=== PATIENT | male | born 1935 | race Caucasian/White ===

== ENCOUNTER 2019-04-17 15:40 | Observation (INO) | payer OTHER, MEDICARE, SELFPAY ==
[2019-04-17] VITALS (20 sets, daily range): BP systolic 138–156; BP diastolic 66–98; PULSE 45–127; RESP 12–18; TEMP 36.6–36.8; O2SAT 94–100; BMI 29.6; BMI 27.8; BMI 27.9
--- NOTE | 2019-04-17 15:58 | EKG12_ITS ---
Test Reason : Blood Pressure : / mmHG Vent. Rate : 076 BPM Atrial Rate : 076 BPM P-R Int : 194 ms QRS Dur : 130 ms QT Int : 426 ms P-R-T Axes : 066 -14 063 degrees QTc Int : 479 ms Sinus rhythm with Premature atrial complexes Right bundle branch block Possible Lateral infarct , age undetermined Abnormal ECG Confirmed by LEE TINSLEY, EZ ([id number]), sound editor LETTY REYNA ([id number]) on 04/19/2019 1:45:07 PM Referred By: MILENA Confirmed By:EZ HOWARD MD
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
[2019-04-17 16:10] LABS: Absolute Lymphocyte Count 1.32 X10^3/uL (0.83-4.51); Absolute Neutrophil Count 3.6 X10^3/uL (2.0-7.7); Basophil# 0.04 X10^3/uL; Basophil% 0.7 % (0-1); Eosinophil# 0.23 X10^3/uL; Hematocrit 41.4 % (40-54); Hemoglobin 13.6 g/dL (13.0-16.5); Lymphocyte # 1.32 X10^3/ul (4.0); Mean Corp Hgb Conc 32.9 g/dL (32-36); Mean Corpuscular Hgb 30.5 pg (27.0-32.0); Mean Corpuscular Volume 92.8 fL (80-94); Mean Platelet Vol. 9.3 fl (6.2-12.0); Monocyte# 0.55 X10^3/uL; Monocyte% 9.6 % (0-10); NRBC Flagged by Analyzer 0 % (0-5); Neutrophil # 3.59 X10^3/uL (2.7-7.7); Neutrophil % 62.4 % (47-70); Platelet Count 241 K/mm3 (150-450); RBC Distribution Width CV 13.1 % (11.6-14.6); RBC Distribution Width SD 44.5 fl (35.1-43.9); Red Blood Count 4.46 M/mm3 (4.6-6.2); White Blood Count 5.8 K/mm3 (4.4-11.0)
[2019-04-17 16:18] LABS: Prothrombin Time (Protime)PT. 13.2 SECONDS (11.7-14.9)
[2019-04-17 16:19] LABS: Partial Thromboplast Time 24.7 Seconds (24.1-36.2)
[2019-04-17 16:45] LABS: AST(SGOT) 25 U/L (15-37); Alanine Aminotransfer ALT/SGPT 31 U/L (16-61); Albumin, Serum 3.5 g/dL (3.2-5.0); Alkaline Phosphatase 80 U/L (45-117); Anion Gap 4 (5-15); BUN 21 mg/dL (7-18); BUN/Creat Ratio 18.9 RATIO (10-20); Calcium,Total 8.9 mg/dL (8.5-10.1); Chloride 107 mmol/L (98-107); Creatinine, Serum 1.11 mg/dL (0.70-1.30); EST Glomerular Filtration Rate 67 mL/min (>60); Est Glom Filt Rate - Afr Amer 82 mL/min (>60); Estimated Creatinine Clearance 52.98 ml/min; Globulin 3.5 g/dL (2.2-4.2); Glucose 116 mg/dL (74-106); Potassium 4.4 mmol/L (3.5-5.1); Sodium Level 138 mmol/L (136-145)
--- NOTE | 2019-04-17 17:21 | ED.RN ---
PT NOTED TO BE A RATE OF 30 BPM ON THE MONITOR, THIS RN TO BEDSIDE. PT WAS SOMEWHAT DIFFICULT TO AROUSE WHEN THIS RN WENT TO BEDSIDE. PT AROUSED TO REPEATED PAINFUL STIMULI. RATE INCREASED TO 65. DR ABBOTT MADE AWARE.
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
--- NOTE | 2019-04-17 18:08 | NURSING ---
pt clutched chest and said oh god its coming on again pt with eyes closed and brief period of unresponsiveness. skin clammy. pt arouses again and denies any cp but that felt like i was pasing out again. no ectopy on telemetry seen. bs checked and was 132. bp 144/66 and pulse 71. at bedside. will monitor
[2019-04-17 18:26] LABS: Bedside Glucose 132 mg/dL (70-110)
[2019-04-17 18:51] LABS: Magnesium 2.2 mg/dL (1.6-2.6)
[2019-04-17] MEDS: 0.9% Normal Saline 1,000 ML 100 ML IV (18:51)
--- NOTE | 2019-04-17 18:59 | NURSING ---
tele alarmed for hr 39 and pt symptomatic with feeling awful light headed and pt diaphoretic. pt non sustained bradycardia. edelmira kaye aware and dr. gonsalves aware. iv fluid bolus ordered
[2019-04-17] MEDS: 0.9% Normal Saline 1,000 ML 500 ML IV (19:00)
--- NOTE | 2019-04-17 19:56 | NURSING ---
This RN was called into patients room with an episode. Patient described it as not feeling right then within a minute or two he reaches for his chest, due to shortness of breath/tightness. Gradually he becomes clammy with lightheadedness. Patient denies chest pain or heart palpitations.
--- NOTE | 2019-04-17 20:07 | EKG12_ITS ---
Test Reason : [id number] TROPONIN Blood Pressure : / mmHG Vent. Rate : 078 BPM Atrial Rate : 078 BPM P-R Int : 200 ms QRS Dur : 130 ms QT Int : 424 ms P-R-T Axes : 072 -18 066 degrees QTc Int : 483 ms Normal sinus rhythm Right bundle branch block Septal infarct , age undetermined Possible Lateral infarct , age undetermined Abnormal ECG When compared with ECG of 17-APR-2019 15:53, MANUAL COMPARISON REQUIRED, DATA IS UNCONFIRMED Confirmed by LEE TINSLEY, EZ ([id number]), pictures editor LETTY REYNA ([id number]) on 04/20/2019 1:57:15 PM Referred By: ALIYAH Confirmed By:EZ HOWARD MD
[2019-04-17] MEDS: Famotidine 20 MG Tablet PO (22:14)
[2019-04-17] MEDS: Atorvastatin Calcium 40 MG Tablet PO (22:14)
[2019-04-18] VITALS (12 sets, daily range): BP systolic 123–147; BP diastolic 61–81; PULSE 49–94; RESP 16–18; TEMP 36.6–36.8; O2SAT 93–97
--- NOTE | 2019-04-18 00:26 | NURSING ---
This RN has assessed patient with each episode which is reoccurring approximately every hour. Each episode is described the same except the last two. The episode begins with patient feeling unwell which follows with shortness of breath/heaviness. Patient denies chest pain or palpitations. Gradually patient becomes clammy with feeling of being light headed. The episode at 2310 patient stated this one by far has been the worse, it seems as it lasted longer. Previous ones last approximately 3-5 minutes of being symptomatic with this one lasting approximately eight minutes. The episode at 2350 patient stated he felt it was shorter and not as bad as previous one. This episode lasted approximately 3-5 minutes of being symptomatic.
--- NOTE | 2019-04-18 01:06 | NURSING ---
This RN was called into patients room due to an episode. Patient stated he had one approximately 45 minutes ago but did no want to bother this RN. This RN encouraged patient to call out so his blood pressure could be monitored. This episode was same lasting approximately 3-5 minutes.
[2019-04-18 07:47] LABS: Thyroid Stim Hormone (TSH) 1.28 uIU/mL (0.358-3.74)
[2019-04-18] MEDS: Famotidine 20 MG Tablet PO (08:01)
[2019-04-18] MEDS: Polyethylene Glycol 3350 17 GM PACKET PO (08:01)
[2019-04-18] MEDS: Aspirin 81 MG TAB.CHEW PO (08:01)
[2019-04-18] MEDS: Multivitamins,Therapeutic Tablet 1 TABLET PO (08:02)
[2019-04-18] MEDS: DULoxetine Hcl 60 MG Capsule PO (08:02)
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
[2019-04-18] MEDS: Enoxaparin 40 MG/0.4 ML Syringe SC (09:55)
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
[2019-04-18 12:51] LABS: Bedside Glucose 121 mg/dL (70-110)
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
--- NOTE | 2019-04-18 15:05 | NURSING ---
This RN received bedside report from Noelle Dang. Will take over pt care at this time.
--- NOTE | 2019-04-18 15:05 | NURSING ---
This RN received beside report from Noelle Dang RN. Will take over time for pt at this time.
--- NOTE | 2019-04-18 15:47 | DS.PCM_ITS ---
<Aundrea Mistry - Last Filed: 04/19/19 08:43> Discharge Date and Diagnosis Date of Admission: 04/17/19 Date of Discharge: 04/18/19 - Primary Discharge Diagnosis Active and Suspected Problems 1. Syncope, secondary to bradycardia versus TIA 2. Symptomatic intermittent bradycardia 3. Hypertension 4. Hyperlipidemia 5. History of prostate cancer status post radical prostatectomy 6. 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 NPH - Secondary Discharge Diagnosis Chronic Problems HTN (hypertension) (Chronic) Taken off ACEI secondary to cough several months ago with stable, appropriate BP following. HLD (hyperlipidemia) (Chronic) Dementia (Chronic) Prostate cancer (Chronic) Hospital Course and Treatment Imaging Results: Diagnostic Data Brain CT 04/17/19 15:58 IMPRESSION: 1. No acute intracranial hemorrhage or mass effect. 2. Central parenchymal volume loss. White matter changes that are nonspecific but most commonly associated with chronic small vessel ischemic disease. Electronically Signed: Jaime Gomez MD at 16:20 EDT , Service support , Chest X-Ray 04/17/19 15:58 IMPRESSION: Stable, nonacute x-ray examination of the chest. Electronically Signed: Jaime Gomez MD at 16:30 EDT , Service support , Cervical Spine CT 04/17/19 17:22 IMPRESSION: Multilevel degenerative changes, as described above. There is no evidence of fracture or subluxation. Electronically Signed: Harpreet Leos MD at 17:54 EDT , Service support , Dr. Desir- Cardiology Operations: None Procedures: None Summary of Care Provided: The patient is a 84 year old M admitted 04/17/2019 due to syncope. 1. Syncope, secondary to bradycardia versus TIA-patient continues to have intermittent symptoms which appear associated with bradycardia. Cardiology evaluated patient and patient had episode during examination and he became confused, unable to follow commands and left arm appeared to be weak. This lasted 20 to 30 seconds and then completely resolved. Cardiology feels patient needs neurologic evaluation and therefore patient was subsequently transferred to [facility] where patient's primary neurologist is for further evaluation. 2. Symptomatic intermittent bradycardia-episodes last briefly, patient appears to have symptoms with these episodes. Monitor telemetry. Patient is not on rate limiting medications. EKG on admission with sinus rhythm, right bundle branch block. Cardiology consult placed as noted above. 3. Hypertension-stable, no longer on regimen. 4. Hyperlipidemia-continue statin. 5. History of prostate cancer status post radical prostatectomy 6. 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 NPH-follows with [facility] neurology. General: Alert, Oriented x3, Cooperative HEENT: Atraumatic, PERRLA, EOMI, Normocephalic Neck: Supple, No JVD, Negative Carotid Bruits Lungs: Clear to auscultation, Normal air movement Cardiovascular: Regular rate, Regular Rhythm, Normal S1, Normal S2, No murmurs Abdomen: Bowel Sounds Present, Soft, Non Tender, Non-Distended Extremities: No clubbing, No cyanosis, No edema, Capillary Refill Less than 3 Seconds Skin: No rashes, No breakdown Musculoskeletal: No Tenderness to Palpation of Joints or Extremities Neurological: Cranial nerves II-XII grossly intact, Neuro grossly intact Psych/Mental Status: Normal Affect, Appropriate Patient seen and examined prior to discharge. Physical assessment as noted above. Patient is stable at time of transfer to [facility] for further evaluation. This patient was seen by PREETI Infante under the supervision of Dr. Waters. - Physical Exam Vital Signs Temp Pulse Resp BP Pulse Ox 97.9 F 72 18 141/66 H 97 04/18/19 15:30 04/18/19 15:30 04/18/19 15:30 04/18/19 15:30 04/18/19 15:30 Oxygen Delivery Method Room Air Weight: 197 lb 1.492 oz Body Mass Index (BMI) 27.8 Finger Stick Blood Glucose 118 Orthostatic Vital Signs Start: 04/18/19 11:06 Freq: q24h Status: Active Protocol: Activity Type Activity Date Activity User E-Sign Co-Sign Detail Recorded Client Recorded Date Recorded By Document 04/18/19 11:48 EA [id number] 04/18/19 11:48 EA 04/18/19 11:48 Orthostatic Vitals Standing -Blood Pressure (90/60-120/80) 136/71 H -Extremity Use Right Arm -Pulse Rate (60-100) 84 Sitting -Blood Pressure (90/60-120/80) 132/71 H -Extremity Use Right Arm -Pulse Rate (60-100) 80 Lying -Blood Pressure (90/60-120/80) 137/61 H -Extremity Use Right Arm -Pulse Rate (60-100) 79 Intake and Output for Last 24 Hours 04/16/19 04/17/19 04/18/19 23:59 23:59 23:59 Intake Total 2658 / 2658 Output Total 1325 / 1325 Balance 1333 / 1333 Laboratory Tests Past 24 Hrs 04/17/19 04/17/19 04/17/19 15:50 15:50 15:50 WBC 5.8 RBC 4.46 L Hgb 13.6 Hct 41.4 MCV 92.8 MCH 30.5 MCHC 32.9 RDW Std Deviation 44.5 H RDW Coeff of Lucy 13.1 Plt Count 241 MPV 9.3 Immature Gran % (Auto) 0.300 Neut % (Auto) 62.4 Lymph % (Auto) 23.0 [place] % (Auto) 9.6 Eos % (Auto) 4.0 Baso % (Auto) 0.7 Absolute Neuts (auto) 3.6 Absolute Lymphs (auto) 1.32 Absolute Nucleated RBC 0.00 Nucleated RBC % 0 PT 13.2 INR 1.0 APTT 24.7 Sodium 138 Potassium 4.4 Chloride 107 Carbon Dioxide 27.0 Anion Gap 4 L BUN 21 H Creatinine 1.11 Estim Creat Clear Calc 52.98 Est GFR (MDRD) Af Amer 82 Est GFR (MDRD) Non-Af 67 BUN/Creatinine Ratio 18.9 Glucose 116 H Calcium 8.9 Magnesium Total Bilirubin 0.40 AST 25 ALT 31 Alkaline Phosphatase 80 Troponin I < 0.015 Total Protein 7.0 Albumin 3.5 Globulin 3.5 Albumin/Globulin Ratio 1.0 TSH Ethyl Alcohol 04/17/19 04/17/19 04/17/19 15:50 15:50 19:05 WBC RBC Hgb Hct MCV MCH MCHC RDW Std Deviation RDW Coeff of Lucy Plt Count MPV Immature Gran % (Auto) Neut % (Auto) Lymph % (Auto) [place] % (Auto) Eos % (Auto) Baso % (Auto) Absolute Neuts (auto) Absolute Lymphs (auto) Absolute Nucleated RBC Nucleated RBC % PT INR APTT Sodium Potassium Chloride Carbon Dioxide Anion Gap BUN Creatinine Estim Creat Clear Calc Est GFR (MDRD) Af Amer Est GFR (MDRD) Non-Af BUN/Creatinine Ratio Glucose Calcium Magnesium 2.2 Total Bilirubin AST ALT Alkaline Phosphatase Troponin I < 0.015 Total Protein Albumin Globulin Albumin/Globulin Ratio TSH Ethyl Alcohol 10.0 04/17/19 04/18/19 21:43 06:25 WBC RBC Hgb Hct MCV MCH MCHC RDW Std Deviation RDW Coeff of Lucy Plt Count MPV Immature Gran % (Auto) Neut % (Auto) Lymph % (Auto) [place] % (Auto) Eos % (Auto) Baso % (Auto) Absolute Neuts (auto) Absolute Lymphs (auto) Absolute Nucleated RBC Nucleated RBC % PT INR APTT Sodium Potassium Chloride Carbon Dioxide Anion Gap BUN Creatinine Estim Creat Clear Calc Est GFR (MDRD) Af Amer Est GFR (MDRD) Non-Af BUN/Creatinine Ratio Glucose Calcium Magnesium Total Bilirubin AST ALT Alkaline Phosphatase Troponin I < 0.015 Total Protein Albumin Globulin Albumin/Globulin Ratio TSH 1.28 Ethyl Alcohol POC Glucose 04/18/19 04/17/19 12:47 18:06 POC Glucose 121 H 132 H Home Medications: Medications to take at Discharge Aspirin [Aspirin, Baby] 81 mg PO DAILY@0800 05/14/17 Lysine [l-Lysine] 500 mg PO DAILY 05/14/17 Multivitamin [Multiple Vitamins] 1 each PO DAILY 05/14/17 [place]-3/Dha/Epa/Fish Oil [Fish Oil 1,000 mg Softgel] 1 each PO DAILY 05/14/17 Rosuvastatin Calcium [Crestor] 20 mg PO DAILY 05/14/17 Ubidecarenone [Coq10] 300 mg PO DAILY 05/14/17 Duloxetine HCl 60 mg PO DAILY 04/17/19 Turmeric/Turmeric Root Extract [Turmeric 500 mg Capsule] 1 ea PO DAILY 04/17/19 Primary Care Physician: Kapil Lara DO [Primary Care Provider] - Disposition: Acute care Hospital Minutes spent on discharge:: 35 Patient Condition:: Stable Medical Necessity - Tobacco Use Smoking Status: Never smoker Meaningful Use Info Meaningful Use Diagnoses (Choose all that apply): None applicable <Chapincito Waters - Last Filed: 04/20/19 03:42> Discharge Date and Diagnosis - Secondary Discharge Diagnosis Chronic Problems HTN (hypertension) (Chronic) Taken off ACEI secondary to cough several months ago with stable, appropriate BP following. HLD (hyperlipidemia) (Chronic) Dementia (Chronic) Prostate cancer (Chronic) Hospital Course and Treatment Summary of Care Provided: The patient is a 84 year old M [] - Physical Exam Vital Signs Temp Pulse Resp BP Pulse Ox 97.9 F 73 18 147/81 H 97 04/18/19 17:18 04/18/19 17:18 04/18/19 17:18 04/18/19 17:18 04/18/19 17:18 Oxygen Delivery Method Room Air Weight: 197 lb 1.492 oz Body Mass Index (BMI) 27.8 Finger Stick Blood Glucose 118 Intake and Output for Last 24 Hours 04/18/19 04/19/19 04/20/19 23:59 23:59 23:59 Intake Total 2878 / 2878 Output Total 1325 / 1325 Balance 1553 / 1553 Code Visit Addendum: Dr. Wtaers I personally examined the patient and reviewed the chart. I agree with the above. 84-year-old gentleman who presented with syncope. Today he was being seen by cardiology when he had 1-2 episode of left arm weakness for 30 seconds to 1 minute in duration, he could not lift his arm. In discussing with him he has a neurologist for his normal pressure hydrocephalus in [place] and he would like to be transferred there since there is no neurology coverage over the weekends. We did discuss the case with [facility] neurology and they agreed to accept patient in transfer. OBSV E&M: [id number] Observation care discharge
--- NOTE | 2019-04-18 18:32 | NURSING ---
This RN called report to [facility]STANT[facility] Loja.
== END 2019-04-18 18:31 | disposition short-term general hospital (02) ==
LOC: ED 16:30 → PCU 17:28
PROVIDERS: Admitting Provider Internal Medicine; Emergency Provider Emergency Medicine; Family Provider Student in an Organized Health Care Education/Training Program; PCP Student in an Organized Health Care Education/Training Program; Visit Provider Family Medicine
DX: R55 Syncope and collapse (principal); I45.10 Unspecified right bundle-branch block; E78.5 Hyperlipidemia, unspecified; I10 Essential (primary) hypertension; F03.90 Unspecified dementia, unspecified severity, without behavioral disturbance, psychotic disturbance, mood disturbance, and anxiety; G91.2 (Idiopathic) normal pressure hydrocephalus; R00.1 Bradycardia, unspecified; S30.1XXD Contusion of abdominal wall, subsequent encounter; W19.XXXD Unspecified fall, subsequent encounter; Z85.46 Personal history of malignant neoplasm of prostate; Z79.82 Long term (current) use of aspirin; Z79.899 Other long term (current) drug therapy; Z86.73 Personal history of transient ischemic attack (TIA), and cerebral infarction without residual deficits
CPT/HCPCS: 36415; 70450; 71046; 72125; 80053; 80320; 82962; 83735; 84443; 84484; 85025; 85610; 85730; 93005; 96360; 96361; 96372; 97161; 97165; 99218; 99285; J7030; A4216; G0378; G0480

== ENCOUNTER 2020-10-27 15:03 | Outpatient (RCR) | payer MEDICARE, OTHER, SELFPAY ==
[2019-04-17 17:52] VITALS: BMI 27.8
== END 2020-10-27 23:59 ==
LOC: IMMUN 15:03
PROVIDERS: PCP Student in an Organized Health Care Education/Training Program; Referring Provider Family Medicine; Visit Provider Family Medicine
DX: Z23 Encounter for immunization (principal)
CPT/HCPCS: 0011A; 0012A; 91301

== ENCOUNTER 2022-03-04 18:04 | Emergency (ER) | payer MEDICARE, OTHER, SELFPAY ==
[2022-03-04 18:05] VITALS: BP 128/81; PULSE 82; RESP 16; TEMP 36.8; O2SAT 94; BMI 26.5
--- NOTE | 2022-03-04 18:33 | EDS_ITS ---
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 Nothing specific that may have caused an injury) Timing: Continuous and Waxes and wanes Quality: Dull Location: Lumbar Current Severity: Mild Maximum Severity: Severe Worsened by: improves with Movement and Bending Relieved by: Nothing Associated Symptoms Associated Symptoms: - (Patient does endorse urgency); Negative for Numbness, Tingling, Radiation to Right Leg, Radiation to Left Leg, Fever, Abdominal Pain, Dysuria, Unable to Ambulate, Unable to Transfer, Urinary Retention, Urinary Incontinence, Constipation and Fecal Incontinence Narrative Narrative: Patient presents because of 6-day history of low left back pain. There is no radiation to the groin. There is no swelling of the scrotum or testicle. He has a remote history of kidney stone, 20 years ago. He denies nausea or vomiting. He denies dysuria, frequency or hematuria. He does endorse urgency. He is status post prostatectomy due to cancer. There is no history of direct trauma. Patient is outdoors and gardens a lot. He may have done something but nothing that he can recall. He denies radicular pain. Denies foot drop. He denies weakness in his lower extremities. He apparently was seen at the [facility] on Friday and states they could do nothing because the are not able to image. Family member asked if I was going to get any images and I informed them at this time no. Prior similar symptoms: Yes Recent Illness/Hospitalization: No [facility] Medical History (Updated 03/04/22 @ 19:[address] Jens Draper MD) Dementia High cholesterol History of hydrocephalus History of kidney stones History of prostate cancer Hypertension Home Medications coenzyme Q10 300 mg PO DAILY 05/14/17 [History Last Taken 05/13/17] lysine [L-Lysine] 500 mg PO DAILY 05/14/17 [History Last Taken 05/13/17] multivitamin [Multiple Vitamins] 1 ea PO DAILY 05/14/17 [History Last Taken ] omega 9-[id number]-vxo-fish oil [Fish Oil] 1 ea PO DAILY 05/14/17 [History Last Taken 05/13/17] rosuvastatin [Crestor] 20 mg PO DAILY 05/14/17 [History Last Taken 05/13/17] turmeric-turmeric root extract 1 ea PO DAILY 04/17/19 [History Last Taken Unknown] albuterol 90 mcg INHALATION Q4H PRN 03/04/22 [History Last Taken Unknown] amlodipine 5 mg PO DAILY 03/04/22 [History Last Taken Unknown] cholecalciferol (vitamin D3) [Vitamin D3] 125 mcg PO DAILY 03/04/22 [History Last Taken Unknown] cyanocobalamin (vitamin B-12) 1,000 mcg IM QMONTH 03/04/22 [History Last Taken Unknown] fexofenadine [Deyanira] 180 mg PO DAILY 03/04/22 [History Last Taken Unknown] fluoxetine 10 mg PO DAILY 03/04/22 [History Last Taken Unknown] fluticasone propionate [Flovent HFA] 1 puff INHALATION BID 03/04/22 [History Las t Taken Unknown] hydrocodone-acetaminophen 1 tab PO Q6H PRN PRN 3 Days #10 tablet 03/04/22 [Rx Last Taken Unknown] rivaroxaban [Xarelto] 20 mg PO DINNER 03/04/22 [History Last Taken Unknown] Allergy/AdvReac Type Severity Reaction Status Date / Time ciprofloxacin [From Cipro] Allergy Hives Verified 03/04/22 18:08 crab Allergy Anaphylaxis Verified 03/04/22 18:08 Penicillins Allergy Hives Verified 03/04/22 18:08 Surgical History (Updated 03/04/22 @ 18:43 by Yamilet Suarez) History of appendectomy History of tonsillectomy Intracranial shunt Social History (Updated 03/04/22 @ 18:[address] Jens Draper MD) household members: none Smoking Status: Never smoker substance use type: does not use ROS ROS ED Constitutional Constitutional ED: Denies chills, fever(s), subjective or sweats Eyes Eyes: Denies blurry vision, change in vision or diplopia ENT ENT ED: Denies ear pain, rhinorrhea or sore throat Cardiovascular Cardiovascular: Denies chest pain or palpitations Respiratory/Chest Respiratory/Chest: Denies dyspnea Gastrointestinal Gastrointestinal: Denies abdominal pain, constipation, diarrhea, nausea or vomiting Genitourinary Genitourinary ED: Denies dysuria, hematuria or urinary frequency Musculoskeletal Musculoskeletal: Reports back pain; Denies arthralgias, myalgias or neck pain Neurologic Neurologic: Denies paresthesias or weakness EXAM Physical Exam Const Vital Signs: 03/04/22 18:05 03/04/22 18:35 Temperature 98.2 F Temperature Source Temporal Pulse Rate 82 Respiratory Rate 16 Respiratory Effort Normal Non-Labored Respiratory Pattern Normal Blood Pressure 128/81 H Blood Pressure Mean 96 Pulse Ox 94 Oxygen Delivery Method Room Air Positive well nourished and well developed Constitutional Narrative: Patient is in obvious discomfort when asked to sit up or lie back. This reproduces his left lower back pain. General Appearance ED: well developed and NAD; Negative for pallor HEENT Negative for trauma or tenderness Eyes PERRL and EOMs intact bilaterally General Eye ED: Negative for pale conjunctiva or scleral icterus Neck supple Resp normal respiratory effort and clear to auscultation bilaterally Cardio regular rate, regular rhythm, S1 normal heart sound, S2 normal heart sound and no murmurs GI normal to inspection, nondistended, normoactive bowel sounds, soft to palpation, non-tender and non-distended Back/Spine normal to inspection; Negative for no thoracic nor lumbar tenderness Back/Spine Narrative: There is pain no patient left lower back that reproduces his pain. There is a well-healed surgical scar noted. General Back: Negative for CVA tenderness Cervical Spine: Negative for cervical spine tenderness and Negative for paracervical muscle tenderness Thoracic Spine / Upper Back: paraspinal muscle tenderness Extremity normal to inspection and no clubbing, cyanosis or edema General Extremety ED: Negative for edema or tenderness General Extremity: Negative for edema Psych mental status grossly normal Skin no rashes or lesions noted and no wounds General Skin Exam: Negative for jaundice or pallor MDM MDM MDM Narrative Medical decision making narrative: Back patient's left lower back pain is musculoskeletal etiology since its reproducible with palpation and movement. Because he complains of urgency will obtain UA to rule out infection and to assess for blood. Lab Data Attestation: I reviewed the patient's lab results. Lab results narrative: Macro urinalysis is negative. Specific gravity slight elevated 1.025. This is consistent with muscular low back pain. There is no concern for infection. Will discharge to home with appropriate home-going instructions Labs: Laboratory Results - last 24 hr 03/04/22 18:22 Urine Color Yellow Urine Clarity Clear Urine pH 6.0 Ur Specific [place] 1.025 Urine Protein Negative Urine Glucose (UA) Normal Urine Ketones Negative Urine Occult Blood Negative Urine Nitrite Negative Urine Bilirubin Negative Urine Urobilinogen Normal Ur Leukocyte Esterase Negative Discharge Plan Triage Chief Complaint: Flank Pain ED Provider: Jens Draper Dx/Rx/DC Orders Clinical Impression: Acute left-sided low back pain Instructions: ED Back Pain (Acute or Chronic) Prescriptions: New hydrocodone-acetaminophen [hydrocodone-acetaminophen] 1 TABLET tablet 1 tab PO Q6H PRN PRN (Reason: Pain) 3 Days Qty: 10 RF: 0 No Action rosuvastatin [Crestor] 20 MG tablet 20 mg PO DAILY RF: 0 multivitamin [Multiple Vitamins] 1 EACH tablet 1 ea PO DAILY RF: 0 lysine [L-Lysine] 500 MG tablet 500 mg PO DAILY RF: 0 omega 2-xpd-ick-fish oil [Fish Oil] 1 EACH capsule 1 ea PO DAILY RF: 0 coenzyme Q10 50 MG tablet,chewable 300 mg PO DAILY RF: 0 turmeric-turmeric root extract 1 EACH capsule 1 ea PO DAILY RF: 0 fexofenadine [Deyanira] 180 mg Tablet 180 mg PO DAILY RF: 0 amlodipine 5 mg Tablet 5 mg PO DAILY RF: 0 cyanocobalamin (vitamin B-12) 1,000 mcg/mL solution 1,000 mcg IM QMONTH RF: 0 fluoxetine 10 mg capsule 10 mg PO DAILY RF: 0 albuterol 90 mcg/actuation Aerosol 90 mcg INHALATION Q4H PRN (Reason: sob) RF: 0 fluticasone propionate [Flovent HFA] 110 mcg/actuation Hfa Aerosol Inhaler 1 puff INHALATION BID RF: 0 cholecalciferol (vitamin D3) [Vitamin D3] 125 mcg (5,000 unit) Tablet 125 mcg PO DAILY RF: 0 Xarelto 20 mg tablet 20 mg PO DINNER RF: 0 Primary Care Provider: Kapil Lara Referrals: Kapil Lara DO [Primary Care Provider] - 1 Week if not improving Activity Restrictions/Additional Instructions: 1. Apply ice to lower back 6-8 times per day 2. Return if you are unable to urinate or lose bowel control 3. Take [place] as prescribed for your back pain Disposition Disposition: Home, Self Care
[2022-03-04 18:44] LABS: Bacteria 0 SEEN /hpf (None Seen); Mucous, Urine 0 SEEN /hpf (<or=2+); Red Blood Cells-Urine 0 SEEN /hpf (0-5); Squamous Epithelial Cells - UA 0 SEEN /hpf (0-5); White Blood Cells 0 SEEN /hpf (0-5)
[2022-03-04 18:55] LABS: Color, Urine Yellow (Yellow); Glucose, Dipstick Normal (Normal); Ketone-Dipstick Negative (Negative); Leukocyte Esterase-Dipstick Negative /ul (Negative); Nitrite-Dipstick Negative (Negative); Occult Blood-Urine Negative /ul (Negative); Protein-Dipstick Negative (Negative); Specific Gravity, Urine 1.025 (1.002-1.030); Urine Bilirubin Dipstick Negative (Negative); Urine Clarity Clear (Clear); Urine Urobilinogen Normal (Normal)
== END 2022-03-04 19:26 | disposition home or self-care (01) ==
PROVIDERS: Emergency Provider Emergency Medicine; PCP Student in an Organized Health Care Education/Training Program; Visit Provider Emergency Medicine
DX: M54.50 Low back pain, unspecified (principal); F03.90 Unspecified dementia, unspecified severity, without behavioral disturbance, psychotic disturbance, mood disturbance, and anxiety; I10 Essential (primary) hypertension; E78.00 Pure hypercholesterolemia, unspecified; Z85.46 Personal history of malignant neoplasm of prostate; Z87.442 Personal history of urinary calculi; Z79.899 Other long term (current) drug therapy
CPT/HCPCS: 81001; 99283; A4216

== ENCOUNTER 2023-03-27 13:23 | Emergency (ER) | payer MEDICARE, OTHER, SELFPAY ==
[2023-03-27 13:23] VITALS: BP 167/69; PULSE 59; RESP 14; TEMP 36.6; O2SAT 96
--- NOTE | 2023-03-27 13:58 | CT_ITS ---
STUDY: CT ABDOMEN AND PELVIS WITHOUT CONTRAST REASON FOR EXAM: Male, 87 years old. Kidney Stone- RIGHT FLANK PAIN RADIATION DOSAGE (If Supplied By Facility): CTDIvol = ( 8.43 ) mGy, DLP = ( 463.37 ) mGycm TECHNIQUE: Transaxial images were obtained from the dome of the diaphragm to the symphysis pubis without oral contrast, and without intravenous contrast. Sagittal and coronal images were reconstructed. Individualized dose optimization techniques were used for this CT. COMPARISON: Comparison is made with prior study dated January 24, 2016. FINDINGS: The visualized lung bases are unremarkable. Coronary artery calcification. 1.8 cm cyst in the anterior aspect of the right lobe of the liver. 1.3 cm cyst in the region of the maribel hepatis. Small gallstone in the neck of the gallbladder. Normal spleen. Normal pancreas. Normal bilateral adrenal glands. Small bilateral parapelvic cysts. 1.4 cm cyst in the lateral aspect of the left kidney. Nonspecific bilateral perinephric stranding. There is a small hiatal hernia. Normal small intestine. There are multiple colonic diverticula consistent with diverticulosis. The appendix is visualized and appears normal. There is diffuse atherosclerotic calcification of the abdominal aorta and its major visceral branches, without a demonstrated aneurysm. Normal inferior vena cava. Normal retroperitoneum. Normal urinary bladder. A ventriculoperitoneal shunt is seen with the tip in the lower abdomen. Calcification of the vas deferens. Normal abdominal wall. There are diffuse degenerative changes of the visualized lumbar spine. Levoscoliosis. CT/Abdomen/Pelvis without Cont IMPRESSION: Hepatic cysts. Small gallstone in the neck of the gallbladder. Small bilateral parapelvic cysts. Diverticulosis. Electronically Signed: Marco Antonio Cummings MD at 15:07 EDT ,
[2023-03-27 14:19] LABS: Absolute Lymphocyte Count 0.87 X10^3/uL (0.83-4.51); Absolute Neutrophil Count 5.1 X10^3/uL (2.0-7.7); Basophil# 0.04 X10^3/uL; Basophil% 0.6 % (0-1); Eosinophil# 0.18 X10^3/uL; Eosinophils% 2.6 % (0-5); Hematocrit 42.8 % (40-54); Hemoglobin 13.8 g/dL (13.0-16.5); Lymphocyte # 0.87 X10^3/ul (0.83-4.51); Lymphocyte % 12.6 % (19-41); Mean Corp Hgb Conc 32.2 g/dL (32-36); Mean Corpuscular Hgb 30.3 pg (27.0-32.0); Mean Corpuscular Volume 94.1 fL (80-94); Mean Platelet Vol. 9.5 fl (6.2-12.0); Monocyte# 0.69 X10^3/uL; NRBC Flagged by Analyzer 0 % (0-5); Neutrophil # 5.12 X10^3/uL (2.7-7.7); Neutrophil % 73.8 % (47-70); Platelet Count 238 K/mm3 (150-450); RBC Distribution Width CV 12.5 % (11.6-14.6); RBC Distribution Width SD 43.4 fl (35.1-43.9); Red Blood Count 4.55 M/mm3 (4.6-6.2); White Blood Count 6.9 K/mm3 (4.4-11.0)
[2023-03-27 14:29] LABS: Anion Gap 2 (5-15); BUN 19 mg/dL (7-18); BUN/Creat Ratio 18.4 RATIO (10-20); Calcium,Total 9.1 mg/dL (8.5-10.1); Chloride 107 mmol/L (98-107); Creatinine, Serum 1.03 mg/dL (0.70-1.30); EST Glomerular Filtration Rate 73 mL/min (>60); Est Glom Filt Rate - Afr Amer 88 mL/min (>60); Glucose 95 mg/dL (74-106); Potassium 5.1 mmol/L (3.5-5.1); Sodium Level 139 mmol/L (136-145)
[2023-03-27] MEDS: Ondansetron 4 MG/2 ML Vial IV (14:36)
[2023-03-27] MEDS: Morphine 4 MG/ML Syringe IV (14:36)
[2023-03-27] MEDS: 0.9% Normal Saline 1,000 ML 250 ML IV (14:36)
[2023-03-27 14:53] VITALS: BMI 26.6
--- NOTE | 2023-03-27 15:00 | EDS_ITS ---
HPI History of Present Illness Chief Complaint: Flank Pain Informant: patient and spouse/S.O. Narrative Narrative: Increasing right flank pain rating to his groin since yesterday. Went to urgent care with laying down got nauseous sat up felt better. No urinary symptoms. No fevers. Reports headache kidney stone last time 25 years ago self-limiting. Prior to that had a stone that required surgical intervention. Prostatectomy in 2009. He was seen by [facility] urology at that time. Does not follow urology currently. Reports feels similar to his kidney stone in the past. Prior similar symptoms: Yes PFSH PFSH Medical History Dementia High cholesterol History of hydrocephalus History of kidney stones History of prostate cancer Hypertension Home Medications coenzyme Q10 50 mg chewable tablet 300 mg PO DAILY supplement 05/14/17 [History Last Taken 05/13/17] lysine 500 mg tablet (L-Lysine) 500 mg PO DAILY supplement 05/14/17 [History Last Taken 05/13/17] multivitamin (Multiple Vitamins tablet) 1 ea PO DAILY supplement 05/14/17 [History Last Taken 05/13/17] omega 3-nnq-pzx-fish oil 300 mg-1,000 mg capsule (Fish Oil) 1 ea PO DAILY supplement 05/14/17 [History Last Taken 05/13/17] rosuvastatin 20 mg tablet (Crestor) 20 mg PO DAILY cholesterol lowering 05/14/17 [History Last Taken 05/13/17] turmeric 450 mg-turmeric root extract 50 mg capsule 1 ea PO DAILY 04/17/19 [History Last Taken Unknown] albuterol 90 mcg/actuation aerosol inhaler 90 mcg inhalation Q4H PRN sob 03/04/22 [History Last Taken Unknown] amlodipine 5 mg tablet 5 mg PO DAILY 03/04/22 [History Last Taken Unknown] cholecalciferol (vitamin D3) 125 mcg (5,000 unit) tablet (Vitamin D3) 125 mcg PO DAILY 03/04/22 [History Last Taken Unknown] cyanocobalamin (vitamin B-12) 1,000 mcg/mL injection solution 1,000 mcg IM QMONTH 03/04/22 [History Last Taken Unknown] fexofenadine 180 mg tablet 180 mg PO DAILY 03/04/22 [History Last Taken Unknown] fluoxetine 10 mg capsule 10 mg PO DAILY 03/04/22 [History Last Taken Unknown] fluticasone propionate 110 mcg/actuation HFA aerosol inhaler (Flovent HFA) 1 puff inhalation BID 03/04/22 [History Last Taken Unknown] hydrocodone-acetaminophen 5-325mg 5mg-325mg 1 tab PO Q6H PRN PRN Pain 3 days #10 TABLETS 03/04/22 [Rx Last Taken Unknown] rivaroxaban 20 mg tablet (Xarelto) 20 mg PO DINNER 03/04/22 [History Last Taken Unknown] gabapentin 300 mg capsule 300 mg PO QHS #30 caps 03/27/23 [Rx Last Taken Unknown] Allergy/AdvReac Type Severity Reaction Status Date / Time ciprofloxacin [From Cipro] Allergy Hives Verified 03/27/23 13:33 crab Allergy Anaphylaxis Verified 03/27/23 13:33 Penicillins Allergy Hives Verified 03/27/23 13:33 Surgical History History of appendectomy History of tonsillectomy Intracranial shunt Social History household members: none Smoking Status: Never smoker substance use type: does not use ROS ROS ED Constitutional Constitutional ED: Denies chills, fever(s) or sweats Eyes Eyes: Denies change in vision ENT ENT ED: Denies dysphagia or sore throat Cardiovascular Cardiovascular: Denies chest pain, leg edema, palpitations or racing heartbeat Respiratory/Chest Respiratory/Chest: Denies cough, dyspnea or dyspnea on exertion Gastrointestinal Gastrointestinal: Denies abdominal pain, diarrhea, nausea or vomiting Genitourinary Genitourinary ED: Denies dysuria, hematuria or urinary frequency Musculoskeletal Musculoskeletal: Reports back pain; Denies extremity pain or neck pain Integumentary Denies rash or wounds Neurologic Neurologic: Denies headache(s), paresthesias or weakness EXAM Physical Exam Const Vital Signs: 03/27/23 13:23 03/27/23 13:35 03/27/23 15:42 Temperature 98 F Temperature Source Temporal Pulse Rate 59 L 68 Respiratory Rate 14 14 Respiratory Effort Normal Non-Labored Respiratory Pattern Normal Blood Pressure 167/69 H 153/75 H Blood Pressure Mean 101 101 Pulse Ox 96 98 Oxygen Delivery Method Room Air Room Air 03/27/23 16:27 Temperature Temperature Source Pulse Rate Respiratory Rate 17 Respiratory Effort Respiratory Pattern Blood Pressure 142/97 H Blood Pressure Mean Pulse Ox 98 Oxygen Delivery Method Positive well nourished and well developed Constitutional Narrative: Nontoxic General Appearance ED: well developed HEENT Reports moist mucous membranes normocephalic and atraumatic Eyes PERRL, EOMs intact bilaterally and conjunctivae normal General Eye ED: Yes normal appearance of both eyes Neck no lymphadenopathy and supple General: Negative for tenderness Chest Wall Chest: Negative for tenderness Resp normal respiratory effort and normal air movement Effort and Inspection: symmetric chest movement; Negative for respiratory distress Cardio regular rate, regular rhythm and no murmurs Peripheral Pulses: pulses 2+ throughout GI normal to inspection, nondistended, normoactive bowel sounds and non-tender Palpation: Negative for guarding or rebound tenderness present Back/Spine no CVA tenderness and no thoracic nor lumbar tenderness Back/Spine Narrative: No rash Extremity normal to inspection General Extremety ED: Negative for edema or tenderness General Extremity: Negative for edema Neuro oriented x3 and no sensory deficits noted Sensorium / Orientation: awake and alert Skin no rashes or lesions noted and no wounds MDM MDM MDM Narrative Medical decision making narrative: Interventions / MDM: Differential diagnosis: Renal colic, kidney stone Diagnosis considered but do not suspect: N/A My EKG interpretation: N/A Imaging independently reviewed and interpreted by myself: CT scan abdomen pelvis: No obstructive uropathy. Incidental gallstone. Normal appendix. No acute findings. This is also read by radiology. External documents reviewed: N/A Test considered but not ordered:N/A ED course: Presenting with flank pain radiating, renal stone protocol initiated. He is given morphine Zofran avoid NSAIDs due to being on Xarelto. Labs are stable. CT scan negative for acute process incidental cholelithiasis. Reevaluation improving symptoms. He has no current rash. Radicular symptoms discussed with patient treatment with gabapentin to help with symptoms of monitor for rash. He does report some pain with movement of his back. We will follow-up with his PCP. Rash breaks out he will contact PCP or healthcare provider for early treatment of shingles. He understands this. All questions were answered. Urine returned negative. Re-evaluation: stable Disposition discussed with patient/family/significant other: Patient and significant other Case discussed with consulting clinician: N/A This note was generated with Dragon dictation software. It may contain incorrect words, spelling, and punctuation that were not noted in checking the note before signing. Lab Data Attestation: I reviewed the patient's lab results. Labs: Laboratory Results - last 24 hr 03/27/23 03/27/23 14:09 15:30 WBC 6.9 RBC 4.55 L Hgb 13.8 Hct 42.8 MCV 94.1 H MCH 30.3 MCHC 32.2 RDW Std Deviation 43.4 RDW Coeff of Lucy 12.5 Plt Count 238 MPV 9.5 Immature Gran % (Auto) 0.400 Neut % (Auto) 73.8 H Lymph % (Auto) 12.6 L [place] % (Auto) 10.0 Eos % (Auto) 2.6 Baso % (Auto) 0.6 Absolute Neuts (auto) 5.1 Absolute Lymphs (auto) 0.87 Nucleated RBC % 0 Sodium 139 Potassium 5.1 Chloride 107 Carbon Dioxide 30.0 Anion Gap 2 L BUN 19 H Creatinine 1.03 Est GFR (MDRD) Af Amer 88 Est GFR (MDRD) Non-Af 73 BUN/Creatinine Ratio 18.4 Glucose 95 Calcium 9.1 Urine Color Yellow Urine Clarity Clear Urine pH 6.5 Ur Specific [place] 1.010 Urine Protein Negative Urine Glucose (UA) Normal Urine Ketones Negative Urine Occult Blood Negative Urine Nitrite Negative Urine Bilirubin Negative Urine Urobilinogen Normal Ur Leukocyte Esterase Negative Urine RBC 0 SEEN Urine WBC 0 SEEN Ur Squamous Epith Cells 0 SEEN Urine Bacteria 0 SEEN Urine Mucus 0 SEEN Radiography Diagnostic Testing: Clinical Impression(s) from Imaging Studies Abdomen/Pelvis CT 03/27/23 13:58 IMPRESSION: Hepatic cysts. Small gallstone in the neck of the gallbladder. Small bilateral parapelvic cysts. Diverticulosis. Electronically Signed: Marco Antonio Cummings MD at 15:07 EDT , Discharge Plan Triage Chief Complaint: Flank Pain ED Provider: Marcin Troncoso Dx/Rx/DC Orders Clinical Impression: Right flank pain, Cholelithiasis Instructions: Gallstones Dc, ED Flank Pain, Uncertain Cause Prescriptions: New gabapentin 300 mg capsule 300 mg PO QHS Qty: 30 0RF No Action rosuvastatin [Crestor] 20 MG tablet 20 mg PO DAILY multivitamin [Multiple Vitamins] 1 EACH tablet 1 ea PO DAILY lysine [L-Lysine] 500 MG tablet 500 mg PO DAILY omega 8-ajf-xgl-fish oil [Fish Oil] 1 EACH capsule 1 ea PO DAILY coenzyme Q10 50 MG tablet,chewable 300 mg PO DAILY turmeric-turmeric root extract 1 EACH capsule 1 ea PO DAILY fexofenadine [Deyanira] 180 mg Tablet 180 mg PO DAILY amlodipine 5 mg Tablet 5 mg PO DAILY cyanocobalamin (vitamin B-12) 1,000 mcg/mL solution 1,000 mcg IM QMONTH Patient Comments: Inject 1 mL intramuscularly once every month. fluoxetine 10 mg capsule 10 mg PO DAILY albuterol 90 mcg/actuation Aerosol 90 mcg INHALATION Q4H PRN (Reason: sob) fluticasone propionate [Flovent HFA] 110 mcg/actuation Hfa Aerosol Inhaler 1 puff INHALATION BID cholecalciferol (vitamin D3) [Vitamin D3] 125 mcg (5,000 unit) Tablet 125 mcg PO DAILY Xarelto 20 mg tablet 20 mg PO DINNER hydrocodone-acetaminophen [hydrocodone-acetaminophen] 1 TABLET tablet 1 tab PO Q6H PRN PRN (Reason: Pain) 3 Days Qty: 10 0RF Primary Care Provider: Kapil Lara Referrals: Kapil Lara DO [Primary Care Provider] - 3-5 Days Activity Restrictions/Additional Instructions: CT scan negative for kidney stones. Incidental gallstone noted. Monitor for rash for concerns of shingles. Pain can also be from lumbar radiculopathy. Use gabapentin as prescribed. May stop if symptoms improved. Follow-up with your doctor. Return if worsening symptoms. Disposition Disposition: Home, Self Care Discharge Date/Time: 03/27/23 16:28
[2023-03-27 15:42] VITALS: BP 153/75; PULSE 68; RESP 14; O2SAT 98
[2023-03-27 15:42] LABS: Bacteria 0 SEEN /hpf (None Seen); Mucous, Urine 0 SEEN /hpf (<or=2+); Red Blood Cells-Urine 0 SEEN /hpf (0-5); Squamous Epithelial Cells - UA 0 SEEN /hpf (0-5); White Blood Cells 0 SEEN /hpf (0-5)
[2023-03-27 15:51] LABS: Color, Urine Yellow (Yellow); Glucose, Dipstick Normal (Normal); Ketone-Dipstick Negative (Negative); Leukocyte Esterase-Dipstick Negative /ul (Negative); Nitrite-Dipstick Negative (Negative); Occult Blood-Urine Negative /ul (Negative); Protein-Dipstick Negative (Negative); Urine Bilirubin Dipstick Negative (Negative); Urine Clarity Clear (Clear); Urine Urobilinogen Normal (Normal); Urine pH 6.5 (5.0 - 8.0)
[2023-03-27 16:27] VITALS: BP 142/97; RESP 17; O2SAT 98
== END 2023-03-27 16:28 | disposition home or self-care (01) ==
PROVIDERS: Emergency Provider Emergency Medicine; PCP Student in an Organized Health Care Education/Training Program; Visit Provider Emergency Medicine
DX: K80.20 Calculus of gallbladder without cholecystitis without obstruction (principal); M54.9 Dorsalgia, unspecified; E78.00 Pure hypercholesterolemia, unspecified; I10 Essential (primary) hypertension; Z79.899 Other long term (current) drug therapy; Z85.46 Personal history of malignant neoplasm of prostate; Z90.49 Acquired absence of other specified parts of digestive tract; Z98.2 Presence of cerebrospinal fluid drainage device; R11.0 Nausea
CPT/HCPCS: 74176; 80048; 81001; 85025; 96361; 96374; 96375; 99285; J7030; J2405

== ENCOUNTER 2023-05-12 14:37 | Observation (INO) | payer MEDICARE, OTHER, SELFPAY ==
[2023-05-12 14:39] VITALS: BP 123/58; PULSE 57; RESP 18; TEMP 36.7; O2SAT 97; BMI 27.6
[2023-05-12 14:45] VITALS: BP 116/66; BP 119/69; BP 96/65; PULSE 58; PULSE 76; PULSE 89
--- NOTE | 2023-05-12 15:12 | EKG12_ITS ---
Test Reason : DIZZY Blood Pressure : / mmHG Vent. Rate : 084 BPM Atrial Rate : 100 BPM P-R Int : 000 ms QRS Dur : 128 ms QT Int : 372 ms P-R-T Axes : 049 -76 043 degrees QTc Int : 439 ms Undetermined rhythm Right bundle branch block Left anterior fascicular block Bifascicular block Abnormal ECG Confirmed by JOAO HANNAH ([id number]), content editor KIZZY STAHL ([id number]) on 05/17/2023 9:29:25 AM Referred By: NELY/JANET Confirmed By:JOAO HANNAH
--- NOTE | 2023-05-12 15:26 | EDS_ITS ---
HPI History of Present Illness Chief Complaint: Dizziness Informant: patient and spouse/S.O. Onset/Context/Timing Onset: Today Context: Sudden Onset Timing: Intermittent Current Severity: Gone Maximum Severity: Moderate Narrative Narrative: 88-year-old male history of hypertension on amlodipine and metoprolol, A-fib, CVA, normal pressure hydrocephalus with a shunt and prostate cancer. He is on the blood thinner Xarelto. Today at home he felt lightheaded his blood pressure per his was 78/36 she called the squad. He did not lose consciousness. He denies any headache, chest pain or abdominal pain. He had nausea when he felt lightheaded. Prior similar symptoms: Yes Recent Illness/Hospitalization: No PFSH [facility] Medical History Dementia High cholesterol History of hydrocephalus History of kidney stones History of prostate cancer Hypertension Home Medications coenzyme Q10 50 mg chewable tablet 300 mg PO DAILY supplement 05/14/17 [History Last Taken 05/13/17] lysine 500 mg tablet (L-Lysine) 500 mg PO DAILY supplement 05/14/17 [History Last Taken 05/13/17] multivitamin (Multiple Vitamins tablet) 1 ea PO DAILY supplement 05/14/17 [History Last Taken 05/13/17] omega 9-eda-nkh-fish oil 300 mg-1,000 mg capsule (Fish Oil) 1 ea PO DAILY supplement 05/14/17 [History Last Taken 05/13/17] rosuvastatin 20 mg tablet (Crestor) 20 mg PO DAILY cholesterol lowering 05/14/17 [History Last Taken 05/13/17] turmeric 450 mg-turmeric root extract 50 mg capsule 1 ea PO DAILY 04/17/19 [H istory Last Taken Unknown] albuterol 90 mcg/actuation aerosol inhaler 90 mcg inhalation Q4H PRN sob 03/04/22 [History Last Taken Unknown] amlodipine 5 mg tablet 5 mg PO DAILY 03/04/22 [History Last Taken Unknown] cholecalciferol (vitamin D3) 125 mcg (5,000 unit) tablet (Vitamin D3) 125 mcg PO DAILY 03/04/22 [History Last Taken Unknown] cyanocobalamin (vitamin B-12) 1,000 mcg/mL injection solution 1,000 mcg IM QMONTH 03/04/22 [History Last Taken Unknown] fexofenadine 180 mg tablet 180 mg PO DAILY 03/04/22 [History Last Taken Unknown] fluoxetine 10 mg capsule 10 mg PO DAILY 03/04/22 [History Last Taken Unknown] fluticasone propionate 110 mcg/actuation HFA aerosol inhaler (Flovent HFA) 1 puff inhalation BID 03/04/22 [History Last Taken Unknown] hydrocodone-acetaminophen 5-325mg 5mg-325mg 1 tab PO Q6H PRN PRN Pain 3 days #10 TABLETS 03/04/22 [Rx Last Taken Unknown] rivaroxaban 20 mg tablet (Xarelto) 20 mg PO DINNER 03/04/22 [History Last Taken Unknown] gabapentin 300 mg capsule 300 mg PO QHS #30 caps 03/27/23 [Rx Last Taken Unknown] Allergy/AdvReac Type Severity Reaction Status Date / Time ciprofloxacin [From Cipro] Allergy Hives Verified 05/12/23 14:42 crab Allergy Anaphylaxis Verified 05/12/23 14:42 Penicillins Allergy Hives Verified 05/12/23 14:42 Surgical History History of appendectomy History of tonsillectomy Intracranial shunt Social History household members: none Smoking Status: Never smoker substance use type: does not use ROS ROS ED ROS Narrative Denies recent illness. Review of Systems ROS Unobtainable: Denies due to encephalopathy Constitutional Constitutional ED: Denies chills or fever(s) Eyes Eyes: Denies blurry vision ENT ENT ED: Denies ear pain Cardiovascular Cardiovascular: Denies chest pain, palpitations or racing heartbeat Respiratory/Chest Respiratory/Chest: Denies cough or dyspnea Gastrointestinal Gastrointestinal: Reports nausea; Denies abdominal pain, constipation, diarrhea or melena Genitourinary Genitourinary ED: Denies dysuria Musculoskeletal Musculoskeletal: Denies arthralgias Neurologic Neurologic: Denies headache(s) Psychiatric Psychiatric: Denies anxiety Endocrine Endocrinology: Denies cold intolerance Hematologic/Lymphatic Hematologic/Lymphatic: Reports none Allergic/Immunologic Allergic/Immunologic ED: Denies mouth swelling or tongue swelling EXAM Physical Exam Narrative Exam Narrative: Well-appearing 88-year-old male. Initial blood pressure 120/58. Initial heart rate was 58. Currently he is in the 80s. H EENT exam unremarkable. Moist membranes. Lungs clear. Heart regular rhythm rate in the 80s. Abdomen soft nontender. Moving all 4 extremities. Nontender no edema. Neurologically is awake and alert. No focal motor deficits. Const Vital Signs: 05/12/23 14:39 05/12/23 14:42 05/12/23 14:45 Temperature 98.1 F Temperature Source Temporal Pulse Rate 57 L Pulse Rate [Lying] 58 L Pulse Rate [Sitting (for 1 minute prior to obtaining)] 76 Pulse Rate [Standing (for 1 minute prior to obtaining)] 89 Respiratory Rate 18 Respiratory Effort Normal Respiratory Pattern Normal Blood Pressure 123/58 H Blood Pressure [Lying] 119/69 Blood Pressure [Sitting (for 1 minute prior to obtaining)] 116/66 Blood Pressure [Standing (for 1 minute prior to obtaining)] 96/65 Blood Pressure Mean 79 Blood Pressure Mean [Lying] 85 Blood Pressure Mean [Sitting (for 1 minute prior to obtaining)] 82 Blood Pressure Mean [Standing (for 1 minute prior to obtaining)] 75 Pulse Ox 97 Oxygen Delivery Method Room Air Positive well nourished and well developed; Negative for cachectic, contractures or unkempt General Appearance ED: well developed and NAD; Negative for unkempt, cachectic, contractures, cyanotic, diaphoretic or pallor Nutritional Appearance: Negative for cachectic HEENT Reports moist mucous membranes; Denies dry mucous membranes Negative for trauma or tenderness Mouth ED: No dry mucous membranes Mouth: No dry mucous membranes Eyes PERRL and EOMs intact bilaterally General Eye ED: Negative for pale conjunctiva or scleral icterus Neck no lymphadenopathy, supple and no JVD General: Negative for tenderness Lymph Lymphatic: Negative for other Chest Wall inspection of chest normal and palpation of chest normal Chest: Negative for other Resp normal respiratory effort and clear to auscultation bilaterally Effort and Inspection: Negative for retractions Auscultation: Negative for rales, rhonchi or wheezes Cardio regular rate, regular rhythm, S1 normal heart sound, S2 normal heart sound and no murmurs GI normal to inspection, nondistended, normoactive bowel sounds, non-tender, non- distended and no masses Auscultation: normoactive bowel sounds Palpation: soft; Negative for tender, guarding or splenomegaly Back/Spine no CVA tenderness General Back: Negative for CVA tenderness Cervical Spine: Negative for cervical spine tenderness Thoracic Spine / Upper Back: Negative for thoracic spinal tenderness Lumbar Spine / Lower Back: Negative for lumbar spinal tenderness Extremity normal to inspection General Extremety ED: Negative for edema or tenderness General Extremity: Negative for edema Neuro oriented x3 and CN's II-XII intact bilaterally Sensorium / Orientation: alert; Negative for orientation impaired, lethargic or stuporous Motor Exam: strength 5/5 throughout Psych mental status grossly normal Appearance: Negative for unkempt Attitude: No agitated Mood & Affect: Negative for depressed, anxious or tearful Skin no rashes or lesions noted, no wounds and skin turgor normal General Skin Exam: Negative for elasticity normal, jaundice or pallor Lesions: No lesion noted Rashes: No rashes noted Trauma: Negative for abrasion Wounds: Negative for wounds noted MDM MDM MDM Narrative Medical decision making narrative: 88-year-old male was hypotensive at home and lightheaded. According to the squad and his EKG that we have he may have had a dysrhythmia. Currently he is back in a sinus rhythm. He has had a history of A-fib in the past. Recently they have been adjusting his blood pressure medications due to episodes of hypotension. Patient undergo cardiac work-up. Repeat exam patient is doing well at 4:50 PM. He is awake alert. Blood pressure is 130/72. Heart rates in the 70s. He is in sinus rhythm on the monitor. Clinically feels well. He and his went over his test results are unremarkable. My concern is he had some type of cardiac dysrhythmia at home. I will speak to the hospitalist that admitting him overnight to telemetry to evaluate for possible dysrhythmia. History & Record Review Discussion w/independent historian: EMS personnel, Patient and Family Additional record(s) reviewed:: Prior inpatient record, Prior outpatient record and Prior labs Lab Data Attestation: I reviewed the patient's lab results. Lab results narrative: CBC unremarkable. White count of 5 H&H 14 and 45. Platelets 271. Electrolytes showed gap of 3 BUN and creatinine 22 and 1. Glucose is 77. Troponins 11. Chest x-ray unremarkable. Labs: Laboratory Results - last 24 hr 05/12/23 14:20 WBC 5.7 RBC 4.80 Hgb 14.4 Hct 45.3 MCV 94.4 H MCH 30.0 MCHC 31.8 L RDW Std Deviation 43.7 RDW Coeff of Lucy 12.7 Plt Count 271 MPV 9.5 Immature Gran % (Auto) 0.300 Neut % (Auto) 69.2 Lymph % (Auto) 16.2 L [place] % (Auto) 10.5 H Eos % (Auto) 3.3 Baso % (Auto) 0.5 Absolute Neuts (auto) 4.0 Absolute Lymphs (auto) 0.93 Nucleated RBC % 0 Sodium 139 Potassium 4.6 Chloride 105 Carbon Dioxide 31.0 Anion Gap 3 L BUN 22 H Creatinine 1.07 Estim Creat Clear Calc 51.17 Est GFR (MDRD) Af Amer 84 Est GFR (MDRD) Non-Af 70 BUN/Creatinine Ratio 20.6 H Glucose 77 Calcium 9.4 Troponin I High Sens 11 Radiography Chest X-Ray - ED: 1 View, Read by ED Physician, Read by Radiologist, Normal, Heart, Lungs, Mediastinum, Bony Structures, No Acute Disease and Chronic Changes Diagnostic Testing: Clinical Impression(s) from Imaging Studies Chest X-Ray 05/12/23 15:35 IMPRESSION: The lungs are clear. Right-sided ventriculoperitoneal shunt tube is seen. Electronically Signed: Marco Antonio Cummings MD at 15:53 EDT , Chest imaging, portable, single view interpreted by myself the radiologist shows no acute abnormality. Right-sided [employer] shunt. Rhythm Strip Rhythm Strip: Sinus Rhythm Rate: 84 EKG Initial EKG: Interpretation: Sinus Rhythm, No Acute Injury Pattern and RBBB Comments: Sinus rhythm rate 84. This may have been a wandering pacemaker versus sinus rhythm with frequent PAC no acute signs of AK or ischemia. Right bundle branch block. Discharge Plan Dx/Rx/DC Orders Clinical Impression: Transient hypotension, Near syncope, Cardiac dysrhythmia Disposition Disposition: Acute Care Hospital [facility]
--- NOTE | 2023-05-12 15:35 | RAD_ITS ---
STUDY: X-RAY CHEST REASON FOR EXAM: Male, 88 years old. Chest pain and dizziness. TECHNIQUE: AP and lateral views of the chest. COMPARISON: Comparison is made with prior study dated April 17, 2019. FINDINGS: A right-sided ventricular peritoneal shunt tube is seen. Stable elevation of the right hemidiaphragm with blunting of both angles. The lungs are clear. Normal size heart. Normal mediastinum and [place]. Normal visualized pulmonary arteries. There is atherosclerotic calcification of the aortic arch with tortuosity. There are diffuse degenerative changes of the visualized thoracic spine. Normal visualized ribs, clavicles, and shoulders. There is no demonstrated abnormality of the visualized soft tissue structures of the upper abdomen. RAD/Chest 1 View (Portable) IMPRESSION: The lungs are clear. Right-sided ventriculoperitoneal shunt tube is seen. Electronically Signed: Marco Antonio Cummings MD at 15:53 EDT ,
[2023-05-12 15:45] LABS: Absolute Lymphocyte Count 0.93 X10^3/uL (0.83-4.51); Basophil# 0.03 X10^3/uL; Basophil% 0.5 % (0-1); Eosinophil# 0.19 X10^3/uL; Eosinophils% 3.3 % (0-5); Hematocrit 45.3 % (40-54); Hemoglobin 14.4 g/dL (13.0-16.5); Lymphocyte # 0.93 X10^3/ul (0.83-4.51); Lymphocyte % 16.2 % (19-41); Mean Corp Hgb Conc 31.8 g/dL (32-36); Mean Corpuscular Volume 94.4 fL (80-94); Mean Platelet Vol. 9.5 fl (6.2-12.0); Monocyte% 10.5 % (0-10); NRBC Flagged by Analyzer 0 % (0-5); Neutrophil # 3.97 X10^3/uL (2.7-7.7); Neutrophil % 69.2 % (47-70); Platelet Count 271 K/mm3 (150-450); RBC Distribution Width CV 12.7 % (11.6-14.6); RBC Distribution Width SD 43.7 fl (35.1-43.9); White Blood Count 5.7 K/mm3 (4.4-11.0)
[2023-05-12 15:59] LABS: Anion Gap 3 (5-15); BUN 22 mg/dL (7-18); BUN/Creat Ratio 20.6 RATIO (10-20); Calcium,Total 9.4 mg/dL (8.5-10.1); Chloride 105 mmol/L (98-107); Creatinine, Serum 1.07 mg/dL (0.70-1.30); EST Glomerular Filtration Rate 70 mL/min (>60); Est Glom Filt Rate - Afr Amer 84 mL/min (>60); Estimated Creatinine Clearance 51.17 ml/min; Glucose 77 mg/dL (74-106); Potassium 4.6 mmol/L (3.5-5.1); Sodium Level 139 mmol/L (136-145); Troponin-I HS 11 pg/mL (3.0-78.0)
[2023-05-12 16:58] VITALS: BP 115/75; PULSE 68; RESP 14; O2SAT 95
[2023-05-12 18:07] VITALS: BP 111/79; PULSE 85; RESP 16; TEMP 36.8; O2SAT 97
[2023-05-12 18:10] VITALS: BP 145/74; PULSE 68; RESP 18; TEMP 36.5; O2SAT 96
[2023-05-12 18:20] VITALS: BMI 27.1
--- NOTE | 2023-05-12 18:25 | HP.PCM.HOS_ITS ---
HPI - General General Date of Admission: 05/12/23 HPI Narrative ONI MARTIN, is a 88 M who presents to the hospital with an arrhythmia. He was at home started to feel unwell with lightheadedness, his took his blood pressure and his systolics are in the 70s so she called EMS who did an EKG and essentially said that his rhythm was all over the place. In the ER EKG demonstrated a bifascicular block but it was unclear what the underlying rhythm was. He returned to sinus rhythm. He does have a history of A-fib and his heavy equipment engine mechanic at the [facility] had placed him on an event monitor in February that according to the patient was unremarkable. He states that they have been c urrently adjusting blood pressure medication secondary to hypotension. He currently feels fine and is back to his baseline. [facility] Medical History (Updated 05/12/23 @ 18:28 by Fadumo Paulino) Asthma Atrial fibrillation Dementia High cholesterol History of hydrocephalus History of kidney stones History of prostate cancer Hypertension Kidney stones Non-smoker Rheumatoid arthritis Stroke/cerebrovascular accident TIA (transient ischemic attack) Home Medications coenzyme Q10 50 mg chewable tablet 300 mg PO DAILY supplement 05/14/17 [History Last Taken 05/12/23] lysine 500 mg tablet (L-Lysine) 500 mg PO DAILY supplement 05/14/17 [History Last Taken 05/12/23] multivitamin (Multiple Vitamins tablet) 1 ea PO DAILY supplement 05/14/17 [History Last Taken 05/12/23] omega 3-ldf-fqd-fish oil 300 mg-1,000 mg capsule (Fish Oil) 1 ea PO DAILY supplement 05/14/17 [History Last Taken 05/12/23] rosuvastatin 20 mg tablet (Crestor) 20 mg PO DAILY cholesterol lowering 05/14/17 [History Last Taken 05/12/23] albuterol 90 mcg/actuation aerosol inhaler 90 mcg inhalation Q4H PRN sob 03/04/22 [History Last Taken 05/12/23] amlodipine 5 mg tablet 2.5 mg PO DAILY 03/04/22 [History Last Taken 05/12/23] cholecalciferol (vitamin D3) 125 mcg (5,000 unit) tablet (Vitamin D3) 125 mcg PO DAILY 03/04/22 [History Last Taken 05/12/23] cyanocobalamin (vitamin B-12) 1,000 mcg/mL injection solution 1,000 mcg IM Q MONTH 03/04/22 [History Last Taken 05/12/23] fexofenadine 180 mg tablet 180 mg PO DAILY 03/04/22 [History Last Taken 05/12/23] fluoxetine 10 mg capsule 10 mg PO DAILY 03/04/22 [History Last Taken 05/12/23] fluticasone propionate 110 mcg/actuation HFA aerosol inhaler (Flovent HFA) 1 puff inhalation BID 03/04/22 [History Last Taken 05/12/23] rivaroxaban 20 mg tablet (Xarelto) 20 mg PO DINNER 03/04/22 [History Last Taken 05/12/23] gabapentin 300 mg capsule 300 mg PO BID 05/12/23 [History Last Taken 05/12/23] metoprolol succinate 25 mg tablet,extended release 24 hr 25 mg PO DAILY 05/12/23 [History Last Taken 05/12/23] Allergy/AdvReac Type Severity Reaction Status Date / Time ciprofloxacin [From Cipro] Allergy Hives Verified 05/12/23 17:57 crab Allergy Anaphylaxis Verified 05/12/23 17:57 Penicillins Allergy Hives Verified 05/12/23 17:57 eliquis Allergy Mild Hives Uncoded 05/12/23 18:01 Family History (Updated 05/12/23 @ 18:[address] Chapincito Waters MD) Other Cancer Surgical History History of appendectomy History of tonsillectomy Intracranial shunt Social History household members: none Smoking Status: Never smoker substance use type: does not use ROS Constitutional Constitutional: Denies chills, fatigue, fever(s) or malaise Eyes Eyes: Denies blurry vision ENT HEENT: Denies headache(s) or nasal discharge Cardiovascular Cardiovascular: Reports lightheadedness; Denies chest pain, dyspnea on exertion or syncope Respiratory/Chest Respiratory/Chest: Denies cough, shortness of breath at rest or shortness of breath with exertion Gastrointestinal Gastrointestinal: Denies constipation, diarrhea, nausea or vomiting Genitourinary Genitourinary: Denies dysuria Neurologic Neurologic: Denies focal weakness, numbness or tremor(s) Psychiatric Psychiatric: Denies anxiety or depression Vital Signs Vital Signs Vital Signs: 05/12/23 14:39 05/12/23 14:42 05/12/23 14:45 Temperature 98.1 F Temperature Source Temporal Pulse Rate 57 L Pulse Rate [Lying] 58 L Pulse Rate [Sitting (for 1 minute prior to obtaining)] 76 Pulse Rate [Standing (for 1 minute prior to obtaining)] 89 Respiratory Rate 18 Respiratory Effort Normal Respiratory Pattern Normal Blood Pressure 123/58 H Blood Pressure [Lying] 119/69 Blood Pressure [Sitting (for 1 minute prior to obtaining)] 116/66 Blood Pressure [Standing (for 1 minute prior to obtaining)] 96/65 Blood Pressure Mean 79 Blood Pressure Mean [Lying] 85 Blood Pressure Mean [Sitting (for 1 minute prior to obtaining)] 82 Blood Pressure Mean [Standing (for 1 minute prior to obtaining)] 75 Pulse Ox 97 Oxygen Delivery Method Room Air 05/12/23 16:58 05/12/23 18:07 05/12/23 18:10 Temperature 98.3 F 97.7 F L Temperature Source Temporal Oral Pulse Rate 68 85 68 Pulse Rate [Lying] Pulse Rate [Sitting (for 1 minute prior to obtaining)] Pulse Rate [Standing (for 1 minute prior to obtaining)] Respiratory Rate 14 16 18 Respiratory Effort Respiratory Pattern Blood Pressure 115/75 111/79 145/74 H Blood Pressure [Lying] Blood Pressure [Sitting (for 1 minute prior to obtaining)] Blood Pressure [Standing (for 1 minute prior to obtaining)] Blood Pressure Mean 88 89 97 Blood Pressure Mean [Lying] Blood Pressure Mean [Sitting (for 1 minute prior to obtaining)] Blood Pressure Mean [Standing (for 1 minute prior to obtaining)] Pulse Ox 95 97 96 Oxygen Delivery Method Room Air Weight Weight: 188 lb 14.978 oz Body Mass Index (BMI) 27.1 Physical Exam Narrative General: Alert, Oriented x3, Cooperative, No apparent distress HEENT: Atraumatic, PERRLA, EOMI, Normocephalic Oral: Moist Mucosa Neck: Supple, No JVD Lungs: Diminished, Normal air movement, No rhonchi, No wheeze, No rales Cardiovascular: Regular rate, Regular Rhythm, Normal S1, Normal S2, No murmurs Abdomen: Soft, Non Tender, Non-Distended, No Hepato-splenomegaly Extremities: No edema, Capillary Refill Less than 3 Seconds Skin: No rashes, No breakdown Musculoskeletal: No Tenderness to Palpation of Joints or Extremities Neurological: Cranial nerves II-XII grossly intact, Motor Exam 5/5 strength thr oughout, Sensory exam intact to light touch and pain Psych/Mental Status: Normal Affect, Appropriate Results Lab / Micro Data 05/12/23 14:20 05/12/23 14:20 Labs: Laboratory Results - last 24 hr 05/12/23 14:20: WBC 5.7, RBC 4.80, Hgb 14.4, Hct 45.3, MCV 94.4 H, MCH 30.0, MCHC 31.8 L, RDW Std Deviation 43.7, RDW Coeff of Lucy 12.7, Plt Count 271, MPV 9.5, Immature Gran % (Auto) 0.300, Neut % (Auto) 69.2, Lymph % (Auto) 16.2 L, [place] % (Auto) 10.5 H, Eos % (Auto) 3.3, Baso % (Auto) 0.5, Absolute Neuts (auto) 4.0, Absolute Lymphs (auto) 0.93, Nucleated RBC % 0, Sodium 139, Potassium 4.6, Chloride 105, Carbon Dioxide 31.0, Anion Gap 3 L, BUN 22 H, Creatinine 1.07, Estim Creat Clear Calc 51.17, Est GFR (MDRD) Af Amer 84, Est GFR (MDRD) Non-Af 70, BUN/Creatinine Ratio 20.6 H, Glucose 77, Calcium 9.4, Troponin I High Sens 11 Rhythm Strip Rhythm Strip: Sinus Rhythm Rate: 84 Radiology Impression Chest X-Ray 05/12/23 15:35 IMPRESSION: The lungs are clear. Right-sided ventriculoperitoneal shunt tube is seen. Electronically Signed: Marco Antonio Cummings MD at 15:53 EDT , Assessment & Plan Assessment/Plan (1) Cardiac dysrhythmia: (2) Near syncope: PLAN: Plan 1. Cardiac dysrhythmia/HTN/HLD/A-fib ? We will place him on telemetry overnight and monitor his blood pressures if telemetry is unremarkable then he would prefer to call his heavy equipment engine mechanic to order an outpatient Holter monitor or 30-day event monitor ? Blood pressures are currently stable resume blood pressure medications ? We will continue with his home cholesterol medication 2. Anxiety/depression ? Stable ? Continue with Prozac DVT: Pranav Charges/Coding Visit Charges Inpatient E&M: 35842 Init Hosp L2
[2023-05-12 21:30] VITALS: BP 114/78; PULSE 68; RESP 18; TEMP 36.3; O2SAT 95
[2023-05-12] MEDS: Atorvastatin Calcium 40 MG Tablet PO (21:32)
[2023-05-13 05:35] LABS: Absolute Lymphocyte Count 1.18 X10^3/uL (0.83-4.51); Absolute Neutrophil Count 3.3 X10^3/uL (2.0-7.7); Basophil# 0.05 X10^3/uL; Basophil% 0.9 % (0-1); Eosinophil# 0.28 X10^3/uL; Eosinophils% 5.2 % (0-5); Hematocrit 43.3 % (40-54); Hemoglobin 14.3 g/dL (13.0-16.5); Lymphocyte # 1.18 X10^3/ul (0.83-4.51); Lymphocyte % 21.8 % (19-41); Mean Corpuscular Hgb 30.7 pg (27.0-32.0); Mean Corpuscular Volume 92.9 fL (80-94); Mean Platelet Vol. 9.1 fl (6.2-12.0); Monocyte% 11.1 % (0-10); NRBC Flagged by Analyzer 0 % (0-5); Neutrophil # 3.28 X10^3/uL (2.7-7.7); Neutrophil % 60.6 % (47-70); Platelet Count 252 K/mm3 (150-450); RBC Distribution Width CV 12.7 % (11.6-14.6); Red Blood Count 4.66 M/mm3 (4.6-6.2); White Blood Count 5.4 K/mm3 (4.4-11.0)
[2023-05-13 05:36] VITALS: BP 125/78; PULSE 101; RESP 18; TEMP 36.6; O2SAT 95
[2023-05-13 06:00] LABS: Anion Gap 6 (5-15); BUN 18 mg/dL (7-18); BUN/Creat Ratio 19.5 RATIO (10-20); Chloride 108 mmol/L (98-107); Creatinine, Serum 0.92 mg/dL (0.70-1.30); EST Glomerular Filtration Rate 83 mL/min (>60); Est Glom Filt Rate - Afr Amer 100 mL/min (>60); Estimated Creatinine Clearance 59.51 ml/min; Glucose 92 mg/dL (74-106); Potassium 4.2 mmol/L (3.5-5.1); Sodium Level 140 mmol/L (136-145)
[2023-05-13 09:02] VITALS: BP 91/57; PULSE 100; RESP 17; TEMP 36.5; O2SAT 96
[2023-05-13 09:20] VITALS: PULSE 118
[2023-05-13] MEDS: FLUoxetine 10 MG Capsule PO (09:20)
[2023-05-13] MEDS: Metoprolol(XL)Succ 25 MG Tablet PO (09:20)
[2023-05-13 10:22] VITALS: BP 92/50
[2023-05-13 10:23] VITALS: BP 96/58
--- NOTE | 2023-05-13 11:16 | DS.PCM_ITS ---
Providers Date of Admission: 05/12/23 Date of Discharge: 05/13/23 Primary Care Physician: Dr. Kapil Lara DO Reason For Visit: ARRHYTHMIA Diagnosis Discharge Diagnosis (1) Cardiac dysrhythmia: Status: Acute Code(s): I49.9 - Cardiac arrhythmia, unspecified (2) Near syncope: Status: Acute Code(s): R55 - Syncope and collapse Medications at Discharge Home Medications coenzyme Q10 50 mg chewable tablet 300 mg PO DAILY supplement 05/14/17 lysine 500 mg tablet (L-Lysine) 500 mg PO DAILY supplement 05/14/17 multivitamin (Multiple Vitamins tablet) 1 ea PO DAILY supplement 05/14/17 omega 8-xok-rjm-fish oil 300 mg-1,000 mg capsule (Fish Oil) 1 ea PO DAILY supplement 05/14/17 rosuvastatin 20 mg tablet (Crestor) 20 mg PO DAILY cholesterol lowering 05/14/17 albuterol 90 mcg/actuation aerosol inhaler 90 mcg inhalation Q4H PRN sob 03/04/22 amlodipine 5 mg tablet 2.5 mg PO DAILY 03/04/22 cholecalciferol (vitamin D3) 125 mcg (5,000 unit) tablet (Vitamin D3) 125 mcg PO DAILY 03/04/22 cyanocobalamin (vitamin B-12) 1,000 mcg/mL injection solution 1,000 mcg IM QMONTH 03/04/22 fexofenadine 180 mg tablet 180 mg PO DAILY 03/04/22 fluoxetine 10 mg capsule 10 mg PO DAILY 03/04/22 fluticasone propionate 110 mcg/actuation HFA aerosol inhaler (Flovent HFA) 1 puff inhalation BID 03/04/22 rivaroxaban 20 mg tablet (Xarelto) 20 mg PO DINNER 03/04/22 gabapentin 300 mg capsule 300 mg PO BID 05/12/23 metoprolol succinate 25 mg tablet,extended release 24 hr 25 mg PO DAILY 05/12/23 Hospital Course Operations None Procedures EKG and - (Chest x-ray) Summary of Care Provided Minutes Spent on Discharge: 25 Hospital Course: Mr. Hernández is an 88-year-old white male who presented to the emergency department at [facility] on 05/12/2023 with lightheadedness. His took his blood pressure at home and his systolics were in the 70s so she called EMS who did an EKG and noted his rhythm was all over the place. He has been having issues with blood pressures being low at times at home and his primary care physician has been adjusting his antihypertensives. On admission he was taking metoprolol 25 mg daily and amlodipine 2.5 mg daily. He does have a noted history of atrial fibrillation and follows with a electroplating sales representative at [facility]. He reportedly had an event monitor and echocardiogram in February and per his report noted they were both unremarkable. His blood pressure had normalized at the time of admission and when evaluated initially in the emergency department was 123/58 with follow-up at 119/69. His does report that they are somewhat labile. She notes the highest they get at home is in the 140s and this seems to be in the middle of the day. He was admitted and placed on telemetry. His telemetry looks like he is having atrial flutter with variable block however his rates are fairly well controlled anywhere from 70- 110. Intermittently he will have a higher rate for a very short period of time. He had a maximal rate of 150 that lasted just a few seconds. His lightheadedness has completely resolved at this point. Blood pressures this morning were in the 90s over 50s to 60s tested manually in bilateral upper extremities. At this point I am going to discontinue his amlodipine and hold until he follows up further with his primary care physician and electroplating sales representative. Given the fact he is feeling well and was able to ambulate without any dizziness or lightheadedness we will discharge him home but will order a 48-hour Holter monitor to be reviewed by his primary care physician and electroplating sales representative to see if he is having any ongoing arrhythmias that could be contributing to his hypote nsion or feeling of lightheadedness. We will hold his amlodipine at discharge and continue his metoprolol. I have a call into his primary care physician, Dr. Kapil Lara, DO, to discuss this plan with her so she is aware and can get him in to be followed up sooner than later. He was supplied with a Holter monitor prior to discharge. He was discharged home in stable condition on 05/13/2023 no other medication changes were made. To follow-up with his primary care physician within the next week and his electroplating sales representative within the next 2 to 4 weeks as availability allows. Discharge diagnoses: Hypotension-resolved Lightheadedness-resolved Atrial flutter with variable block History of atrial fibrillation Hyperlipidemia History of nephrolithiasis History of prostate cancer History of hypertension Rheumatoid arthritis History of stroke Physical Exam Const alert, oriented x3, no apparent distress, average body habitus, no limitations, healthy appearing and well nourished Constitutional Narrative: Elderly white male, sitting up in bed, at bedside, appears younger than stated age, nontoxic, appears comfortable General Appearance: cooperative, comfortable, well kempt and well developed Orientation / Consciousness: awake, oriented to person, oriented to place and oriented to time Exam Limitations: no limitations HEENT normocephalic, head/scalp atraumatic and moist oral mucous membranes HEENT Narrative: Mallampati 2-3, no thrush, mild hearing deficits Resp normal respiratory effort, no retractions, no use of accessory muscles and clear to auscultation bilaterally Cardio regular rate, S1 normal heart sound, S2 normal heart sound, no murmurs, no rub, no gallops and no clicks; Negative for regular rhythm Cardio Narrative: Rhythm is intermittently irregular with some intermittent irregularity as well GI normal to inspection, nondistended, normoactive bowel sounds, soft to palpation and non-tender Extremity no clubbing, cyanosis or edema Neuro oriented x3, CN's II-XII intact bilaterally, moves all extremities, no focal motor deficits and no sensory deficits noted Neuro Narrative: Patient was able to ambulate independently without any gait deficits or dizziness Speech: speech normal Psych affect normal Psych Narrative: Extremely pleasant, appropriate, and her next normal Weight / BMI Weight Weight: 85.7 kg Body Mass Index (BMI) 27.1 ABG / Lab / Microbiology Data 05/13/23 05:02 05/13/23 05:02 Laboratory: Laboratory Results - last 24 hr 05/12/23 14:20: WBC 5.7, RBC 4.80, Hgb 14.4, Hct 45.3, MCV 94.4 H, MCH 30.0, MCHC 31.8 L, RDW Std Deviation 43.7, RDW Coeff of Ul[place] 12.7, Plt Count 271, MPV 9.5, Immature Gran % (Auto) 0.300, Neut % (Auto) 69.2, Lymph % (Auto) 16.2 L, [place] % (Auto) 10.5 H, Eos % (Auto) 3.3, Baso % (Auto) 0.5, Absolute Neuts (auto) 4.0, Absolute Lymphs (auto) 0.93, Nucleated RBC % 0, Sodium 139, Potassium 4.6, Chloride 105, Carbon Dioxide 31.0, Anion Gap 3 L, BUN 22 H, Creatinine 1.07, Estim Creat Clear Calc 51.17, Est GFR (MDRD) Af Amer 84, Est GFR (MDRD) Non-Af 70, BUN/Creatinine Ratio 20.6 H, Glucose 77, Calcium 9.4, Troponin I High Sens 11 05/13/23 05:02: WBC 5.4, RBC 4.66, Hgb 14.3, Hct 43.3, MCV 92.9, MCH 30.7, MCHC 33.0, RDW Std Deviation 43.0, RDW Coeff of Lucy 12.7, Plt Count 252, MPV 9.1, Immature Gran % (Auto) 0.400, Neut % (Auto) 60.6, Lymph % (Auto) 21.8, [place] % (Auto) 11.1 H, Eos % (Auto) 5.2 H, Baso % (Auto) 0.9, Absolute Neuts (auto) 3.3, Absolute Lymphs (auto) 1.18, Nucleated RBC % 0, Sodium 140, Potassium 4.2, Chloride 108 H, Carbon Dioxide 26.0, Anion Gap 6, BUN 18, Creatinine 0.92, Estim Creat Clear Calc 59.51, Est GFR (MDRD) Af Amer 100, Est GFR (MDRD) Non-Af 83, BUN/Creatinine Ratio 19.5, Glucose 92, Calcium 9.0 Radiography Diagnostic Testing: Radiology Impression Chest X-Ray 05/12/23 15:35 IMPRESSION: The lungs are clear. Right-sided ventriculoperitoneal shunt tube is seen. Electronically Signed: Marco Antonio Cummings MD at 15:53 EDT , Meaningful Use Info Meaningful Use Diagnoses (Choose all that apply): None applicable Discharge Plan Admission Admit Date/Time: 05/12/23 18:04 Primary Reason for Your Visit: Lightheadedness Attending Provider: Mónica Figueroa Primary Care Provider: Kapil Lara Consulting Providers: Chapincito Waters Instructions Additional Instructions / Restrictions: 1. Please follow-up with your electroplating sales representative within the next 2-4 weeks as availability allows 2. Continue to monitor your blood pressure per Dr. Lara's recommendations Discharge Orders/Prescriptions Prescriptions: Continued rosuvastatin [Crestor] 20 MG tablet 20 mg PO DAILY multivitamin [Multiple Vitamins] 1 EACH tablet 1 ea PO DAILY lysine [L-Lysine] 500 MG tablet 500 mg PO DAILY omega 1-epl-mhn-fish oil [Fish Oil] 1 EACH capsule 1 ea PO DAILY coenzyme Q10 50 MG tablet,chewable 300 mg PO DAILY fexofenadine 180 mg Tablet 180 mg PO DAILY cyanocobalamin (vitamin B-12) 1,000 mcg/mL solution 1,000 mcg IM QMONTH Patient Comments: Inject 1 mL intramuscularly once every month. fluoxetine 10 mg capsule 10 mg PO DAILY albuterol 90 mcg/actuation Aerosol 90 mcg INHALATION Q4H PRN (Reason: sob) fluticasone propionate [Flovent HFA] 110 mcg/actuation Hfa Aerosol Inhaler 1 puff INHALATION BID cholecalciferol (vitamin D3) [Vitamin D3] 125 mcg (5,000 unit) Tablet 125 mcg PO DAILY Xarelto 20 mg tablet 20 mg PO DINNER metoprolol succinate 25 mg tablet extended release 24 hr 25 mg PO DAILY gabapentin 300 mg capsule 300 mg PO BID Held amlodipine 5 mg Tablet 2.5 mg PO DAILY Hold Instructions: Until instructed otherwise Other Ambulatory Orders: Cardiac Holter Monitor, 48 Hrs (Routine) Timeframe: 1 Day Facility: [facility] - Location: Cardiovascular Services Ordered By: Dr. Mónica Figueroa Referrals / Follow Up: Kapil Lara DO [Primary Care Provider] - Within 1 Week Disposition Disposition (needs filled in before D/C Order can be placed): Home, Self Care Charges/Coding Visit Charges Inpatient E&M: 87830 Disch Hosp
--- NOTE | 2023-05-13 11:39 | CASEMGMT ---
RN CM notified that patient has discharge today. RN CM in to discuss needs at discharge. Patient and deny needs at discharge. Patient and had no further questions or concerns at this time.
== END 2023-05-13 11:22 | disposition home or self-care (01) ==
LOC: ED 16:51 → PCU 18:12
PROVIDERS: Admitting Provider Family Medicine; Emergency Provider Emergency Medicine; PCP Student in an Organized Health Care Education/Training Program; Visit Provider Internal Medicine
DX: I95.9 Hypotension, unspecified (principal); M06.9 Rheumatoid arthritis, unspecified; I48.92 Unspecified atrial flutter; E78.00 Pure hypercholesterolemia, unspecified; Z86.73 Personal history of transient ischemic attack (TIA), and cerebral infarction without residual deficits; I45.2 Bifascicular block; I10 Essential (primary) hypertension; Z79.51 Long term (current) use of inhaled steroids; R11.0 Nausea; Z79.01 Long term (current) use of anticoagulants; Z79.899 Other long term (current) drug therapy; J45.909 Unspecified asthma, uncomplicated; F32.A Depression, unspecified; F41.9 Anxiety disorder, unspecified; R55 Syncope and collapse
CPT/HCPCS: 36415; 71045; 80048; 84484; 85025; 93005; 99221; 99285; G0378

== ENCOUNTER → 2023-05-13 | Outpatient (CLI) | payer MEDICARE, OTHER, SELFPAY | END | disposition home or self-care (01) | LOC: CVS 11:00 | PROVIDERS: PCP Student in an Organized Health Care Education/Training Program; Referring Provider Internal Medicine Nephrology; Visit Provider Internal Medicine Nephrology | DX: I49.9 Cardiac arrhythmia, unspecified (principal) | CPT/HCPCS: 93225; 93226 ==

== ENCOUNTER → 2023-07-31 | Outpatient (CLI) | payer MEDICARE, OTHER, SELFPAY | END | disposition home or self-care (01) | LOC: PSN 11:01 | PROVIDERS: PCP Student in an Organized Health Care Education/Training Program; Referring Provider Internal Medicine Cardiovascular Disease; Visit Provider Internal Medicine Cardiovascular Disease | DX: I48.0 Paroxysmal atrial fibrillation (principal) | CPT/HCPCS: 93225; 93226 ==

== ENCOUNTER → 2023-10-21 | Outpatient (CLI) | payer MEDICARE, OTHER, SELFPAY ==
--- OUTSIDE RECORDS SUMMARY | 2023-10-21 12:59 | XMS RPT_ITS | CCD ---
Author Name Unknown Address [address] [place] [address] Organization [facility] Care Team Providers Care Surface Ship Usw Supervisor Name Role Phone Lara DO, Kapil Jamila Primary Care Provider [phone] DIANE OWUSU Attending Unavailable LARA, KAPIL Jamila Primary Care Unavailable JUAN J EAST Attending Unavailable LARA, KAPIL L Primary Care Unavailable Lara DO, Kapil L Primary Care Provider [phone] LARA, KAPIL L Primary Care Unavailable ANDREW BEACH Attending Unavailab ONI Cisneros Attending Unavailable LARA, KAPIL L Primary Care Unavailable LARA, KAPIL L Primary Care Unavailable LARA, KAPIL L Referring Unavailable LARA, KAPIL L Primary Care Unavailable LARA, KAPIL L Primary Care Unavailable LARA, KAPIL L Referring Unavailable LARA, KAPIL L Primary Care Unavailable LARA, KAPLI L Attending Unavailable LARA, KAPIL L Primary Care Unavailable LARA, KAPIL L Referring Unavailable LARA, KAPIL L Primary Care Unavailable ABISAI YODER Attending Unavailable LARA, KAPIL L Primary Care Unavailable LARA, KAPIL L Attending Unavailable LARA, KAPIL L Primary Care Unavailable LARA, KAPIL L Referring Unavailable LARA, KAPIL L Primary Care Unavailable LARA, KAPIL L Attending Unavailable LARA, KAPIL L Primary Care Unavailable ANDREW BEACH Attending Unavailab yung LARA, KAPIL Jamila Attending Unavailable LARA, KAPIL L Primary Care Unavailable LARA, KAPIL L Attending Unavailable LARA, KAPIL L Primary Care Unavailable LARA, KAPIL L Primary Care Unavailable LARA, KAPIL L Referring Unavailable CASSANDRA MEJIA Attending Unavailable LARA, KAPIL Jamila Primary Care Unavailable LARA, KAPIL L Primary Care Unavailable LARA, KAPIL L Referring Unavailable LARA, KAPIL L Primary Care Unavailable LARA, KAPIL L Referring Unavailable LARA, KAPIL L Primary Care Unavailable ONI GRIMM Referring Unavailable LARA, KAPIL L Primary Care Unavailable LARA, KAPIL L Attending Unavailable LARA, KAPIL L Primary Care Unavailable MATHEUS BUTLER Referring Unavailable LARA, KAPIL L Primary Care Unavailable LARA, KAPIL L Primary Care Unavailable HANS BROWN Referring Unavailable LARA, KAPIL L Primary Care Unavailable LARA, KAPIL L Referring Unavailable ELLIE GURROLA Attending Unavailable LARA, KAPIL L Primary Care Unavailable ELLIE GURROLA Referring Unavailable ELLIE GURROLA Attending Unavailable LARA, KAPIL L Primary Care Unavailable LARA, KAPIL L Primary Care Unavailable AUNDREA BENJAMIN Referring Unavailable LARA, KAPIL L Primary Care Unavailable PAIGE DANG Attending Unavailable LARA, KAPIL L Primary Care Unavailable LARA, KAPIL L Referring Unavailable ONI GRIMM Attending Unavailable LARA, KAPIL L Primary Care Unavailable PAYTON BERMAN Attending Unavailable LARA, KAPIL L Primary Care Unavailable Allergies Allergy Classification Reported Allergen(s) Allergy Type Date of Onset Reaction(s) Facility (20 sources) apixaban; Translations: [APIXABAN] Drug Allergy 9 Rash [facility] Work Phone: (20 sources) cefdinir; Translations: [CEFDINIR] Drug Allergy 6 Itching [facility] Work Phone: (20 sources) Ciprofloxacin; Translations: [CIPROFLOXACIN] Drug Allergy 3 [facility] (20 sources) crab allergenic extract; Translations: [CRAB] Drug Allergy 0 Anaphylaxis [facility] (20 sources) donepezil; Translations: [DONEPEZIL] Drug Allergy 7 Mental Status Change [facility] Work Phone: (16 sources) Penicillins; Translations: [PENICILLINS] Propensity to adverse reactions 3 [facility] (20 sources) Sulfonamides (Antibiotic); Translations: [SULFA (SULFONAMIDE ANTIBIOTICS)] Propensity to adverse reactions 3 [facility] (20 sources) Penicillins Propensity to adverse reactions 3 [facility] Medications Current Medications Medication Drug Class(es) Dates Sig (Normalized) Sig (Original) 24 hr dilTIAZem hydrochloride 120 mg extended release oral capsule (7 sources) Calcium Channel [place] Start: 06-20-2023 End: 09-18-2023 take 1 capsule by mouth once daily dilTIAZem CD (CARDIZEM CD) 120 mg 24 hr capsule Take 1 capsule by mouth once daily. 90 capsule 1 06/20/2023 09/18/2023 Active Completed/Discontinued Medications Medication Drug Class(es) Dates Sig (Normalized) Sig (Original) [id number] 200 actuat albuterol 0.09 mg/actuat metered dose inhaler (20 sources) beta2-Adrenergic Agonist Start: 11-11-2022 End: 02-26-2023 take 2 puff(s) by inhalation every four hours as needed for wheezing albuterol HFA (VENTOLIN HFA) 90 mcg/actuation inhaler Inhale 2 Puffs as instructed every 4 hours as needed for wheezing/shortnes s of breath. 18 g 1 02/26/2023 Active Problems Active Problems Problem Classification Problem Date Documented Date Episodic/Chronic Asthma (20 sources) Mild intermittent asthma; Translations: [Mild intermittent asthma, uncomplicated] Onset: 09-13-2019 09-13-2019 Chronic Cardiac dysrhythmias (20 sources) Paroxysmal atrial fibrillation; Translations: [Paroxysmal atrial fibrillation] Onset: 06-02-2019 06-02-2019 Chronic Delirium, dementia, and amnestic and other cognitive disorders (20 sources) Dementia; Translations: [Unspecified dementia without behavioral disturbance] Onset: 01-28-2018 01-28-2018 Chronic Disorders of lipid metabolism (20 sources) Pure hypercholesterolemia ; Translations: [Pure hypercholesterolemia , unspecified] Onset: 01-24-2016 04-21-2019 Chronic Essential hypertension (20 sources) Essential hypertension; Translations: [Essential (primary) hypertension] Onset: 01-24-2016 01-24-2016 Chronic Fracture of neck of femur (hip) (1 source) Closed fracture of hip; Translations: [Fracture of unspecified part of neck of left femur, initial encounter for closed fracture] Episodic Genitourinary symptoms and ill-defined conditions (20 sources) Urinary incontinence; Translations: [Unspecified urinary incontinence] Onset: 12-22-2020 12-22-2020 Chronic Mood disorders (20 sources) Depressive disorder; Translations: [Depression] Onset: 11-08-2019 11-08-2019 Chronic Nutritional deficiencies (20 sources) Vitamin D deficiency; Translations: [Vitamin D deficiency, unspecified] Onset: 01-28-2018 01-28-2018 Chronic Osteoarthritis (1 source) Arthritis of hip; Translations: [Unilateral primary osteoarthritis, unspecified hip] Chronic Other circulatory disease (19 sources) Low blood pressure; Translations: [Hypotension, unspecified] Onset: 05-28-2023 05-22-2023 Episodic Other diseases of kidney and ureters (1 source) Disorder of kidney and ureter, unspecified; Translations: [Acute renal insufficiency] Onset: 10-01-2023 Episodic Other hematologic conditions (1 source) Raised cardiac enzyme or marker; Translations: [Other specified abnormalities of plasma proteins] Episodic Other lower respiratory disease (2 sources) Cough; Translations: [Acute cough] Episodic Other lower respiratory disease (1 source) Dyspnea on exertion; Translations: [Other forms of dyspnea] Episodic Other lower respiratory disease (2 sources) Wheezing; Translations: [Wheezing] 11-13-2022 Episodic Other lower respiratory disease (1 source) Dyspnea; Translations: [Shortness of breath] 11-13-2022 Episodic Other nervous system disorders (20 sources) Normal pressure hydrocephalus; Translations: [(Idiopathic) normal pressure hydrocephalus] Onset: 12-31-2017 12-20-2020 Chronic Other nervous system disorders (3 sources) Hydrocephalus; Translations: [Other hydrocephalus] Chronic Other nervous system disorders (1 source) (Idiopathic) normal pressure hydrocephalus; Translations: [NPH (normal pressure hydrocephalus) (HCC)] Onset: 12-20-2020 Chronic Other non-traumatic joint disorders (1 source) Hip pain; Translations: [Pain in left hip] Episodic Other upper respiratory disease (20 sources) Allergic rhinitis; Translations: [Allergic rhinitis, unspecified] Onset: 01-24-2016 04-19-2019 Chronic Other upper respiratory infections (5 sources) Acute upper respiratory infection; Translations: [Acute upper respiratory infection, unspecified] Onset: 09-05-2023 Episodic Unclassified (1 source) Right lumbar pain; Translations: [Right lumbar pain] Onset: 04-24-2023 Unclassified (1 source) Acute right-sided low back pain without sciatica; Translations: [Acute right-sided low back pain without sciatica] Onset: 03-28-2023 Unclassified (1 source) Acute cough; Translations: [Acute cough] Onset: 11-25-2022 Past or Other Problems Problem Classification Problem Date Documented Date Episodic/Chronic Abdominal hernia (20 sources) Inguinal hernia; Translations: [Unilateral inguinal hernia, without obstruction or gangrene, not specified as recurrent] Onset: 10-29-2018 10-29-2018 Episodic Abdominal pain (20 sources) Left lower quadrant pain; Translations: [Left lower quadrant pain] Onset: 03-28-2023 Episodic Allergic reactions (20 sources) Allergy to drug; Translations: [Allergy status to other antibiotic agents status] Onset: 03-04-2016 03-04-2016 Episodic Calculus of urinary tract (20 sources) History of calculus of kidney; Translations: [Personal history of urinary calculi] Onset: 01-31-2016 01-31-2016 Episodic Cancer of prostate (20 sources) History of malignant neoplasm of prostate; Translations: [Personal history of malignant neoplasm of prostate] Onset: 03-04-2016 03-04-2016 Episodic Cardiac dysrhythmias (20 sources) Bradycardia; Translations: [Bradycardia, unspecified] Onset: 04-18-2019 04-19-2019 Episodic Conditions associated with dizziness or vertigo (20 sources) Viral labyrinthitis; Translations: [Labyrinthitis, unspecified ear] Onset: 04-04-2003 07-23-2010 Episodic Diabetes mellitus without complication (20 sources) Hyperglycemia; Translations: [Hyperglycemia, unspecified] Onset: 08-03-2021 08-03-2021 Episodic Genitourinary symptoms and ill-defined conditions (20 sources) hematuria; Translations: [Gross hematuria] Onset: 01-31-2016 01-31-2016 Episodic Immunizations and screening for infectious disease (1 source) Encounter for immunization; Translations: [Need for influenza vaccination] Onset: 06-25-2023 Episodic Malaise and fatigue (20 sources) Fatigue; Translations: [Other fatigue] Onset: 06-23-2020 06-23-2020 Episodic Nausea and vomiting (2 sources) Nausea and vomiting; Translations: [Nausea with vomiting, unspecified] Onset: 03-28-2023 Episodic Nutritional deficiencies (20 sources) Cobalamin deficiency; Translations: [Deficiency of other specified B group vitamins] Onset: 01-28-2018 01-28-2018 Episodic Other and unspecified benign neoplasm (20 sources) Adrenal adenoma; Translations: [Benign neoplasm of unspecified adrenal gland] Onset: 03-04-2016 03-04-2016 Episodic Other circulatory disease (20 sources) History of transient ischemic attack; Translations: [Personal history of transient ischemic attack (TIA), and cerebral infarction without residual deficits] Onset: 12-18-2018 12-18-2018 Episodic Other circulatory disease (20 sources) Blood pressure alteration; Translations: [Other disorder of circulatory system] Onset: 04-23-2023 04-23-2023 Episodic Other circulatory disease (1 source) Hypotension, unspecified; Translations: [Hypotension, unspecified hypotension type] Onset: 06-25-2023 Episodic Other connective tissue disease (20 sources) Poor posture; Translations: [Abnormal posture] Onset: 01-19-2019 01-19-2019 Episodic Other connective tissue disease (20 sources) Muscle atrophy; Translations: [Muscle wasting and atrophy, not elsewhere classified, other site] Onset: 12-22-2020 12-22-2020 Episodic Other diseases of kidney and ureters (20 sources) Cyst of kidney; Translations: [Cyst of kidney, acquired] Onset: 03-04-2016 03-04-2016 Episodic Other hematologic conditions (1 source) Other specified abnormalities of plasma proteins; Translations: [Elevated troponin] Onset: 03-06-2023 Episodic Other lower respiratory disease (1 source) Wheezing; Translations: [Wheezing] Onset: 04-28-2023 Episodic Other lower respiratory disease (1 source) Shortness of breath; Translations: [SOB (shortness of breath)] Onset: 04-28-2023 Episodic Other lower respiratory disease (1 source) Other forms of dyspnea; Translations: [DENNIS (dyspnea on exertion)] Onset: 02-26-2023 Episodic Other nervous system disorders (20 sources) Impaired cognition; Translations: [Other symptoms and signs involving cognitive functions and awareness] Onset: 01-24-2016 01-24-2016 Episodic Other nervous system disorders (20 sources) Tremor; Translations: [Tremor, unspecified] Onset: 01-30-2021 01-30-2021 Episodic Other screening for suspected conditions (not mental disorders or infectious disease) (3 sources) Hormone level - finding; Translations: [Other specified abnormal findings of blood chemistry] Onset: 02-26-2023 Episodic Other skin disorders (20 sources) Lesion of skin of nose; Translations: [Disorder of the skin and subcutaneous tissue, unspecified] Onset: 01-28-2018 01-28-2018 Episodic Other skin disorders (20 sources) Actinic keratosis; Translations: [Actinic keratosis] Onset: 01-28-2018 01-28-2018 Episodic Residual codes; unclassified (20 sources) Disturbance of attention; Translations: [Other general symptoms and signs] Onset: 04-21-2019 04-21-2019 Episodic Spondylosis; intervertebral disc disorders; other back problems (20 sources) Acute low back pain; Translations: [Acute left-sided low back pain without sciatica] Onset: 01-24-2016 Episodic Syncope (20 sources) Vasovagal syncope; Translations: [Syncope and collapse] Onset: 06-21-2019 11-08-2019 Episodic Viral infection (20 sources) Herpes simplex; Translations: [Herpesviral infection, unspecified] Onset: 04-04-2003 07-23-2010 Episodic Results Test Name Value Interpretation Reference Range Facil ity Vital Signs Date Time Vital Sign Value Performing Clinician Faci lity 09-09-2023 10:28-0500 Body temperature 97.2 [degF] Paige Podlogar PARTS SALES MANAGER.MACHINE FASTENER Work Phone: [facility] 09-09-2023 10:28-0500 Body weight 85.64 kg Paige Podlogar PARTS SALES MANAGER.MACHINE FASTENER Work Phone: [facility] 09-09-2023 10:28-0500 Diastolic blood pressure 62 mm[Hg] Paige Podlogar PARTS SALES MANAGER.MACHINE FASTENER Work Phone: [facility] 09-09-2023 10:28-0500 Heart rate 62 /min Paige Podlogar PARTS SALES MANAGER.MACHINE FASTENER Work Phone: [facility] 09-09-2023 10:28-0500 Respiratory rate 18 /min Paige Podlogar PARTS SALES MANAGER.MACHINE FASTENER Work Phone: [facility] 09-09-2023 10:28-0500 SaO2% (BldA) [Mass fraction] 95 % Paige Podlogar PARTS SALES MANAGER.MACHINE FASTENER Work Phone: [facility] 09-09-2023 10:28-0500 Systolic blood pressure 94 mm[Hg] Paige Dang PARTS SALES MANAGER.MACHINE FASTENER Work Phone: [facility] 09-05-2023 11:48-0500 Body temperature 97.59 [degF] Aundrea Benjamin PARTS SALES MANAGER.MACHINE FASTENER Work Phone: [facility] 09-05-2023 11:48-0500 Body weight 86.18 kg Aundrea Benjamin PARTS SALES MANAGER.MACHINE FASTENER Work Phone: [facility] 09-05-2023 11:48-0500 Diastolic blood pressure 65 mm[Hg] Aundrea Benjamin PARTS SALES MANAGER.MACHINE FASTENER Work Phone: [facility] 09-05-2023 11:48-0500 Heart rate 89 /min Aundrea Benjamin PARTS SALES MANAGER.MACHINE FASTENER Work Phone: [facility] 09-05-2023 11:48-0500 Respiratory rate 18 /min Aundrea Benjamin PARTS SALES MANAGER.MACHINE FASTENER Work Phone: [facility] 09-05-2023 11:48-0500 SaO2% (BldA) [Mass fraction] 97 % Aundrea Benjamin PARTS SALES MANAGER.MACHINE FASTENER Work Phone: [facility] 09-05-2023 11:48-0500 Systolic blood pressure 109 mm[Hg] Aundrea Benjamin PARTS SALES MANAGER.MACHINE FASTENER Work Phone: [facility] 08-19-2023 11:55-0500 Body temperature 97.7 [degF] Ellie Gurrola PA-C Work Phone: [facility] 08-19-2023 11:55-0500 Body weight 86.05 kg Ellie Gurrola PA-C Work Phone: [facility] 08-19-2023 11:55-0500 Diastolic blood pressure 84 mm[Hg] Ellie CHAUDHARY-Inge Work Phone: [facility] 08-19-2023 11:55-0500 Heart rate 76 /min Ellie Phamk PA-C Work Phone: [facility] 08-19-2023 11:55-0500 Respiratory rate 18 /min Ellie Phamk PA-C Work Phone: [facility] 08-19-2023 11:55-0500 SaO2% (BldA) [Mass fraction] 97 % Ellie Phamk PA-C Work Phone: [facility] 08-19-2023 11:55-0500 Systolic blood pressure 142 mm[Hg] Ellie Phamk PA-C Work Phone: [facility] 05-28-2023 18:44-0400 Body weight 88 kg Kapil Lara DO Work Phone: [facility] 05-26-2023 15:59-0400 Body weight 87.54 kg Oni Grimm MD Work Phone: [facility] 05-26-2023 15:59-0400 Diastolic blood pressure 62 mm[Hg] Oni Grimm MD Work Phone: [facility] 05-26-2023 15:59-0400 Heart rate 72 /min Oni Grimm MD Work Phone: [facility] 05-26-2023 15:59-0400 Respiratory rate 16 /min Oni Grimm MD Work Phone: [facility] 05-26-2023 15:59-0400 SaO2% (BldA) [Mass fraction] 96 % Oni Grimm MD Work Phone: [facility] 05-26-2023 15:59-0400 Systolic blood pressure 131 mm[Hg] Oni Grimm MD Work Phone: [facility] 05-19-2023 13:51-0400 Body weight 86.64 kg Abisai Yoder APRN.MACHINE FASTENER Work Phone: [facility] 05-19-2023 13:51-0400 Diastolic blood pressure 62 mm[Hg] Abisai Yoder APRN.MACHINE FASTENER Work Phone: [facility] 05-19-2023 13:51-0400 Heart rate 73 /min Abisai Dandy PARTS SALES MANAGER.MACHINE FASTENER Work Phone: [facility] 05-19-2023 13:51-0400 SaO2% (BldA) [Mass fraction] 95 % Abisai Dandy PARTS SALES MANAGER.MACHINE FASTENER Work Phone: [facility] 05-19-2023 13:51-0400 Systolic blood pressure 94 mm[Hg] Abisai Dandy PARTS SALES MANAGER.MACHINE FASTENER Work Phone: [facility] 04-23-2023 18:35-0400 Body temperature 97 [degF] Kapil Lara DO Work Phone: [facility] 04-23-2023 18:35-0400 Body weight 87.09 kg Kapil Lara DO Work Phone: [facility] 04-23-2023 18:35-0400 Diastolic blood pressure 80 mm[Hg] Kapil Lara DO Work Phone: [facility] 04-23-2023 18:35-0400 Heart rate 64 /min Kapil Lara DO Work Phone: [facility] 04-23-2023 18:35-0400 Respiratory rate 20 /min Kapil Lara DO Work Phone: [facility] 04-23-2023 18:35-0400 Systolic blood pressure 138 mm[Hg] Kapil Lara DO Work Phone: [facility] 2023 13:44-0400 Body weight 87.09 kg Oni Grimm MD Work Phone: [facility] 2023 13:44-0400 Diastolic blood pressure 68 mm[Hg] Oni Grimm MD Work Phone: [facility] 2023 13:44-0400 Heart rate 64 /min Oni Grimm MD Work Phone: [facility] 2023 13:44-0400 SaO2% (BldA) [Mass fraction] 97 % Oni Grimm MD Work Phone: [facility] 2023 13:44-0400 Systolic blood pressure 112 mm[Hg] Oni Grimm MD Work Phone: [facility] 03-28-2023 10:51-0400 Body weight 86.18 kg Andrew Beach MD Work Phone: [facility] 03-28-2023 10:51-0400 Diastolic blood pressure 70 mm[Hg] Andrew Beach MD Work Phone: [facility] 03-28-2023 10:51-0400 Heart rate 64 /min Andrew Beach MD Work Phone: [facility] 03-28-2023 10:51-0400 Respiratory rate 16 /min Andrew Beach MD Work Phone: [facility] 03-28-2023 10:51-0400 SaO2% (BldA) [Mass fraction] 97 % Andrew Beach MD Work Phone: [facility] 03-28-2023 10:51-0400 Systolic blood pressure 122 mm[Hg] Andrew Beach MD Work Phone: [facility] 03-27-2023 12:47-0400 Body temperature 96.91 [degF] Nohemy Athy PA-C Work Phone: [facility] 03-27-2023 12:47-0400 Body weight 86.64 kg Nohemy Athy PA-C Work Phone: [facility] 03-27-2023 12:47-0400 Diastolic blood pressure 86 mm[Hg] Nohemy Athy PA-C Work Phone: [facility] 03-27-2023 12:47-0400 Heart rate 57 /min Nohemy Athy PA-C Work Phone: [facility] 03-27-2023 12:47-0400 Respiratory rate 18 /min Nohemy Athy PA-C Work Phone: [facility] 03-27-2023 12:47-0400 SaO2% (BldA) [Mass fraction] 97 % Nohemy Titus PA-C Work Phone: [facility] 03-27-2023 12:47-0400 Systolic blood pressure 138 mm[Hg] Nohemy Kyy PA-C Work Phone: [facility] 02-26-2023 11:36-0400 Body temperature 96.21 [degF] Kapil Lara DO Work Phone: [facility] 02-26-2023 11:36-0400 Body weight 86.64 kg Kapil Lara DO Work Phone: [facility] 02-26-2023 11:36-0400 Diastolic blood pressure 70 mm[Hg] Kapil Lara DO Work Phone: [facility] 02-26-2023 11:36-0400 Heart rate 60 /min Kapil Lara DO Work Phone: [facility] 02-26-2023 11:36-0400 Respiratory rate 20 /min Kapil Lara DO Work Phone: [facility] 02-26-2023 11:36-0400 Systolic blood pressure 118 mm[Hg] Kapil Lara DO Work Phone: [facility] 11-25-2022 12:27-0500 Body temperature 98.01 [degF] Hans Brown MD Work Phone: [facility] 11-25-2022 12:27-0500 Body weight 85.73 kg Hans Brown MD Work Phone: [facility] 11-25-2022 12:27-0500 Diastolic blood pressure 56 mm[Hg] Hans Brown MD Work Phone: [facility] 11-25-2022 12:27-0500 Heart rate 73 /min Hans Brown MD Work Phone: [facility] 11-25-2022 12:27-0500 Respiratory rate 21 /min Hans Brown MD Work Phone: [facility] 11-25-2022 12:27-0500 SaO2% (BldA) [Mass fraction] 98 % Hans Brown MD Work Phone: [facility] 11-25-2022 12:27-0500 Systolic blood pressure 92 mm[Hg] Hans Brown MD Work Phone: [facility] 05-06-2022 10:55-0400 Body temperature 97 [degF] Kapil Lara DO Work Phone: [facility] 05-06-2022 10:55-0400 Body weight 84.37 kg Kapil Lara DO Work Phone: [facility] 05-06-2022 10:55-0400 Diastolic blood pressure 70 mm[Hg] Kapil Lara DO Work Phone: [facility] 05-06-2022 10:55-0400 Heart rate 76 /min Kapil Lara DO Work Phone: [facility] 05-06-2022 10:55-0400 Respiratory rate 20 /min Kapil Lara DO Work Phone: [facility] 05-06-2022 10:55-0400 Systolic blood pressure 110 mm[Hg] Kapil Lara DO Work Phone: [facility] 03-08-2022 08:27-0400 Body weight 84.37 kg Abisai Dandy PARTS SALES MANAGER.MACHINE FASTENER Work Phone: [facility] 03-08-2022 08:27-0400 Diastolic blood pressure 74 mm[Hg] Abisai Dandy PARTS SALES MANAGER.MACHINE FASTENER Work Phone: [facility] 03-08-2022 08:27-0400 Heart rate 77 /min Abisai Dandy PARTS SALES MANAGER.MACHINE FASTENER Work Phone: [facility] 03-08-2022 08:27-0400 Respiratory rate 16 /min Abisai Dandy PARTS SALES MANAGER.MACHINE FASTENER Work Phone: [facility] 03-08-2022 08:27-0400 SaO2% (BldA) [Mass fraction] 95 % Abisai Yoder PARTS SALES MANAGER.MACHINE FASTENER Work Phone: [facility] 03-08-2022 08:27-0400 Systolic blood pressure 122 mm[Hg] Abisaijuly Osorioman PARTS SALES MANAGER.MACHINE FASTENER Work Phone: [facility] 03-01-2022 11:41-0400 Body temperature 97.81 [degF] Alex Gusman PARTS SALES MANAGER.MACHINE FASTENER Work Phone: [facility] 03-01-2022 11:41-0400 Body weight 84.91 kg Alex Naseem PARTS SALES MANAGER.MACHINE FASTENER Work Phone: [facility] 03-01-2022 11:41-0400 Diastolic blood pressure 82 mm[Hg] Alex Gusman PARTS SALES MANAGER.MACHINE FASTENER Work Phone: [facility] 03-01-2022 11:41-0400 Heart rate 78 /min Alex Gusman PARTS SALES MANAGER.MACHINE FASTENER Work Phone: [facility] 03-01-2022 11:41-0400 Respiratory rate 20 /min Alex Naseem PARTS SALES MANAGER.MACHINE FASTENER Work Phone: [facility] 03-01-2022 11:41-0400 SaO2% (BldA) [Mass fraction] 98 % Alex Gusman PARTS SALES MANAGER.MACHINE FASTENER Work Phone: [facility] 03-01-2022 11:41-0400 Systolic blood pressure 138 mm[Hg] [facility] PARTS SALES MANAGER.MACHINE FASTENER Work Phone: [facility] [facility] Encounter Date Encounter Type Care Provider Facility Start: 10-20-2023 ambulatory CASSANDRA Delgado y:[facility] Start: 10-15-2023 End: 10-16-2023 ambulatory KAPIL L LARA Facility:[facility] Start: 10-01-2023 End: 10-01-2023 ambulatory KAPIL L LARA Facility:[facility] Start: 09-16-2023 End: 09-17-2023 ambulatory KAPIL L LARA Facility:[facility] Start: 09-09-2023 End: 09-10-2023 ambulatory KAPIL L LARA Facility:[facility] Start: 09-09-2023 End: 09-09-2023 Patient encounter procedure Paige Podjose PARTS SALES MANAGER.MACHINE FASTENER Work Phone: [facility] Procedures Date Procedure Procedure Detail Performing Clinician Start: 08-11-2023 Ct head/brain w/o co ntrast material Matheus Butler PARTS SALES MANAGER.MACHINE FASTENER Work Phone: Start: 04-28-2023 Radex hip unilateral with pelvis 2-3 views Kapil Jamila Lara DO Work Phone: Start: 11-13-2022 Radiologic exam ches t 2 views Kapil Jamila Lara DO Work Phone: Start: 03-21-2022 Echo tthrc r-t 2d w/wom-mode compl spec&colr d Aundrea Calvert PARTS SALES MANAGER.RAVEN Work Phone: Start: 03-15-2022 Ct head/brain w/o co ntrast material Ellie Gurrola PA-C Work Phone: Start: 03-08-2022 Us abdominal real ti me w/image documentation Abisai Yoder PARTS SALES MANAGER.MACHINE FASTENER Work Phone: Start: 03-08-2022 Radex spine lumbosac ral 2/3 views Abisai Yoder PARTS SALES MANAGER.MACHINE FASTENER Work Phone: Start: 03-01-2022 Urnls dip stick/tabl et rgnt auto w/o microscopy Alex Gusman PARTS SALES MANAGER.MACHINE FASTENER Work Phone: Start: 11-08-2019 Antibody screen Plan of Treatment Date Care Activity Detail Author Start: 07-07-2029 Urine microalbumin profile [facility] Start: 05-30-2026 DIABETES SCREEN DIABETES SCREEN [facility] Start: 05-30-2026 Diabetes Screening Diabetes Screenin g [facility] Start: 04-28-2026 DIABETES SCREEN DIABETES SCREEN [facility] Start: 02-26-2026 DIABETES SCREEN DIABETES SCREEN [facility] Start: 02-21-2026 DIABETES SCREEN DIABETES SCREEN [facility] Start: 08-23-2025 DIABETES SCREEN DIABETES SCREEN [facility] Start: 04-30-2025 DIABETES SCREEN DIABETES SCREEN [facility] Start: 03-12-2025 DIABETES SCREEN DIABETES SCREEN [facility] Start: 10-25-2024 DIABETES SCREEN DIABETES SCREEN [facility] Start: 09-05-2023 End: 09-19-2023 COVID & INFLUENZA A/B & RSV NAAT, ROUTINE [facility] Work Phone: Immunizations Immunization Date Immunization Notes Care Provider Fa cility 06-25-2023 influenza (HD-IIV4) vaccine, age 65+ yr, high dose, quadrivalent, PF (FLUZONE HIGH-DOSE) Ellie Gurrola PA-C Work Phone: [facility] Work Phone: 07-22-2022 influenza (aIIV4) vaccine, age 65+ yr, quadrivalent, PF (FLUAD QUAD) Andrew Beach MD Work Phone: [facility] Work Phone: 07-22-2022 influenza, high dose seasonal, preservative-free Abner Serrano MD Work Phone: [facility] 07-04-2021 influenza, high-dose , quadrivalent vaccine (FLUZONE HIGH DOSE QUADRIVALENT) Alex Gusman APRN.MACHINE FASTENER Work Phone: [facility] Work Phone: 06-23-2020 influenza, high-dose , quadrivalent vaccine (FLUZONE HIGH DOSE QUADRIVALENT) Alex Gusman APRN.MACHINE FASTENER Work Phone: [facility] 07-07-2019 tetanus toxoid, redu mila diphtheria toxoid, and acellular pertussis vaccine, adsorbed Alex Gusman APRN.MACHINE FASTENER Work Phone: [facility] 06-21-2019 influenza, high dose seasonal, preservative-free Alex Gusman APRN.MACHINE FASTENER Work Phone: [facility] Work Phone: 06-27-2018 influenza, high dose seasonal, preservative-free Alex Pendlebury PARTS SALES MANAGER.MACHINE FASTENER Work Phone: [facility] 06-30-2017 influenza, high dose seasonal, preservative-free Alex Pendlebury PARTS SALES MANAGER.MACHINE FASTENER Work Phone: [facility] 06-22-2016 influenza, high dose seasonal, preservative-free Alex Pendlebury PARTS SALES MANAGER.MACHINE FASTENER Work Phone: [facility] 06-20-2016 influenza, seasonal, injectable Andrew Beach MD Work Phone: [facility] Work Phone: 01-10-2016 pneumococcal conjuga te vaccine, 13 valent Alex Pendedinson PARTS SALES MANAGER.MACHINE FASTENER Work Phone: [facility] Work Phone: 04-13-2014 pneumococcal polysaccharide vaccine, 23 valent Alex Pendlebetzaida PARTS SALES MANAGER.[facility] Work Phone: [facility] Work Phone: 07-23-2007 pneumococcal polysaccharide vaccine, 23 valent Alex Pendlebetzaida PARTS SALES MANAGER.MACHINE FASTENER Work Phone: [facility] Work Phone: Payers Date Payer Category Payer Unknown MEDPAY MEDPAY [id number] 2022-Present [phone] [id number] [facility] [id number] [place] [address] Indemnity [id number] 2013 Private Health Insurance [facility] AARP SUPPLEMENT [id number] 2013-Present [phone] [address] [place] [address] Indemnity [id number] 2013 Private Health Insurance [facility] AARP SUPPLEMENT [id number] 2013-Present [phone] [address] [place] [address] Indemnity [id number] 2013 Unknown [id number] 2006 Medicare MEDICARE MEDICAR E A AND B [id number] 2006-Present [phone] [place] [address] Medicare [id number] 2006 Medicare MEDICARE MEDICAR E A AND B [id number] 2006-Present [phone] [place] [address] Medicare [id number] 2006 Medicare [id number] Social History Date Type Detail Facility Start: 03-26-2011 Tobacco smoking stat [facility] Never smoked tobacco [facility] Work Phone: Start: 03-01-2022 End: 09-09-2023 Alcohol intake Current drinker of alcohol (finding) [facility] Start: 03-19-2020 End: 11-08-2022 History SDOH Alcohol Frequency 3 [facility] Start: 03-19-2020 End: 11-08-2022 History SDOH Alcohol Std Drinks 1 [facility] Start: 03-19-2020 End: 11-08-2022 History SDOH Social Connections Phone 5 [facility] Start: 06-21-2020 End: 11-08-2022 History SDOH Physical Activity DPW 2 [facility] Start: 03-19-2020 Education 18 [facility] Start: 1935 Sex Assigned At Not on file [facility] Start: 02-19-2022 End: 08-26-2022 Exposure to SARS-CoV-2 (event) Not sure [facility] Work Phone: Start: 03-26-2011 Tobacco use and exposure Smoke less tobacco non-user [facility] Start: 11-08-2022 End: 05-27-2023 History of Social function [facility] Start: 11-08-2022 End: 02-22-2023 Social connection and isolation panel [facility] Do you belong to any clubs or organizations such as yazidi groups, unions, fraternal or athletic groups, or school groups? Yes [facility] Are you now , , , , never or living with a partner? [facility] How often to you hav e a drink containing alcohol? 2-4 times a month [facility] How many standard dr inks containing alcohol do you have on a typical day? 1 or 2 [facility] How often do you hav e 6 or more drinks on 1 occasion? Never [facility] How hard is it for y ou to pay for the very basics like food, housing, medical care, and heating Not hard at all [facility] Do you feel stress - tense, restless, nervous, or anxious, or unable to sleep at night because your mind is troubled all the time - these days [OSQ] Not at all [facility] (I/We) worried whejuan r er (my/our) food would run out before (I/we) got money to buy more. Never true [facility] In the past 12 month s, was there a time when you were not able to pay the mortgage or rent on time? No [facility] Medical Equipment Procedure Code Equipment Code Equipment Origin al Text Equipment Identifier Dates Kit Bactiseal Cárdenas latha Silicone Barium Catheter Shunt Sterile - [id number] Start: 11-22-2019 Plug Perfix Bard Medium Taper Polypropylene 1.55x1.3in Surgical - [id number] Start: 12-23-2018 Clinical Notes 09-13-2019 to 10-20-2023 Patient InstructionsPoPaige lopez APRN.MACHINE FASTENER - 09/09/2023 10:29 AM Aundrea Blancas APRN.MACHINE FASTENER - 09/05/2023 11:57 AM Ellie Mora PA-C - 08/19/2023 12:01 PM ESTPatient Instructions Note Date & Type Note Facility 10-20-2023 Note HNO ID: [id number] Author: CASSANDRA MEJIA APRN.MACHINE FASTENER Service: ? Author Type: Nurse Practitioner Type: Progress Notes Filed: 10/20/2023 15:39 Note Text: Chief Complaint No chief complaint on file. HPI Oni Hernández is a 88 year old male who presents here today for Above Complaints.. Patient presents for cough and fatigue. Patient currently on cardizem and amiodarone for afib. Patient's family reports these symptoms are common when he is in afib but are also concerned about RSV. Patient also reports wheezing. Past medical history, appointments, medications, allergies reviewed. Previous Medical History PAST MEDICAL HISTORY Diagnosis Date Allergic rhinitis, cause unspecified Asthma Bradycardia Carotid stenosis Cognitive impairment Neurologist, worsened with Aricept Fracture 8 years old broke his right arm a long time ago Generalized and unspecified atherosclerosis HTN (hypertension) Hyperlipidemia Kidney stones Lower back pain Lumbar spinal stenosis Dr. Unger Malignant neoplasm prostate (HCC) 05/15/2010 T1C, [place] 8, PSA 7.1 ng/mL Mild dementia (HCC) NPH (normal pressure hydrocephalus) (HCC) unlikely clinical picture for NPH. Had drain trial w/ subjective improvement in gait PAF (paroxysmal atrial fibrillation) (HCC) TIA (transient ischemic attack) Neurologist Previous Surgical History PAST SURGICAL HISTORY Procedure Laterality Date APPENDECTOMY 1950 at age 19 CATARACT EXTRACTION HX Right 11/10/2017 Dr. Arcos Ground Crew Supervisor CATARACT EXTRACTION HX Left 11/26/2017 Dr. Josselyn CERON PROSTECT RETROPUBIC RAD W/NRV SPARING ROBOT 07/24/2010 Dr. Ovalles, robotic, pT3a, [place] 4+3, SM pos, 0/14 LN+ PAST SURGICAL HISTORY OF 2014 nerve ablation lower back left side PAST SURGICAL HISTORY OF 08/03/2016 Nerve ablation back PAST SURGICAL HISTORY OF kidney stone removal x 3 - last episode 1985 VASECTOMY UNI/BI SPX W/POSTOP SEMEN EXAMS 1972 Family History FAMILY HISTORY Problem Relation Age of Onset Stroke Mother Breast Cancer Mother Ischemic Heart Disease Mother Stroke Father Lipids Sister other (gerd) Sister other (healthy) Son Skin Cancer Daughter Patient Allergies ALLERGIES Allergen Reactions Crab Anaphylaxis Aricept [Donepezil] Mental Status Change Regression Cefdinir Itching Ciprofloxacin hives Eliquis [Apixaban] Rash Penicillins hives Sulfa (Sulfonamide * hives Current Medications Current Outpatient Medications on File Prior to Visit Medication Sig rosuvastatin (CRESTOR) 20 mg tablet Take 1 tablet by mouth once daily. Short term, while waiting for mail order XARELTO 20 mg tablet TAKE 1 TABLET BY MOUTH DAILY WITH DINNER amiodarone (PACERONE) 200 mg tablet Take 200 mg by mouth once daily. rosuvastatin (CRESTOR) 20 mg tablet Take 1 tablet by mouth once daily. Syringe with Needle, Disp, (SYRINGE 3CC/25GX1 ) 3 mL 25 gauge x 1 1 Syringe every 2 weeks. predniSONE (DELTASONE) 20 mg tablet Take 1 tablet by mouth once daily. benzonatate (TESSALON PERLES) 100 mg capsule Take 1 capsule by mouth three times a day as needed for cough. dilTIAZem CD (CARDIZEM CD) 120 mg 24 hr capsule Take 1 capsule by mouth once daily. cyanocobalamin 1,000 mcg/mL Inject 1 mL intramuscularly every other week. albuterol HFA (VENTOLIN HFA) 90 mcg/actuation inhaler Inhale 2 Puffs as instructed every 4 hours as needed for wheezing/shortness of breath. FLUoxetine (PROZAC) 10 mg capsule Take 1 capsule by mouth once daily. Lysine 500 mg tab Take 500 mg by mouth once daily. UBIDECARENONE (COQ-10 ORAL) Take 1 tablet by mouth once daily. multivitamins(MULTIPLE VITAMIN TAB) Take one(1) tablet daily. Current Facility-Administered Medications on File Prior to Visit Medication perflutren lipid microspheres 1.3 mL in NaCl (PF) 0.9% 10 mL injection (DEFINITY) sodium chloride 0.9 % (flush) 10 mL (BD POSIFLUSH) Social History Social History Tobacco Use Smoking status: Never Smokeless tobacco: Never Vaping Use Vaping Use: Never used Substance Use Topics Alcohol use: Yes Alcohol/week: 1.3 - 2.6 standard drinks of alcohol Types: 1 - 2 Mixed Drinks per week Drug use: No Review of Symptoms REVIEW OF SYSTEMS SEE HPI EXAM: BP 100/62 Pulse 74 Temp 36.3 ?C (97.3 ?F) Resp 16 Wt 86.2 kg (190 lb) SpO2 96% BMI 27.82 kg/m? General Appearance: Well appearing, alert, in no acute distress, well-hydrated, well nourished.. Lungs: Scattered wheezes throughout, clears with cough. No rhonchi, rales.. Heart: RRR irregular, without murmur, gallop, or rubs. Health Maintenance List Shingrix Vaccine(1 of 2) Never done RSV Vaccine(1 - 1-dose 60+ series) Never done Diabetes Screening due on 10/15/2026 DTaP,Tdap,Td Vaccine(2 - Td or Tdap) due on 07/07/2029 Spirometry Completed Influenza Vaccine Completed Covid-19 Vaccine Completed Pneumococcal Vaccine: 65+ Completed Advance Dir (more content not included)... [facility] 10-01-2023 Note HNO ID: [id number] Author: Kapil Lara, DO Service: ? Author Type: Physician Type: Progress Notes Filed: 10/01/2023 9:56 PM Note Text: CC: Oni Hernández is a 88 year old male who presents to the office for follow up HPI: At last OFFICE VISIT on 05/28/23 Patient's Date of discharge: 05/13/23 Date of initial coordinator contact after discharge: NA Discharge diagnosis: acute cardiac dysrhythmia, near syncope Medication review completed Yes Patient was admitted from 05/12 through 05/13 at [facility] due to hypotension at 78/36 the day he was feeling very fatigued and lethargic. He was previously working outside in his garden on a hot day but admits that he probably wasn't drinking enough fluids that day. It was around 12 noon when symptoms started. He was monitored in the hospital and holter monitor placed. Was seen by Honey Yoder CNP after discharge. His dose of metoprolol was changed to take 1/2 tab in the AM and 1/2 tab in the PM which he has been doing since 05/19 when seen by MACHINE FASTENER. He is tolerating the medication change without any concerns. His BLOOD PRESSURE recently over the last week has been stable and ranging from 100/60s to 120s/80s. He is feeling better Chronic fatigue, taking vitamin B12 injection monthly at this time. Still struggling with fatigue. At follow up May 2023 He has been able to get an appt with local Carriage Setter Dr. Gallardo at [facility] to try to keep his care local The last 2 days prior he had some mild LH and nausea symptoms, no diarrhea or vomiting. checked his BLOOD PRESSURE and heart rate which were stable/normal. He hasn't started new medication Diltiazem yet. When he gets this from [facility] mail away pharmacy then he will stop the metoprolol and start on this medication. No recent chest pressure or pain or syncope symptoms. No leg edema. Fatigue, vitamin B12 deficiency, now taking vitamin B12 injection twice a month, every 2 weeks. Currently Hx of atrial fibrillation/ cardiac arrhythmia, has continued to follow up with Carriage Setter regularly, no new medication changes. BLOOD PRESSURE seems to be stable. Still struggles with chronic fatigue, brush worker feels this is related to his heart disease. Does feel better when able to nap daily and feels refreshed after this. Vitamin B12 deficiency, still taking injection, just had lab draw the day after injection Vitamin D deficiency, taking supplement NPH, recently had shunt adjusted due to urinary incontinence increase which seems to have solved this again. No recent falls. Still with intermittent balance issues. Elevated serum creatinine, admits to not drinking enough water on a daily basis. No urinary symptoms at this time PAST MEDICAL HISTORY Diagnosis Date Allergic rhinitis, cause unspecified Asthma Bradycardia Carotid stenosis Cognitive impairment Neurologist, worsened with Aricept Fracture 8 years old broke his right arm a long time ago Generalized and unspecified atherosclerosis HTN (hypertension) Hyperlipidemia Kidney stones Lower back pain Lumbar spinal stenosis Dr. Unger Malignant neoplasm prostate (HCC) 05/15/2010 T1C, [place] 8, PSA 7.1 ng/mL Mild dementia (HCC) NPH (normal pressure hydrocephalus) (HCC) unlikely clinical picture for NPH. Had drain trial w/ subjective improvement in gait PAF (paroxysmal atrial fibrillation) (HCC) TIA (transient ischemic attack) Neurologist PAST SURGICAL HISTORY Procedure Laterality Date APPENDECTOMY 1950 at age 19 CATARACT EXTRACTION HX Right 11/10/2017 Dr. Arcos Ground Crew Supervisor CATARACT EXTRACTION HX Left 11/26/2017 Dr. Arcos LAPJames PROSTECT RETROPUBIC RAD W/NRV SPARING ROBOT 07/24/2010 Dr. Ovalles, robotic, pT3a, [place] 4+3, SM pos, 0/14 LN+ PAST SURGICAL HISTORY OF 2014 nerve ablation lower back left side PAST SURGICAL HISTORY OF 08/03/2016 Nerve ablation back PAST SURGICAL HISTORY OF kidney stone removal x 3 - last episode 1985 VASECTOMY UNI/BI SPX W/POSTOP SEMEN EXAMS 1971 Current Outpatient Medications Medication Sig benzonatate (TESSALON PERLES) 100 mg capsule Take 1 capsule by mouth three times a day as needed for cough. dilTIAZem CD (CARDIZEM CD) 120 mg 24 hr capsule Take 1 capsule by mouth once daily. cyanocobalamin 1,000 mcg/mL Inject 1 mL intramuscularly every other week. albuterol HFA (VENTOLIN HFA) 90 mcg/actuation inhaler Inhale 2 Puffs as instructed every 4 hours as needed for wheezing/shortness of breath. FLUoxetine (PROZAC) 10 mg capsule Take 1 capsule by mouth once daily. XARELTO 20 mg tablet TAKE 1 TABLET BY MOUTH DAILY WITH DINNER Lysine 500 mg tab Take 500 mg by mouth once daily. UBIDECARENONE (COQ-10 ORAL) Take 1 tablet by mouth once daily. multivitamins(MULTIPLE VITAMIN TAB) Take one(1) tablet daily. amiodarone (PACERONE) 200 mg tablet Take 200 mg by mouth once daily. rosuvastatin (CRESTOR) 20 mg tablet Take 1 tablet by mouth onc (more content not included)... [facility] 09-09-2023 Note HNO ID: [id number] Author: PodlogPaige francois APRN.MACHINE FASTENER Service: ? Author Type: Nurse Practitioner Type: Progress Notes Filed: 09/09/2023 11:23 AM Note Text: 09/09/2023 Patient presents with: Recheck: Cough with wheezing at night, fatigue, body aches, sore throat. SUBJECTIVE: This is a 88 year old that is here today for Above Complaints. For the past week has had cough, wheezing, headache, fatigue, body aches, SOB, and sore throat. Seen in [facility] on 09/05/2023. Negative influenza, COVID-19 and RSV. Normal chest xray. Prescribed Tessalon Perles. Perels not helping and using mucinex. Has albuterol inhaler but has not been using much. Denies fevers, dyspnea, chest pain, nausea, vomitng or diarrhea IMPRESSION: No acute radiographic abnormality. Water Conservationist: PSCB Transcribe Date/Time: Sep 05 2023 12:23P Dictated by : ABBIE LEW MD This examination was interpreted and the report reviewed and electronically signed by: ABBIE LEW MD on Sep 05 2023 12:26PM EST Results-Findings * * *Final Report* * * DATE OF EXAM: Sep 05 2023 12:23PM WOX [id number] - XR CHEST 2V FRONTAL/LAT / PROCEDURE REASON: multiple diagnoses * * * * Physician Interpretation * * * * EXAMINATION: CHEST RADIOGRAPH (2 VIEW FRONTAL AND LATERAL) CLINICAL HISTORY: URI, acute Acute cough MQ: [id number] EXAM DATE/TIME: 09/05/2023 12:23 PM COMPARISON: Chest x-ray 02/21/2023 RESULT: Lines, tubes, and devices: Ventriculostomy catheter projects over the right hemithorax Lungs and pleura: No consolidation. No lung mass. No pleural effusion. No pneumothorax. Cardiomediastinal silhouette: Normal cardiomediastinal silhouette. Bones and soft tissues: Degenerative disease of the thoracic spine. PAST MEDICAL HISTORY Diagnosis Date Allergic rhinitis, cause unspecified Asthma Bradycardia Carotid stenosis Cognitive impairment Neurologist, worsened with Aricept Fracture 8 years old broke his right arm a long time ago Generalized and unspecified atherosclerosis HTN (hypertension) Hyperlipidemia Kidney stones Lower back pain Lumbar spinal stenosis Dr. Unger Malignant neoplasm prostate (HCC) 05/15/2010 T1C, [place] 8, PSA 7.1 ng/mL Mild dementia (HCC) NPH (normal pressure hydrocephalus) ([facility]) unlikely clinical picture for NPH. Had drain trial w/ subjective improvement in gait PAF (paroxysmal atrial fibrillation) ([facility]) TIA (transient ischemic attack) Neurologist ALLERGIES Crab, Aricept [Donepezil], Cefdinir, Ciprofloxacin, Eliquis [Apixaban], Penicillins, and Sulfa (Sulfonamide Antibiotics) MEDICATIONS Current Outpatient Medications Medication Sig benzonatate (TESSALON PERLES) 100 mg capsule Take 1 capsule by mouth three times a day as needed for cough. dilTIAZem CD (CARDIZEM CD) 120 mg 24 hr capsule Take 1 capsule by mouth once daily. Syringe with Needle, Disp, (SYRINGE 3CC/25GX1 ) 3 mL 25 gauge x 1 1 Syringe once every month. cyanocobalamin 1,000 mcg/mL Inject 1 mL intramuscularly every other week. albuterol HFA (VENTOLIN HFA) 90 mcg/actuation inhaler Inhale 2 Puffs as instructed every 4 hours as needed for wheezing/shortness of breath. rosuvastatin (CRESTOR) 20 mg tablet Take 1 tablet by mouth once daily. FLUoxetine (PROZAC) 10 mg capsule Take 1 capsule by mouth once daily. XARELTO 20 mg tablet TAKE 1 TABLET BY MOUTH DAILY WITH DINNER Lysine 500 mg tab Take 500 mg by mouth once daily. UBIDECARENONE (COQ-10 ORAL) Take 1 tablet by mouth once daily. multivitamins(MULTIPLE VITAMIN TAB) Take one(1) tablet daily. Current Facility-Administered Medications Medication Dose Route Frequency perflutren lipid microspheres 1.3 mL in NaCl (PF) 0.9% 10 mL injection (DEFINITY) INTRAVENOUS DIRECTED PRN sodium chloride 0.9 % (flush) 10 mL (BD POSIFLUSH) 10 mL INTRAVENOUS DIRECTED PRN Medications and allergies reviewed by this provider. SOCIAL HISTORY Social History Tobacco Use Smoking status: Never Smokeless tobacco: Never Vaping Use Vaping Use: Never used Substance Use Topics Alcohol use: Yes Alcohol/week: 1.3 - 2.6 standard drinks of alcohol Types: 1 - 2 Mixed Drinks per week Drug use: No REVIEW OF SYSTEMS All other reviewed and negative other than HPI. OBJECTIVE: BP 94/62 Pulse 62 Temp 36.2 ?C (97.2 ?F) Resp 18 Wt 85.6 kg (188 lb 12.8 oz) SpO2 95% BMI 26.71 kg/m? . Vital signs reviewed by this provider. APPEARANCE Well appearing, alert, in no acute distress, well-hydrated, well nourished. EYES PERRLA, conjunctiva and sclera normal. THROAT normal, no erythema NECK Supple, no adenopathy; thyroid symmetric, normal size, no bruits HEART RRR with normal S1 and S2, no murmurs, no gallops, no JVD appreciated LUNG Harsh moist cough. Patient coughing up large amounts of green sputum. No rhonchi, wheezes, or rales. Able to speak in full sentences without difficulty SKIN Skin color, texture, t (more content not included)... [facility] 09-09-2023 Instructions Paige Dang APRN.RAVEN - 09/09/2023 10:47 AM EST Would recommend over the counter coricidin documented in this encounter [facility] 09-09-2023 History of Present illness Narrative 09/09/2023 Patient presents with: Recheck: Cough with wheezing at night, fatigue, body aches, sore throat. SUBJECTIVE: This is a 88 year old that is here today for Above Complaints. For the past week has had cough, wheezing, headache, fatigue, body aches, SOB, and sore throat. Seen in [facility] on 09/05/2023. Negative influenza, COVID-19 and RSV. Normal chest xray. Prescribed Tessalon Perles. Perels not helping and using mucinex. Has albuterol inhaler but has not been using much. Denies fevers, dyspnea, chest pain, nausea, vomitng or diarrhea IMPRESSION: No acute radiographic abnormality. Water Conservationist: PSCB Transcribe Date/Time: Sep 05 2023 12:23P Dictated by : ABBIE LEW MD This examination was interpreted and the report reviewed and electronically signed by: ABBIE LEW MD on Sep 05 2023 12:26PM EST Results-Findings * * *Final Report* * * DATE OF EXAM: Sep 05 2023 12:23PM WOX [id number] - XR CHEST 2V FRONTAL/LAT / PROCEDURE REASON: multiple diagnoses * * * * Physician Interpretation * * * * EXAMINATION: CHEST RADIOGRAPH (2 VIEW FRONTAL & LATERAL) CLINICAL HISTORY: URI, acute Acute cough MQ: [id number] EXAM DATE/TIME: 09/05/2023 12:23 PM COMPARISON: Chest x-ray 02/21/2023 RESULT: Lines, tubes, and devices: Ventriculostomy catheter projects over the right hemithorax Lungs and pleura: No consolidation. No lung mass. No pleural effusion. No pneumothorax. Cardiomediastinal silhouette: Normal cardiomediastinal silhouette. Bones and soft tissues: Degenerative disease of the thoracic spine. PAST MEDICAL HISTORY Diagnosis Date Allergic rhinitis, cause unspecified Asthma Bradycardia Carotid stenosis Cognitive impairment Neurologist, worsened with Aricept Fracture 8 years old broke his right arm a long time ago Generalized and unspecified atherosclerosis HTN (hypertension) Hyperlipidemia Kidney stones Lower back pain Lumbar spinal stenosis Dr. Unger Malignant neoplasm prostate (HCC) 05/15/2010 T1C, [place] 8, PSA 7.1 ng/mL Mild dementia (HCC) NPH (normal pressure hydrocephalus) (HCC) unlikely clinical picture for NPH. Had drain trial w/ subjective improvement in gait PAF (paroxysmal atrial fibrillation) (HCC) TIA (transient ischemic attack) Neurologist ALLERGIES Crab, Aricept [Donepezil], Cefdinir, Ciprofloxacin, Eliquis [Apixaban], Penicillins, and Sulfa (Sulfonamide Antibiotics) MEDICATIONS Current Outpatient Medications Medication Sig benzonatate (TESSALON PERLES) 100 mg capsule Take 1 capsule by mouth three times a day as needed for cough. dilTIAZem CD (CARDIZEM CD) 120 mg 24 hr capsule Take 1 capsule by mouth once daily. Syringe with Needle, Disp, (SYRINGE 3CC/25GX1 ) 3 mL 25 gauge x 1 1 Syringe once every month. cyanocobalamin 1,000 mcg/mL Inject 1 mL intramuscularly every other week. albuterol HFA (VENTOLIN HFA) 90 mcg/actuation inhaler Inhale 2 Puffs as instructed every 4 hours as needed for wheezing/shortness of breath. rosuvastatin (CRESTOR) 20 mg tablet Take 1 tablet by mouth once daily. FLUoxetine (PROZAC) 10 mg capsule Take 1 capsule by mouth once daily. XARELTO 20 mg tablet TAKE 1 TABLET BY MOUTH DAILY WITH DINNER Lysine 500 mg tab Take 500 mg by mouth once daily. UBIDECARENONE (COQ-10 ORAL) Take 1 tablet by mouth once daily. multivitamins(MULTIPLE VITAMIN TAB) Take one(1) tablet daily. Current Facility-Administered Medications Medication Dose Route Frequency perflutren lipid microspheres 1.3 mL in NaCl (PF) 0.9% 10 mL injection (DEFINITY) INTRAVENOUS DIRECTED PRN sodium chloride 0.9 % (flush) 10 mL (BD POSIFLUSH) 10 mL INTRAVENOUS DIRECTED PRN Medications and allergies reviewed by this provider. SOCIAL HISTORY Social History Tobacco Use Smoking status: Never Smokeless tobacco: Never Vaping Use Vaping Use: Never used Substance Use Topics Alcohol use: Yes Alcohol/week: 1.3 - 2.6 standard drinks of alcohol Types: 1 - 2 Mixed Drinks per week Drug use: No REVIEW OF SYSTEMS All other reviewed and negative other than HPI. OBJECTIVE: BP 94/62 Pulse 62 Temp 36.2 C (97.2 F) Resp 18 Wt 85.6 kg (188 lb 12.8 oz) SpO2 95% BMI 26.71 kg/m . Vital signs reviewed by this provider. APPEARANCE Well appearing, alert, in no acute distress, well-hydrated, well nourished. EYES PERRLA, conjunctiva and sclera normal. THROAT normal, no erythema NECK Supple, no adenopathy; thyroid symmetric, normal size, no bruits HEART RRR with normal S1 and S2, no murmurs, no gallops, no JVD appreciated LUNG Harsh moist cough. Patient coughing up large amounts of green sputum. No rhonchi, wheezes, or rales. Able to speak in full sentences without difficulty SKIN Skin color, texture, turgor normal, no suspicious rashes or lesions to exposed skin Shingrix Vaccine(1 of 2) Never done RSV Vaccine(1 - 1-dose 60+ series) Never done Diabetes Screening due on 05/30/2026 DTaP,Tdap,Td Vaccine(2 - Td or Tdap) due on 07/07/2029 Spirometry Completed Influenza Vaccine Completed Covid-19 Vaccine Completed Pneumococcal Vaccine: 65+ Completed Advance Directive Discussion Discontinued ASSESSMENT/PLAN: 1. Upper respiratory tract infection, unspecified type - ICD9: 465.9, ICD10: J06.9 (primary diagnosis) - Symptomatic treatment with prn analgesia - Supportive care with fluids and rest - may use OTC coricidin cough syrup - no red flag symptoms or exam findings - red flag symptoms discussed, verbalizes understanding - Follow up in 3-5 days if symptoms persist or sooner if worsening of symptoms - DOXYCYCLINE HYCLATE 100 MG TABLET 2. Wheezing - ICD9: 786.07, ICD10: R06.2 - no wheezing on exam at this time - PREDNISONE 20 MG TABLET - follow-up with PCP if symptoms fail to improve Paige Dang APRN.CNP Prescription instructions reviewed with patient as applicable. Patient advised if symptoms do not improve or if symptoms worsen sooner, to contact their primary care physician. Potential red flag symptoms discussed with the patient. Reviewed appropriate action plan to take if red flag symptoms occur. Patient agreeable to treatment plan. I spent a total of 30 minutes on the date of the service which included preparing to see the patient, [id number] patient care, completing clinical documentation, obtaining and/or reviewing separately obtained history, performing a medically appropriate examination, counseling and educating the patient/family/caregiver, and ordering medications, tests, or procedures. documented in this encounter [facility] 09-05-2023 Note HNO ID: [id number] Author: Allison Barrios RT(Silviano) Service: ? Author Type: Sheet Metal Mechanic Type: Progress Notes Filed: 09/05/2023 12:22 PM Note Text: Radiology Service Progress Note PATIENT NAME: Oni Hernández DATE OF SERVICE: September 05, 2023 TIME: 12:15 PM PATIENT IDENTITY VERIFICATION COMPLETED USING TWO (2) IDENTIFIERS: Name and Date of confirmed by patient verbally. FALL SCREENING: Has the patient had 2 falls in the last year or 1 fall with injury or currently using an Ambulatory Assistive Device (Walker, Cane, Wheelchair, Crutches, etc.)? No PATIENT GENDER DATA: Male PATIENT RELEVANT IMPLANT DATA REVIEWED: Yes RADIOLOGY DEPARTMENT: General X-ray: Exam(s) Completed: Chest X-Ray PERIPHERAL IV DATA: Not applicable SIGNED BY: RT Ugo(R) September 05, 2023 12:15 PM [facility] 09-05-2023 Note HNO ID: [id number] Author: Aundrea Benjamin APRN.RAVEN Service: ? Author Type: Nurse Practitioner Type: Progress Notes Filed: 09/05/2023 1:45 PM Note Text: This note was created using NoteWriter. Subjective Oni Hernández is a 88 year old male. 88 year old male with PMH HTN, hyperlipidemia, a fib, a flutter (Xarelto) asthma presents for [facility]. Acute onset 3 days ago +fatigue +cough, which keeps him up at night +sore throat +low grade fever +chills Denies SOB Denies CP. Denies N/V/D Denies tobacco usage Has used OTC Mucinex The history is provided by the patient. No spanish language lecturer was used. Cough This is a new problem. The current episode started more than 2 days ago. The problem occurs constantly. The problem has not changed since onset.The cough is Non-productive. The maximum temperature recorded prior to his arrival was 100 to 100.9 F. Associated symptoms include chills, headaches, rhinorrhea, myalgias and wheezing. Pertinent negatives include no chest pain, no sweats, no weight loss, no ear congestion, no ear pain, no sore throat, no shortness of breath and no eye redness. He has tried decongestants for the symptoms. The treatment provided no relief. He is not a smoker. His past medical history does not include bronchitis, pneumonia, bronchiectasis, COPD, emphysema or asthma. PAST MEDICAL HISTORY Diagnosis Date Allergic rhinitis, cause unspecified Asthma Bradycardia Carotid stenosis Cognitive impairment Neurologist, worsened with Aricept Fracture 8 years old broke his right arm a long time ago Generalized and unspecified atherosclerosis HTN (hypertension) Hyperlipidemia Kidney stones Lower back pain Lumbar spinal stenosis Dr. Unger Malignant neoplasm prostate (HCC) 05/15/2010 T1C, [place] 8, PSA 7.1 ng/mL Mild dementia (HCC) NPH (normal pressure hydrocephalus) (HCC) unlikely clinical picture for NPH. Had drain trial w/ subjective improvement in gait PAF (paroxysmal atrial fibrillation) (HCC) TIA (transient ischemic attack) Neurologist PAST SURGICAL HISTORY Procedure Laterality Date APPENDECTOMY 1950 at age 19 CATARACT EXTRACTION HX Right 11/10/2017 Dr. Arcos Ground Crew Supervisor CATARACT EXTRACTION HX Left 11/26/2017 Dr. Arcos LAPJames PROSTECT RETROPUBIC RAD W/NRV SPARING ROBOT 07/24/2010 Dr. Ovalles, robotic, pT3a, [place] 4+3, SM pos, 0/14 LN+ PAST SURGICAL HISTORY OF 2014 nerve ablation lower back left side PAST SURGICAL HISTORY OF 08/03/2016 Nerve ablation back PAST SURGICAL HISTORY OF kidney stone removal x 3 - last episode 1985 VASECTOMY UNI/BI SPX W/POSTOP SEMEN EXAMS 1971 ALLERGIES Crab, Aricept [Donepezil], Cefdinir, Ciprofloxacin, Eliquis [Apixaban], Penicillins, and Sulfa (Sulfonamide Antibiotics) MEDICATIONS dilTIAZem CD (CARDIZEM CD) 120 mg 24 hr capsuleTake 1 capsule by mouth once daily.Disp: 90 capsuleRfl: 1 Syringe with Needle, Disp, (SYRINGE 3CC/25GX1 ) 3 mL 25 gauge x 1 1 Syringe once every month.Disp: 4 EachRfl: 3 cyanocobalamin 1,000 mcg/mLInject 1 mL intramuscularly every other week.Disp: 10 mLRfl: 3 albuterol HFA (VENTOLIN HFA) 90 mcg/actuation inhalerInhale 2 Puffs as instructed every 4 hours as needed for wheezing/shortness of breath.Disp: 18 gRfl: 1 rosuvastatin (CRESTOR) 20 mg tabletTake 1 tablet by mouth once daily.Disp: 90 tabletRfl: 3 FLUoxetine (PROZAC) 10 mg capsuleTake 1 capsule by mouth once daily.Disp: 90 capsuleRfl: 3 XARELTO 20 mg tabletTAKE 1 TABLET BY MOUTH DAILY WITH DINNERDisp: 90 tabletRfl: 3 Lysine 500 mg tabTake 500 mg by mouth once daily.Disp: Rfl: UBIDECARENONE (COQ-10 ORAL)Take 1 tablet by mouth once daily. Disp: Rfl: multivitamins(MULTIPLE VITAMIN TAB)Take one(1) tablet daily.Disp: 0Rfl: 0 FAMILY HISTORY Problem Relation Age of Onset Stroke Mother Breast Cancer Mother Ischemic Heart Disease Mother Stroke Father Lipids Sister other (gerd) Sister other (healthy) Son Skin Cancer Daughter Social History Tobacco Use Smoking status: Never Smokeless tobacco: Never Vaping Use Vaping Use: Never used Substance Use Topics Alcohol use: Yes Alcohol/week: 1.3 - 2.6 standard drinks of alcohol Types: 1 - 2 Mixed Drinks per week Drug use: No Review of Systems Constitutional: Positive for chills and fatigue. Negative for weight loss. HENT: Positive for congestion, rhinorrhea, sinus pressure, sinus pain and sneezing. Negative for ear pain and sore throat. Eyes: Negative for pain, discharge, redness and itching. Respiratory: Positive for cough and wheezing. Negative for apnea, chest tightness and shortness of breath. Cardiovascular: Negative for chest pain. Gastrointestinal: Negative for abdominal pain, diarrhea, nausea and vomiting. Musculoskeletal: Positive for myalgias. Skin: Negative for color change, pallor, rash and wound. Allergic/Immunologic: Negative for environmental allergies, food (more content not included)... [facility] 09-05-2023 History of Present illness Narrative This note was created using Cherry Bugsriter. Subjective Oni Hernández is a 88 year old male. 88 year old male with PMH HTN, hyperlipidemia, a fib, a flutter (Xarelto) asthma presents for [facility]. Acute onset 3 days ago +fatigue +cough, which keeps him up at night +sore throat +low grade fever +chills Denies SOB Denies CP. Denies N/V/D Denies tobacco usage Has used OTC Mucinex The history is provided by the patient. No spanish language lecturer was used. Cough This is a new problem. The current episode started more than 2 days ago. The problem occurs constantly. The problem has not changed since onset.The cough is Non-productive. The maximum temperature recorded prior to his arrival was 100 to 100.9 F. Associated symptoms include chills, headaches, rhinorrhea, myalgias and wheezing. Pertinent negatives include no chest pain, no sweats, no weight loss, no ear congestion, no ear pain, no sore throat, no shortness of breath and no eye redness. He has tried decongestants for the symptoms. The treatment provided no relief. He is not a smoker. His past medical history does not include bronchitis, pneumonia, bronchiectasis, COPD, emphysema or asthma. PAST MEDICAL HISTORY Diagnosis Date Allergic rhinitis, cause unspecified Asthma Bradycardia Carotid stenosis Cognitive impairment Neurologist, worsened with Aricept Fracture 8 years old broke his right arm a long time ago Generalized and unspecified atherosclerosis HTN (hypertension) Hyperlipidemia Kidney stones Lower back pain Lumbar spinal stenosis Dr. Unger Malignant neoplasm prostate (HCC) 05/15/2010 T1C, [place] 8, PSA 7.1 ng/mL Mild dementia (HCC) NPH (normal pressure hydrocephalus) (HCC) unlikely clinical picture for NPH. Had drain trial w/ subjective improvement in gait PAF (paroxysmal atrial fibrillation) (HCC) TIA (transient ischemic attack) Neurologist PAST SURGICAL HISTORY Procedure Laterality Date APPENDECTOMY 1950 at age 19 CATARACT EXTRACTION HX Right 11/10/2017 Dr. Arcos Ground Crew Supervisor CATARACT EXTRACTION HX Left 11/26/2017 Dr. Arcos LAPJames PROSTECT RETROPUBIC RAD W/NRV SPARING ROBOT 07/24/2010 Dr. Ovalles, robotic, pT3a, [place] 4+3, SM pos, 0/14 LN+ PAST SURGICAL HISTORY OF 2014 nerve ablation lower back left side PAST SURGICAL HISTORY OF 08/03/2016 Nerve ablation back PAST SURGICAL HISTORY OF kidney stone removal x 3 - last episode 1985 VASECTOMY UNI/BI SPX W/POSTOP SEMEN EXAMS 1971 ALLERGIES Crab, Aricept [Donepezil], Cefdinir, Ciprofloxacin, Eliquis [Apixaban], Penicillins, and Sulfa (Sulfonamide Antibiotics) MEDICATIONS dilTIAZem CD (CARDIZEM CD) 120 mg 24 hr capsule^Take 1 capsule by mouth once daily.^Disp: 90 capsule^Rfl: 1 Syringe with Needle, Disp, (SYRINGE 3CC/25GX1 ) 3 mL 25 gauge x 1 ^1 Syringe once every month.^Disp: 4 Each^Rfl: 3 cyanocobalamin 1,000 mcg/mL^Inject 1 mL intramuscularly every other week.^Disp: 10 mL^Rfl: 3 albuterol HFA (VENTOLIN HFA) 90 mcg/actuation inhaler^Inhale 2 Puffs as instructed every 4 hours as needed for wheezing/shortness of breath.^Disp: 18 g^Rfl: 1 rosuvastatin (CRESTOR) 20 mg tablet^Take 1 tablet by mouth once daily.^Disp: 90 tablet^Rfl: 3 FLUoxetine (PROZAC) 10 mg capsule^Take 1 capsule by mouth once daily.^Disp: 90 capsule^Rfl: 3 XARELTO 20 mg tablet^TAKE 1 TABLET BY MOUTH DAILY WITH DINNER^Disp: 90 tablet^Rfl: 3 Lysine 500 mg tab^Take 500 mg by mouth once daily.^Disp: ^Rfl: UBIDECARENONE (COQ-10 ORAL)^Take 1 tablet by mouth once daily. ^Disp: ^Rfl: multivitamins(MULTIPLE VITAMIN TAB)^Take one(1) tablet daily.^Disp: 0^Rfl: 0 FAMILY HISTORY Problem Relation Age of Onset Stroke Mother Breast Cancer Mother Ischemic Heart Disease Mother Stroke Father Lipids Sister other (gerd) Sister other (healthy) Son Skin Cancer Daughter Social History Tobacco Use Smoking status: Never Smokeless tobacco: Never Vaping Use Vaping Use: Never used Substance Use Topics Alcohol use: Yes Alcohol/week: 1.3 - 2.6 standard drinks of alcohol Types: 1 - 2 Mixed Drinks per week Drug use: No Review of Systems Constitutional: Positive for chills and fatigue. Negative for weight loss. HENT: Positive for congestion, rhinorrhea, sinus pressure, sinus pain and sneezing. Negative for ear pain and sore throat. Eyes: Negative for pain, discharge, redness and itching. Respiratory: Positive for cough and wheezing. Negative for apnea, chest tightness and shortness of breath. Cardiovascular: Negative for chest pain. Gastrointestinal: Negative for abdominal pain, diarrhea, nausea and vomiting. Musculoskeletal: Positive for myalgias. Skin: Negative for color change, pallor, rash and wound. Allergic/Immunologic: Negative for environmental allergies, food allergies and immunocompromised state. Neurological: Positive for headaches. Negative for dizziness and facial asymmetry. Hematological: Negative for adenopathy. Does not bruise/bleed easily. Psychiatric/Behavioral: Negative for agitation and behavioral problems. Objective BP 109/65 Pulse 89 Temp 36.4 C (97.6 F) Resp 18 Wt 86.2 kg (190 lb) SpO2 97% BMI 26.88 kg/m Physical Exam Vitals and nursing note reviewed. Constitutional: General: He is not in acute distress. Appearance: Normal appearance. He is not ill-appearing, toxic-appearing or diaphoretic. Comments: Elderly appearing. Non toxic HENT: Head: Normocephalic and atraumatic. Right Ear: External ear normal. Left Ear: External ear normal. Nose: Nose normal. No congestion or rhinorrhea. Mouth/Throat: Mouth: Mucous membranes are moist. Pharynx: Oropharynx is clear. No oropharyngeal exudate or posterior oropharyngeal erythema. Eyes: General: Right eye: No discharge. Left eye: No discharge. Extraocular Movements: Extraocular movements intact. Conjunctiva/sclera: Conjunctivae normal. Pupils: Pupils are equal, round, and reactive to light. Cardiovascular: Rate and Rhythm: Normal rate and regular rhythm. Pulses: Normal pulses. Heart sounds: Normal heart sounds. No murmur heard. No friction rub. No gallop. Pulmonary: Effort: Pulmonary effort is normal. No respiratory distress. Breath sounds: Normal breath sounds. No stridor. No wheezing, rhonchi or rales. Chest: Chest wall: No tenderness. Abdominal: General: Abdomen is flat. There is no distension. Palpations: Abdomen is soft. There is no mass. Tenderness: There is no abdominal tenderness. There is no guarding or rebound. Hernia: No hernia is present. Musculoskeletal: General: No swelling, tenderness, deformity or signs of injury. Normal range of motion. Cervical back: Normal range of motion and neck supple. No rigidity or tenderness. Right lower leg: No edema. Left lower leg: No edema. Lymphadenopathy: Cervical: No cervical adenopathy. Skin: General: Skin is warm and dry. Capillary Refill: Capillary refill takes less than 2 seconds. Coloration: Skin is not jaundiced or pale. Findings: No bruising, lesion or rash. Neurological: General: No focal deficit present. Mental Status: He is alert and oriented to person, place, and time. Cranial Nerves: No cranial nerve deficit. Sensory: No sensory deficit. Motor: No weakness. Coordination: Coordination normal. Gait: Gait normal. Deep Tendon Reflexes: Reflexes normal. Psychiatric: Mood and Affect: Mood normal. Behavior: Behavior normal. Thought Content: Thought content normal. Assessment and Plan ASSESSMENT/PLAN: 1. URI, acute - ICD9: 465.9, ICD10: J06.9 (primary diagnosis) X 3 days - Discussed viral etiology and rationale for treatment. - Symptomatic treatment with prn analgesia - Supportive care with fluids and rest - The patient may also use OTC cough and cold meds as needed and warm salt water gargles, throat lozenges and/or OTC throat spray as needed. - Follow up in 3-5 days if symptoms persist or sooner if worsening of symptoms - XR CHEST 2V FRONTAL/LAT-negative - COVID & INFLUENZA A/B & RSV NAAT, ROUTINE - BENZONATATE 100 MG CAPSULE 2. Acute cough - ICD9: 786.2, ICD10: R05.1 X 3 days No red flags - XR CHEST 2V FRONTAL/LAT-negative - COVID & INFLUENZA A/B & RSV NAAT, ROUTINE-pending - BENZONATATE 100 MG CAPSULE Aundrea Benjamin APRN.MACHINE FASTENER documented in this encounter [facility] 08-19-2023 Note HNO ID: [id number] Author: Ellie Gurrola PA-C Service: ? Author Type: Physician Sack Keeper Type: Progress Notes Filed: 08/19/2023 12:25 PM Note Text: PROGRAMMABLE SHUNT CHANGE CC: urinary incontinence and short steps. HPI: Oni Hernández is a 88 year old male seen today for a shunt adjustment. 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 He was last seen by our office in 2020. At that time, Dr. Serrano suggested that he had some degree of vascular dementia. Recommended [email or web address]. He is still having some urinary incontinence, memory issues, balance issues and dizziness with walking difficulties and extreme fatigue. His brush worker feels that the fatigue is due to afib and/or shunt malfunction. He wanted him checked to make sure that was no malfunction. Assessment and Plan S/p RENTAL CLERK [employer] EQUIPMENT shunt for NPH 11/22/19 Codman Valve at 120 Initially improvement in all symptoms after surgery Slowly started to redevelop New onset of afib Carriage Setter concerned that fatigue may be related to shunt malfunction vs afib S/o balance issues, walking difficulties, fatigue, urinary incontinence and memory issues getting bad again. CT brain reviewed. No signs of worsening ventriculomegaly No signs of overdrainage. No obvious signs of shunt malfunction DW pt and adjusting shunt to 100 to see if this helps with any of the symptoms he is having. They were in agreement. Recommend f/u in [address] INFORMED CONSENT Oni Hernández [id number] Procedure: Shunt reprogramming The risks, benefits and anticipated outcomes of the procedure, the risks and benefits of the alternatives to the procedure and the roles and tasks of the personnel to be involved were discussed with the patient and the patient consents to the procedure and agrees to proceed. I verify that I personally obtained Oni Hernández's consent. Ellie Gurrola PA-C August 19, 2023 12:09 PM Shunt Location: R frontal Valve Type: CODMAN Current Valve Setting: CODMAN 120 mm Hg Valve Adjusted/New Setting: CODMAN 100 mm Hg Sound confirmation received with senior database programmer. Patient tolerated procedure well without any complications. Results to Dr. Gallardo. . Ellie Gurrola PA-C [facility] [place] August 19, 2023 12:09 PM [facility] 08-19-2023 History of Present illness Narrative PROGRAMMABLE SHUNT CHANGE CC: urinary incontinence and short steps. HPI: Oni Hernández is a 88 year old male seen today for a shunt adjustment. 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 He was last seen by our office in 2020. At that time, Dr. Serrano suggested that he had some degree of vascular dementia. Recommended [email or web address]. He is still having some urinary incontinence, memory issues, balance issues and dizziness with walking difficulties and extreme fatigue. His brush worker feels that the fatigue is due to afib and/or shunt malfunction. He wanted him checked to make sure that was no malfunction. Assessment and Plan S/p RENTAL CLERK [employer] E[employer]IPMENT shunt for NPH 11/22/19 Codman Valve at 120 Initially improvement in all symptoms after surgery Slowly started to redevelop New onset of afib Carriage Setter concerned that fatigue may be related to shunt malfunction vs afib S/o balance issues, walking difficulties, fatigue, urinary incontinence and memory issues getting bad again. CT brain reviewed. No signs of worsening ventriculomegaly No signs of overdrainage. No obvious signs of shunt malfunction DW pt and adjusting shunt to 100 to see if this helps with any of the symptoms he is having. They were in agreement. Recommend f/u in [address] INFORMED CONSENT Oni Hernández [id number] Procedure: Shunt reprogramming The risks, benefits and anticipated outcomes of the procedure, the risks and benefits of the alternatives to the procedure and the roles and tasks of the personnel to be involved were discussed with the patient and the patient consents to the procedure and agrees to proceed. I verify that I personally obtained Oni Hernández's consent. Ellie Gurrola PA-C August 19, 2023 12:09 PM Shunt Location: R frontal Valve Type: CODMAN Current Valve Setting: CODMAN 120 mm Hg Valve Adjusted/New Setting: CODMAN 100 mm Hg Sound confirmation received with senior database programmer. Patient tolerated procedure well without any complications. Results to Dr. Gallardo. . Ellie Gurrola PA-C [facility] [place] August 19, 2023 12:09 PM documented in this encounter [facility] 08-19-2023 Nurse Note Additional intake questions: Has the patient had fever, nausea, vomiting, diarrhea, constipation, fatigue for > 1 week? Yes, fatigue and Provider Notified Does the patient have a decreased appetite? No Does patient want to see a Modular Home Crew Member? No (yes to any of above refer patient to schedulers for dietitian appointment) ) Does patient have any new or increased numbness or tingling of extremities? No Is patient interested in fertility information? NA Does patient need any prescription refills? No Does patient have an advanced directive in place? Yes, copies are in [facility] Electronically Signed By: Beatriz Gallagher MA Additional intake questions: documented in this encounter [facility] 08-15-2023 Note HNO ID: [id number] Author: Ellie Gurrola PA-C Service: ? Author Type: Physician Sack Keeper Type: Progress Notes Filed: 08/15/2023 10:07 AM Note Text: This note was created using [employer]. Subjective Oni Hernández is a 88 year old male seen today via zoom. 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 He was last seen by our office in 2020. At that time, Dr. Serrano suggested that he had some degree of vascular dementia. Recommended [email or web address]. Pt is expericing extreme fatigue and his brush worker suggested he have his shunt checked to make sure that is not whats causing it. Also states she notices where is shunt is connected he has some swelling that occurs that may be fluid. He is still having fatigue, some urinary incontinence, memory issues, balance issues and dizziness with walking difficulties. He has developed afib. His brush worker feels that the fatigue is due to afib and/or shunt malfunction. He wanted him checked to make sure that was no malfunction. Review of Systems Objective There were no vitals taken for this visit. Physical Exam Assessment and Plan S/p RENTAL CLERK [employer] EQUIPMENT shunt for NPH 11/22/19 Codman Valve at 120 Initially improvement in all symptoms after surgery Slowly started to redevelop New onset of afib Carriage Setter concerned that fatigue may be related to shunt malfunction vs afib S/o balance issues, walking difficulties, fatigue, urinary incontinence and memory issues getting bad again. CT brain reviewed. No signs of worsening ventriculomegaly No signs of overdrainage. No obvious signs of shunt malfunction DW pt and adjusting shunt to 100 to see if this helps with any of the symptoms he is having. They are in agreement. He will come in 08/19/23 at 12:30 for adjustment. I spent a total of 20 minutes on the date of the service which included preparing to see the patient, [id number] patient care, completing clinical documentation, obtaining and/or reviewing separately obtained history, counseling and educating the patient/family/caregiver, communicating with other HCPs (not separately reported), independently interpreting results (not separately reported), communicating results to the patient/family/caregiver, and care coordination (not separately reported). This virtual visit was conducted via telephone which is a HIPAA compliant platform. I received consent from the patient to perform the visit using this platform. The visit required patient-provider interaction for the medical decision making as documented herein. I have communicated my name and active licensure. The patient's identity and physical location were verified at the time of this visit. Either the patient or their legal brewery representative has been informed of the risks and benefits of -- and alternatives to -- treatment through a remote evaluation and consents to proceed with the evaluation remotely. [facility] 08-15-2023 History of Present illness Narrative This note was created using [employer]. Subjective Oni Hernández is a 88 year old male seen today via zoom. 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 He was last seen by our office in 2020. At that time, Dr. Serrano suggested that he had some degree of vascular dementia. Recommended [email or web address]. Pt is expericing extreme fatigue and his brush worker suggested he have his shunt checked to make sure that is not whats causing it. Also states she notices where is shunt is connected he has some swelling that occurs that may be fluid. He is still having fatigue, some urinary incontinence, memory issues, balance issues and dizziness with walking difficulties. He has developed afib. His brush worker feels that the fatigue is due to afib and/or shunt malfunction. He wanted him checked to make sure that was no malfunction. Review of Systems Objective There were no vitals taken for this visit. Physical Exam Assessment and Plan S/p RENTAL CLERK [employer]OL [employer] EQUIPMENT shunt for NPH 11/22/19 Codman Valve at 120 Initially improvement in all symptoms after surgery Slowly started to redevelop New onset of afib Carriage Setter concerned that fatigue may be related to shunt malfunction vs afib S/o balance issues, walking difficulties, fatigue, urinary incontinence and memory issues getting bad again. CT brain reviewed. No signs of worsening ventriculomegaly No signs of overdrainage. No obvious signs of shunt malfunction DW pt and adjusting shunt to 100 to see if this helps with any of the symptoms he is having. They are in agreement. He will come in 08/19/23 at 12:30 for adjustment. I spent a total of 20 minutes on the date of the service which included preparing to see the patient, [id number] patient care, completing clinical documentation, obtaining and/or reviewing separately obtained history, counseling and educating the patient/family/caregiver, communicating with other HCPs (not separately reported), independently interpreting results (not separately reported), communicating results to the patient/family/caregiver, and care coordination (not separately reported). This virtual visit was conducted via telephone which is a HIPAA compliant platform. I received consent from the patient to perform the visit using this platform. The visit required patient-provider interaction for the medical decision making as documented herein. I have communicated my name and active licensure. The patient's identity and physical location were verified at the time of this visit. Either the patient or their legal brewery representative has been informed of the risks and benefits of -- and alternatives to -- treatment through a remote evaluation and consents to proceed with the evaluation remotely. documented in this encounter [facility] 08-11-2023 Note HNO ID: [id number] Author: Juhi Cooley RT(R) Service: ? Author Type: Sheet Metal Mechanic Type: Progress Notes Filed: 08/11/2023 11:06 AM Note Text: Radiology Service Progress Note PATIENT NAME: Oni Hernández DATE OF SERVICE: August 11, 2023 TIME: 11:06 AM PATIENT IDENTITY VERIFICATION COMPLETED USING TWO (2) IDENTIFIERS: Name and Date of confirmed by patient verbally. FALL SCREENING: Has the patient had 2 falls in the last year or 1 fall with injury or currently using an Ambulatory Assistive Device (Walker, Cane, Wheelchair, Crutches, etc.)? No PATIENT GENDER DATA: Male PATIENT RELEVANT IMPLANT DATA REVIEWED: Yes RADIOLOGY DEPARTMENT: CT; Exam(s) Completed: Brain PERIPHERAL IV DATA: Not applicable SIGNED BY: RT Dai(R) August 11, 2023 11:06 AM [facility] 08-11-2023 History of Present illness Narrative Radiology Service Progress Note PATIENT NAME: Oni Hernández DATE OF SERVICE: August 11, 2023 TIME: 11:06 AM PATIENT IDENTITY VERIFICATION COMPLETED USING TWO (2) IDENTIFIERS: Name and Date of confirmed by patient verbally. FALL SCREENING: Has the patient had 2 falls in the last year or 1 fall with injury or currently using an Ambulatory Assistive Device (Walker, Cane, Wheelchair, Crutches, etc.)? No PATIENT GENDER DATA: Male PATIENT RELEVANT IMPLANT DATA REVIEWED: Yes RADIOLOGY DEPARTMENT: CT; Exam(s) Completed: Brain PERIPHERAL IV DATA: Not applicable SIGNED BY: RT Dai(R) August 11, 2023 11:06 AM documented in this encounter [facility] 07-22-2023 Miscellaneous Notes Called patient's and spoke via phone. Notified her that a brain CT was ordered and pt should have a follow up appointment with Ellie CHAUDHARY afterwards. She verbalized understanding and requested that the scheduling phone number be sent via Related Content Database (RCDb). She denies any further needs at this time. Received the following message from Tanvi Earl: Pt spouse is calling in regarding scheduling an appt with Galileo or Zach, she states Pt is expericing extreme fatigue and his brush worker suggested he have his shunt checked to make sure that is not whats causing it. Also she states she notices where is shunt is connected he has some swelling that occurs that may be fluid. Called and spoke with pt's Dioni. She states that patient has changed cardiologists and he is currently being treated for Afib. Pt's primary symptoms is fatigue. She states that the shunt tract that she can see on patient's bald head can swell intermittently. Patient does not have any other complaints. Message forwarded to on-call provider for review and recommendation. documented in this encounter [facility] 06-25-2023 Note HNO ID: [id number] Author: Kapil Lara, DO Service: ? Author Type: Physician Type: Progress Notes Filed: 06/25/2023 12:05 PM Note Text: CC: Oni Hernández is a 88 year old male who presents to the office for follow up HPI: Seen in office on 05/28/23 Patient's Date of discharge: 05/13/23 Date of initial coordinator contact after discharge: NA Discharge diagnosis: acute cardiac dysrhythmia, near syncope Medication review completed Yes Patient was admitted from 05/12 through 05/13 at [facility] due to hypotension at 78/36 the day he was feeling very fatigued and lethargic. He was previously working outside in his garden on a hot day but admits that he probably wasn't drinking enough fluids that day. It was around 12 noon when symptoms started. He was monitored in the hospital and holter monitor placed. Was seen by Honey Yoder CNP after discharge. His dose of metoprolol was changed to take 1/2 tab in the AM and 1/2 tab in the PM which he has been doing since 05/19 when seen by RAVEN. He is tolerating the medication change without any concerns. His BLOOD PRESSURE recently over the last week has been stable and ranging from 100/60s to 120s/80s. He is feeling better Chronic fatigue, taking vitamin B12 injection monthly at this time. Still struggling with fatigue. Currently He has been able to get an appt with local Carriage Setter Dr. Gallardo at [facility] to try to keep his care local The last 2 days prior he had some mild LH and nausea symptoms, no diarrhea or vomiting. checked his BLOOD PRESSURE and heart rate which were stable/normal. He hasn't started new medication Diltiazem yet. When he gets this from [facility] mail away pharmacy then he will stop the metoprolol and start on this medication. No recent chest pressure or pain or syncope symptoms. No leg edema. Fatigue, vitamin B12 deficiency, now taking vitamin B12 injection twice a month, every 2 weeks. PAST MEDICAL HISTORY Diagnosis Date Allergic rhinitis, cause unspecified Asthma Bradycardia Carotid stenosis Cognitive impairment Neurologist, worsened with Aricept Fracture 8 years old broke his right arm a long time ago Generalized and unspecified atherosclerosis HTN (hypertension) Hyperlipidemia Kidney stones Lower back pain Lumbar spinal stenosis Dr. Unger Malignant neoplasm prostate (HCC) 05/15/2010 T1C, [place] 8, PSA 7.1 ng/mL Mild dementia (HCC) NPH (normal pressure hydrocephalus) (HCC) unlikely clinical picture for NPH. Had drain trial w/ subjective improvement in gait PAF (paroxysmal atrial fibrillation) (HCC) TIA (transient ischemic attack) Neurologist PAST SURGICAL HISTORY Procedure Laterality Date APPENDECTOMY 1950 at age 19 CATARACT EXTRACTION HX Right 11/10/2017 Dr. Arcos Ground Crew Supervisor CATARACT EXTRACTION HX Left 11/26/2017 Dr. Arcos LAPJames PROSTECT RETROPUBIC RAD W/NRV SPARING ROBOT 07/24/2010 Dr. Ovalles, robotic, pT3a, [place] 4+3, SM pos, 0/14 LN+ PAST SURGICAL HISTORY OF 2014 nerve ablation lower back left side PAST SURGICAL HISTORY OF 08/03/2016 Nerve ablation back PAST SURGICAL HISTORY OF kidney stone removal x 3 - last episode 1985 VASECTOMY UNI/BI SPX W/POSTOP SEMEN EXAMS 1971 Current Outpatient Medications Medication Sig albuterol HFA (VENTOLIN HFA) 90 mcg/actuation inhaler Inhale 2 Puffs as instructed every 4 hours as needed for wheezing/shortness of breath. rosuvastatin (CRESTOR) 20 mg tablet Take 1 tablet by mouth once daily. FLUoxetine (PROZAC) 10 mg capsule Take 1 capsule by mouth once daily. XARELTO 20 mg tablet TAKE 1 TABLET BY MOUTH DAILY WITH DINNER Lysine 500 mg tab Take 500 mg by mouth once daily. UBIDECARENONE (COQ-10 ORAL) Take 1 tablet by mouth once daily. multivitamins(MULTIPLE VITAMIN TAB) Take one(1) tablet daily. dilTIAZem CD (CARDIZEM CD) 120 mg 24 hr capsule Take 1 capsule by mouth once daily. Syringe with Needle, Disp, (SYRINGE 3CC/25GX1 ) 3 mL 25 gauge x 1 1 Syringe once every month. cyanocobalamin 1,000 mcg/mL Inject 1 mL intramuscularly every other week. Current Facility-Administered Medications Medication Dose Route Frequency perflutren lipid microspheres 1.3 mL in NaCl (PF) 0.9% 10 mL injection (DEFINITY) INTRAVENOUS DIRECTED PRN sodium chloride 0.9 % (flush) 10 mL (BD POSIFLUSH) 10 mL INTRAVENOUS DIRECTED PRN ALLERGIES Allergen Reactions Crab Anaphylaxis Aricept [Donepezil] Mental Status Change Regression Cefdinir Itching Ciprofloxacin hives Eliquis [Apixaban] Rash Penicillins hives Sulfa (Sulfonamide * hives Social History Tobacco Use Smoking status: Never Smokeless tobacco: Never Vaping Use Vaping Use: Never used Substance Use Topics Alcohol use: Yes Alcohol/week: 2.5 - 5.0 standard drinks of alcohol Types: 1 - 2 Mixed Drinks per week Drug use: No ROS: See HPI PE: BP 122/80 Pulse 80 Temp (Src) 96 (Right Tympanic) Resp 24 Wt 19 (more content not included)... [facility] 06-20-2023 Note HNO ID: [id number] Author: Diane Owusu MD Service: ? Author Type: Physician Type: Progress Notes Filed: 06/20/2023 4:05 PM Note Text: Heart and Vascular [facility] SECTION OF CARDIAC PACING and ELECTROPHYSIOLOGY OUTPATIENT VISIT DATE June 20, 2023 OUTPATIENT VISIT TYPE NEW PRIMARY CARE PHYSICIAN: Kapil Lara [address] [place] [address] REFERRING PHYSICIAN: Dr Christine Grimm chief complaint on file. - PAF and bradycardia HISTORY OF PRESENT ILLNESS: He is here today with his . Oni Hernández is a 88 year old year old MALE and is referred for management of PAF and bradycardia He has a history of hypertension, hyperlipidemia, prostate cancer surgery 2010 paroxysmal atrial fibrillation, normal pressure hydrocephalus with a history of ventriculoperitoneal shunt placement in 2016 ir 2017 (after the TIA) and mild dementia. He has a h.o TIA in 2017 Tte 02/2023 EF 63%. He had an episode of feeling lightheaded and near syncope. This was in April 2023. He was evaluated by EMS in [place] and found to be hypotensive. His amlodipine was discontinued. He was also noted to have irregular heart rhythm and metoprolol was added. Due to slow heart rates and complaints of fatigue the metoprolol XL 25 mg dose was changed to half a tablet twice a day. From 1 tablet daily His Ambulatory 14 d monitor showed PAF burden 6%, one run of NSVT 6 beats and SR with HR avg 69 and lowest 56. He says that his main symptom is fatigue. His says he dozes off for 2 to 3 hours and this is not his usual self. Until recently he was able to do light yard work and walk around home without difficulty. No fall. No chest pain orthopnea PND. Sometimes after being on his feet for several hours his has noticed ankle edema. No bleeding on Eliquis. No history of myocardial infarction congestive heart failure blood clots Social history lives with his never smoked occasional use of alcohol ECG 02/21/23 - AF 77 bpm QRS 132 RBBB LAD QT/c 426/482 02/19/2021: Normal sinus rhythm with right bundle branch block pattern. Occasional PVCs noted. No significant ST or T wave changes Ambulatory Zio patch 03/07 - 03/21/23 - Patient had a min HR of 56 bpm, max HR of 167 bpm, and avg HR of 69 bpm. Predominant underlying rhythm was Sinus Rhythm. First Degree AV Block was present. Bundle Branch Block/IVCD was present. 1 run of Ventricular Tachycardia occurred lasting 6 beats with a max rate of 167 bpm (avg 139 bpm). Atrial Fibrillation occurred (6% burden), ranging from 56-155 bpm (avg of 84 bpm), the longest lasting 4 hours 1 min with an avg rate of 75 bpm. Atrial Fibrillation was detected within +/- 45 seconds of symptomatic patient event(s). Isolated SVEs were rare (<1.0%), SVE Couplets were rare (<1.0%), and SVE Triplets were rare (<1.0%). Isolated VEs were occasional (2.3%, [id number]), VE Couplets were rare (<1.0%, 69), and VE Triplets were rare (<1.0%, 1). Ventricular Bigeminy and Trigeminy were Echocardiogram 03/06/2023: - The left ventricle is small. There is mild concentric left ventricular hypertrophy. Left ventricular systolic function is normal. EF = 63 ? 5% (2D biplane) Indeterminate left ventricular diastolic dysfunction. - The right ventricle is normal in size. Right ventricular systolic function is normal. - The mitral valve leaflets are structurally normal. There is mild (1+ - 2+) mitral valve regurgitation. - There are no significant valvular abnormalities. - Exam was compared with the prior echocardiographic exam performed on 03/21/2022, MR has increased. Treadmill Myoview Stress 06/07/19 The stress test was terminated due to the following: Fatigue. Peak HR 120 bpm. Exercise duration 9 min 0 sec. (87 % MPHR) (4.6 METS) Peak BP 168 mmHg/82 mmHg Patient experienced shortness of breath during stress. Stress ECG normal ST segment response, normal sinus rhythm and right bundle branch block. CONCLUSIONS: 1. SPECT Perfusion Study: Normal. 2. There is no scintigraphic evidence for inducible ischemia. 3. No evidence of scarred myocardium. 4. Fair functional capacity for age and gender. 5. Left ventricle is normal in size. The left ventricle systolic function is normal. 6. Right ventricle is normal in size. 7. This is a low risk scan. LVEF % 72 PAST MEDICAL HISTORY Diagnosis Date Allergic rhinitis, cause unspecified Asthma Bradycardia Carotid stenosis Cognitive impairment Neurologist, worsened with Aricept Fracture 8 years old broke his right arm a long time ago Generalized and unspecified atherosclerosis HTN (hypertension) Hyperlipidemia Kidney stones Lower back pain Lumbar spinal stenosis Dr. Unger Malignant neoplasm prostate (HCC) 05/15/2010 T1C, [place] 8, PSA 7.1 ng/mL Mild dementia (HCC) NPH (normal pressure hydrocephalus) (HCC) unlikely clini (more content not included)... [facility] 05-30-2023 Miscellaneous Notes Left message informing script was sent to pharmacy [facility] The following approved medication requests have been transmitted electronically. Requested Prescriptions Signed Prescriptions Disp Refills Syringe with Needle, Disp, (SYRINGE 3CC/25GX1 ) 3 mL 25 gauge x 1 4 Each 3 Si Syringe once every month. Authorizing Provider: PAYTON BERMAN APRN.CNP Patient phones requesting refills as follows: Requested Prescriptions Pending Prescriptions Disp Refills Syringe with Needle, Disp, (SYRINGE 3CC/25GX1 ) 3 mL 25 gauge x 1 4 Each 3 Si Syringe once every month. See patient message below. Please review and advise. Matheus Alvarez LPN Pt states he was supposed to give updated information on the syringes he is needed refilled. He states the current ones are plastipak 3mL, 25 g x 1in. Lisa Sheehan is fine to send this to. documented in this encounter [facility] 05-28-2023 Note HNO ID: [id number] Author: Kapil Lara, DO Service: ? Author Type: Physician Type: Progress Notes Filed: 05/28/2023 8:23 PM Note Text: CC: Oni Hernández is a 88 year old male who presents to the office for follow up HPI: Patient's Date of discharge: 05/13/23 Date of initial coordinator contact after discharge: NA Discharge diagnosis: acute cardiac dysrhythmia, near syncope Medication review completed Yes Patient was admitted from 05/12 through 05/13 at [facility] due to hypotension at 78/36 the day he was feeling very fatigued and lethargic. He was previously working outside in his garden on a hot day but admits that he probably wasn't drinking enough fluids that day. It was around 12 noon when symptoms started. He was monitored in the hospital and holter monitor placed. Was seen by Honey Yoder CNP after discharge. His dose of metoprolol was changed to take 1/2 tab in the AM and 1/2 tab in the PM which he has been doing since 05/19 when seen by RAVEN. He is tolerating the medication change without any concerns. His BLOOD PRESSURE recently over the last week has been stable and ranging from 100/60s to 120s/80s. He is feeling better Chronic fatigue, taking vitamin B12 injection monthly at this time. Still struggling with fatigue. PAST MEDICAL HISTORY Diagnosis Date Allergic rhinitis, cause unspecified Asthma Carotid stenosis Cognitive impairment Neurologist, worsened with Aricept Fracture 8 years old broke his right arm a long time ago Generalized and unspecified atherosclerosis HTN (hypertension) Hyperlipidemia Kidney stones Lower back pain Lumbar spinal stenosis Dr. Unger Malignant neoplasm prostate (HCC) 05/15/2010 T1C, [place] 8, PSA 7.1 ng/mL Mild dementia (HCC) NPH (normal pressure hydrocephalus) (HCC) unlikely clinical picture for NPH. Had drain trial w/ subjective improvement in gait TIA (transient ischemic attack) Neurologist PAST SURGICAL HISTORY Procedure Laterality Date APPENDECTOMY 1950 at age 19 CATARACT EXTRACTION HX Right 11/10/2017 Dr. Arcos Ground Crew Supervisor CATARACT EXTRACTION HX Left 11/26/2017 Dr. Arcos LAPJames PROSTECT RETROPUBIC RAD W/NRV SPARING ROBOT 07/24/2010 Dr. Ovalles, robotic, pT3a, [place] 4+3, SM pos, 0/14 LN+ PAST SURGICAL HISTORY OF 2014 nerve ablation lower back left side PAST SURGICAL HISTORY OF 08/03/2016 Nerve ablation back PAST SURGICAL HISTORY OF kidney stone removal x 3 - last episode 1985 VASECTOMY UNI/BI SPX W/POSTOP SEMEN EXAMS 1971 Current Outpatient Medications Medication Sig metoprolol succinate ER (TOPROL XL) 25 mg 24 hr tablet Take 0.5 tablets by mouth twice daily. Syringe with Needle, Disp, (SYRINGE 3CC/25GX1 ) 3 mL 25 gauge x 1 1 Syringe once every month. gabapentin (NEURONTIN) 300 mg capsule Take 1 capsule by mouth twice daily for 14 days. albuterol HFA (VENTOLIN HFA) 90 mcg/actuation inhaler Inhale 2 Puffs as instructed every 4 hours as needed for wheezing/shortness of breath. rosuvastatin (CRESTOR) 20 mg tablet Take 1 tablet by mouth once daily. FLUoxetine (PROZAC) 10 mg capsule Take 1 capsule by mouth once daily. XARELTO 20 mg tablet TAKE 1 TABLET BY MOUTH DAILY WITH DINNER Lysine 500 mg tab Take 500 mg by mouth once daily. UBIDECARENONE (COQ-10 ORAL) Take 1 tablet by mouth once daily. multivitamins(MULTIPLE VITAMIN TAB) Take one(1) tablet daily. cyanocobalamin 1,000 mcg/mL Inject 1 mL intramuscularly every other week. Current Facility-Administered Medications Medication Dose Route Frequency perflutren lipid microspheres 1.3 mL in NaCl (PF) 0.9% 10 mL injection (DEFINITY) INTRAVENOUS DIRECTED PRN sodium chloride 0.9 % (flush) 10 mL (BD POSIFLUSH) 10 mL INTRAVENOUS DIRECTED PRN perflutren lipid microspheres 1.3 mL in NaCl (PF) 0.9% 10 mL injection (DEFINITY) INTRAVENOUS DIRECTED PRN sodium chloride 0.9 % (flush) 10 mL (BD POSIFLUSH) 10 mL INTRAVENOUS DIRECTED PRN ALLERGIES Allergen Reactions Crab Anaphylaxis Aricept [Donepezil] Mental Status Change Regression Cefdinir Itching Ciprofloxacin hives Eliquis [Apixaban] Rash Penicillins hives Sulfa (Sulfonamide * hives Social History Tobacco Use Smoking status: Never Smokeless tobacco: Never Vaping Use Vaping Use: Never used Substance Use Topics Alcohol use: Yes Alcohol/week: 2.5 - 5.0 standard drinks of alcohol Types: 1 - 2 Mixed Drinks per week Drug use: No ROS: See HPI PE: Wt 194 lb (88.0kg) Gen: AANDOX3, NAD, non-toxic appearing HEENT: PERRLA, EOMs intact b/l, nares without drainage, pharynx without erythema, exudate, lesions, or drainage. Uvula midline. Neck: No LAD, no thyromegaly, no meningismus. CV: RRR, 1/6 HSM RUSB soft blowing murmur Lungs: CTA b/l, no wheezing Skin: No rashes, lesions, or wounds on exposed skin. ASSESSMENT/PLAN: 1. Other specified hypotension - ICD9: 458.8, ICD10: I95.89 (primary diagnosis) (more content not included)... [facility] 05-28-2023 History of Present illness Narrative CC: Oni Hernández is a 88 year old male who presents to the office for follow up HPI: Patient's Date of discharge: 05/13/23 Date of initial coordinator contact after discharge: NA Discharge diagnosis: acute cardiac dysrhythmia, near syncope Medication review completed Yes Patient was admitted from 05/12 through 05/13 at [facility] due to hypotension at 78/36 the day he was feeling very fatigued and lethargic. He was previously working outside in his garden on a hot day but admits that he probably wasn't drinking enough fluids that day. It was around 12 noon when symptoms started. He was monitored in the hospital and holter monitor placed. Was seen by Honey Yoder CNP after discharge. His dose of metoprolol was changed to take 1/2 tab in the AM and 1/2 tab in the PM which he has been doing since 05/19 when seen by MACHINE FASTENER. He is tolerating the medication change without any concerns. His BLOOD PRESSURE recently over the last week has been stable and ranging from 100/60s to 120s/80s. He is feeling better Chronic fatigue, taking vitamin B12 injection monthly at this time. Still struggling with fatigue. PAST MEDICAL HISTORY Diagnosis Date Allergic rhinitis, cause unspecified Asthma Carotid stenosis Cognitive impairment Neurologist, worsened with Aricept Fracture 8 years old broke his right arm a long time ago Generalized and unspecified atherosclerosis HTN (hypertension) Hyperlipidemia Kidney stones Lower back pain Lumbar spinal stenosis Dr. Unger Malignant neoplasm prostate (HCC) 05/15/2010 T1C, Fortunato 8, PSA 7.1 ng/mL Mild dementia (HCC) NPH (normal pressure hydrocephalus) (HCC) unlikely clinical picture for NPH. Had drain trial w/ subjective improvement in gait TIA (transient ischemic attack) Neurologist PAST SURGICAL HISTORY Procedure Laterality Date APPENDECTOMY 1950 at age 19 CATARACT EXTRACTION HX Right 11/10/2017 Dr. Arcos Ground Crew Supervisor CATARACT EXTRACTION HX Left 11/26/2017 Dr. Josselyn CERON PROSTECT RETROPUBIC RAD W/NRV SPARING ROBOT 07/24/2010 Dr. Ovalles, robotic, pT3a, [place] 4+3, SM pos, 0/14 LN+ PAST SURGICAL HISTORY OF 2014 nerve ablation lower back left side PAST SURGICAL HISTORY OF 08/03/2016 Nerve ablation back PAST SURGICAL HISTORY OF kidney stone removal x 3 - last episode 1985 VASECTOMY UNI/BI SPX W/POSTOP SEMEN EXAMS 1971 Current Outpatient Medications Medication Sig metoprolol succinate ER (TOPROL XL) 25 mg 24 hr tablet Take 0.5 tablets by mouth twice daily. Syringe with Needle, Disp, (SYRINGE 3CC/25GX1 ) 3 mL 25 gauge x 1 1 Syringe once every month. gabapentin (NEURONTIN) 300 mg capsule Take 1 capsule by mouth twice daily for 14 days. albuterol HFA (VENTOLIN HFA) 90 mcg/actuation inhaler Inhale 2 Puffs as instructed every 4 hours as needed for wheezing/shortness of breath. rosuvastatin (CRESTOR) 20 mg tablet Take 1 tablet by mouth once daily. FLUoxetine (PROZAC) 10 mg capsule Take 1 capsule by mouth once daily. XARELTO 20 mg tablet TAKE 1 TABLET BY MOUTH DAILY WITH DINNER Lysine 500 mg tab Take 500 mg by mouth once daily. UBIDECARENONE (COQ-10 ORAL) Take 1 tablet by mouth once daily. multivitamins(MULTIPLE VITAMIN TAB) Take one(1) tablet daily. cyanocobalamin 1,000 mcg/mL Inject 1 mL intramuscularly every other week. Current Facility-Administered Medications Medication Dose Route Frequency perflutren lipid microspheres 1.3 mL in NaCl (PF) 0.9% 10 mL injection (DEFINITY) INTRAVENOUS DIRECTED PRN sodium chloride 0.9 % (flush) 10 mL (BD POSIFLUSH) 10 mL INTRAVENOUS DIRECTED PRN perflutren lipid microspheres 1.3 mL in NaCl (PF) 0.9% 10 mL injection (DEFINITY) INTRAVENOUS DIRECTED PRN sodium chloride 0.9 % (flush) 10 mL (BD POSIFLUSH) 10 mL INTRAVENOUS DIRECTED PRN ALLERGIES Allergen Reactions Crab Anaphylaxis Aricept [Donepezil] Mental Status Change Regression Cefdinir Itching Ciprofloxacin hives Eliquis [Apixaban] Rash Penicillins hives Sulfa (Sulfonamide * hives Social History Tobacco Use Smoking status: Never Smokeless tobacco: Never Vaping Use Vaping Use: Never used Substance Use Topics Alcohol use: Yes Alcohol/week: 2.5 - 5.0 standard drinks of alcohol Types: 1 - 2 Mixed Drinks per week Drug use: No ROS: See HPI PE: Wt 194 lb (88.0kg) Gen: A&OX3, NAD, non-toxic appearing HEENT: PERRLA, EOMs intact b/l, nares without drainage, pharynx without erythema, exudate, lesions, or drainage. Uvula midline. Neck: No LAD, no thyromegaly, no meningismus. CV: RRR, 1/6 HSM RUSB soft blowing murmur Lungs: CTA b/l, no wheezing Skin: No rashes, lesions, or wounds on exposed skin. ASSESSMENT/PLAN: 1. Other specified hypotension - ICD9: 458.8, ICD10: I95.89 (primary diagnosis) Agree with continued 12.5 mg twice a day of metoprolol, symptoms are improved now, needs to avoid sun/heat between 10 am and 4 pm and hydrate prior to outside work as d/w him today 2. Vitamin B12 deficiency - ICD9: 266.2, ICD10: E53.8 Change rx to every 2 weeks for IM injection to see if better fatigue - CYANOCOBALAMIN (VIT B-12) 1,000 MCG/ML INJECTION SOLUTION 3. Paroxysmal atrial fibrillation (HCC) - ICD9: 427.31, ICD10: I48.0 See above - CONSULT TO CARDIOLOGY 4. Near syncope - ICD9: 780.2, ICD10: R55 See above Kapil Lara DO Return if no improvement. Follow up with Kapil Lara DO. To ER if develops chest pain, shortness of breath Discussed risks, benefits, alternatives, and potential side effects of medications. Patient/Guardian expressed understanding and agreed with the plan. See patient instructions. Kapil Lara DO [address] [place] [address] documented in this encounter [facility] 05-26-2023 Note HNO ID: [id number] Author: Oni Grimm MD Service: ? Author Type: Physician Type: Progress Notes Filed: 05/26/2023 5:20 PM Note Text: [facility]IOLOGY Cardiology ([facility]) [address] [facility] [id number] OUTPATIENT VISIT DATE 05/26/2023 PRIMARY CARE PHYSICIAN: Kapil Lara [address] [place] [address] HISTORY OF PRESENT ILLNESS: Mr. 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 He came to the office visit today with his for follow-up after recent hospital admission. Patient was noted to have atrial flutter with high heart rates. He went to the emergency room was admitted for observation. He was discharged home with medication adjustment including discontinuation of amlodipine and decrease dose of Toprol. Home blood pressures have been adequately controlled given the decreased dose of amlodipine. I reviewed his blood pressure readings in detail. He continues to have episodes of lightheadedness especially on change of position. He has been very cautious trying to go from a sitting to a standing position he has not had episodes of syncope or near syncope. He has not had symptoms concerning for CHF including PND, orthopnea, or lower extremity edema. He denies palpitations, or heart racing. PAST MEDICAL HISTORY Diagnosis Date Allergic rhinitis, cause unspecified Asthma Carotid stenosis Cognitive impairment Neurologist, worsened with Aricept Fracture 8 years old broke his right arm a long time ago Generalized and unspecified atherosclerosis HTN (hypertension) Hyperlipidemia Kidney stones Lower back pain Lumbar spinal stenosis Dr. Unger Malignant neoplasm prostate (HCC) 05/15/2010 T1C, Fortunato 8, PSA 7.1 ng/mL Mild dementia (HCC) NPH (normal pressure hydrocephalus) (HCC) unlikely clinical picture for NPH. Had drain trial w/ subjective improvement in gait TIA (transient ischemic attack) Neurologist PAST SURGICAL HISTORY Procedure Laterality Date APPENDECTOMY 1950 at age 19 CATARACT EXTRACTION HX Right 11/10/2017 Dr. Arcos Ground Crew Supervisor CATARACT EXTRACTION HX Left 11/26/2017 Dr. Josselyn CERON PROSTECT RETROPUBIC RAD W/NRV SPARING ROBOT 07/24/2010 Dr. Ovalles, robotic, pT3a, [place] 4+3, SM pos, 0/14 LN+ PAST SURGICAL HISTORY OF 2014 nerve ablation lower back left side PAST SURGICAL HISTORY OF 08/03/2016 Nerve ablation back PAST SURGICAL HISTORY OF kidney stone removal x 3 - last episode 1985 VASECTOMY UNI/BI SPX W/POSTOP SEMEN EXAMS 1971 SOCIAL HISTORY Social History Tobacco Use Smoking status: Never Smokeless tobacco: Never Vaping Use Vaping Use: Never used Substance Use Topics Alcohol use: Yes Alcohol/week: 2.5 - 5.0 standard drinks of alcohol Types: 1 - 2 Mixed Drinks per week Drug use: No FAMILY HISTORY Problem Relation Age of Onset Stroke Mother Breast Cancer Mother Ischemic Heart Disease Mother Stroke Father Lipids Sister other (gerd) Sister other (healthy) Son Skin Cancer Daughter ALLERGIES: ALLERGIES Allergen Reactions Crab Anaphylaxis Aricept [Donepezil] Mental Status Change Regression Cefdinir Itching Ciprofloxacin hives Eliquis [Apixaban] Rash Penicillins hives Sulfa (Sulfonamide * hives MEDICATIONS: metoprolol succinate ER (TOPROL XL) 25 mg 24 hr tabletTake 0.5 tablets by mouth twice daily.Disp: Rfl: cyanocobalamin 1,000 mcg/mLInject 1 mL intramuscularly once every month.Disp: 3 mLRfl: 3 Syringe with Needle, Disp, (SYRINGE 3CC/25GX1 ) 3 mL 25 gauge x 1 1 Syringe once every month.Disp: 4 EachRfl: 3 albuterol HFA (VENTOLIN HFA) 90 mcg/actuation inhalerInhale 2 Puffs as instructed every 4 hours as needed for wheezing/shortness of breath.Disp: 18 gRfl: 1 rosuvastatin (CRESTOR) 20 mg tabletTake 1 tablet by mouth once daily.Disp: 90 tabletRfl: 3 FLUoxetine (PROZAC) 10 mg capsuleTake 1 capsule by mouth once daily.Disp: 90 capsuleRfl: 3 XARELTO 20 mg tabletTAKE 1 TABLET BY MOUTH DAILY WITH DINNERDisp: 90 tabletRfl: 3 Lysine 500 mg tabTake 500 mg by mouth once daily.Disp: Rfl: UBIDECARENONE (COQ-10 ORAL)Take 1 tablet by mouth once daily. Disp: Rfl: multivitamins(MULTIPLE VITAMIN TAB)Take one(1) tablet daily.Disp: 0Rfl: 0 gabapentin (NEURONTIN) 300 mg capsuleTake 1 capsule by mouth twice daily for 14 days.Disp: 28 capsuleRfl: 0 REVIEW OF SYSTEMS: Review of Systems Constitutional: Negative for chills, fever, malaise/fatigue and weight loss. HENT: Negative for hearing loss and sore throat. Eyes: Negative for blurred vision and double vision. Respiratory: Negative. Cardiovascular: Negative. Genitourinary: Negati (more content not included)... [facility] 05-26-2023 History of Present illness Narrative Images from the original note were not included. [facility]OLOGY Cardiology ([facility]) [address] [facility] [id number] OUTPATIENT VISIT DATE 05/26/2023 PRIMARY CARE PHYSICIAN: Kapil Lara [address] [place] [address] HISTORY OF PRESENT ILLNESS: Mr. 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 He came to the office visit today with his for follow-up after recent hospital admission. Patient was noted to have atrial flutter with high heart rates. He went to the emergency room was admitted for observation. He was discharged home with medication adjustment including discontinuation of amlodipine and decrease dose of Toprol. Home blood pressures have been adequately controlled given the decreased dose of amlodipine. I reviewed his blood pressure readings in detail. He continues to have episodes of lightheadedness especially on change of position. He has been very cautious trying to go from a sitting to a standing position he has not had episodes of syncope or near syncope. He has not had symptoms concerning for CHF including PND, orthopnea, or lower extremity edema. He denies palpitations, or heart racing. PAST MEDICAL HISTORY Diagnosis Date Allergic rhinitis, cause unspecified Asthma Carotid stenosis Cognitive impairment Neurologist, worsened with Aricept Fracture 8 years old broke his right arm a long time ago Generalized and unspecified atherosclerosis HTN (hypertension) Hyperlipidemia Kidney stones Lower back pain Lumbar spinal stenosis Dr. Unger Malignant neoplasm prostate (HCC) 05/15/2010 T1C, Fortunato 8, PSA 7.1 ng/mL Mild dementia (HCC) NPH (normal pressure hydrocephalus) (HCC) unlikely clinical picture for NPH. Had drain trial w/ subjective improvement in gait TIA (transient ischemic attack) Neurologist PAST SURGICAL HISTORY Procedure Laterality Date APPENDECTOMY 1950 at age 19 CATARACT EXTRACTION HX Right 11/10/2017 Dr. Arcos Ground Crew Supervisor CATARACT EXTRACTION HX Left 11/26/2017 Dr. Josselyn CERON PROSTECT RETROPUBIC RAD W/NRV SPARING ROBOT 07/24/2010 Dr. Ovalles, robotic, pT3a, [place] 4+3, SM pos, 0/14 LN+ PAST SURGICAL HISTORY OF 2014 nerve ablation lower back left side PAST SURGICAL HISTORY OF 08/03/2016 Nerve ablation back PAST SURGICAL HISTORY OF kidney stone removal x 3 - last episode 1985 VASECTOMY UNI/BI SPX W/POSTOP SEMEN EXAMS 1971 SOCIAL HISTORY Social History Tobacco Use Smoking status: Never Smokeless tobacco: Never Vaping Use Vaping Use: Never used Substance Use Topics Alcohol use: Yes Alcohol/week: 2.5 - 5.0 standard drinks of alcohol Types: 1 - 2 Mixed Drinks per week Drug use: No FAMILY HISTORY Problem Relation Age of Onset Stroke Mother Breast Cancer Mother Ischemic Heart Disease Mother Stroke Father Lipids Sister other (gerd) Sister other (healthy) Son Skin Cancer Daughter ALLERGIES: ALLERGIES Allergen Reactions Crab Anaphylaxis Aricept [Donepezil] Mental Status Change Regression Cefdinir Itching Ciprofloxacin hives Eliquis [Apixaban] Rash Penicillins hives Sulfa (Sulfonamide * hives MEDICATIONS: metoprolol succinate ER (TOPROL XL) 25 mg 24 hr tablet^Take 0.5 tablets by mouth twice daily.^Disp: ^Rfl: cyanocobalamin 1,000 mcg/mL^Inject 1 mL intramuscularly once every month.^Disp: 3 mL^Rfl: 3 Syringe with Needle, Disp, (SYRINGE 3CC/25GX1 ) 3 mL 25 gauge x 1 ^1 Syringe once every month.^Disp: 4 Each^Rfl: 3 albuterol HFA (VENTOLIN HFA) 90 mcg/actuation inhaler^Inhale 2 Puffs as instructed every 4 hours as needed for wheezing/shortness of breath.^Disp: 18 g^Rfl: 1 rosuvastatin (CRESTOR) 20 mg tablet^Take 1 tablet by mouth once daily.^Disp: 90 tablet^Rfl: 3 FLUoxetine (PROZAC) 10 mg capsule^Take 1 capsule by mouth once daily.^Disp: 90 capsule^Rfl: 3 XARELTO 20 mg tablet^TAKE 1 TABLET BY MOUTH DAILY WITH DINNER^Disp: 90 tablet^Rfl: 3 Lysine 500 mg tab^Take 500 mg by mouth once daily.^Disp: ^Rfl: UBIDECARENONE (COQ-10 ORAL)^Take 1 tablet by mouth once daily. ^Disp: ^Rfl: multivitamins(MULTIPLE VITAMIN TAB)^Take one(1) tablet daily.^Disp: 0^Rfl: 0 gabapentin (NEURONTIN) 300 mg capsule^Take 1 capsule by mouth twice daily for 14 days.^Disp: 28 capsule^Rfl: 0 REVIEW OF SYSTEMS: Review of Systems Constitutional: Negative for chills, fever, malaise/fatigue and weight loss. HENT: Negative for hearing loss and sore throat. Eyes: Negative for blurred vision and double vision. Respiratory: Negative. Cardiovascular: Negative. Genitourinary: Negative for dysuria, frequency, hematuria and urgency. Musculoskeletal: Negative. Skin: Negative. Neurological: Negative for dizziness, seizures, loss of consciousness, weakness and headaches. Endo/Heme/Allergies: Negative for environmental allergies. Does not bruise/bleed easily. Psychiatric/Behavioral: Negative for depression. PHYSICAL EXAMINATION: BP 131/62 (BP Site: Right Arm, BP Position: Sitting, BP Cuff Size: Regular Adult) Pulse 72 Resp 16 Wt 87.5 kg (193 lb) SpO2 96% BMI 27.69 kg/m General: Very pleasant gentleman sitting appears comfortable and in no apparent distress. He is alert and oriented x3. HEENT: Carotid upstrokes are brisk without bruits. No JVD appreciated. Pulmonary: Lungs are clear no rales, wheezes, rhonchi Cardiovascular: Normal S1, S2 with regular rate and rhythm. No murmurs, rubs, or gallops appreciated. Extremities: Warm, well-perfused. No lower extremity edema. 2+ distal pulses. CARDIOVASCULAR MEDICINE TESTING: ECG in the office 02/19/2021: Normal sinus rhythm with right bundle branch block pattern. Occasional PVCs noted. No significant ST or T wave changes Treadmill Myoview Stress 06/07/19 The stress test was terminated due to the following: Fatigue. Peak HR 120 bpm. Exercise duration 9 min 0 sec. (87 % MPHR) (4.6 METS) Peak BP 168 mmHg/82 mmHg Patient experienced shortness of breath during stress. Stress ECG normal ST segment response, normal sinus rhythm and right bundle branch block. Stress complications: none. CONCLUSIONS: 1. SPECT Perfusion Study: Normal. 2. There is no scintigraphic evidence for inducible ischemia. 3. No evidence of scarred myocardium. 4. Fair functional capacity for age and gender. 5. Left ventricle is normal in size. The left ventricle systolic function is normal. 6. Right ventricle is normal in size. 7. This is a low risk scan. LVEF % 72 Echocardiogram 03/06/2023: - The left ventricle is small. There is mild concentric left ventricular hypertrophy. Left ventricular systolic function is normal. EF = 63 5% (2D biplane) Indeterminate left ventricular diastolic dysfunction. - The right ventricle is normal in size. Right ventricular systolic function is normal. - The mitral valve leaflets are structurally normal. There is mild (1+ - 2+) mitral valve regurgitation. - There are no significant valvular abnormalities. - Exam was compared with the prior CC echocardiographic exam performed on 03/21/2022, MR has increased. Echocardiogram 03/21/2022 - Technically difficult exam due to body habitus and probe sensitivity. - Exam indication: Syncope - The left ventricle is small. There is mild septal left ventricular hypertrophy. Left ventricular systolic function is normal. EF = 67 5% (2D biplane) Grade I left ventricular diastolic dysfunction. - The right ventricle is normal in size. Right ventricular systolic function is normal. - Definity unavailable. - Exam was compared with the prior CC echocardiographic exam performed on 12/16/2018, no significant change. Echocardiogram 12/16/2018: CONCLUSIONS: - Technically difficult exam due to body habitus. - Exam indication: Initial evaluation of Heart Failure - The left ventricle is normal in size. Left ventricular systolic function is hyperdynamic. EF = 74 5% (2D biplane) Definity contrast used for endocardial border detection. Grade I left ventricular diastolic dysfunction. - The right ventricle is normal in size. Right ventricular systolic function is normal. - No apparent valvular disease by limitations of this study. Zio Monitor 03/07/2023: Patient had a min HR of 56 bpm, max HR of 167 bpm, and avg HR of 69 bpm. Predominant underlying rhythm was Sinus Rhythm. First Degree AV Block was present. Bundle Branch Block/IVCD was present. 1 run of Ventricular Tachycardia occurred lasting 6 beats with a max rate of 167 bpm (avg 139 bpm). Atrial Fibrillation occurred (6% burden), ranging from 56-155 bpm (avg of 84 bpm), the longest lasting 4 hours 1 min with an avg rate of 75 bpm. Atrial Fibrillation was detected within +/- 45 seconds of symptomatic patient event(s). Isolated SVEs were rare (<1.0%), SVE Couplets were rare (<1.0%), and SVE Triplets were rare (<1.0%). Isolated VEs were occasional (2.3%, [id number]), VE Couplets were rare (<1.0%, 69), and VE Triplets were rare (<1.0%, 1). Ventricular Bigeminy and Trigeminy were present. Zio Monitor 03/21 - 04/04/2022 Patient had a min HR of 60 bpm, max HR of 173 bpm, and avg HR of 77 bpm. Predominant underlying rhythm was Sinus Rhythm. First Degree AV Block was present. Bundle Branch Block/IVCD was present. 1 run of Ventricular Tachycardia occurred lasting 4 beats with a max rate of 150 bpm (avg 145 bpm). Atrial Fibrillation occurred (3% burden), ranging from 70-173 bpm (avg of 104 bpm), the longest lasting 1 hour 55 mins with an avg rate of 102 bpm. Isolated SVEs were occasional (2.8%, [id number]), SVE Couplets were rare (<1.0%, 212), and SVE Triplets were rare (<1.0%, 48). Isolated VEs were rare (<1.0%), VE Couplets were rare(<1.0%), and no VE Triplets were present. Ventricular Bigeminy was present. I have personally reviewed the Electrocardiogram and Echocardiogram. IMPRESSION: Mr. 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 PLAN AND RECOMMENDATIONS: 1. Paroxysmal atrial fibrillation (HCC) - ICD9: 427.31, ICD10: I48.0 Recent Holter monitor results were reviewed with the patient and his . Low burden for atrial fibrillation. However, he does have episodes of atrial flutter with at which time he becomes symptomatic with hypotension. Plan to continue low-dose beta-victoria therapy. Unable able to titrate the dose due to bradycardia. I refer him to electrophysiology for consideration of antiarrhythmic therapy versus ablation. - CONSULT TO ELECTROPHYSIOLOGY 2. Bradycardia - ICD9: 427.89, ICD10: R00.1 - CONSULT TO ELECTROPHYSIOLOGY 3. Essential hypertension - ICD9: 401.9, ICD10: I10 Adequately controlled given his history of orthostatic hypotension. 4. Pure hypercholesterolemia - ICD9: 272.0, ICD10: E78.00 Maintained on Crestor 20 mg daily. Oni Grimm MD documented in this encounter [facility] 05-26-2023 Miscellaneous Notes Pt has appt today. Krysten Goldstein MA Follow up with PCP 05/19. Keep follow up as scheduled in November unless otherwise instructed. Awaiting response from Dr. Grimm to see if he needs to be seen sooner if stable. Krysten Goldstein MA Patient recently discharge from [facility] for atrial fib and RBBB. Patietn instructed to follow up with brush worker in 2-3 weeks, first available either doctor is September 15. Please advise and call patient. documented in this encounter [facility] 05-22-2023 Miscellaneous Notes Oni needs to see Dr. Grimm/cardiology in the next 1-2 weeks due to recent hospitalization, cardiac arrhythmias, hypotension. Please assist him to schedule this appointment. Abisai Yoder APRN.CNP documented in this encounter [facility] 05-19-2023 Note HNO ID: [id number] Author: Abisai Yoder APRN.CNP Service: ? Author Type: Nurse Practitioner Type: Progress Notes Filed: 05/22/2023 7:49 AM Note Text: Transitional Care Management Progress Note The patients TCM visit was performed within the 7 days of discharge. Patient's Date of discharge: 05/13/23 Date of initial coordinator contact after discharge: NA Discharge diagnosis: acute cardiac dysrhythmia, near syncope Medication review completed Yes Abisai Yoder APRN.CNP Provider Documentation: In follow-up of hospitalization, Oni Hernández is a 88 year old male with the chief complaint of hospital follow up for above listed. I have reviewed the patient?s last hospital course including diagnostic testing performed during this hospitalization, their discharge medications, and my assessment and plan with the patient and any family members present at today?s visit. HPI: Continues to feel fatigued. Has to be careful when getting up and walking-more because of weakness not dizziness. Had worn a 2 day heart monitor and this was recorded and returned to [facility]. Hasn't felt any abnormal heart beats. Blood pressures at home, last night 113/68. Does have occasional SOB. Albuterol nebulizer helps at nighttime. hasn't heard any more wheezing at nighttime since regularly using the nebulizer at nighttime. Denies CP, dizziness, h/a, palpitations, heart racing. PAST MEDICAL HISTORY: Reviewed and updated ALLERGIES: Reviewed and updated MEDICATIONS: Reviewed and updated SOCIAL HISTORY: Reviewed and updated FAMILY HISTORY: Reviewed and updated REVIEW OF SYSTEMS: All other systems reviewed and negative, other than HPI. PHYSICAL EXAMINATION BP 94/62 Pulse 73 Wt 191 lb (86.6kg) SpO2 95% General appearance: well appearing, alert, in no acute distress, and well-hydrated, well nourished, motor and sensory appear to be normal Lungs: clear to auscultation no wheezing or rhonchi Heart: RRR without murmur, gallop, or rubs. No ectopy Abdomen: Normal abdominal exam, Abdomen soft, non-tender. Bowel sounds normal. No masses, organomegaly Extremities: Extremities normal. No deformities, edema, or skin discoloration. Good capillary refill. 1. I have reviewed the patient record including associated test results during the last hospitalization Yes 2. I have reviewed Lab test Yes 3. I have reviewed Radiology test Yes 4. I reviewed assessment/plan with the patient/family member Yes ASSESSMENT/PLAN ASSESSMENT/PLAN: 1. Paroxysmal atrial fibrillation (HCC) - ICD9: 427.31, ICD10: I48.0 (primary diagnosis) Cut metoprolol in half and take bid. Continue to monitor BP, to notify the office if consistently running 80's/50's or if feeling poorly again, call the squad. 2. Irregular cardiac rhythm - ICD9: 427.9, ICD10: I49.9 Cut metoprolol in half and take bid. Continue to monitor BP, to notify the office if consistently running 80's/50's or if feeling poorly again, call the squad. 3. Hypotension, unspecified hypotension type - ICD9: 458.9, ICD10: I95.9 Cut metoprolol in half and take bid. Continue to monitor BP, to notify the office if consistently running 80's/50's or if feeling poorly again, call the squad. Abisai Yoder APRN.CNP May 19, 2023 1:59 PM [facility] 05-19-2023 Instructions Abisai Yoder APRN.CNP - 05/19/2023 2:25 PM EDT Cut your metoprolol in half-take half in the morning and half at bedtime. Continue monitoring your blood pressure a couple times per day. If you're running consistently 80's/50's, please let us know. Or if feeling poorly, may need to call the squad again. I'll do my best to get you in with Dr. Connor peres. documented in this encounter [facility] 05-19-2023 History of Present illness Narrative Transitional Care Management Progress Note The patients TCM visit was performed within the 7 days of discharge. Patient's Date of discharge: 05/13/23 Date of initial coordinator contact after discharge: NA Discharge diagnosis: acute cardiac dysrhythmia, near syncope Medication review completed Yes Abisai Yoder APRN.CNP Provider Documentation: In follow-up of hospitalization, Oni Hernández is a 88 year old male with the chief complaint of hospital follow up for above listed. I have reviewed the patient s last hospital course including diagnostic testing performed during this hospitalization, their discharge medications, and my assessment and plan with the patient and any family members present at today s visit. HPI: Continues to feel fatigued. Has to be careful when getting up and walking-more because of weakness not dizziness. Had worn a 2 day heart monitor and this was recorded and returned to [facility]. Hasn't felt any abnormal heart beats. Blood pressures at home, last night 113/68. Does have occasional SOB. Albuterol nebulizer helps at nighttime. hasn't heard any more wheezing at nighttime since regularly using the nebulizer at nighttime. Denies CP, dizziness, h/a, palpitations, heart racing. PAST MEDICAL HISTORY: Reviewed and updated ALLERGIES: Reviewed and updated MEDICATIONS: Reviewed and updated SOCIAL HISTORY: Reviewed and updated FAMILY HISTORY: Reviewed and updated REVIEW OF SYSTEMS: All other systems reviewed and negative, other than HPI. PHYSICAL EXAMINATION BP 94/62 Pulse 73 Wt 191 lb (86.6kg) SpO2 95% General appearance: well appearing, alert, in no acute distress, and well-hydrated, well nourished, motor and sensory appear to be normal Lungs: clear to auscultation no wheezing or rhonchi Heart: RRR without murmur, gallop, or rubs. No ectopy Abdomen: Normal abdominal exam, Abdomen soft, non-tender. Bowel sounds normal. No masses, organomegaly Extremities: Extremities normal. No deformities, edema, or skin discoloration. Good capillary refill. 1. I have reviewed the patient record including associated test results during the last hospitalization Yes 2. I have reviewed Lab test Yes 3. I have reviewed Radiology test Yes 4. I reviewed assessment/plan with the patient/family member Yes ASSESSMENT/PLAN ASSESSMENT/PLAN: 1. Paroxysmal atrial fibrillation (HCC) - ICD9: 427.31, ICD10: I48.0 (primary diagnosis) Cut metoprolol in half and take bid. Continue to monitor BP, to notify the office if consistently running 80's/50's or if feeling poorly again, call the squad. 2. Irregular cardiac rhythm - ICD9: 427.9, ICD10: I49.9 Cut metoprolol in half and take bid. Continue to monitor BP, to notify the office if consistently running 80's/50's or if feeling poorly again, call the squad. 3. Hypotension, unspecified hypotension type - ICD9: 458.9, ICD10: I95.9 Cut metoprolol in half and take bid. Continue to monitor BP, to notify the office if consistently running 80's/50's or if feeling poorly again, call the squad. Abisai Yoder APRN.CNP May 19, 2023 1:59 PM documented in this encounter [facility] 05-19-2023 Miscellaneous Notes Please add him on my schedule for 40 min appt on FriMay 28 at 7 pm. He is aware of date and time Kapil Lara DO documented in this encounter [facility] 05-12-2023 Miscellaneous Notes calling in and states her has been dizzy, lightheaded and unsteady all morning. States he has a hx of afib, a stroke and has a brain shunt. She took his BP at 1230 and it was 96/63. Then she took it again at 1 pm and it was 78/46. She is calling to see if she should call the squad. Instructed to call 911 immediately. She verbalizes understanding and will call now. documented in this encounter [facility] 05-06-2023 Miscellaneous Notes Pt. informed via My Chart. Please inform patient that xrays of his hips and low back show results of IMPRESSION: Degenerative changes in the lumbar spine as described without acute osseous findings, no signs of fracture. This is likely causing some nerve impingement. Can consider seeing PHYSICAL THERAPY for strengthening as well as pain management to consider spine injections if interested No acute osseous findings right hip. Minimal osteoarthritis and chondrocalcinosis. Kapil Lara DO documented in this encounter [facility] 04-28-2023 Note HNO ID: [id number] Author: Allison Barrios RT(Silviano) Service: ? Author Type: Sheet Metal Mechanic Type: Progress Notes Filed: 04/28/2023 11:50 AM Note Text: Radiology Service Progress Note PATIENT NAME: Oni Hernández DATE OF SERVICE: April 28, 2023 TIME: 11:31 AM PATIENT IDENTITY VERIFICATION COMPLETED USING TWO (2) IDENTIFIERS: Name and Date of confirmed by patient verbally. FALL SCREENING: Has the patient had 2 falls in the last year or 1 fall with injury or currently using an Ambulatory Assistive Device (Walker, Cane, Wheelchair, Crutches, etc.)? No PATIENT GENDER DATA: Male PATIENT RELEVANT IMPLANT DATA REVIEWED: Yes RADIOLOGY DEPARTMENT: General X-ray: Exam(s) Completed: Spine X-Ray(s): Lumbar AP / LAT / L5-S1 Pelvis X-Ray: Pelvis with Hip Right PERIPHERAL IV DATA: Not applicable SIGNED BY: RT Ugo(R) April 28, 2023 11:31 AM [facility] 04-24-2023 Note HNO ID: [id number] Author: Kapil Lara, DO Service: ? Author Type: Physician Type: Progress Notes Filed: 04/23/2023 10:23 PM Note Text: CC: Oni Hernández is a 88 year old male who presents to the office for follow up HPI: Patient and are present in office today Patient states that in February he was seen in the urgent care on 03/27 due to having some right groin pain, that was sharp and stabbing in discomfort. He thought that potentially he had a kidney stone. Labs and urinalysis didn't indicate this. He was then referred to Dr. Beach since PCP out of office. Physician felt he had risk of shingles but no skin lesions were present. He states that within about 10 days the pain completely resolved but he did start having some right low back pain and right inner thigh sharp shooting pain before symptoms did resolve. No urinary or bowel changes. Denies any back or hip injuries but has been gardening a lot more frequently this summer. Fluctuating blood pressure readings. States that these started around 04/07 or 04/08, after seeing Carriage Setter Dr. Grimm the week before. He has been having some fatigue but otherwise asymptomatic. When seen in office as above by Dr. Beach, his dose of amlodipine was cut in half to 2.5 mg a day. He has been taking the metoprolol 25 mg XL and the 2.5 mg of amlodipine both in the evening. Has been noticing when checking twice a day his BLOOD PRESSURE since that time, BLOOD PRESSURE as low as 80s/50s or high as 120s/60s. + fatigue only , no falls, no syncope, no chest pressure or dizziness/LH PAST MEDICAL HISTORY Diagnosis Date Allergic rhinitis, cause unspecified Asthma Carotid stenosis Cognitive impairment Neurologist, worsened with Aricept Fracture 8 years old broke his right arm a long time ago Generalized and unspecified atherosclerosis HTN (hypertension) Hyperlipidemia Kidney stones Lower back pain Lumbar spinal stenosis Dr. Unger Malignant neoplasm prostate (HCC) 05/15/2010 T1C, [place] 8, PSA 7.1 ng/mL Mild dementia (HCC) NPH (normal pressure hydrocephalus) (HCC) unlikely clinical picture for NPH. Had drain trial w/ subjective improvement in gait TIA (transient ischemic attack) Neurologist PAST SURGICAL HISTORY Procedure Laterality Date APPENDECTOMY 1950 at age 19 CATARACT EXTRACTION HX Right 11/10/2017 Dr. Arcos Ground Crew Supervisor CATARACT EXTRACTION HX Left 11/26/2017 Dr. Arcos LAPJames PROSTECT RETROPUBIC RAD W/NRV SPARING ROBOT 07/24/2010 Dr. Ovalles, robotic, pT3a, [place] 4+3, SM pos, 0/14 LN+ PAST SURGICAL HISTORY OF 2014 nerve ablation lower back left side PAST SURGICAL HISTORY OF 08/03/2016 Nerve ablation back PAST SURGICAL HISTORY OF kidney stone removal x 3 - last episode 1985 VASECTOMY UNI/BI SPX W/POSTOP SEMEN EXAMS 1972 Social History: Social History Tobacco Use Smoking status: Never Smokeless tobacco: Never Vaping Use Vaping Use: Never used Substance Use Topics Alcohol use: Yes Alcohol/week: 2.5 - 5.0 standard drinks of alcohol Types: 1 - 2 Mixed Drinks per week Drug use: No FAMILY HISTORY Problem Relation Age of Onset Stroke Mother Breast Cancer Mother Ischemic Heart Disease Mother Stroke Father Lipids Sister other (gerd) Sister other (healthy) Son Skin Cancer Daughter Current Outpatient prescriptions: cyanocobalamin 1,000 mcg/mLInject 1 mL intramuscularly once every month.Disp: 3 mLRfl: 3 Syringe with Needle, Disp, (SYRINGE 3CC/25GX1 ) 3 mL 25 gauge x 1 1 Syringe once every month.Disp: 4 EachRfl: 3 amLODIPine (NORVASC) 5 mg tabletTake 0.5 tablets by mouth once daily.Disp: 90 tabletRfl: 0 albuterol HFA (VENTOLIN HFA) 90 mcg/actuation inhalerInhale 2 Puffs as instructed every 4 hours as needed for wheezing/shortness of breath.Disp: 18 gRfl: 1 rosuvastatin (CRESTOR) 20 mg tabletTake 1 tablet by mouth once daily.Disp: 90 tabletRfl: 3 FLUoxetine (PROZAC) 10 mg capsuleTake 1 capsule by mouth once daily.Disp: 90 capsuleRfl: 3 XARELTO 20 mg tabletTAKE 1 TABLET BY MOUTH DAILY WITH DINNERDisp: 90 tabletRfl: 3 metoprolol succinate ER (TOPROL XL) 25 mg 24 hr tabletTake 1 tablet by mouth once daily.Disp: 90 tabletRfl: 3 fluticasone (FLOVENT HFA) 110 mcg/actuation inhalerInhale 1 Puff as instructed twice daily.Disp: 3 InhalerRfl: 1 Lysine 500 mg tabTake 500 mg by mouth once daily.Disp: Rfl: UBIDECARENONE (COQ-10 ORAL)Take 1 tablet by mouth once daily. Disp: Rfl: multivitamins(MULTIPLE VITAMIN TAB)Take one(1) tablet daily.Disp: 0Rfl: 0 gabapentin (NEURONTIN) 300 mg capsuleTake 1 capsule by mouth twice daily for 14 days.Disp: 28 capsuleRfl: 0 ondansetron orally disintegrating (ZOFRAN ODT) 4 mg disintegrating tabletTake 1 tablet by mouth every 6 hours as needed for nausea/vomiting.Disp: 20 tabletRfl: 0 cholecalciferol (VITAMIN D3) 5,000 unit tabTake 5,000 Units by mouth once daily.Disp: Rfl: Allergies: (more content not included)... [facility] 04-23-2023 History of Present illness Narrative CC: Oni Hernández is a 88 year old male who presents to the office for follow up HPI: Patient and are present in office today Patient states that in February he was seen in the urgent care on 03/27 due to having some right groin pain, that was sharp and stabbing in discomfort. He thought that potentially he had a kidney stone. Labs and urinalysis didn't indicate this. He was then referred to Dr. Beach since PCP out of office. Physician felt he had risk of shingles but no skin lesions were present. He states that within about 10 days the pain completely resolved but he did start having some right low back pain and right inner thigh sharp shooting pain before symptoms did resolve. No urinary or bowel changes. Denies any back or hip injuries but has been gardening a lot more frequently this summer. Fluctuating blood pressure readings. States that these started around 04/07 or 04/08, after seeing Carriage Setter Dr. Grimm the week before. He has been having some fatigue but otherwise asymptomatic. When seen in office as above by Dr. Beach, his dose of amlodipine was cut in half to 2.5 mg a day. He has been taking the metoprolol 25 mg XL and the 2.5 mg of amlodipine both in the evening. Has been noticing when checking twice a day his BLOOD PRESSURE since that time, BLOOD PRESSURE as low as 80s/50s or high as 120s/60s. + fatigue only , no falls, no syncope, no chest pressure or dizziness/LH PAST MEDICAL HISTORY Diagnosis Date Allergic rhinitis, cause unspecified Asthma Carotid stenosis Cognitive impairment Neurologist, worsened with Aricept Fracture 8 years old broke his right arm a long time ago Generalized and unspecified atherosclerosis HTN (hypertension) Hyperlipidemia Kidney stones Lower back pain Lumbar spinal stenosis Dr. Unger Malignant neoplasm prostate (HCC) 05/15/2010 T1C, [place] 8, PSA 7.1 ng/mL Mild dementia (HCC) NPH (normal pressure hydrocephalus) (HCC) unlikely clinical picture for NPH. Had drain trial w/ subjective improvement in gait TIA (transient ischemic attack) Neurologist PAST SURGICAL HISTORY Procedure Laterality Date APPENDECTOMY 1950 at age 19 CATARACT EXTRACTION HX Right 11/10/2017 Dr. Arcos Ground Crew Supervisor CATARACT EXTRACTION HX Left 11/26/2017 Dr. Josselyn CERON PROSTECT RETROPUBIC RAD W/NRV SPARING ROBOT 07/24/2010 Dr. Ovalles, robotic, pT3a, [place] 4+3, SM pos, 0/14 LN+ PAST SURGICAL HISTORY OF 2014 nerve ablation lower back left side PAST SURGICAL HISTORY OF 08/03/2016 Nerve ablation back PAST SURGICAL HISTORY OF kidney stone removal x 3 - last episode 1985 VASECTOMY UNI/BI SPX W/POSTOP SEMEN EXAMS 1971 Social History: Social History Tobacco Use Smoking status: Never Smokeless tobacco: Never Vaping Use Vaping Use: Never used Substance Use Topics Alcohol use: Yes Alcohol/week: 2.5 - 5.0 standard drinks of alcohol Types: 1 - 2 Mixed Drinks per week Drug use: No FAMILY HISTORY Problem Relation Age of Onset Stroke Mother Breast Cancer Mother Ischemic Heart Disease Mother Stroke Father Lipids Sister other (gerd) Sister other (healthy) Son Skin Cancer Daughter Current Outpatient prescriptions: cyanocobalamin 1,000 mcg/mL^Inject 1 mL intramuscularly once every month.^Disp: 3 mL^Rfl: 3 Syringe with Needle, Disp, (SYRINGE 3CC/25GX1 ) 3 mL 25 gauge x 1 ^1 Syringe once every month.^Disp: 4 Each^Rfl: 3 amLODIPine (NORVASC) 5 mg tablet^Take 0.5 tablets by mouth once daily.^Disp: 90 tablet^Rfl: 0 albuterol HFA (VENTOLIN HFA) 90 mcg/actuation inhaler^Inhale 2 Puffs as instructed every 4 hours as needed for wheezing/shortness of breath.^Disp: 18 g^Rfl: 1 rosuvastatin (CRESTOR) 20 mg tablet^Take 1 tablet by mouth once daily.^Disp: 90 tablet^Rfl: 3 FLUoxetine (PROZAC) 10 mg capsule^Take 1 capsule by mouth once daily.^Disp: 90 capsule^Rfl: 3 XARELTO 20 mg tablet^TAKE 1 TABLET BY MOUTH DAILY WITH DINNER^Disp: 90 tablet^Rfl: 3 metoprolol succinate ER (TOPROL XL) 25 mg 24 hr tablet^Take 1 tablet by mouth once daily.^Disp: 90 tablet^Rfl: 3 fluticasone (FLOVENT HFA) 110 mcg/actuation inhaler^Inhale 1 Puff as instructed twice daily.^Disp: 3 Inhaler^Rfl: 1 Lysine 500 mg tab^Take 500 mg by mouth once daily.^Disp: ^Rfl: UBIDECARENONE (COQ-10 ORAL)^Take 1 tablet by mouth once daily. ^Disp: ^Rfl: multivitamins(MULTIPLE VITAMIN TAB)^Take one(1) tablet daily.^Disp: 0^Rfl: 0 gabapentin (NEURONTIN) 300 mg capsule^Take 1 capsule by mouth twice daily for 14 days.^Disp: 28 capsule^Rfl: 0 ondansetron orally disintegrating (ZOFRAN ODT) 4 mg disintegrating tablet^Take 1 tablet by mouth every 6 hours as needed for nausea/vomiting.^Disp: 20 tablet^Rfl: 0 cholecalciferol (VITAMIN D3) 5,000 unit tab^Take 5,000 Units by mouth once daily.^Disp: ^Rfl: Allergies: ALLERGIES Allergen Reactions Crab Anaphylaxis Aricept [Donepezil] Mental Status Change Regression Cefdinir Itching Ciprofloxacin hives Eliquis [Apixaban] Rash Penicillins hives Sulfa (Sulfonamide * hives ROS: See HPI PE: 04/23/23 1835 BP: 138/80 Pulse: 64 Resp: 20 Temp: 36.1 C (97 F) TempSrc: Right Tympanic Weight: 87.1 kg (192 lb) Gen: A&OX3, NAD, non-toxic appearing HEENT: PERRLA, EOMs intact b/l, nares without drainage, pharynx without erythema, exudate, lesions, or drainage. Uvula midline. Neck: No LAD, no thyromegaly, no meningismus. CV: RRR, 2/6 HSM RUSB murmur Lungs: CTA b/l, no wheezing Skin: No rashes, lesions, or wounds on exposed skin. Shunt in place right side of head and neck Trace to 1+ b/l lower leg non pitting edema Normal peripheral pulses ASSESSMENT/PLAN: 1. Right groin pain - ICD9: 789.03, ICD10: R10.31 (primary diagnosis) Concerns for musculoskeletal cause of pain, check right hip xray and lumbar spine xray, symptoms are improved now, he does a lot of gardening at home during summer. Supportive care and consider PHYSICAL THERAPY if worsens again - XR LUMBAR GENERAL 3V AP/LAT/L5-S1 - XR HIP GENERAL 3V PELV/AP/LAT RIGHT 2. Right lumbar pain - ICD9: 724.2, ICD10: M54.50 Concerns for musculoskeletal cause of pain, check right hip xray and lumbar spine xray, symptoms are improved now, he does a lot of gardening at home during summer. Supportive care and consider PHYSICAL THERAPY if worsens again - XR LUMBAR GENERAL 3V AP/LAT/L5-S1 - XR HIP GENERAL 3V PELV/AP/LAT RIGHT 3. Fluctuating blood pressure - ICD9: 796.4, ICD10: I99.8 - change amlodipine to 2.5 mg in the PM and metoprolol 25 mg XL in the AM, separate out medications. Continue to monitor BLOOD PRESSURE, if blood pressure fluctuations continue then recommend checking carotid artery US and renal artery US and follow up with Carriage Setter 4. Fatigue, unspecified type - ICD9: 780.79, ICD10: R53.83 - change amlodipine to 2.5 mg in the PM and metoprolol 25 mg XL in the AM, separate out medications. Continue to monitor BLOOD PRESSURE, if blood pressure fluctuations continue then recommend checking carotid artery US and renal artery US and follow up with Carriage Setter Kapil Lara DO To ER if develops chest pain, shortness of breath, or severe worsening of symptoms. Discussed risks, benefits, alternatives, and potential side effects of medications. Patient expressed understanding and agreed with the plan. Kapil Lara DO [address] [place] [address] documented in this encounter [facility] 04-11-2023 Miscellaneous Notes The following approved medication requests have been transmitted electronically. Requested Prescriptions Pending Prescriptions Disp Refills cyanocobalamin 1,000 mcg/mL 3 mL 3 Sig: Inject 1 mL intramuscularly once every month. Syringe with Needle, Disp, (SYRINGE 3CC/25GX1 ) 3 mL 25 gauge x 1 4 Each 3 Si Syringe once every month. Jaswinder Dolan APRN.MACHINE FASTENER Mena--04/08/23 Nov--04/23/23 Last refill--syringes -- 4 each Cyanocobalamin--11/05/21 3ml with 3 refills Last labs--03/31/23 Patient has been identified by name and date of : Yes Requested Prescriptions Pending Prescriptions Disp Refills cyanocobalamin 1,000 mcg/mL 3 mL 3 Sig: Inject 1 mL intramuscularly once every month. Syringe with Needle, Disp, (SYRINGE 3CC/25GX1 ) 3 mL 25 gauge x 1 4 Each 3 Si Syringe once every month. RX INSTRUCTIONS: Patient aware RX will be sent to pharmacy. No need to notify patient. Jessa Mays Pss documented in this encounter [facility] 04-11-2023 Miscellaneous Notes Reviewed. Paige Dang APRN.MACHINE FASTENER Patient notified of results, verbalizes understanding of instructions. Melissa Toussaint LPN BP looks good aside from 1 low reading. I would have them continue to monitor and call if getting persistent or recurrent readings <100/60 or >140/90. Patient's Dioni calling with patient's home blood pressure readings, as instructed to record by Dr. Beach for this week. Pt had OV with Dr. Beach on 04/08 and was advised to reduce his amlodipine from 5 mg daily to 2.5 mg daily. BP's: 04/08 evenin/678 04/09 8:30AM 118/67 1PM 94/49 10:40PM 122/68 04/10 10:30AM 114/65 8PM 114/62 04/11 AM 118/72 No concerns or complaints voiced. Please advise . Thank you. documented in this encounter [facility] 04-08-2023 Note HNO ID: [id number] Author: Andrew Beach MD Service: ? Author Type: Physician Type: Progress Notes Filed: 04/08/2023 5:16 PM Note Text: Chief Complaint Patient presents with: Follow Up: Continues with pain and extreme fatigue. SOB has gotten worse. HPI Oni Hernández is a 88 year old male who presents here today for Above Complaints.. Accpmpanied today by his Arely. Evaluated on 03/28 for ER follow up with following HPI: Patient evaluated at [facility] ED yesterday for right flank pain. Renal stone prtocol initiated with CT abd/pel without obstructive uropathy. Did note incidental gallstone. No acute processes. UA negative. CBC and CMP unremarkable. Treated with morphine and Zofran. No reash noted on exam, but told to monitor for signs of shingles. Discharged home with rx for gabapentin and recommendation to follow up with PCP. States that he took gabapentin for his pain last night which helped him sleep. Pain has returned today. Took tylenol this morning and vomiting shortly afterwards. Brought up clear liquid without blood or coffee grounds. Took aleve after that and pain now is 6/10. Described as constant burning sensation in his RLQ with radiation around the side to his back. Exacerbated with walking or going up stairs. Denies fever/chills, urinary symptoms, diarrhea, constipation, hematochezia, melena, recent injury. Attributed pain to possible early shingles and was discharged home with gabapentin and valtrex in case he developed rash. Interim: Patient states that his pain has continued to improve without use of Gabapentin. Did not take valtrex because the rash never materialized. Notes that his pain is down to 1-2/10 which is now down into his groin from RLQ. Denies nausea, vomiting, diarrhea, constipation, hematochezia, melena, urinary symptoms. Notes that he has been fatigued after working in the garden and will need a couple hours nap. Evaluated by cardiology on 03/31 without change in regimen. BP the other day with fatigue was 80's/50's at home. Not drinking much water at home. Past medical history, appointments, medications, allergies reviewed. Previous Medical History PAST MEDICAL HISTORY Diagnosis Date Allergic rhinitis, cause unspecified Asthma Carotid stenosis Cognitive impairment Neurologist, worsened with Aricept Fracture 8 years old broke his right arm a long time ago Generalized and unspecified atherosclerosis HTN (hypertension) Hyperlipidemia Kidney stones Lower back pain Lumbar spinal stenosis Dr. Unger Malignant neoplasm prostate (HCC) 05/15/2010 T1C, [place] 8, PSA 7.1 ng/mL Mild dementia (HCC) NPH (normal pressure hydrocephalus) (HCC) unlikely clinical picture for NPH. Had drain trial w/ subjective improvement in gait TIA (transient ischemic attack) Neurologist Previous Surgical History PAST SURGICAL HISTORY Procedure Laterality Date APPENDECTOMY 1951 at age 19 CATARACT EXTRACTION HX Right 11/10/2017 Dr. Arcos [employer] Super[employer] CATARACT EXTRACTION HX Left 11/26/2017 Dr. Arcos LAPJames PROSTECT RETROPUBIC RAD W/NRV SPARING ROBOT 07/24/2010 Dr. Ovalles, robotic, pT3a, [place] 4+3, SM pos, 0/14 LN+ PAST SURGICAL HISTORY OF 2014 nerve ablation lower back left side PAST SURGICAL HISTORY OF 08/03/2016 Nerve ablation back PAST SURGICAL HISTORY OF kidney stone removal x 3 - last episode 1985 VASECTOMY UNI/BI SPX W/POSTOP SEMEN EXAMS 1971 Family History FAMILY HISTORY Problem Relation Age of Onset Stroke Mother Breast Cancer Mother Ischemic Heart Disease Mother Stroke Father Lipids Sister other (gerd) Sister other (healthy) Son Skin Cancer Daughter Patient Allergies ALLERGIES Allergen Reactions Crab Anaphylaxis Aricept [Donepezil] Mental Status Change Regression Cefdinir Itching Ciprofloxacin hives Eliquis [Apixaban] Rash Penicillins hives Sulfa (Sulfonamide * hives Current Medications Current Outpatient Medications on File Prior to Visit Medication Sig gabapentin (NEURONTIN) 300 mg capsule Take 1 capsule by mouth twice daily for 14 days. ondansetron orally disintegrating (ZOFRAN ODT) 4 mg disintegrating tablet Take 1 tablet by mouth every 6 hours as needed for nausea/vomiting. albuterol HFA (VENTOLIN HFA) 90 mcg/actuation inhaler Inhale 2 Puffs as instructed every 4 hours as needed for wheezing/shortness of breath. rosuvastatin (CRESTOR) 20 mg tablet Take 1 tablet by mouth once daily. FLUoxetine (PROZAC) 10 mg capsule Take 1 capsule by mouth once daily. XARELTO 20 mg tablet TAKE 1 TABLET BY MOUTH DAILY WITH DINNER amLODIPine (NORVASC) 5 mg tablet TAKE 1 TABLET BY MOUTH ONCE DAILY metoprolol succinate ER (TOPROL XL) 25 mg 24 hr tablet Take 1 tablet by mouth once daily. cyanocobalamin 1,000 mcg/mL Inject 1 mL intramuscularly once every month. Syringe with Needle, Disp, (SYRINGE 3CC/25GX1 ) 1 Syringe once every month. Lysin (more content not included)... [facility] 04-04-2023 Miscellaneous Notes Phoned patient and reviewed provider's message with him. Advised him currently no openings today with Dr Beach. Advised him Dr Willoughby has 1 day releases that would be available tomorrow morning. Also informed patient he could be seen in EC or at ER. Patient requesting appointmnet with Dr Beach on Friday. Patient scheduled for 04/07/23 at 320p. Reminded patient if things become worse to follow up with ER. Patient voiced understanding. With persistent pain and change in BM, recommend repeat in person evaluation for this pain. Patient calling in today stating that the right lower abdominal pain continues. Rate 5:10. Describes it as a stabbing pain. Has been treating the discomfort with Tylenol but that has not been effective. Still has not developed a shingles rash. Did mentioned that he is a little constipated when asked. Please advise. documented in this encounter [facility] 2023 Note HNO ID: [id number] Author: Oni Grimm MD Service: ? Author Type: Physician Type: Progress Notes Filed: 2023 2:15 PM Note Text: [facility] CARDIOLOGY Cardiology ([facility]) [address] [facility] [id number] OUTPATIENT VISIT DATE 2023 PRIMARY CARE PHYSICIAN: Kapil Lara [address] [place] [address] HISTORY OF PRESENT ILLNESS: Mr. 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 He came to the office visit today with his for follow-up after recent emergency room visit. They went to the emergency room because his heart rate was in the 50s and he was complaining of fatigue. There was nothing found on evaluation. He was discharged home. His was very concerned about his heart rate in the 50s. There were no other symptoms reported. He has not had symptoms concerning for CHF including PND, orthopnea, lower extremity edema. He denies feelings of palpitations, lightheadedness, dizziness, or syncope. PAST MEDICAL HISTORY Diagnosis Date Allergic rhinitis, cause unspecified Asthma Carotid stenosis Cognitive impairment Neurologist, worsened with Aricept Fracture 8 years old broke his right arm a long time ago Generalized and unspecified atherosclerosis HTN (hypertension) Hyperlipidemia Kidney stones Lower back pain Lumbar spinal stenosis Dr. Unger Malignant neoplasm prostate (HCC) 05/15/2010 T1C, [place] 8, PSA 7.1 ng/mL Mild dementia (HCC) NPH (normal pressure hydrocephalus) (HCC) unlikely clinical picture for NPH. Had drain trial w/ subjective improvement in gait TIA (transient ischemic attack) Neurologist PAST SURGICAL HISTORY Procedure Laterality Date APPENDECTOMY 1950 at age 19 CATARACT EXTRACTION HX Right 11/10/2017 Dr. Arcos Ground [employer] Supervisor CATARACT EXTRACTION HX Left 11/26/2017 Dr. Josselyn CERON PROSTECT RETROPUBIC RAD W/NRV SPARING ROBOT 07/24/2010 Dr. Ovalles, robotic, pT3a, [place] 4+3, SM pos, 0/14 LN+ PAST SURGICAL HISTORY OF 2014 nerve ablation lower back left side PAST SURGICAL HISTORY OF 08/03/2016 Nerve ablation back PAST SURGICAL HISTORY OF kidney stone removal x 3 - last episode 1985 VASECTOMY UNI/BI SPX W/POSTOP SEMEN EXAMS 1971 SOCIAL HISTORY Social History Tobacco Use Smoking status: Never Smokeless tobacco: Never Vaping Use Vaping Use: Never used Substance Use Topics Alcohol use: Yes Alcohol/week: 2.5 - 5.0 standard drinks Types: 1 - 2 Mixed Drinks per week Drug use: No FAMILY HISTORY Problem Relation Age of Onset Stroke Mother Breast Cancer Mother Ischemic Heart Disease Mother Stroke Father Lipids Sister other (gerd) Sister other (healthy) Son Skin Cancer Daughter ALLERGIES: ALLERGIES Allergen Reactions Crab Anaphylaxis Aricept [Donepezil] Mental Status Change Regression Cefdinir Itching Ciprofloxacin hives Eliquis [Apixaban] Rash Penicillins hives Sulfa (Sulfonamide * hives MEDICATIONS: valACYclovir (VALTREX) 1 gramTake 1 tablet by mouth three times daily for 7 days.Disp: 21 tabletRfl: 0 ondansetron orally disintegrating (ZOFRAN ODT) 4 mg disintegrating tabletTake 1 tablet by mouth every 6 hours as needed for nausea/vomiting.Disp: 20 tabletRfl: 0 albuterol HFA (VENTOLIN HFA) 90 mcg/actuation inhalerInhale 2 Puffs as instructed every 4 hours as needed for wheezing/shortness of breath.Disp: 18 gRfl: 1 rosuvastatin (CRESTOR) 20 mg tabletTake 1 tablet by mouth once daily.Disp: 90 tabletRfl: 3 FLUoxetine (PROZAC) 10 mg capsuleTake 1 capsule by mouth once daily.Disp: 90 capsuleRfl: 3 XARELTO 20 mg tabletTAKE 1 TABLET BY MOUTH DAILY WITH DINNERDisp: 90 tabletRfl: 3 amLODIPine (NORVASC) 5 mg tabletTAKE 1 TABLET BY MOUTH ONCE DAILYDisp: 90 tabletRfl: 3 metoprolol succinate ER (TOPROL XL) 25 mg 24 hr tabletTake 1 tablet by mouth once daily.Disp: 90 tabletRfl: 3 cyanocobalamin 1,000 mcg/mLInject 1 mL intramuscularly once every month.Disp: 3 mLRfl: 3 Syringe with Needle, Disp, (SYRINGE 3CC/25GX1 )1 Syringe once every month.Disp: 4 EachRfl: 3 Lysine 500 mg tabTake 500 mg by mouth once daily.Disp: Rfl: cholecalciferol (VITAMIN D3) 5,000 unit tabTake 5,000 Units by mouth once daily.Disp: Rfl: UBIDECARENONE (COQ-10 ORAL)Take 1 tablet by mouth once daily. Disp: Rfl: multivitamins(MULTIPLE VITAMIN TAB)Take one(1) tablet daily.Disp: 0Rfl: 0 gabapentin (NEURONTIN) 300 mg capsuleTake 1 capsule by mouth twice daily for 14 days.Disp: 28 capsuleRfl: 0 (Patient not taking: Reported on 2023) fluticasone (FLOVENT HFA) 110 mcg/actuation inhalerInhale 1 Puff as instructed twice daily.Disp: 3 InhalerRfl: 1 REVIEW OF (more content not included)... [facility] 2023 Instructions Oni Grimm MD - 2023 1:59 PM EDT We will repeat fasting blood work in the fall documented in this encounter [facility] 2023 History of Present illness Narrative Images from the original note were not included. [facility] SE[facility] REGIONAL CARDIOLOGY Cardiology ([facility]) [address] [facility] [id number] OUTPATIENT VISIT DATE 2023 PRIMARY CARE PHYSICIAN: Kapil Lara [address] [place] [address] HISTORY OF PRESENT ILLNESS: Mr. 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 He came to the office visit today with his for follow-up after recent emergency room visit. They went to the emergency room because his heart rate was in the 50s and he was complaining of fatigue. There was nothing found on evaluation. He was discharged home. His was very concerned about his heart rate in the 50s. There were no other symptoms reported. He has not had symptoms concerning for CHF including PND, orthopnea, lower extremity edema. He denies feelings of palpitations, lightheadedness, dizziness, or syncope. PAST MEDICAL HISTORY Diagnosis Date Allergic rhinitis, cause unspecified Asthma Carotid stenosis Cognitive impairment Neurologist, worsened with Aricept Fracture 8 years old broke his right arm a long time ago Generalized and unspecified atherosclerosis HTN (hypertension) Hyperlipidemia Kidney stones Lower back pain Lumbar spinal stenosis Dr. Unger Malignant neoplasm prostate (HCC) 05/15/2010 T1C, [place] 8, PSA 7.1 ng/mL Mild dementia (HCC) NPH (normal pressure hydrocephalus) (HCC) unlikely clinical picture for NPH. Had drain trial w/ subjective improvement in gait TIA (transient ischemic attack) Neurologist PAST SURGICAL HISTORY Procedure Laterality Date APPENDECTOMY 1950 at age 19 CATARACT EXTRACTION HX Right 11/10/2017 Dr. Arcos Ground [employer] Supervisor CATARACT EXTRACTION HX Left 11/26/2017 Dr. Josselyn CERON PROSTECT RETROPUBIC RAD W/NRV SPARING ROBOT 07/24/2010 Dr. Ovalles, robotic, pT3a, [place] 4+3, SM pos, 0/14 LN+ PAST SURGICAL HISTORY OF 2014 nerve ablation lower back left side PAST SURGICAL HISTORY OF 08/03/2016 Nerve ablation back PAST SURGICAL HISTORY OF kidney stone removal x 3 - last episode 1985 VASECTOMY UNI/BI SPX W/POSTOP SEMEN EXAMS 1972 SOCIAL HISTORY Social History Tobacco Use Smoking status: Never Smokeless tobacco: Never Vaping Use Vaping Use: Never used Substance Use Topics Alcohol use: Yes Alcohol/week: 2.5 - 5.0 standard drinks Types: 1 - 2 Mixed Drinks per week Drug use: No FAMILY HISTORY Problem Relation Age of Onset Stroke Mother Breast Cancer Mother Ischemic Heart Disease Mother Stroke Father Lipids Sister other (gerd) Sister other (healthy) Son Skin Cancer Daughter ALLERGIES: ALLERGIES Allergen Reactions Crab Anaphylaxis Aricept [Donepezil] Mental Status Change Regression Cefdinir Itching Ciprofloxacin hives Eliquis [Apixaban] Rash Penicillins hives Sulfa (Sulfonamide * hives MEDICATIONS: valACYclovir (VALTREX) 1 gram^Take 1 tablet by mouth three times daily for 7 days.^Disp: 21 tablet^Rfl: 0 ondansetron orally disintegrating (ZOFRAN ODT) 4 mg disintegrating tablet^Take 1 tablet by mouth every 6 hours as needed for nausea/vomiting.^Disp: 20 tablet^Rfl: 0 albuterol HFA (VENTOLIN HFA) 90 mcg/actuation inhaler^Inhale 2 Puffs as instructed every 4 hours as needed for wheezing/shortness of breath.^Disp: 18 g^Rfl: 1 rosuvastatin (CRESTOR) 20 mg tablet^Take 1 tablet by mouth once daily.^Disp: 90 tablet^Rfl: 3 FLUoxetine (PROZAC) 10 mg capsule^Take 1 capsule by mouth once daily.^Disp: 90 capsule^Rfl: 3 XARELTO 20 mg tablet^TAKE 1 TABLET BY MOUTH DAILY WITH DINNER^Disp: 90 tablet^Rfl: 3 amLODIPine (NORVASC) 5 mg tablet^TAKE 1 TABLET BY MOUTH ONCE DAILY^Disp: 90 tablet^Rfl: 3 metoprolol succinate ER (TOPROL XL) 25 mg 24 hr tablet^Take 1 tablet by mouth once daily.^Disp: 90 tablet^Rfl: 3 cyanocobalamin 1,000 mcg/mL^Inject 1 mL intramuscularly once every month.^Disp: 3 mL^Rfl: 3 Syringe with Needle, Disp, (SYRINGE 3CC/25GX1 )^1 Syringe once every month.^Disp: 4 Each^Rfl: 3 Lysine 500 mg tab^Take 500 mg by mouth once daily.^Disp: ^Rfl: cholecalciferol (VITAMIN D3) 5,000 unit tab^Take 5,000 Units by mouth once daily.^Disp: ^Rfl: UBIDECARENONE (COQ-10 ORAL)^Take 1 tablet by mouth once daily. ^Disp: ^Rfl: multivitamins(MULTIPLE VITAMIN TAB)^Take one(1) tablet daily.^Disp: 0^Rfl: 0 gabapentin (NEURONTIN) 300 mg capsule^Take 1 capsule by mouth twice daily for 14 days.^Disp: 28 capsule^Rfl: 0 (Patient not taking: Reported on 2023) fluticasone (FLOVENT HFA) 110 mcg/actuation inhaler^Inhale 1 Puff as instructed twice daily.^Disp: 3 Inhaler^Rfl: 1 REVIEW OF SYSTEMS: Review of Systems Constitutional: Negative for chills, fever, malaise/fatigue and weight loss. HENT: Negative for hearing loss and sore throat. Eyes: Negative for blurred vision and double vision. Respiratory: Negative. Cardiovascular: Negative. Genitourinary: Negative for dysuria, frequency, hematuria and urgency. Musculoskeletal: Negative. Skin: Negative. Neurological: Negative for dizziness, seizures, loss of consciousness, weakness and headaches. Endo/Heme/Allergies: Negative for environmental allergies. Does not bruise/bleed easily. Psychiatric/Behavioral: Negative for depression. PHYSICAL EXAMINATION: BP 112/68 Pulse 64 Wt 87.1 kg (192 lb) SpO2 97% BMI 27.55 kg/m General: Very pleasant gentleman sitting appears comfortable and in no apparent distress. He is alert and oriented x3. HEENT: Carotid upstrokes are brisk without bruits. No JVD appreciated. Pulmonary: Lungs are clear no rales, wheezes, rhonchi Cardiovascular: Normal S1, S2 with regular rate and rhythm. No murmurs, rubs, or gallops appreciated. Extremities: Warm, well-perfused. No lower extremity edema. 2+ distal pulses. CARDIOVASCULAR MEDICINE TESTING: ECG in the office 02/19/2021: Normal sinus rhythm with right bundle branch block pattern. Occasional PVCs noted. No significant ST or T wave changes Treadmill Myoview Stress 06/07/19 The stress test was terminated due to the following: Fatigue. Peak HR 120 bpm. Exercise duration 9 min 0 sec. (87 % MPHR) (4.6 METS) Peak BP 168 mmHg/82 mmHg Patient experienced shortness of breath during stress. Stress ECG normal ST segment response, normal sinus rhythm and right bundle branch block. Stress complications: none. CONCLUSIONS: 1. SPECT Perfusion Study: Normal. 2. There is no scintigraphic evidence for inducible ischemia. 3. No evidence of scarred myocardium. 4. Fair functional capacity for age and gender. 5. Left ventricle is normal in size. The left ventricle systolic function is normal. 6. Right ventricle is normal in size. 7. This is a low risk scan. LVEF % 72 Echocardiogram 03/06/2023: - The left ventricle is small. There is mild concentric left ventricular hypertrophy. Left ventricular systolic function is normal. EF = 63 5% (2D biplane) Indeterminate left ventricular diastolic dysfunction. - The right ventricle is normal in size. Right ventricular systolic function is normal. - The mitral valve leaflets are structurally normal. There is mild (1+ - 2+) mitral valve regurgitation. - There are no significant valvular abnormalities. - Exam was compared with the prior echocardiographic exam performed on 03/21/2022, MR has increased. Echocardiogram 03/21/2022 - Technically difficult exam due to body habitus and probe sensitivity. - Exam indication: Syncope - The left ventricle is small. There is mild septal left ventricular hypertrophy. Left ventricular systolic function is normal. EF = 67 5% (2D biplane) Grade I left ventricular diastolic dysfunction. - The right ventricle is normal in size. Right ventricular systolic function is normal. - Definity unavailable. - Exam was compared with the prior echocardiographic exam performed on 12/16/2018, no significant change. Echocardiogram 12/16/2018: CONCLUSIONS: - Technically difficult exam due to body habitus. - Exam indication: Initial evaluation of Heart Failure - The left ventricle is normal in size. Left ventricular systolic function is hyperdynamic. EF = 74 5% (2D biplane) Definity contrast used for endocardial border detection. Grade I left ventricular diastolic dysfunction. - The right ventricle is normal in size. Right ventricular systolic function is normal. - No apparent valvular disease by limitations of this study. Zio Monitor 03/07/2023: Patient had a min HR of 56 bpm, max HR of 167 bpm, and avg HR of 69 bpm. Predominant underlying rhythm was Sinus Rhythm. First Degree AV Block was present. Bundle Branch Block/IVCD was present. 1 run of Ventricular Tachycardia occurred lasting 6 beats with a max rate of 167 bpm (avg 139 bpm). Atrial Fibrillation occurred (6% burden), ranging from 56-155 bpm (avg of 84 bpm), the longest lasting 4 hours 1 min with an avg rate of 75 bpm. Atrial Fibrillation was detected within +/- 45 seconds of symptomatic patient event(s). Isolated SVEs were rare (<1.0%), SVE Couplets were rare (<1.0%), and SVE Triplets were rare (<1.0%). Isolated VEs were occasional (2.3%, [id number]), VE Couplets were rare (<1.0%, 69), and VE Triplets were rare (<1.0%, 1). Ventricular Bigeminy and Trigeminy were present. Zio Monitor 03/21 - 04/04/2022 Patient had a min HR of 60 bpm, max HR of 173 bpm, and avg HR of 77 bpm. Predominant underlying rhythm was Sinus Rhythm. First Degree AV Block was present. Bundle Branch Block/IVCD was present. 1 run of Ventricular Tachycardia occurred lasting 4 beats with a max rate of 150 bpm (avg 145 bpm). Atrial Fibrillation occurred (3% burden), ranging from 70-173 bpm (avg of 104 bpm), the longest lasting 1 hour 55 mins with an avg rate of 102 bpm. Isolated SVEs were occasional (2.8%, 76145), SVE Couplets were rare (<1.0%, 212), and SVE Triplets were rare (<1.0%, 48). Isolated VEs were rare (<1.0%), VE Couplets were rare(<1.0%), and no VE Triplets were present. Ventricular Bigeminy was present. I have personally reviewed the Electrocardiogram and Echocardiogram. IMPRESSION: Mr. 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 PLAN AND RECOMMENDATIONS: 1. Paroxysmal atrial fibrillation (HCC) - ICD9: 427.31, ICD10: I48.0 (primary diagnosis) Patient with paroxysmal atrial fibrillation on recent monitor. He is maintained on Xarelto. I reassured the patient's that she does not have to become concerned with asymptomatic sinus bradycardia. I reassured the patient's that he is very stable with heart rate in the 50s. - COMP METABOLIC PANEL 2. Essential hypertension - ICD9: 401.9, ICD10: I10 Adequate trolled on current regimen. 3. Pure hypercholesterolemia - ICD9: 272.0, ICD10: E78.00 Maintained on Crestor 20 mg daily. Repeat fasting blood work - LIPID PANEL BASIC - COMP METABOLIC PANEL 4. Bradycardia - ICD9: 427.89, ICD10: R00.1 Asymptomatic sinus bradycardia without significant pauses on recent monitor. No further work-up at this time. 5. Dizziness and giddiness - ICD9: 780.4, ICD10: R42 6. Vasovagal syncope - ICD9: 780.2, ICD10: R55 Oni Grimm MD documented in this encounter [facility] 03-28-2023 Note HNO ID: [id number] Author: Andrew Beach MD Service: ? Author Type: Physician Type: Progress Notes Filed: 03/28/2023 11:39 AM Note Text: Chief Complaint Patient presents with: ER F/U HPI Oni Hernández is a 87 year old male who presents here today for ER Follow Up. Accpmpanied today by his Arely. Patient evaluated at [facility] ED yesterday for right flank pain. Renal stone prtocol initiated with CT abd/pel without obstructive uropathy. Did note incidental gallstone. No acute processes. UA negative. CBC and CMP unremarkable. Treated with morphine and Zofran. No reash noted on exam, but told to monitor for signs of shingles. Discharged home with rx for gabapentin and recommendation to follow up with PCP. States that he took gabapentin for his pain last night which helped him sleep. Pain has returned today. Took tylenol this morning and vomiting shortly afterwards. Brought up clear liquid without blood or coffee grounds. Took aleve after that and pain now is 6/10. Described as constant burning sensation in his RLQ with radiation around the side to his back. Exacerbated with walking or going up stairs. Denies fever/chills, urinary symptoms, diarrhea, constipation, hematochezia, melena, recent injury. Past medical history, appointments, medications, allergies reviewed. Previous Medical History PAST MEDICAL HISTORY Diagnosis Date Allergic rhinitis, cause unspecified Asthma Carotid stenosis Cognitive impairment Neurologist, worsened with Aricept Fracture 8 years old broke his right arm a long time ago Generalized and unspecified atherosclerosis HTN (hypertension) Hyperlipidemia Kidney stones Lower back pain Lumbar spinal stenosis Dr. Unger Malignant neoplasm prostate (HCC) 05/15/2010 T1C, [place] 8, PSA 7.1 ng/mL Mild dementia (HCC) NPH (normal pressure hydrocephalus) (HCC) unlikely clinical picture for NPH. Had drain trial w/ subjective improvement in gait TIA (transient ischemic attack) Neurologist Previous Surgical History PAST SURGICAL HISTORY Procedure Laterality Date APPENDECTOMY 1950 at age 19 CATARACT EXTRACTION HX Right 11/10/2017 Dr. Arcos Ground Crew Supervisor CATARACT EXTRACTION HX Left 11/26/2017 Dr. Arcos LAPJames PROSTECT RETROPUBIC RAD W/NRV SPARING ROBOT 07/24/2010 Dr. Ovalles, robotic, pT3a, [place] 4+3, SM pos, 0/14 LN+ PAST SURGICAL HISTORY OF 2014 nerve ablation lower back left side PAST SURGICAL HISTORY OF 08/03/2016 Nerve ablation back PAST SURGICAL HISTORY OF kidney stone removal x 3 - last episode 1985 VASECTOMY UNI/BI SPX W/POSTOP SEMEN EXAMS 1971 Family History FAMILY HISTORY Problem Relation Age of Onset Stroke Mother Breast Cancer Mother Ischemic Heart Disease Mother Stroke Father Lipids Sister other (gerd) Sister other (healthy) Son Skin Cancer Daughter Patient Allergies ALLERGIES Allergen Reactions Crab Anaphylaxis Aricept [Donepezil] Mental Status Change Regression Cefdinir Itching Ciprofloxacin hives Eliquis [Apixaban] Rash Penicillins hives Sulfa (Sulfonamide * hives Current Medications Current Outpatient Medications on File Prior to Visit Medication Sig gabapentin (NEURONTIN) 300 mg capsule Take 300 mg by mouth daily at bedtime. albuterol HFA (VENTOLIN HFA) 90 mcg/actuation inhaler Inhale 2 Puffs as instructed every 4 hours as needed for wheezing/shortness of breath. rosuvastatin (CRESTOR) 20 mg tablet Take 1 tablet by mouth once daily. FLUoxetine (PROZAC) 10 mg capsule Take 1 capsule by mouth once daily. XARELTO 20 mg tablet TAKE 1 TABLET BY MOUTH DAILY WITH DINNER amLODIPine (NORVASC) 5 mg tablet TAKE 1 TABLET BY MOUTH ONCE DAILY metoprolol succinate ER (TOPROL XL) 25 mg 24 hr tablet Take 1 tablet by mouth once daily. cyanocobalamin 1,000 mcg/mL Inject 1 mL intramuscularly once every month. Syringe with Needle, Disp, (SYRINGE 3CC/25GX1 ) 1 Syringe once every month. Lysine 500 mg tab Take 500 mg by mouth once daily. cholecalciferol (VITAMIN D3) 5,000 unit tab Take 5,000 Units by mouth once daily. UBIDECARENONE (COQ-10 ORAL) Take 1 tablet by mouth once daily. multivitamins(MULTIPLE VITAMIN TAB) Take one(1) tablet daily. fluticasone (FLOVENT HFA) 110 mcg/actuation inhaler Inhale 1 Puff as instructed twice daily. Current Facility-Administered Medications on File Prior to Visit Medication perflutren lipid microspheres 1.3 mL in NaCl (PF) 0.9% 10 mL injection (DEFINITY) sodium chloride 0.9 % (flush) 10 mL (BD POSIFLUSH) perflutren lipid microspheres 1.3 mL in NaCl (PF) 0.9% 10 mL injection (DEFINITY) sodium chloride 0.9 % (flush) 10 mL (BD POSIFLUSH) Social History Social History Tobacco Use Smoking status: Never Smokeless tobacco: Never Vaping Use Vaping Use: Never used Substance Use Topics Alcohol use: Yes Alcohol/week: 2.5 - 5.0 standard drinks Types: 1 - 2 Mixed Drinks per week Drug use: (more content not included)... [facility] 03-28-2023 History of Present illness Narrative Chief Complaint Patient presents with: ER F/U HPI Oni Hernández is a 87 year old male who presents here today for ER Follow Up. Accpmpanied today by his Arely. Patient evaluated at [facility] ED yesterday for right flank pain. Renal stone prtocol initiated with CT abd/pel without obstructive uropathy. Did note incidental gallstone. No acute processes. UA negative. CBC and CMP unremarkable. Treated with morphine and Zofran. No reash noted on exam, but told to monitor for signs of shingles. Discharged home with rx for gabapentin and recommendation to follow up with PCP. States that he took gabapentin for his pain last night which helped him sleep. Pain has returned today. Took tylenol this morning and vomiting shortly afterwards. Brought up clear liquid without blood or coffee grounds. Took aleve after that and pain now is 6/10. Described as constant burning sensation in his RLQ with radiation around the side to his back. Exacerbated with walking or going up stairs. Denies fever/chills, urinary symptoms, diarrhea, constipation, hematochezia, melena, recent injury. Past medical history, appointments, medications, allergies reviewed. Previous Medical History PAST MEDICAL HISTORY Diagnosis Date Allergic rhinitis, cause unspecified Asthma Carotid stenosis Cognitive impairment Neurologist, worsened with Aricept Fracture 8 years old broke his right arm a long time ago Generalized and unspecified atherosclerosis HTN (hypertension) Hyperlipidemia Kidney stones Lower back pain Lumbar spinal stenosis Dr. Unger Malignant neoplasm prostate (HCC) 05/15/2010 T1C, [place] 8, PSA 7.1 ng/mL Mild dementia (HCC) NPH (normal pressure hydrocephalus) (HCC) unlikely clinical picture for NPH. Had drain trial w/ subjective improvement in gait TIA (transient ischemic attack) Neurologist Previous Surgical History PAST SURGICAL HISTORY Procedure Laterality Date APPENDECTOMY 1950 at age 19 CATARACT EXTRACTION HX Right 11/10/2017 Dr. Arcos Ground Crew Supervisor CATARACT EXTRACTION HX Left 11/26/2017 Dr. Josselyn CERON PROSTECT RETROPUBIC RAD W/NRV SPARING ROBOT 07/24/2010 Dr. Ovalles, robotic, pT3a, [place] 4+3, SM pos, 0/14 LN+ PAST SURGICAL HISTORY OF 2014 nerve ablation lower back left side PAST SURGICAL HISTORY OF 08/03/2016 Nerve ablation back PAST SURGICAL HISTORY OF kidney stone removal x 3 - last episode 1985 VASECTOMY UNI/BI SPX W/POSTOP SEMEN EXAMS 1971 Family History FAMILY HISTORY Problem Relation Age of Onset Stroke Mother Breast Cancer Mother Ischemic Heart Disease Mother Stroke Father Lipids Sister other (gerd) Sister other (healthy) Son Skin Cancer Daughter Patient Allergies ALLERGIES Allergen Reactions Crab Anaphylaxis Aricept [Donepezil] Mental Status Change Regression Cefdinir Itching Ciprofloxacin hives Eliquis [Apixaban] Rash Penicillins hives Sulfa (Sulfonamide * hives Current Medications Current Outpatient Medications on File Prior to Visit Medication Sig gabapentin (NEURONTIN) 300 mg capsule Take 300 mg by mouth daily at bedtime. albuterol HFA (VENTOLIN HFA) 90 mcg/actuation inhaler Inhale 2 Puffs as instructed every 4 hours as needed for wheezing/shortness of breath. rosuvastatin (CRESTOR) 20 mg tablet Take 1 tablet by mouth once daily. FLUoxetine (PROZAC) 10 mg capsule Take 1 capsule by mouth once daily. XARELTO 20 mg tablet TAKE 1 TABLET BY MOUTH DAILY WITH DINNER amLODIPine (NORVASC) 5 mg tablet TAKE 1 TABLET BY MOUTH ONCE DAILY metoprolol succinate ER (TOPROL XL) 25 mg 24 hr tablet Take 1 tablet by mouth once daily. cyanocobalamin 1,000 mcg/mL Inject 1 mL intramuscularly once every month. Syringe with Needle, Disp, (SYRINGE 3CC/25GX1 ) 1 Syringe once every month. Lysine 500 mg tab Take 500 mg by mouth once daily. cholecalciferol (VITAMIN D3) 5,000 unit tab Take 5,000 Units by mouth once daily. UBIDECARENONE (COQ-10 ORAL) Take 1 tablet by mouth once daily. multivitamins(MULTIPLE VITAMIN TAB) Take one(1) tablet daily. fluticasone (FLOVENT HFA) 110 mcg/actuation inhaler Inhale 1 Puff as instructed twice daily. Current Facility-Administered Medications on File Prior to Visit Medication perflutren lipid microspheres 1.3 mL in NaCl (PF) 0.9% 10 mL injection (DEFINITY) sodium chloride 0.9 % (flush) 10 mL (BD POSIFLUSH) perflutren lipid microspheres 1.3 mL in NaCl (PF) 0.9% 10 mL injection (DEFINITY) sodium chloride 0.9 % (flush) 10 mL (BD POSIFLUSH) Social History Social History Tobacco Use Smoking status: Never Smokeless tobacco: Never Vaping Use Vaping Use: Never used Substance Use Topics Alcohol use: Yes Alcohol/week: 2.5 - 5.0 standard drinks Types: 1 - 2 Mixed Drinks per week Drug use: No Review of Symptoms REVIEW OF SYSTEMS See HPI EXAM: BP 122/70 Pulse 64 Resp 16 Wt 86.2 kg (190 lb) SpO2 97% BMI 27.26 kg/m General Appearance: Well appearing, alert, in no acute distress, well-hydrated, well nourished.. Skin: Skin color, texture, turgor normal, no suspicious rashes or lesions. Lungs: Lungs clear to auscultation. No wheezing, rhonchi, rales.. Heart: RRR without murmur, gallop, or rubs. No ectopy. Abdomen: Abdomen soft. Bowel sounds normal. No masses, organomegaly, Negative CVA tenderness. Positive for TTP in RLQ with guarding without rebound. Health Maintenance List SHINGRIX VACCINE(1 of 2) Never done DIABETES SCREEN due on 02/26/2026 DTAP,TDAP,TD(2 - Td or Tdap) due on 07/07/2029 SPIROMETRY Completed INFLUENZA Completed COVID-19 VACCINE Completed PNEUMOCOCCAL: 65+ Completed ADVANCE DIRECTIVE DISCUSSION Discontinued ASSESSMENT/PLAN: 1. Abdominal pain, RLQ - ICD9: 789.03, ICD10: R10.31 (primary diagnosis) Extensive workup in the ED negative yesterday. Suspect pain may be 2/2 early shingles without apparent rash yet. Will increase gabapentin to BID and give rx for Valtrex in case they develop rash over the weekend. Given zofran PRN for nausea. Red flags for re-assessment reviewed with patient in detail. 2. Acute right-sided low back pain without sciatica - ICD9: 724.2, ICD10: M54.50 See above. 3. Nausea and vomiting, unspecified vomiting type - ICD9: 787.01, ICD10: R11.2 See above. I spent a total of 30 minutes on the date of the service which included preparing to see the patient, [id number] patient care, completing clinical documentation, obtaining and/or reviewing separately obtained history, performing a medically appropriate examination, counseling and educating the patient/family/caregiver, and ordering medications, tests, or procedures. Andrew Beach MD documented in this encounter [facility] 03-27-2023 Note HNO ID: [id number] Author: Nohemy Titus PA-C Service: ? Author Type: Physician Sack Keeper Type: Progress Notes Filed: 03/27/2023 1:14 PM Note Text: This note was created using [employer]. Subjective Oni Hernández is a 87 year old male. HPI Presents with right-sided groin pain radiating to his back. He did some gardening yesterday and his groin was a little sore last night however he woke up this morning and it was throbbing. He has a lot of pain with weightbearing. No numbness or tingling. Pain radiates to the medial thigh area. Does not go all the way down. He denies any back injuries or falls. He does have a history of lumbar back surgery. Also has a history of kidney stones. Not having any urinary complaints. Review of Systems Musculoskeletal: Right groin pain, right lower back pain All other systems reviewed and are negative. PAST MEDICAL HISTORY Diagnosis Date Allergic rhinitis, cause unspecified Asthma Carotid stenosis Cognitive impairment Neurologist, worsened with Aricept Fracture 8 years old broke his right arm a long time ago Generalized and unspecified atherosclerosis HTN (hypertension) Hyperlipidemia Kidney stones Lower back pain Lumbar spinal stenosis Dr. Unger Malignant neoplasm prostate (HCC) 05/15/2010 T1C, [place] 8, PSA 7.1 ng/mL Mild dementia (HCC) NPH (normal pressure hydrocephalus) (HCC) unlikely clinical picture for NPH. Had drain trial w/ subjective improvement in gait TIA (transient ischemic attack) Neurologist Current Outpatient Medications Medication Sig Dispense Refill albuterol HFA (VENTOLIN HFA) 90 mcg/actuation inhaler Inhale 2 Puffs as instructed every 4 hours as needed for wheezing/shortness of breath. 18 g 1 rosuvastatin (CRESTOR) 20 mg tablet Take 1 tablet by mouth once daily. 90 tablet 3 FLUoxetine (PROZAC) 10 mg capsule Take 1 capsule by mouth once daily. 90 capsule 3 XARELTO 20 mg tablet TAKE 1 TABLET BY MOUTH DAILY WITH DINNER 90 tablet 3 amLODIPine (NORVASC) 5 mg tablet TAKE 1 TABLET BY MOUTH ONCE DAILY 90 tablet 3 metoprolol succinate ER (TOPROL XL) 25 mg 24 hr tablet Take 1 tablet by mouth once daily. 90 tablet 3 cyanocobalamin 1,000 mcg/mL Inject 1 mL intramuscularly once every month. 3 mL 3 Syringe with Needle, Disp, (SYRINGE 3CC/25GX1 ) 1 Syringe once every month. 4 Each 3 fluticasone (FLOVENT HFA) 110 mcg/actuation inhaler Inhale 1 Puff as instructed twice daily. 3 Inhaler 1 Lysine 500 mg tab Take 500 mg by mouth once daily. cholecalciferol (VITAMIN D3) 5,000 unit tab Take 5,000 Units by mouth once daily. UBIDECARENONE (COQ-10 ORAL) Take 1 tablet by mouth once daily. multivitamins(MULTIPLE VITAMIN TAB) Take one(1) tablet daily. 0 0 Current Facility-Administered Medications Medication Dose Route Frequency Provider Last Rate Last Admin perflutren lipid microspheres 1.3 mL in NaCl (PF) 0.9% 10 mL injection (DEFINITY) INTRAVENOUS DIRECTED PRN Kapil Lara, DO sodium chloride 0.9 % (flush) 10 mL (BD POSIFLUSH) 10 mL INTRAVENOUS DIRECTED PRN Kapil Loeraon, DO perflutren lipid microspheres 1.3 mL in NaCl (PF) 0.9% 10 mL injection (DEFINITY) INTRAVENOUS DIRECTED PRN Aundrea Calvert, PARTS SALES MANAGER.MACHINE FASTENER sodium chloride 0.9 % (flush) 10 mL (BD POSIFLUSH) 10 mL INTRAVENOUS DIRECTED PRN Aundrea Calvert, PARTS SALES MANAGER.MACHINE FASTENER PAST SURGICAL HISTORY Procedure Laterality Date APPENDECTOMY 195 at age 19 CATARACT EXTRACTION HX Right 11/10/2017 Dr. Arcos Ground Crew Supervisor CATARACT EXTRACTION HX Left 11/26/2017 Dr. Arcos LAPJames PROSTECT RETROPUBIC RAD W/NRV SPARING ROBOT 07/24/2010 Dr. Ovalles, robotic, pT3a, [place] 4+3, SM pos, 0/14 LN+ PAST SURGICAL HISTORY OF 2014 nerve ablation lower back left side PAST SURGICAL HISTORY OF 08/03/2016 Nerve ablation back PAST SURGICAL HISTORY OF kidney stone removal x 3 - last episode 1986 VASECTOMY UNI/BI SPX W/POSTOP SEMEN EXAMS 1972 FAMILY HISTORY Problem Relation Age of Onset Stroke Mother Breast Cancer Mother Ischemic Heart Disease Mother Stroke Father Lipids Sister other (gerd) Sister other (healthy) Son Skin Cancer Daughter Social History Tobacco Use Smoking status: Never Smokeless tobacco: Never Vaping Use Vaping Use: Never used Substance Use Topics Alcohol use: Yes Alcohol/week: 2.5 - 5.0 standard drinks Types: 1 - 2 Mixed Drinks per week Drug use: No Objective BP 138/86 Pulse (!) 57 Temp 36.1 ?C (96.9 ?F) Resp 18 Wt 86.6 kg (191 lb) SpO2 97% BMI 27.41 kg/m? Physical Exam Vitals reviewed. Constitutional: Appearance: Normal appearance. HENT: Head: Normocephalic and atraumatic. Musculoskeletal: Comments: Patient is assisted to the table for exam. He then starts to have severe increase in pain and starts to feel shaky and nauseous like he is going to puke. Patient and significant pain here. Skin: General: Skin is warm and dry. Neurological: M (more content not included)... [facility] 03-27-2023 History of Present illness Narrative This note was created using [employer]. Subjective Oni Hernández is a 87 year old male. HPI Presents with right-sided groin pain radiating to his back. He did some gardening yesterday and his groin was a little sore last night however he woke up this morning and it was throbbing. He has a lot of pain with weightbearing. No numbness or tingling. Pain radiates to the medial thigh area. Does not go all the way down. He denies any back injuries or falls. He does have a history of lumbar back surgery. Also has a history of kidney stones. Not having any urinary complaints. Review of Systems Musculoskeletal: Right groin pain, right lower back pain All other systems reviewed and are negative. PAST MEDICAL HISTORY Diagnosis Date Allergic rhinitis, cause unspecified Asthma Carotid stenosis Cognitive impairment Neurologist, worsened with Aricept Fracture 8 years old broke his right arm a long time ago Generalized and unspecified atherosclerosis HTN (hypertension) Hyperlipidemia Kidney stones Lower back pain Lumbar spinal stenosis Dr. Unger Malignant neoplasm prostate (HCC) 05/15/2010 T1C, [place] 8, PSA 7.1 ng/mL Mild dementia (HCC) NPH (normal pressure hydrocephalus) ([facility]) unlikely clinical picture for NPH. Had drain trial w/ subjective improvement in gait TIA (transient ischemic attack) Neurologist Current Outpatient Medications Medication Sig Dispense Refill albuterol HFA (VENTOLIN HFA) 90 mcg/actuation inhaler Inhale 2 Puffs as instructed every 4 hours as needed for wheezing/shortness of breath. 18 g 1 rosuvastatin (CRESTOR) 20 mg tablet Take 1 tablet by mouth once daily. 90 tablet 3 FLUoxetine (PROZAC) 10 mg capsule Take 1 capsule by mouth once daily. 90 capsule 3 XARELTO 20 mg tablet TAKE 1 TABLET BY MOUTH DAILY WITH DINNER 90 tablet 3 amLODIPine (NORVASC) 5 mg tablet TAKE 1 TABLET BY MOUTH ONCE DAILY 90 tablet 3 metoprolol succinate ER (TOPROL XL) 25 mg 24 hr tablet Take 1 tablet by mouth once daily. 90 tablet 3 cyanocobalamin 1,000 mcg/mL Inject 1 mL intramuscularly once every month. 3 mL 3 Syringe with Needle, Disp, (SYRINGE 3CC/25GX1 ) 1 Syringe once every month. 4 Each 3 fluticasone (FLOVENT HFA) 110 mcg/actuation inhaler Inhale 1 Puff as instructed twice daily. 3 Inhaler 1 Lysine 500 mg tab Take 500 mg by mouth once daily. cholecalciferol (VITAMIN D3) 5,000 unit tab Take 5,000 Units by mouth once daily. UBIDECARENONE (COQ-10 ORAL) Take 1 tablet by mouth once daily. multivitamins(MULTIPLE VITAMIN TAB) Take one(1) tablet daily. 0 0 Current Facility-Administered Medications Medication Dose Route Frequency Provider Last Rate Last Admin perflutren lipid microspheres 1.3 mL in NaCl (PF) 0.9% 10 mL injection (DEFINITY) INTRAVENOUS DIRECTED PRN Kapil Lara, DO sodium chloride 0.9 % (flush) 10 mL (BD POSIFLUSH) 10 mL INTRAVENOUS DIRECTED PRN Kapil Loeraon, DO perflutren lipid microspheres 1.3 mL in NaCl (PF) 0.9% 10 mL injection (DEFINITY) INTRAVENOUS DIRECTED PRN Aundrea Calvert, PARTS SALES MANAGER.RAVEN sodium chloride 0.9 % (flush) 10 mL (BD POSIFLUSH) 10 mL INTRAVENOUS DIRECTED PRN Aundrea Calvert, PARTS SALES MANAGER.MACHINE FASTENER PAST SURGICAL HISTORY Procedure Laterality Date APPENDECTOMY 1949 at age 19 CATARACT EXTRACTION HX Right 11/10/2017 Dr. Arcos Ground Crew Supervisor CATARACT EXTRACTION HX Left 11/26/2017 Dr. Arcos LAPJames PROSTECT RETROPUBIC RAD W/NRV SPARING ROBOT 07/24/2010 Dr. Ovalles, robotic, pT3a, [place] 4+3, SM pos, 0/14 LN+ PAST SURGICAL HISTORY OF 2015 nerve ablation lower back left side PAST SURGICAL HISTORY OF 08/03/2016 Nerve ablation back PAST SURGICAL HISTORY OF kidney stone removal x 3 - last episode 1985 VASECTOMY UNI/BI SPX W/POSTOP SEMEN EXAMS 1972 FAMILY HISTORY Problem Relation Age of Onset Stroke Mother Breast Cancer Mother Ischemic Heart Disease Mother Stroke Father Lipids Sister other (gerd) Sister other (healthy) Son Skin Cancer Daughter Social History Tobacco Use Smoking status: Never Smokeless tobacco: Never Vaping Use Vaping Use: Never used Substance Use Topics Alcohol use: Yes Alcohol/week: 2.5 - 5.0 standard drinks Types: 1 - 2 Mixed Drinks per week Drug use: No Objective BP 138/86 Pulse (!) 57 Temp 36.1 C (96.9 F) Resp 18 Wt 86.6 kg (191 lb) SpO2 97% BMI 27.41 kg/m Physical Exam Vitals reviewed. Constitutional: Appearance: Normal appearance. HENT: Head: Normocephalic and atraumatic. Musculoskeletal: Comments: Patient is assisted to the table for exam. He then starts to have severe increase in pain and starts to feel shaky and nauseous like he is going to puke. Patient and significant pain here. Skin: General: Skin is warm and dry. Neurological: Mental Status: He is alert. Assessment and Plan ASSESSMENT/PLAN: 1. Groin pain, right - ICD9: 789.03, ICD10: R10.31 Patient in severe pain here, shaking and nauseous from pain. He is unable to get down from the table after exam, due to his severe pain I recommended he be seen in the ER. I did call [facility] which took him to [facility]. Nohemy Titus PA-C documented in this encounter [facility] 03-17-2023 Miscellaneous Notes informed. Please inform patient that his labs continue to show mild impaired fasting glucose/pre diabetes which is stable with a1c at 5.8% and vitamin D levels were a little high. He can cut back to taking vitamin D supplement just every other day instead of daily Kapil Lara DO documented in this encounter [facility] 02-26-2023 Note HNO ID: [id number] Author: Kapil Lara DO Service: ? Author Type: Physician Type: Progress Notes Filed: 02/26/2023 1:17 PM Note Text: CC: Oni Hernández is a 87 year old male who presents to the office for EMERGENCY DEPARTMENT follow up HPI: About 9 days ago on 02/17 he states that he fell out of bed and landed up against his right side, pointing to his flank. He suffered a bruise to this area. Thought he was overall though doing okay. Then on 02/20 during the middle of the night he was urinating about 5-6 separate times, large volume, which he felt was unusual. On Wednesday 02/21 he was shopping in [place] with his and felt extreme fatigue symptoms, so much that he felt unsafe to drive home so drove home. He was feeling lethargic and a little lightheaded and short of breath. His took him to the EMERGENCY DEPARTMENT since his heart rate was down to 50s and he wasn't feeling well. He was seen in [facility]. Had slightly elevated troponin levels, ECG with questionable atrial fibrillation. Repeat troponin levels stable but still slightly high at 17-18 range. He still continues to be tired,having to nap on a daily basis. Sometimes LH and short of breath, no chest pressure/pain. Sometimes leg edema, comes and goes. Tries to maintain healthy diet. PAST MEDICAL HISTORY Diagnosis Date Allergic rhinitis, cause unspecified Asthma Carotid stenosis Cognitive impairment Neurologist, worsened with Aricept Fracture 8 years old broke his right arm a long time ago Generalized and unspecified atherosclerosis HTN (hypertension) Hyperlipidemia Kidney stones Lower back pain Lumbar spinal stenosis Dr. Unger Malignant neoplasm prostate (HCC) 05/15/2010 T1C, [place] 8, PSA 7.1 ng/mL Mild dementia (HCC) NPH (normal pressure hydrocephalus) (HCC) unlikely clinical picture for NPH. Had drain trial w/ subjective improvement in gait TIA (transient ischemic attack) Neurologist PAST SURGICAL HISTORY Procedure Laterality Date APPENDECTOMY 1950 at age 19 CATARACT EXTRACTION HX Right 11/10/2017 Dr. Arcos Ground Crew Supervisor CATARACT EXTRACTION HX Left 11/26/2017 Dr. Arcos LAPJames PROSTECT RETROPUBIC RAD W/NRV SPARING ROBOT 07/24/2010 Dr. Ovalles, robotic, pT3a, [place] 4+3, SM pos, 0/14 LN+ PAST SURGICAL HISTORY OF 2014 nerve ablation lower back left side PAST SURGICAL HISTORY OF 08/03/2016 Nerve ablation back PAST SURGICAL HISTORY OF kidney stone removal x 3 - last episode 1985 VASECTOMY UNI/BI SPX W/POSTOP SEMEN EXAMS 1971 Current Outpatient Medications Medication Sig rosuvastatin (CRESTOR) 20 mg tablet Take 1 tablet by mouth once daily. FLUoxetine (PROZAC) 10 mg capsule Take 1 capsule by mouth once daily. XARELTO 20 mg tablet TAKE 1 TABLET BY MOUTH DAILY WITH DINNER amLODIPine (NORVASC) 5 mg tablet TAKE 1 TABLET BY MOUTH ONCE DAILY metoprolol succinate ER (TOPROL XL) 25 mg 24 hr tablet Take 1 tablet by mouth once daily. cyanocobalamin 1,000 mcg/mL Inject 1 mL intramuscularly once every month. Syringe with Needle, Disp, (SYRINGE 3CC/25GX1 ) 1 Syringe once every month. fluticasone (FLOVENT HFA) 110 mcg/actuation inhaler Inhale 1 Puff as instructed twice daily. Lysine 500 mg tab Take 500 mg by mouth once daily. cholecalciferol (VITAMIN D3) 5,000 unit tab Take 5,000 Units by mouth once daily. UBIDECARENONE (COQ-10 ORAL) Take 1 tablet by mouth once daily. multivitamins(MULTIPLE VITAMIN TAB) Take one(1) tablet daily. albuterol HFA (VENTOLIN HFA) 90 mcg/actuation inhaler Inhale 2 Puffs as instructed every 4 hours as needed for wheezing/shortness of breath. Current Facility-Administered Medications Medication Dose Route Frequency perflutren lipid microspheres 1.3 mL in NaCl (PF) 0.9% 10 mL injection (DEFINITY) INTRAVENOUS DIRECTED PRN sodium chloride 0.9 % (flush) 10 mL (BD POSIFLUSH) 10 mL INTRAVENOUS DIRECTED PRN perflutren lipid microspheres 1.3 mL in NaCl (PF) 0.9% 10 mL injection (DEFINITY) INTRAVENOUS DIRECTED PRN sodium chloride 0.9 % (flush) 10 mL (BD POSIFLUSH) 10 mL INTRAVENOUS DIRECTED PRN ALLERGIES Allergen Reactions Crab Anaphylaxis Aricept [Donepezil] Mental Status Change Regression Cefdinir Itching Ciprofloxacin hives Eliquis [Apixaban] Rash Penicillins hives Sulfa (Sulfonamide * hives Social History Tobacco Use Smoking status: Never Smokeless tobacco: Never Vaping Use Vaping Use: Never used Substance Use Topics Alcohol use: Yes Alcohol/week: 2.5 - 5.0 standard drinks Types: 1 - 2 Mixed Drinks per week Drug use: No ROS: See HPI PE: BP 118/70 Pulse 60 Temp (Src) 96.2 (Left Tympanic) Resp 20 Wt 191 lb (86.6kg) Gen: AANDOX3, NAD, non-toxic appearing HEENT: PERRLA, EOMs intact b/l, nares without drainage, pharynx without erythema, exudate, lesions, or drainage. Uvula midline. Neck: No LAD, no thyromegaly, no meningismus. CV: RR (more content not included)... [facility] 02-26-2023 Miscellaneous Notes Called and spoke with the patient's . PCP ordered Zio, Echo, and more labs today. Patient scheduled for appointment 03/31/23. Yamilet Suarez RN Called and left message requesting call back today and to ask for me directly so I can attempt to get him scheduled and for patient update. Yamilet Suarez RN Pt spouse called to schedule with Dr. Connor GUTIERREZ per hospital. No appoints available in suggested timeframe. documented in this encounter [facility] 02-26-2023 History of Present illness Narrative CC: Oni Hernández is a 87 year old male who presents to the office for EMERGENCY DEPARTMENT follow up HPI: About 9 days ago on 02/17 he states that he fell out of bed and landed up against his right side, pointing to his flank. He suffered a bruise to this area. Thought he was overall though doing okay. Then on 02/20 during the middle of the night he was urinating about 5-6 separate times, large volume, which he felt was unusual. On Wednesday 02/21 he was shopping in [place] with his and felt extreme fatigue symptoms, so much that he felt unsafe to drive home so drove home. He was feeling lethargic and a little lightheaded and short of breath. His took him to the EMERGENCY DEPARTMENT since his heart rate was down to 50s and he wasn't feeling well. He was seen in [facility]. Had slightly elevated troponin levels, ECG with questionable atrial fibrillation. Repeat troponin levels stable but still slightly high at 17-18 range. He still continues to be tired,having to nap on a daily basis. Sometimes LH and short of breath, no chest pressure/pain. Sometimes leg edema, comes and goes. Tries to maintain healthy diet. PAST MEDICAL HISTORY Diagnosis Date Allergic rhinitis, cause unspecified Asthma Carotid stenosis Cognitive impairment Neurologist, worsened with Aricept Fracture 8 years old broke his right arm a long time ago Generalized and unspecified atherosclerosis HTN (hypertension) Hyperlipidemia Kidney stones Lower back pain Lumbar spinal stenosis Dr. Unger Malignant neoplasm prostate (HCC) 05/15/2010 T1C, [place] 8, PSA 7.1 ng/mL Mild dementia (HCC) NPH (normal pressure hydrocephalus) (HCC) unlikely clinical picture for NPH. Had drain trial w/ subjective improvement in gait TIA (transient ischemic attack) Neurologist PAST SURGICAL HISTORY Procedure Laterality Date APPENDECTOMY 195 at age 19 CATARACT EXTRACTION HX Right 11/10/2017 Dr. Arcos Ground Crew Supervisor CATARACT EXTRACTION HX Left 11/26/2017 Dr. Arcos LAPJames PROSTECT RETROPUBIC RAD W/NRV SPARING ROBOT 07/24/2010 Dr. Ovalles, robotic, pT3a, [place] 4+3, SM pos, 0/14 LN+ PAST SURGICAL HISTORY OF 2014 nerve ablation lower back left side PAST SURGICAL HISTORY OF 08/03/2016 Nerve ablation back PAST SURGICAL HISTORY OF kidney stone removal x 3 - last episode 1985 VASECTOMY UNI/BI SPX W/POSTOP SEMEN EXAMS 1971 Current Outpatient Medications Medication Sig rosuvastatin (CRESTOR) 20 mg tablet Take 1 tablet by mouth once daily. FLUoxetine (PROZAC) 10 mg capsule Take 1 capsule by mouth once daily. XARELTO 20 mg tablet TAKE 1 TABLET BY MOUTH DAILY WITH DINNER amLODIPine (NORVASC) 5 mg tablet TAKE 1 TABLET BY MOUTH ONCE DAILY metoprolol succinate ER (TOPROL XL) 25 mg 24 hr tablet Take 1 tablet by mouth once daily. cyanocobalamin 1,000 mcg/mL Inject 1 mL intramuscularly once every month. Syringe with Needle, Disp, (SYRINGE 3CC/25GX1 ) 1 Syringe once every month. fluticasone (FLOVENT HFA) 110 mcg/actuation inhaler Inhale 1 Puff as instructed twice daily. Lysine 500 mg tab Take 500 mg by mouth once daily. cholecalciferol (VITAMIN D3) 5,000 unit tab Take 5,000 Units by mouth once daily. UBIDECARENONE (COQ-10 ORAL) Take 1 tablet by mouth once daily. multivitamins(MULTIPLE VITAMIN TAB) Take one(1) tablet daily. albuterol HFA (VENTOLIN HFA) 90 mcg/actuation inhaler Inhale 2 Puffs as instructed every 4 hours as needed for wheezing/shortness of breath. Current Facility-Administered Medications Medication Dose Route Frequency perflutren lipid microspheres 1.3 mL in NaCl (PF) 0.9% 10 mL injection (DEFINITY) INTRAVENOUS DIRECTED PRN sodium chloride 0.9 % (flush) 10 mL (BD POSIFLUSH) 10 mL INTRAVENOUS DIRECTED PRN perflutren lipid microspheres 1.3 mL in NaCl (PF) 0.9% 10 mL injection (DEFINITY) INTRAVENOUS DIRECTED PRN sodium chloride 0.9 % (flush) 10 mL (BD POSIFLUSH) 10 mL INTRAVENOUS DIRECTED PRN ALLERGIES Allergen Reactions Crab Anaphylaxis Aricept [Donepezil] Mental Status Change Regression Cefdinir Itching Ciprofloxacin hives Eliquis [Apixaban] Rash Penicillins hives Sulfa (Sulfonamide * hives Social History Tobacco Use Smoking status: Never Smokeless tobacco: Never Vaping Use Vaping Use: Never used Substance Use Topics Alcohol use: Yes Alcohol/week: 2.5 - 5.0 standard drinks Types: 1 - 2 Mixed Drinks per week Drug use: No ROS: See HPI PE: BP 118/70 Pulse 60 Temp (Src) 96.2 (Left Tympanic) Resp 20 Wt 191 lb (86.6kg) Gen: A&OX3, NAD, non-toxic appearing HEENT: PERRLA, EOMs intact b/l, nares without drainage, pharynx without erythema, exudate, lesions, or drainage. Uvula midline. Neck: No LAD, no thyromegaly, no meningismus. CV: RRR, 2/6 HSM RUSB murmur Lungs: CTA b/l, no wheezing Skin: No rashes, lesions, or wounds on exposed skin. Shunt in place right side of head and neck Trace to 1+ b/l lower leg non pitting edema Normal peripheral pulses ASSESSMENT/PLAN: 1. Fatigue, unspecified type - ICD9: 780.79, ICD10: R53.83 (primary diagnosis) Need for labs and ECHO and gambling monitor placement as well as follow up with Carriage Setter at this time. - TSH BLD - T4 FREE/FREE THYROX - T3 FREE BLD - COMP METABOLIC PANEL - VITAMIN B12 BLOOD - VITAMIN D 25 HYDROXY - C-REACTIVE PROTEIN (CRP) - ECHO - PERFLUTREN LIPID MICROSPHERES 1.1 MG/ML INJECTION IN NS 10 ML - SODIUM CHLORIDE 0.9 % (FLUSH) INJECTION SYRINGE - OUTSIDE VENDOR CARDIAC OUTPATIENT EXTENDED RHYTHM RECORDING (WITHOUT TELEMETRY) - NT PRO BNP 2. Increased frequency of urination - ICD9: 788.41, ICD10: R35.0 Need for labs and ECHO and gambling monitor placement as well as follow up with Carriage Setter at this time. No signs of UTI on recent UA and urine culture in the ER - TSH BLD - T4 FREE/FREE THYROX - T3 FREE BLD - COMP METABOLIC PANEL - ECHO - PERFLUTREN LIPID MICROSPHERES 1.1 MG/ML INJECTION IN NS 10 ML - SODIUM CHLORIDE 0.9 % (FLUSH) INJECTION SYRINGE - OUTSIDE VENDOR CARDIAC OUTPATIENT EXTENDED RHYTHM RECORDING (WITHOUT TELEMETRY) - NT PRO BNP 3. Elevated troponin - ICD9: 790.6, ICD10: R77.8 Need for labs and ECHO and gambling monitor placement as well as follow up with Carriage Setter at this time. - TSH BLD - T4 FREE/FREE THYROX - T3 FREE BLD - COMP METABOLIC PANEL - ECHO - PERFLUTREN LIPID MICROSPHERES 1.1 MG/ML INJECTION IN NS 10 ML - SODIUM CHLORIDE 0.9 % (FLUSH) INJECTION SYRINGE - OUTSIDE VENDOR CARDIAC OUTPATIENT EXTENDED RHYTHM RECORDING (WITHOUT TELEMETRY) - NT PRO BNP 4. Paroxysmal atrial fibrillation (HCC) - ICD9: 427.31, ICD10: I48.0 Need for labs and ECHO and gambling monitor placement as well as follow up with Carriage Setter at this time. - TSH BLD - T4 FREE/FREE THYROX - T3 FREE BLD - COMP METABOLIC PANEL - ECHO - PERFLUTREN LIPID MICROSPHERES 1.1 MG/ML INJECTION IN NS 10 ML - SODIUM CHLORIDE 0.9 % (FLUSH) INJECTION SYRINGE - OUTSIDE VENDOR CARDIAC OUTPATIENT EXTENDED RHYTHM RECORDING (WITHOUT TELEMETRY) - NT PRO BNP 5. IFG (impaired fasting glucose) - ICD9: 790.21, ICD10: R73.01 - HGB A1C 6. Vitamin D deficiency - ICD9: 268.9, ICD10: E55.9 - VITAMIN D 25 HYDROXY 7. Elevated brain natriuretic peptide (BNP) level - ICD9: 790.99, ICD10: R79.89 Need for labs and ECHO and gambling monitor placement as well as follow up with Carriage Setter at this time. - NT PRO BNP 8. DENNIS (dyspnea on exertion) - ICD9: 786.09, ICD10: R06.09 Need for labs and ECHO and gambling monitor placement as well as follow up with Carriage Setter at this time. - NT PRO BNP Kapil Lara DO Return if no improvement. Follow up with Kapil Lara DO. To ER if develops chest pain, shortness of breath. Discussed risks, benefits, alternatives, and potential side effects of medications. Patient/Guardian expressed understanding and agreed with the plan. See patient instructions. Kapil Lara DO [address] [place] [address] documented in this encounter [facility] 02-25-2023 Miscellaneous Notes Appt. made per Dr. Lara. Pt. informed. His 's appointment on 02/26 is only for 20 minutes. An ER follow up visit takes [address] Lara cannot see them both in a 20 minute time frame, he will need to schedule at another time or with another provider. Per ER report, his vitals (HR/BP) were stable, negative work up. He does need to get in to see cardiology with these sx, but unlikely PCP will make any changes and will defer to cardiology. Abisai Yoder APRN.RAVEN Pt's calls to report that [facility] wanted pt seen in three days from ER visit. Please review the following and advise. is requesting a call back concerning this . This message was sent also. Dr. Lara, I went to the [facility] ER as a result of my 's conversation with your office yesterday when my pulse reached a low of 55. I was not admitted though they ran many tests, which are available for your review on [facility], and suggested I see you within three days for further review. I was also told to see Dr. Connor gutierrez, and a message has been sent requesting an appointment with him. Dioni has an appointment with you on February 26 at 11:45 and I am wondering if I should accompany her. If you want to schedule another appointment, that is fine...just have someone call me. Thanks, Flip [phone] documented in this encounter [facility] 02-25-2023 Miscellaneous Notes Message sent in a TE to pcp. Olive Upton LPN documented in this encounter [facility] 01-10-2023 Miscellaneous Notes MENA 11/27/22Jul no upcoming appt Pharmacy verified in [facility] Patient has been identified by name and date of : Yes Patient aware RX will be sent to pharmacy. No need to notify patient. Patient phones for refill(s): Requested Prescriptions Pending Prescriptions Disp Refills rosuvastatin (CRESTOR) 20 mg tablet 90 tablet 3 Sig: Take 1 tablet by mouth once daily. Date of last office visit : 11/11/2022 Date of next office visit : Visit date not found Last 2 Encounter Wt Readings: Date: Wt: 11/25/2022 85.7 kg (189 lb) 11/13/2022 84.8 kg (187 lb) Please advise. Roxanna Atwood Pss documented in this encounter [facility] 11-27-2022 Note HNO ID: [id number] Author: Payton Berman APRN.MACHINE FASTENER Service: ? Author Type: Nurse Practitioner Type: Progress Notes Filed: 11/27/2022 9:07 AM Note Text: This Team Access Model visit is a virtual encounter. It required patient-provider interaction for the medical decision making as documented below. Patient agrees to the visit: Yes Patient Location: [place] CC: Patient presents with: Covid Positive HPI Oni Hernández is a 87 year old male who is contacted today for a virtual visit. This is an established patient of Dr. Kapil Lara DO. He is a new patient to me today. Concerns today.. COVID19-- COVID + at urgent care 2 days ago on 11/25/22. Symptoms of: congestion, sore throat, fatigue, and productive cough with yellow mucus since Friday night. Deep cough at night is making it hard to get good sleep. Taking mucinex as needed which does give relief. Interested in anti-viral if able. No other concerns or complaints. REVIEW OF SYSTEMS See HPI PAST MEDICAL HISTORY Diagnosis Date Allergic rhinitis, cause unspecified Asthma Carotid stenosis Cognitive impairment Neurologist, worsened with Aricept Fracture 8 years old broke his right arm a long time ago Generalized and unspecified atherosclerosis HTN (hypertension) Hyperlipidemia Kidney stones Lower back pain Lumbar spinal stenosis Dr. Unger Malignant neoplasm prostate (HCC) 05/15/2010 T1C, [place] 8, PSA 7.1 ng/mL Mild dementia (HCC) NPH (normal pressure hydrocephalus) (HCC) unlikely clinical picture for NPH. Had drain trial w/ subjective improvement in gait TIA (transient ischemic attack) Neurologist PAST SURGICAL HISTORY Procedure Laterality Date APPENDECTOMY 195 at age 19 CATARACT EXTRACTION HX Right 11/10/2017 Dr. Arcos Ground Crew Supervisor CATARACT EXTRACTION HX Left 11/26/2017 Dr. Arcos LAPJames PROSTECT RETROPUBIC RAD W/NRV SPARING ROBOT 07/24/2010 Dr. Ovalles, robotic, pT3a, [place] 4+3, SM pos, 0/14 LN+ PAST SURGICAL HISTORY OF 2014 nerve ablation lower back left side PAST SURGICAL HISTORY OF 08/03/2016 Nerve ablation back PAST SURGICAL HISTORY OF kidney stone removal x 3 - last episode 1985 VASECTOMY UNI/BI SPX W/POSTOP SEMEN EXAMS 1971 ALLERGIES Crab, Aricept [Donepezil], Cefdinir, Ciprofloxacin, Eliquis [Apixaban], Penicillins, and Sulfa (Sulfonamide Antibiotics) MEDICATIONS predniSONE (DELTASONE) 10 mg tabletTake 5 tablets by mouth once daily for 1 day, THEN 4 tablets once daily for 1 day, THEN 3 tablets once daily for 1 day, THEN 2 tablets once daily for 1 day, THEN 1 tablet once daily for 1 day.Disp: 15 tabletRfl: 0 albuterol HFA (VENTOLIN HFA) 90 mcg/actuation inhalerInhale 2 Puffs as instructed every 4 hours as needed for wheezing/shortness of breath.Disp: 18 gRfl: 1 FLUoxetine (PROZAC) 10 mg capsuleTake 1 capsule by mouth once daily.Disp: 90 capsuleRfl: 3 XARELTO 20 mg tabletTAKE 1 TABLET BY MOUTH DAILY WITH DINNERDisp: 90 tabletRfl: 3 amLODIPine (NORVASC) 5 mg tabletTAKE 1 TABLET BY MOUTH ONCE DAILYDisp: 90 tabletRfl: 3 metoprolol succinate ER (TOPROL XL) 25 mg 24 hr tabletTake 1 tablet by mouth once daily.Disp: 90 tabletRfl: 3 cyanocobalamin 1,000 mcg/mLInject 1 mL intramuscularly once every month.Disp: 3 mLRfl: 3 rosuvastatin (CRESTOR) 20 mg tabletTake 1 tablet by mouth once daily.Disp: 90 tabletRfl: 3 Syringe with Needle, Disp, (SYRINGE 3CC/25GX1 )1 Syringe once every month.Disp: 4 EachRfl: 3 fluticasone (FLOVENT HFA) 110 mcg/actuation inhalerInhale 1 Puff as instructed twice daily.Disp: 3 InhalerRfl: 1 Lysine 500 mg tabTake 500 mg by mouth once daily.Disp: Rfl: cholecalciferol (VITAMIN D3) 5,000 unit tabTake 5,000 Units by mouth once daily.Disp: Rfl: UBIDECARENONE (COQ-10 ORAL)Take 1 tablet by mouth once daily. Disp: Rfl: multivitamins(MULTIPLE VITAMIN TAB)Take one(1) tablet daily.Disp: 0Rfl: 0 FAMILY HISTORY Problem Relation Age of Onset Stroke Mother Breast Cancer Mother Ischemic Heart Disease Mother Stroke Father Lipids Sister other (gerd) Sister other (healthy) Son Skin Cancer Daughter Social History Tobacco Use Smoking status: Never Smokeless tobacco: Never Vaping Use Vaping Use: Never used Substance Use Topics Alcohol use: Yes Alcohol/week: 2.5 - 5.0 standard drinks Types: 1 - 2 Mixed Drinks per week Drug use: No EXAM: Deferred physical exam as visit was completed over the phone Patient is speaking in complete sentences without obvious respiratory distress or audible wheezing. Virtual visit completed using video, limited exam completed. GENERAL: alert and appropriate, in no distress, well-hydrated, well nourished, and happy, smiling, interactive SKIN: no rash noted HEAD: normocephalic, no abnormality or lesion noted DATA REVIEWED: Most recent labs and imaging results. SHINGRIX VACCINE(1 of 2) Never done ADVANCE DIRECTIVE DISCUSSION Never done DIABETES SC (more content not included)... [facility] 11-27-2022 Instructions Payton Berman APRN.MACHINE FASTENER - 11/27/2022 9:00 AM EST FACT SHEET FOR PATIENTS, PARENTS, AND CAREGIVERS EMERGENCY USE AUTHORIZATION (EUA) OF PAXLOVID FOR CORONAVIRUS DISEASE 2019 (COVID-19) You are being given this Fact Sheet because your healthcare provider believes it is necessary to provide you with PAXLOVID for the treatment of vsfa-pn-nhdhhbat coronavirus disease (COVID-19) caused by the SARS-CoV-2 virus. This Fact Sheet contains information to help you understand the risks and benefits of taking the PAXLOVID you have received or may receive. The U.S. Food and Drug Administration (FDA) has issued an Emergency Use Authorization (EUA) to make PAXLOVID available during the COVID-19 pandemic (for more details about an EUA please see What is an Emergency Use Authorization? at the end of this document). PAXLOVID is not an FDA-approved medicine in the [place]. Read this Fact Sheet for information about PAXLOVID. Talk to your healthcare provider about your options or if you have any questions. It is your choice to take PAXLOVID. What is COVID-19? COVID-19 is caused by a virus called a coronavirus. You can get COVID-19 through close contact with another person who has the virus. COVID-19 illnesses have ranged from very imsk-bt-feicbl, including illness resulting in . While information so far suggests that most COVID-19 illness is mild, serious illness can happen and may cause some of your other medical conditions to become worse. Older people and people of all ages with severe, long lasting (chronic) medical conditions like heart disease, lung disease, and diabetes, for example seem to be at higher risk of being hospitalized for COVID-19. What is PAXLOVID? PAXLOVID is an investigational medicine used to treat pgcr-kr-uoghltnz COVID-19 in adults and children [12 years of age and older weighing at least 88 pounds (40 kg)] with positive results of direct SARS-CoV-2 viral testing, and who are at high risk for progression to severe COVID-19, including hospitalization or . PAXLOVID is investigational because it is still being studied. There is limited information about the safety and effectiveness of using PAXLOVID to treat people with imov-jf-yifkqgcx COVID-19. The FDA has authorized the emergency use of PAXLOVID for the treatment of mjvh-es-mepcoudh COVID-19 in adults and children [12 years of age and older weighing at least 88 pounds (40 kg)] with a positive test for the virus that causes COVID-19, and who are at high risk for progression to severe COVID-19, including hospitalization or , under an EUA. 1 Revised: 14 December 2021 What should I tell my healthcare provider before I take PAXLOVID? Tell your healthcare provider if you: Have any allergies Have liver or kidney disease Are or plan to become Are a child Have any serious illnesses Tell your healthcare provider about all the medicines you take, including prescription and lovm-wtd-woukyuq medicines, vitamins, and herbal supplements. Some medicines may interact with PAXLOVID and may cause serious side effects. Keep a list of your medicines to show your healthcare provider and pharmacist when you get a new medicine. You can ask your healthcare provider or pharmacist for a list of medicines that interact with PAXLOVID. Do not start taking a new medicine without telling your healthcare provider. Your healthcare provider can tell you if it is safe to take PAXLOVID with other medicines. Tell your healthcare provider if you are taking combined hormonal contraceptive. PAXLOVID may affect how your control pills work. Females who are able to become should use another effective alternative form of contraception or an additional barrier method of contraception. Talk to your healthcare provider if you have any questions about contraceptive methods that might be right for you. How do I take PAXLOVID? PAXLOVID consists of 2 medicines: nirmatrelvir and ritonavir. Take 2 pink tablets of nirmatrelvir with 1 white tablet of ritonavir by mouth 2 times each day (in the morning and in the evening) for 5 days. For each dose, take all 3 tablets at the same time. If you have kidney disease, talk to your healthcare provider. You may need a different dose. Swallow the tablets whole. Do not chew, break, or crush the tablets. Take PAXLOVID with or without food. Do not stop taking PAXLOVID without talking to your healthcare provider, even if you feel better. If you miss a dose of PAXLOVID within 8 hours of the time it is usually taken, take it as soon as you remember. If you miss a dose by more than 8 hours, skip the missed dose and take the next dose at your regular time. Do not take 2 doses of PAXLOVID at the same time. If you take too much PAXLOVID, call your healthcare provider or go to the nearest hospital emergency room right away. If you are taking a ritonavir-or cobicistat-containing medicine to treat hepatitis C or Human Immunodeficiency Virus (HIV), you should continue to take your medicine as prescribed by your healthcare provider. Talk to your healthcare provider if you do not feel better or if you feel worse after 5 days. Who should generally not take PAXLOVID? Do not take PAXLOVID if: You are allergic to nirmatrelvir, ritonavir, or any of the ingredients in PAXLOVID You are taking any of the following medicines: Alfuzosin Pethidine, propoxyphene Ranolazine Amiodarone, dronedarone, flecainide, propafenone, quinidine Colchicine Lurasidone, pimozide, clozapine Dihydroergotamine, ergotamine, methylergonovine Lovastatin, simvastatin Sildenafil (Revatio ) for pulmonary arterial hypertension (PAH) Triazolam, oral midazolam Apalutamide Carbamazepine, phenobarbital, phenytoin Rifampin Sushant s Wort (hypericum perforatum) Taking PAXLOVID with these medicines may cause serious or life-threatening side effects or affect how PAXLOVID works. These are not the only medicines that may cause serious side effects if taken with PAXLOVID. PAXLOVID may increase or decrease the levels of multiple other medicines. It is very important to tell your healthcare provider about all of the medicines you are taking because additional laboratory tests or changes in the dose of your other medicines may be necessary while you are taking PAXLOVID. Your healthcare provider may also tell you about specific symptoms to watch out for that may indicate that you need to stop or decrease the dose of some of your other medicines. What are the important possible side effects of PAXLOVID? Possible side effects of PAXLOVID are: Allergic Reactions. Allergic reactions can happen in people taking PAXLOVID, even after only 1 dose. Stop taking PAXLOVID and call your healthcare provider right away if you get any of the following symptoms of an allergic reaction: hives trouble swallowing or breathing swelling of the mouth, lips, or face throat tightness hoarseness skin rash Liver Problems. Tell your healthcare provider right away if you have any of these signs and symptoms of liver problems: loss of appetite, yellowing of your skin and the whites of eyes (jaundice), dark-colored urine, pale colored stools and itchy skin, stomach area (abdominal) pain. Resistance to HIV Medicines. If you have untreated HIV infection, PAXLOVID may lead to some HIV medicines not working as well in the future. Other possible side effects include: altered sense of taste diarrhea high blood pressure muscle aches These are not all the possible side effects of PAXLOVID. Not many people have taken PAXLOVID. Serious and unexpected side effects may happen. PAXLOVID is still being studied, so it is possible that all of the risks are not known at this time. What other treatment choices are there? Veklury (remdesivir) is FDA-approved for the treatment of irwv-qa-vnebtson COVID-19 in certain adults and children. Talk with your doctor to see if Veklury is appropriate for you. Like PAXLOVID, FDA may also allow for the emergency use of other medicines to treat people with COVID-19. Go to https://www.fda.gov/emergency-prep aredness-mariano/szz-mosvr-nos ejnrkam-hsw-ftkrjr-framework/emerg rabw-upe-wvwdmlstiioye for information on the emergency use of other medicines that are authorized by FDA to treat people with COVID-19. Your healthcare provider may talk with you about clinical trials for which you may be eligible. It is your choice to be treated or not to be treated with PAXLOVID. Should you decide not to receive it or for your child not to receive it, it will not change your standard medical care. What if I am or ? There is medical technologist microbiology treating women or mothers with PAXLOVID. For a mother and unborn baby, the benefit of taking PAXLOVID may be greater than the risk from the treatment. If you are , discuss your options and specific situation with your healthcare provider. It is recommended that you use effective barrier contraception or do not have sexual activity while taking PAXLOVID. If you are , discuss your options and specific situation with your healthcare provider. How do I report side effects with PAXLOVID? Contact your healthcare provider if you have any side effects that bother you or do not go away. Report side effects to FDA MedWatch at www.fda.gov/medwatch or call 0-131-RPL3063 or you can report side effects to [employer]. at the contact information provided below. Website Fax number Telephone number [employer] How should I store PAXLOVID? Store PAXLOVID tablets at room temperature, between 68?F to 77?F (20?C to 25?C). How can I learn more about COVID-19? Ask your healthcare provider. Visit https://www.cdc.gov/COVID19. Contact your local or state public health department. What is an Emergency Use Authorization (EUA)? The [place] FDA has made PAXLOVID available under an emergency access mechanism called an Emergency Use Authorization (EUA). The EUA is supported by a Payroll Coordinator of Health and Human Service (HHS) declaration that circumstances exist to justify the emergency use of drugs and biological products during the COVID-19 pandemic. PAXLOVID for the treatment of ovoe-xt-gbhktntc COVID-19 in adults and children [12 years of age and older weighing at least 88 pounds (40 kg)] with positive results of direct SARS-CoV-2 viral testing, and who are at high risk for progression to severe COVID-19, including hospitalization or , has not undergone the same type of review as an FDA-approved product. In issuing an EUA under the COVID-19 public health emergency, the FDA has determined, among other things, that based on the total amount of scientific evidence available including data from adequate and well-controlled clinical trials, if available, it is reasonable to believe that the product may be effective for diagnosing, treating, or preventing COVID-19, or a serious or life-threatening disease or condition caused by COVID-19; that the known and potential benefits of the product, when used to diagnose, treat, or prevent such disease or condition, outweigh the known and potential risks of such product; and that there are no adequate, approved, and available alternatives. All of these criteria must be met to allow for the product to be used in the treatment of patients during the COVID-19 pandemic. The EUA for PAXLOVID is in effect for the duration of the COVID-19 declaration justifying emergency use of this product, unless terminated or revoked (after which the products may no longer be used under the EUA). Additional Information For general questions, visit the website or call the telephone number provided below. Website Telephone number wwwGoogle (9-927-S53-PACK) You can also go to [email or web address] or call for more information. Pfizer Distributed by [employer] [place] [address] [id number] Revised: 14 December 2021 documented in this encounter [facility] 11-27-2022 History of Present illness Narrative This Team Access Model visit is a virtual encounter. It required patient-provider interaction for the medical decision making as documented below. Patient agrees to the visit: Yes Patient Location: [place] CC: Patient presents with: Covid Positive HPI Oni Hernández is a 87 year old male who is contacted today for a virtual visit. This is an established patient of Dr. Kapil Lara DO. He is a new patient to me today. Concerns today.. COVID19-- COVID + at urgent care 2 days ago on 11/25/22. Symptoms of: congestion, sore throat, fatigue, and productive cough with yellow mucus since Friday night. Deep cough at night is making it hard to get good sleep. Taking mucinex as needed which does give relief. Interested in anti-viral if able. No other concerns or complaints. REVIEW OF SYSTEMS See HPI PAST MEDICAL HISTORY Diagnosis Date Allergic rhinitis, cause unspecified Asthma Carotid stenosis Cognitive impairment Neurologist, worsened with Aricept Fracture 8 years old broke his right arm a long time ago Generalized and unspecified atherosclerosis HTN (hypertension) Hyperlipidemia Kidney stones Lower back pain Lumbar spinal stenosis Dr. Unger Malignant neoplasm prostate (HCC) 05/15/2010 T1C, [place] 8, PSA 7.1 ng/mL Mild dementia (HCC) NPH (normal pressure hydrocephalus) (HCC) unlikely clinical picture for NPH. Had drain trial w/ subjective improvement in gait TIA (transient ischemic attack) Neurologist PAST SURGICAL HISTORY Procedure Laterality Date APPENDECTOMY 1948 at age 19 CATARACT EXTRACTION HX Right 11/10/2017 Dr. Arcos Ground Crew Supervisor CATARACT EXTRACTION HX Left 11/26/2017 Dr. Josselyn CERON PROSTECT RETROPUBIC RAD W/NRV SPARING ROBOT 07/24/2010 Dr. Ovalles, robotic, pT3a, [place] 4+3, SM pos, 0/14 LN+ PAST SURGICAL HISTORY OF 2015 nerve ablation lower back left side PAST SURGICAL HISTORY OF 08/03/2016 Nerve ablation back PAST SURGICAL HISTORY OF kidney stone removal x 3 - last episode 1985 VASECTOMY UNI/BI SPX W/POSTOP SEMEN EXAMS 1971 ALLERGIES Crab, Aricept [Donepezil], Cefdinir, Ciprofloxacin, Eliquis [Apixaban], Penicillins, and Sulfa (Sulfonamide Antibiotics) MEDICATIONS predniSONE (DELTASONE) 10 mg tablet^Take 5 tablets by mouth once daily for 1 day, THEN 4 tablets once daily for 1 day, THEN 3 tablets once daily for 1 day, THEN 2 tablets once daily for 1 day, THEN 1 tablet once daily for 1 day.^Disp: 15 tablet^Rfl: 0 albuterol HFA (VENTOLIN HFA) 90 mcg/actuation inhaler^Inhale 2 Puffs as instructed every 4 hours as needed for wheezing/shortness of breath.^Disp: 18 g^Rfl: 1 FLUoxetine (PROZAC) 10 mg capsule^Take 1 capsule by mouth once daily.^Disp: 90 capsule^Rfl: 3 XARELTO 20 mg tablet^TAKE 1 TABLET BY MOUTH DAILY WITH DINNER^Disp: 90 tablet^Rfl: 3 amLODIPine (NORVASC) 5 mg tablet^TAKE 1 TABLET BY MOUTH ONCE DAILY^Disp: 90 tablet^Rfl: 3 metoprolol succinate ER (TOPROL XL) 25 mg 24 hr tablet^Take 1 tablet by mouth once daily.^Disp: 90 tablet^Rfl: 3 cyanocobalamin 1,000 mcg/mL^Inject 1 mL intramuscularly once every month.^Disp: 3 mL^Rfl: 3 rosuvastatin (CRESTOR) 20 mg tablet^Take 1 tablet by mouth once daily.^Disp: 90 tablet^Rfl: 3 Syringe with Needle, Disp, (SYRINGE 3CC/25GX1 )^1 Syringe once every month.^Disp: 4 Each^Rfl: 3 fluticasone (FLOVENT HFA) 110 mcg/actuation inhaler^Inhale 1 Puff as instructed twice daily.^Disp: 3 Inhaler^Rfl: 1 Lysine 500 mg tab^Take 500 mg by mouth once daily.^Disp: ^Rfl: cholecalciferol (VITAMIN D3) 5,000 unit tab^Take 5,000 Units by mouth once daily.^Disp: ^Rfl: UBIDECARENONE (COQ-10 ORAL)^Take 1 tablet by mouth once daily. ^Disp: ^Rfl: multivitamins(MULTIPLE VITAMIN TAB)^Take one(1) tablet daily.^Disp: 0^Rfl: 0 FAMILY HISTORY Problem Relation Age of Onset Stroke Mother Breast Cancer Mother Ischemic Heart Disease Mother Stroke Father Lipids Sister other (gerd) Sister other (healthy) Son Skin Cancer Daughter Social History Tobacco Use Smoking status: Never Smokeless tobacco: Never Vaping Use Vaping Use: Never used Substance Use Topics Alcohol use: Yes Alcohol/week: 2.5 - 5.0 standard drinks Types: 1 - 2 Mixed Drinks per week Drug use: No EXAM: Deferred physical exam as visit was completed over the phone Patient is speaking in complete sentences without obvious respiratory distress or audible wheezing. Virtual visit completed using video, limited exam completed. GENERAL: alert and appropriate, in no distress, well-hydrated, well nourished, and happy, smiling, interactive SKIN: no rash noted HEAD: normocephalic, no abnormality or lesion noted DATA REVIEWED: Most recent labs and imaging results. SHINGRIX VACCINE(1 of 2) Never done ADVANCE DIRECTIVE DISCUSSION Never done DIABETES SCREEN due on 08/23/2025 DTAP,TDAP,TD(2 - Td or Tdap) due on 07/07/2029 SPIROMETRY Completed INFLUENZA Completed COVID-19 VACCINE Completed PNEUMOCOCCAL: 65+ Completed ASSESSMENT/PLAN: 1. COVID-19 - ICD9: 079.89, ICD10: U07.1 Start paxlovid BID x 5 days. Discussed CDC guidelines of quarantine. Increase fluids and rest. Discussed red flag symptoms and when to seek immediate medical attention. - NIRMATRELVIR 300 MG (150 MG X2)-RITONAVIR 100 MG TABLET,DOSE PACK(EUA) Prescription instructions reviewed with patient as applicable. Potential red flag symptoms discussed with the patient. Reviewed appropriate action plan to take if red flag symptoms occur. Patient agreeable to treatment plan. During this patient visit I have spent approximately 30 minutes in counseling regarding treatment options, medications, and test results. Payton Berman APRN.MACHINE FASTENER Nirmatrelvir/Ritonavir (Paxlovid) Eligibility and Patient Discussion [facility] Formulary Restriction Criteria: Adult outpatients 18 years and older with ALL of the following: [x] Patient has positive SARS-COV-2 viral test (PCR or antigen test) during current illness [x] Patient has symptoms for 5 days or less [x] Not requiring hospitalization at any time for management of COVID-19 [x] Not requiring supplemental oxygen or a change in baseline supplemental oxygen [x] Not utilized for pre-exposure or post-exposure prophylaxis for prevention of COVID-19 [x] Patient does not have severe renal impairment (eGFR < 30 mL/min) or severe hepatic impairment (Child-[place] Class C) [x] Meeting at least one of the criteria for high risk of progression to severe COVID-19: [x] Age over 65 years [] Cancer [] Chronic kidney disease [] Chronic liver disease [] Chronic lung diseases, including cystic fibrosis [] Dementia or other neurological conditions [] Diabetes (type 1 or type 2) [] Disabilities, including Down syndrome and neurodevelopmental disorders [] Heart conditions [] HIV infection [] Immunocompromised state [] Mental health conditions [] Medical related technological dependence (tracheostomy, gastrostomy, or positive pressure ventilation (not related to COVID) [x] Overweight and obesity (BMI greater or equal to 25 for adults) [] Physical inactivity [] [] Sickle cell disease or thalassemia [] Smoking, current or former [] Solid organ or blood stem cell transplant [] Stroke or cerebrovascular disease [] Substance use disorders [] Tuberculosis [] People from racial and ethnic minority groups Criteria above are met: Yes Date of Positive Test: 11/25/22 Date of Symptom Onset: 11/24/22 Patient received COVID vaccine: Yes Drug-Drug interactions reviewed: Yes I have discussed the use of the investigational therapeutic, nirmatrelvir/ritonavir, for the treatment of mild to moderate COVID-19 and its use under Emergency Use Authorization with the patient. The patient was informed that nirmatrelvir/ritonavir is not an FDA approved drug and that it is authorized for use under this Emergency Use Authorization. The patient was also informed of the significant known benefits and potential risks of nirmatrelvir/ritonavir, and the extent to which such potential risks and benefits are unknown. The patient was informed that there is mandatory reporting of all medication errors and serious adverse events potentially related to nirmatrelvir/ritonavir treatment within 7 calendar days from the onset of the event and that events up to 28 days after completion of therapy need to be reported. The discussion included alternatives to receiving nirmatrelvir/ritonavir, including clinical trials, and potential the risks and benefits of those alternatives. The patient was provided electronically with the Fact Sheet for Patients, Parents and Caregivers . The patient was also instructed that in addition to the treatment with nirmatrelvir/ritonavir, he/she should continue to self-isolate and use infection control measures (e.g., wear mask, isolate, social distance, avoid sharing personal items, clean and disinfect high touch surfaces, and frequent handwashing) according to CDC guidelines. The patient stated understanding and gave verbal consent to proceeding with nirmatrelvir/ritonavir treatment. Payton Berman APRN.CNP November 27, 2022 9:06 AM documented in this encounter [facility] 11-27-2022 Nurse Note Spoke to Oni Hernández, confirmed patient is registered on Related Content Database (RCDb) and is prepared for their appointment. Confirmed the patient has updated medications, allergies, and questionnaires via Related Content Database (RCDb). Informed patient if there is an issue with the connection, provider will send the patient a secure link. If provider is running late, patient should remain connected to the visit. Patient verbalized understanding. documented in this encounter [facility] 11-26-2022 Miscellaneous Notes notified sent to scheduling for virtual/phone appt. Bonita Burks Please call and let patient know he was positive for COVID-19. I would make recommend a virtual/phone call follow-up with PCP today to discuss oral antiviral treatment. Otherwise needs to quarantine for 5 days from first day of symptoms. On day 6 if feeling better no fever in 24 hours can leave the home but needs to wear a mask for 5 more days around others. documented in this encounter [facility] 11-25-2022 Note HNO ID: [id number] Author: RT Flor(R) Service: Radiology Author Type: Technologist Type: Progress Notes Filed: 11/25/2022 1:00 PM Note Text: Radiology Service Progress Note PATIENT NAME: Oni Hernández DATE OF SERVICE: November 25, 2022 TIME: 12:53 PM PATIENT IDENTITY VERIFICATION COMPLETED USING TWO (2) IDENTIFIERS: Name and Date of confirmed by patient verbally. FALL SCREENING: Has the patient had 2 falls in the last year or 1 fall with injury or currently using an Ambulatory Assistive Device (Walker, Cane, Wheelchair, Crutches, etc.)? No PATIENT GENDER DATA: Male PATIENT RELEVANT IMPLANT DATA REVIEWED: Yes RADIOLOGY DEPARTMENT: General X-ray: Exam(s) Completed: Chest X-Ray PERIPHERAL IV DATA: Not applicable SIGNED BY: RT Flor(R) November 25, 2022 12:53 PM [facility] 11-25-2022 Note HNO ID: [id number] Author: Hans Brown MD Service: ? Author Type: Physician Type: Progress Notes Filed: 11/25/2022 1:24 PM Note Text: Patient presents with: Cough: Chest congestion, low grade fever, CÁRDENAS, sob x 1 day HPI: Feeling sick since last night. Positive symptoms: Cough, Shortness of breath, chest tightness, Feverish (99.2), Chills, Headache, Sinus pressure, Nasal Congestion, Rhinorrhea, sore throat, baseline unsteady walking, Negative symptoms: Body Aches, Nausea, Vomiting, Diarrhea, light-headed OTC: Mucinex, inhaler was not helpful last night No acute findings on chest x-ray through PCP 2 weeks ago to evaluate for intermittent wheezing. PFT 11/13/22 Showed normal spirometry is normal without a significant bronchodilator response. PAST MEDICAL HISTORY Diagnosis Date Allergic rhinitis, cause unspecified Asthma Carotid stenosis Cognitive impairment Neurologist, worsened with Aricept Fracture 8 years old broke his right arm a long time ago Generalized and unspecified atherosclerosis HTN (hypertension) Hyperlipidemia Kidney stones Lower back pain Lumbar spinal stenosis Dr. Unger Malignant neoplasm prostate (HCC) 05/15/2010 T1C, [place] 8, PSA 7.1 ng/mL Mild dementia (HCC) NPH (normal pressure hydrocephalus) (HCC) unlikely clinical picture for NPH. Had drain trial w/ subjective improvement in gait TIA (transient ischemic attack) Neurologist MEDICATIONS: Current Outpatient Medications Medication Sig albuterol HFA (VENTOLIN HFA) 90 mcg/actuation inhaler Inhale 2 Puffs as instructed every 4 hours as needed for wheezing/shortness of breath. FLUoxetine (PROZAC) 10 mg capsule Take 1 capsule by mouth once daily. XARELTO 20 mg tablet TAKE 1 TABLET BY MOUTH DAILY WITH DINNER amLODIPine (NORVASC) 5 mg tablet TAKE 1 TABLET BY MOUTH ONCE DAILY metoprolol succinate ER (TOPROL XL) 25 mg 24 hr tablet Take 1 tablet by mouth once daily. cyanocobalamin 1,000 mcg/mL Inject 1 mL intramuscularly once every month. rosuvastatin (CRESTOR) 20 mg tablet Take 1 tablet by mouth once daily. Syringe with Needle, Disp, (SYRINGE 3CC/25GX1 ) 1 Syringe once every month. fluticasone (FLOVENT HFA) 110 mcg/actuation inhaler Inhale 1 Puff as instructed twice daily. Lysine 500 mg tab Take 500 mg by mouth once daily. cholecalciferol (VITAMIN D3) 5,000 unit tab Take 5,000 Units by mouth once daily. UBIDECARENONE (COQ-10 ORAL) Take 1 tablet by mouth once daily. multivitamins(MULTIPLE VITAMIN TAB) Take one(1) tablet daily. Current Facility-Administered Medications Medication Dose Route Frequency perflutren lipid microspheres 1.3 mL in NaCl (PF) 0.9% 10 mL injection (DEFINITY) INTRAVENOUS DIRECTED PRN sodium chloride 0.9 % (flush) 10 mL (BD POSIFLUSH) 10 mL INTRAVENOUS DIRECTED PRN ALLERGIES: ALLERGIES Allergen Reactions Crab Anaphylaxis Aricept [Donepezil] Mental Status Change Regression Cefdinir Itching Ciprofloxacin hives Eliquis [Apixaban] Rash Penicillins hives Sulfa (Sulfonamide * hives VITALS: BP 92/56 Pulse 73 Temp 36.7 ?C (98 ?F) Resp 21 Wt 85.7 kg (189 lb) SpO2 98% BMI 27.75 kg/m? Last 4 Encounter BP Readings: Date: BP: 11/25/2022 92/56 11/11/2022 100/60 08/26/2022 137/63 06/24/2022 140/78 PHYSICAL EXAM: GEN: mildly ill appearing, pleasant, alert, accompanied by his . HEENT: PERRL, EOMI, conjunctiva clear Ears: canals clear after removing hearing aids. TMs without erythema, bulge, or effusion Sinuses: non-tender frontal sinus, tender maxillary sinuses Throat: moist mucous membranes, mild erythema, no exudate Neck: supple, no thyromegaly, no lymphadenopathy HEART: regular rate and rhythm, no murmurs LUNGS: no wheezes or crackles, no increased WOB; coughs with deep inspiration. NEURO: Alert and oriented to person, place, and time. CN II-XII grossly intact. Normal strength. Normal gait. No tremor. ASSESSMENT/PLAN: 1. Acute cough - ICD9: 786.2, ICD10: R05.1 (primary diagnosis) 2. URI, acute - ICD9: 465.9, ICD10: J06.9 3. Mild intermittent asthma, uncomplicated - ICD9: 493.90, ICD10: J45.20 - suspect viral URI, differential includes COVID-19. - Discussed supportive care treatment with home isolation, rest, cold medicine, and analgesia. - Red flags to seek further treatment include chest pain, increasing shortness of breath, dizziness, and lethargy; in the ER if severe. His will monitor his blood pressure at home. - COVID WITH FLUA+B, ROUTINE he is within the window for antiviral medication. Send in Tamiflu with positive for influenza. Schedule virtual appointment with primary care positive for COVID. - XR CHEST 2V FRONTAL/LAT - no acute findings - PREDNISONE 10 MG TABLET taper Hans Brown MD [facility] 11-25-2022 History of Present illness Narrative Patient presents with: Cough: Chest congestion, low grade fever, CÁRDENAS, sob x 1 day HPI: Feeling sick since last night. Positive symptoms: Cough, Shortness of breath, chest tightness, Feverish (99.2), Chills, Headache, Sinus pressure, Nasal Congestion, Rhinorrhea, sore throat, baseline unsteady walking, Negative symptoms: Body Aches, Nausea, Vomiting, Diarrhea, light-headed OTC: Mucinex, inhaler was not helpful last night No acute findings on chest x-ray through PCP 2 weeks ago to evaluate for intermittent wheezing. PFT 11/13/22 Showed normal spirometry is normal without a significant bronchodilator response. PAST MEDICAL HISTORY Diagnosis Date Allergic rhinitis, cause unspecified Asthma Carotid stenosis Cognitive impairment Neurologist, worsened with Aricept Fracture 8 years old broke his right arm a long time ago Generalized and unspecified atherosclerosis HTN (hypertension) Hyperlipidemia Kidney stones Lower back pain Lumbar spinal stenosis Dr. Unger Malignant neoplasm prostate (HCC) 05/15/2010 T1C, [place] 8, PSA 7.1 ng/mL Mild dementia (HCC) NPH (normal pressure hydrocephalus) (HCC) unlikely clinical picture for NPH. Had drain trial w/ subjective improvement in gait TIA (transient ischemic attack) Neurologist MEDICATIONS: Current Outpatient Medications Medication Sig albuterol HFA (VENTOLIN HFA) 90 mcg/actuation inhaler Inhale 2 Puffs as instructed every 4 hours as needed for wheezing/shortness of breath. FLUoxetine (PROZAC) 10 mg capsule Take 1 capsule by mouth once daily. XARELTO 20 mg tablet TAKE 1 TABLET BY MOUTH DAILY WITH DINNER amLODIPine (NORVASC) 5 mg tablet TAKE 1 TABLET BY MOUTH ONCE DAILY metoprolol succinate ER (TOPROL XL) 25 mg 24 hr tablet Take 1 tablet by mouth once daily. cyanocobalamin 1,000 mcg/mL Inject 1 mL intramuscularly once every month. rosuvastatin (CRESTOR) 20 mg tablet Take 1 tablet by mouth once daily. Syringe with Needle, Disp, (SYRINGE 3CC/25GX1 ) 1 Syringe once every month. fluticasone (FLOVENT HFA) 110 mcg/actuation inhaler Inhale 1 Puff as instructed twice daily. Lysine 500 mg tab Take 500 mg by mouth once daily. cholecalciferol (VITAMIN D3) 5,000 unit tab Take 5,000 Units by mouth once daily. UBIDECARENONE (COQ-10 ORAL) Take 1 tablet by mouth once daily. multivitamins(MULTIPLE VITAMIN TAB) Take one(1) tablet daily. Current Facility-Administered Medications Medication Dose Route Frequency perflutren lipid microspheres 1.3 mL in NaCl (PF) 0.9% 10 mL injection (DEFINITY) INTRAVENOUS DIRECTED PRN sodium chloride 0.9 % (flush) 10 mL (BD POSIFLUSH) 10 mL INTRAVENOUS DIRECTED PRN ALLERGIES: ALLERGIES Allergen Reactions Crab Anaphylaxis Aricept [Donepezil] Mental Status Change Regression Cefdinir Itching Ciprofloxacin hives Eliquis [Apixaban] Rash Penicillins hives Sulfa (Sulfonamide * hives VITALS: BP 92/56 Pulse 73 Temp 36.7 C (98 F) Resp 21 Wt 85.7 kg (189 lb) SpO2 98% BMI 27.75 kg/m Last 4 Encounter BP Readings: Date: BP: 11/25/2022 92/56 11/11/2022 100/60 08/26/2022 137/63 06/24/2022 140/78 PHYSICAL EXAM: GEN: mildly ill appearing, pleasant, alert, accompanied by his . HEENT: PERRL, EOMI, conjunctiva clear Ears: canals clear after removing hearing aids. TMs without erythema, bulge, or effusion Sinuses: non-tender frontal sinus, tender maxillary sinuses Throat: moist mucous membranes, mild erythema, no exudate Neck: supple, no thyromegaly, no lymphadenopathy HEART: regular rate and rhythm, no murmurs LUNGS: no wheezes or crackles, no increased WOB; coughs with deep inspiration. NEURO: Alert and oriented to person, place, and time. CN II-XII grossly intact. Normal strength. Normal gait. No tremor. ASSESSMENT/PLAN: 1. Acute cough - ICD9: 786.2, ICD10: R05.1 (primary diagnosis) 2. URI, acute - ICD9: 465.9, ICD10: J06.9 3. Mild intermittent asthma, uncomplicated - ICD9: 493.90, ICD10: J45.20 - suspect viral URI, differential includes COVID-19. - Discussed supportive care treatment with home isolation, rest, cold medicine, and analgesia. - Red flags to seek further treatment include chest pain, increasing shortness of breath, dizziness, and lethargy; in the ER if severe. His will monitor his blood pressure at home. - COVID WITH FLUA+B, ROUTINE he is within the window for antiviral medication. Send in Tamiflu with positive for influenza. Schedule virtual appointment with primary care positive for COVID. - XR CHEST 2V FRONTAL/LAT - no acute findings - PREDNISONE 10 MG TABLET taper Hans Brown MD documented in this encounter [facility] 11-13-2022 Note HNO ID: [id number] Author: RT Supriya(Silviano) Service: Nuclear Medicine Author Type: Technologist Type: Progress Notes Filed: 11/13/2022 11:51 AM Note Text: Radiology Service Progress Note PATIENT NAME: Oni Hernández DATE OF SERVICE: November 13, 2022 TIME: 11:45 AM PATIENT IDENTITY VERIFICATION COMPLETED USING TWO (2) IDENTIFIERS: Name and Date of confirmed by patient verbally. FALL SCREENING: Has the patient had 2 falls in the last year or 1 fall with injury or currently using an Ambulatory Assistive Device (Walker, Cane, Wheelchair, Crutches, etc.)? No PATIENT GENDER DATA: Male PATIENT RELEVANT IMPLANT DATA REVIEWED: Not Applicable RADIOLOGY DEPARTMENT: General X-ray: Exam(s) Completed: Chest X-Ray PERIPHERAL IV DATA: Not applicable SIGNED BY: RT Supriya(R) November 13, 2022 11:45 AM [facility] 11-13-2022 Note HNO ID: [id number] Author: ELLY Bhardwaj Service: ? Author Type: Respiratory Therapist Type: Progress Notes Filed: 11/13/2022 11:45 AM Note Text: PULM FUNCTION SMARTBLOCK: Provider: Kapil Lara DO Assisting Tech: ELLY Bahrdwaj Spirometry w/BD: 1 [facility] 11-13-2022 History of Present illness Narrative Radiology Service Progress Note PATIENT NAME: Oni Hernández DATE OF SERVICE: November 13, 2022 TIME: 11:45 AM PATIENT IDENTITY VERIFICATION COMPLETED USING TWO (2) IDENTIFIERS: Name and Date of confirmed by patient verbally. FALL SCREENING: Has the patient had 2 falls in the last year or 1 fall with injury or currently using an Ambulatory Assistive Device (Walker, Cane, Wheelchair, Crutches, etc.)? No PATIENT GENDER DATA: Male PATIENT RELEVANT IMPLANT DATA REVIEWED: Not Applicable RADIOLOGY DEPARTMENT: General X-ray: Exam(s) Completed: Chest X-Ray PERIPHERAL IV DATA: Not applicable SIGNED BY: RT Supriya(R) November 13, 2022 11:45 AM documented in this encounter [facility] 11-12-2022 Miscellaneous Notes Please call and help patient get set up for PFTs for his wheezing evaluation and then can also get a chest xray as ordered that day. Kapil Lara DO documented in this encounter [facility] 11-11-2022 Note HNO ID: [id number] Author: Kapil Lara DO Service: ? Author Type: Physician Type: Progress Notes Filed: 11/12/2022 7:33 AM Note Text: CC: Oni Hernández is a 87 year old male who presents to the office for 6 months follow up HPI: He is present with his in the office today as below Exercise, he still states that he is completing Cardio classes 2 days a week for about 45 minutes each visit. Wheezing, has occurred off and on, more often at night when he is laying down to go to sleep, not happening during exercise, + intermittent cough and mild dyspnea, no severe symptoms. Using flonase daily in the evening. No hemoptysis. Hx of allergies- takes Allavert daily HTN, well controlled, taking amlodipine as prescribed, no CP or dyspnea or dizziness/LH recently. Was just recently started on metoprolol low dose at 12.5 mg after wearing gambling monitor and found to have 3% of rhythm in Atrial fibrillation, already taking an anticoagulant. No SE with medication NPH, no recent falls, chronic balance disturbance is stable. Is going to exercise classes/stregthening/balance class at [facility] twice a week- notices that this has helped with his balance and he is walking better/more stable. Mood, overall improved, seems to be controlled most days and less verbal aggression towards . Taking Prozac as prescribed 10 mg a day, tolerating well. only very rare outburst otherwise HPL, taking crestor, tolerating well PAST MEDICAL HISTORY Diagnosis Date Allergic rhinitis, cause unspecified Asthma Carotid stenosis Cognitive impairment Neurologist, worsened with Aricept Fracture 8 years old broke his right arm a long time ago Generalized and unspecified atherosclerosis HTN (hypertension) Hyperlipidemia Kidney stones Lower back pain Lumbar spinal stenosis Dr. Unger Malignant neoplasm prostate (HCC) 05/15/2010 T1C, [place] 8, PSA 7.1 ng/mL Mild dementia NPH (normal pressure hydrocephalus) (HCC) unlikely clinical picture for NPH. Had drain trial w/ subjective improvement in gait TIA (transient ischemic attack) Neurologist PAST SURGICAL HISTORY Procedure Laterality Date APPENDECTOMY 195 at age 19 CATARACT EXTRACTION HX Right 11/10/2017 Dr. Arcos Ground Crew Supervisor CATARACT EXTRACTION HX Left 11/26/2017 Dr. Arcos LAPJames PROSTECT RETROPUBIC RAD W/NRV SPARING ROBOT 07/24/2010 Dr. Ovalles, robotic, pT3a, [place] 4+3, SM pos, 0/14 LN+ PAST SURGICAL HISTORY OF 2014 nerve ablation lower back left side PAST SURGICAL HISTORY OF 08/03/2016 Nerve ablation back PAST SURGICAL HISTORY OF kidney stone removal x 3 - last episode 1985 VASECTOMY UNI/BI SPX W/POSTOP SEMEN EXAMS 1971 Current Outpatient Medications Medication Sig FLUoxetine (PROZAC) 10 mg capsule Take 1 capsule by mouth once daily. XARELTO 20 mg tablet TAKE 1 TABLET BY MOUTH DAILY WITH DINNER amLODIPine (NORVASC) 5 mg tablet TAKE 1 TABLET BY MOUTH ONCE DAILY metoprolol succinate ER (TOPROL XL) 25 mg 24 hr tablet Take 1 tablet by mouth once daily. cyanocobalamin 1,000 mcg/mL Inject 1 mL intramuscularly once every month. rosuvastatin (CRESTOR) 20 mg tablet Take 1 tablet by mouth once daily. Syringe with Needle, Disp, (SYRINGE 3CC/25GX1 ) 1 Syringe once every month. fluticasone (FLOVENT HFA) 110 mcg/actuation inhaler Inhale 1 Puff as instructed twice daily. Lysine 500 mg tab Take 500 mg by mouth once daily. cholecalciferol (VITAMIN D3) 5,000 unit tab Take 5,000 Units by mouth once daily. UBIDECARENONE (COQ-10 ORAL) Take 1 tablet by mouth once daily. multivitamins(MULTIPLE VITAMIN TAB) Take one(1) tablet daily. albuterol HFA (VENTOLIN HFA) 90 mcg/actuation inhaler Inhale 2 Puffs as instructed every 4 hours as needed for wheezing/shortness of breath. Current Facility-Administered Medications Medication Dose Route Frequency perflutren lipid microspheres 1.3 mL in NaCl (PF) 0.9% 10 mL injection (DEFINITY) INTRAVENOUS DIRECTED PRN sodium chloride 0.9 % (flush) 10 mL (BD POSIFLUSH) 10 mL INTRAVENOUS DIRECTED PRN ALLERGIES Allergen Reactions Crab Anaphylaxis Aricept [Donepezil] Mental Status Change Regression Cefdinir Itching Ciprofloxacin hives Eliquis [Apixaban] Rash Penicillins hives Sulfa (Sulfonamide * hives Social History Tobacco Use Smoking status: Never Smokeless tobacco: Never Vaping Use Vaping Use: Never used Substance Use Topics Alcohol use: Yes Alcohol/week: 2.5 - 5.0 standard drinks Types: 1 - 2 Mixed Drinks per week Drug use: No ROS: See HPI. PE: BP 100/60 Pulse 64 Temp (Src) 97 (Right Tympanic) Resp 24 Wt 187 lb (84.8kg) Gen: AANDO, NAD, non-toxic appearing, Pleasant, cooperative, short term memory loss HEENT: NT/AC, PERRLA, EOMs intact b/l, nares clear and patent b/l, pharynx without erythema, exudate or lesions. Uvula midline. EACs without erythema or debris. TMs pearly (more content not included)... [facility] 10-28-2022 Miscellaneous Notes Mena--05/06/22 Nov--11/11/22 Last refill--10/02/21 90 with 3 refills Last labs--08/23/22 Patient has been identified by name and date of : Yes Requested Prescriptions Pending Prescriptions Disp Refills FLUoxetine (PROZAC) 10 mg capsule 90 capsule 3 Sig: Take 1 capsule by mouth once daily. RX INSTRUCTIONS: Patient aware RX escripted to mail away pharmacy. No need to notify patient. Ellie Cardozo Pss documented in this encounter [facility] 10-14-2022 Miscellaneous Notes Pt is now seeing Dr. Grimm. MENA 05/2022 w/ Dr. Grimm BMP/CBC 07/2022 documented in this encounter [facility] 09-09-2022 History of Present illness Narrative Douglas Nguyễn MD Department of Orthopaedics Orthopaedics [address] [place] [address] Dept: [phone] Dept September 09, 2022 CHIEF COMPLAINT: Established Patient and Pain of the Left Hip HPI Patient here for L hip pain. States he was on a plane on 08/20, while putting his luggage away he twisted his body and developed pain to L hip. He was seen at [facility] and had CT scan and XR completed - both were negative. Repeat XR on 09/04 was also negative. Ambulating with cane. AMB ROOMING INTAKE FLOWSHEET DATA Risk Screening Do you have concerns about personal safety or safety in the home?: No Pain Pain Level: 1 Pain Location: Hip-Left Description: Aching Duration Amount of Time: 6 Duration Units: Days Frequency: Continuous Intervention/Comfort measure: Reposition, Relaxation, Other: See comment (cane) Patient presents with: Left Hip - Established Patient, Pain ASSESSMENT: M16.10 Arthritis of hip (primary encounter diagnosis) PLAN: Patient has moderate left hip arthritis. No believe there is any concern for fracture, and this is likely an exacerbation of his underlying arthritis. Furthermore, he has been using a cane so even if he had a bit of a greater trochanter fracture, he has been offloading it with a cane appropriately. My recommendation is to continue using a cane for his own comfort and safety, but ultimately when he is doing better he has not required any ambulatory aid. FOLLOW UP INSTRUCTIONS: As needed Mr. Oni Hernández was advised as to contrast therapies and/or to take analgesics/anti-inflammatories as needed and all contraindications were reviewed. OBJECTIVE: Mr. Oni Hernández is a pleasant 87 year old in no apparent distress. Gen:There were no vitals taken for this visit. nl development, non obese, no deformities ENT: Normocephalic, normal hearing, moist mucosa CV: Pulses:DP/PT= 2+ and symmetric, capillary refill < 2 secs, no peripheral edema/varicosities Skin: no rash, bruising or lesions. Good turgor. Psych: cooperative and appropriate, alert and oriented x 3, good mood and affect. Musculoskeletal: Slight unsteady gait. Not really having any tenderness over the lateral hip. Mild limitations with range of motion and does have some pain with flexion and internal rotation consistent with his arthritis. IMAGING: IMPRESSION: MODERATE TO SEVERE DEGENERATIVE CHANGE AND JOINT SPACE NARROWING INVOLVING THE LEFT HIP Water Conservationist: MARY Transcribe Date/Time: Sep 06 2022 8:10A Dictated by : SIMON GUTIERREZ MD This examination was interpreted and the report reviewed and electronically signed by: SIMON GUTIERREZ MD on Sep 06 2022 8:11AM EST Results-Findings * * *Final Report* * * DATE OF EXAM: Sep 04 2022 11:45AM WOX [id number] - XR HIP 3V PELV+ AP/LAT LT / PROCEDURE REASON: Pain in left hip * * * * Physician Interpretation * * * * Examination: XR HIP 3V PELV+ AP/LAT LT History: Pain in left hip Technique: XR HIP 3V PELV+ AP/LAT LT Comparison: 08/26/2022 RESULT: Moderate to severe degenerative change and joint space narrowing involving the left hip. Mild osteophytosis. Osteopenia. No fracture or focal bony abnormality. Catheter terminates in the pelvis. Degenerative changes in the lower lumbar region. Degenerative changes involving the SI joints Supporting Subjective Information Below: Past Medical History: PAST MEDICAL HISTORY Diagnosis Date Allergic rhinitis, cause unspecified Asthma Carotid stenosis Cognitive impairment Neurologist, worsened with Aricept Fracture 8 years old broke his right arm a long time ago Generalized and unspecified atherosclerosis HTN (hypertension) Hyperlipidemia Kidney stones Lower back pain Lumbar spinal stenosis Dr. Unger Malignant neoplasm prostate (HCC) 05/15/2010 T1C, [place] 8, PSA 7.1 ng/mL Mild dementia NPH (normal pressure hydrocephalus) (HCC) unlikely clinical picture for NPH. Had drain trial w/ subjective improvement in gait TIA (transient ischemic attack) Neurologist Past Surgical History: PAST SURGICAL HISTORY Procedure Laterality Date APPENDECTOMY 1950 at age 19 CATARACT EXTRACTION HX Right 11/10/2017 Dr. Arcos Ground Crew Supervisor CATARACT EXTRACTION HX Left 11/26/2017 Dr. Arcos LAPJames PROSTECT RETROPUBIC RAD W/NRV SPARING ROBOT 07/24/2010 Dr. Ovalles, robotic, pT3a, [place] 4+3, SM pos, 0/14 LN+ PAST SURGICAL HISTORY OF 2015 nerve ablation lower back left side PAST SURGICAL HISTORY OF 08/03/2016 Nerve ablation back PAST SURGICAL HISTORY OF kidney stone removal x 3 - last episode 1985 VASECTOMY UNI/BI SPX W/POSTOP SEMEN EXAMS 1971 Family History: FAMILY HISTORY Problem Relation Age of Onset Stroke Mother Breast Cancer Mother Ischemic Heart Disease Mother Stroke Father Lipids Sister other (gerd) Sister other (healthy) Son Skin Cancer Daughter Social History: Social History Tobacco Use Smoking status: Never Smokeless tobacco: Never Vaping Use Vaping Use: Never used Substance Use Topics Alcohol use: Yes Alcohol/week: 2.5 - 5.0 standard drinks Types: 1 - 2 Mixed Drinks per week Drug use: No Medications: Current Outpatient Medications Medication Sig metoprolol succinate ER (TOPROL XL) 25 mg 24 hr tablet Take 1 tablet by mouth once daily. cyanocobalamin 1,000 mcg/mL Inject 1 mL intramuscularly once every month. amLODIPine (NORVASC) 5 mg tablet Take 1 tablet by mouth once daily. rivaroxaban (XARELTO) 20 mg tablet Take 1 tablet by mouth daily with dinner. rosuvastatin (CRESTOR) 20 mg tablet Take 1 tablet by mouth once daily. FLUoxetine (PROZAC) 10 mg capsule Take 1 capsule by mouth once daily. Syringe with Needle, Disp, (SYRINGE 3CC/25GX1 ) 1 Syringe once every month. fluticasone (FLOVENT HFA) 110 mcg/actuation inhaler Inhale 1 Puff as instructed twice daily. Lysine 500 mg tab Take 500 mg by mouth once daily. cholecalciferol (VITAMIN D3) 5,000 unit tab Take 5,000 Units by mouth once daily. UBIDECARENONE (COQ-10 ORAL) Take 1 tablet by mouth once daily. multivitamins(MULTIPLE VITAMIN TAB) Take one(1) tablet daily. Current Facility-Administered Medications Medication Dose Route Frequency perflutren lipid microspheres 1.3 mL in NaCl (PF) 0.9% 10 mL injection (DEFINITY) INTRAVENOUS DIRECTED PRN sodium chloride 0.9 % (flush) 10 mL (BD POSIFLUSH) 10 mL INTRAVENOUS DIRECTED PRN Allergies: Crab, Aricept [Donepezil], Cefdinir, Ciprofloxacin, Eliquis [Apixaban], Penicillins, and Sulfa (Sulfonamide Antibiotics) ROS: General (negative for fatigue, malaise, weight loss/gain) HEENT (negative for headache, earache, recent vision changes, sinus pain, sore throat) Respiratory (no recent shortness of breath, hemoptysis) CV (negative for chest tightness, palpitations) Musculoskeletal (see HPI) Psych (no depression, anxiety) REFERRING PHYSICIAN: Consultation requested by Dr. Marco DO for an opinion regarding left hip pain. My final recommendations will be communicated back to the requesting physician by way of shared Medical record or letter to requesting physician via US mail. Kapil Lara [address] [facility] [id number] Kapil Lara DO [address] [facility] [id number] Douglas Nguyễn MD documented in this encounter [facility] 09-05-2022 Miscellaneous Notes Images are scanned into DATY Images received from [facility]. Disk taken to radiology to be scanned into DATY. called an appointment scheduled on 09/05 @ 10:30. Images from the original note were not included. Douglas Nguyễn MD You; [facility] Orthopaedic Pool 1 minute ago (8:18 AM) Fracture is unlikely with normal hip xrays. CT scan is not in our system, but I am happy to review it. I really don't believe an MRI is necessary considering his shunt, etc. I would keep him with some protected wt. Bearing with a walker and repeat xrays at a convenient OV. Unless there is more to the story or something drastically different on the CT once reviewed, this would be non-surgical and simply some symptomatic pain relief... it appears at first glace, from afar. BP Dr. Nguyễn needs images before scheduled for appointment. Spoke with patient's . Piece of luggage fell striking left hip. Seen at [facility] in [facility]. X Ray and CT done. Radiologist's reports in Care Everywhere. Patient has a CSF shunt and needs to have a neurosurgeon present if MRI is to be done. Patient was seen at [facility] main ED as instructed by neuro it application support analyst. No MRI done. Advised that appt with Johnnie Gutierrez was incorrectly scheduled. Advised to be seen by either Dr. Nguyễn or Jose Daniel closer to her home. Phone numbers given to offices. Called [facility]. They will FedEx CD with images to [place] and we will upload into the patient's chart. Dioni, calling and states her fractured his hip when he was taking luggage from the overhead compartment on the airline and the luggage hit his left hip. Seen in [place] after the injury and referred back here to [facility] due to patient needing an MRI to confirm a fracture. Patient has dementia and has a brain shunt. The shunt will have to be re-calibrated when he has the MRI. Patient was referred to Johnnie Gutierrez at the [place] office. states he did have a CT scan and that showed he have a fracture. CT scan results are in Care everywhere from [facility]. Their office states patient is to be seen here by Dr. Nguyễn. Patient states their daughter has uploaded his records into -chart. When does patient need to be seen? documented in this encounter [facility] 08-30-2022 Miscellaneous Notes Called Dioni via phone. Patient is scheduled with an orthopedic surgeon to obtain hip MRI order/ assessment. This RN reviewed that patient may have MRI anywhere within the [facility] but he must have shunt checked within 24 hours of the MRI. Also informed pt's that Ellie JET will see pts for adjustment appointments on Tuesdays, Wednesdays, and . Provided her with the assistant wrestling coach's phone number to call once they have obtained MRI order. Dioni verbalized understanding and was appreciative of call. General Call Caller : dioni Contact please call cell if no answer:[phone] Reason for Call : Pt would like to speak regarding update from accident and has questions regarding the MRI and shunt adjustment Patient requesting return call ? Yes documented in this encounter [facility] 08-29-2022 Miscellaneous Notes Patient is scheduled to see Dr. Nguyễn next 09/05. Dr. Nguyễn needs to have the actual images prior to patient scheduled for appointment. We can see the reports but not the images. Please help him get appt with Orthopedics or Dr. Gianluca Lara DO Please see message. I have went on Care Everywhere and located the ED visit with imaging. Most recent XR at [facility] did not show Fx on X-ray. Alida Haney Ma ED report below. [facility] EMERGENCY ROOM [id number] [address] [facility] [address] Dept: [phone] Patient Name: Oni Hernández Patient Data: 87 y.o. male : 1935 Patient PCP: No/Unknown, Pcp Encounter Date: 08/23/2022 Chief Complaint Hip Pain History Patient is a 87 y.o. male who presents the emergency department via Walk-in with complaint of hip pain. This patient presents to the emergency department with 3 days of left hip pain. He reports that the pain began when he twisted it wrong while getting his luggage out of an airplane. He reports that the pain is sharp, severe, and worse with movement. Nothing makes it better. He reports that it is causing difficulty in ambulating. He denies any direct trauma to the hip. No pain elsewhere including none to his back. He denies any motor or sensory deficits. No erythema or warmth overlying the joint. No fever or chills. The pain has been worsening and is now causing him difficulty in ambulating so he presents to the emergency department for further evaluation. He has no complaints of any pain or symptoms elsewhere. EXAMINATION: XR HIP UNILAT 2-3VIEWS, W/ OR W/O PELVIS LEFT FINDINGS: No fracture, dislocation or destructive bone lesion is present. Bilateral hip joint space narrowing. No significant soft tissue abnormality is present. Left-sided catheter tubing of uncertain etiology. Clinical correlation recommended. Atherosclerotic vascular calcifications. CT PELVIS W/O CONTRAST FINDINGS: SOFT TISSUES: There is atherosclerosis of the aorta and iliac vessels. There is a catheter seen in the left lower pelvis. No adenopathy or ascites in the pelvis. No periarticular fluid collection or hematoma. BONE: There are postsurgical and degenerative changes of the lumbar spine. There are degenerative changes of the sacroiliac joints bilaterally. Osseous structures of the pelvis are intact. There is a subtle lucency involving the left proximal femur at the medial margin of the greater trochanter. Nondisplaced fracture in this location is not excluded. No evidence of a displaced fracture. This patient presents to the ED after developing pain in his left hip while getting a suitcase down from an airplane. In the ED, he was well-appearing and in no acute distress. Vital signs were stable. IV access was obtained and labs were sent. Labs were unremarkable. X-ray of the hip revealed no acute abnormality but I was concerned for a possible radiograph occult hip fracture given that the patient is elderly. I desired performing an MRI but in communication with the radiology technologist, the patient would need to have his [employer] shunt valve reprogrammed after the MRI was performed. I consulted the on-call neurosurgeon who stated that reprogramming of the valve would need to be performed within 48 hours of the MRI being performed which would not be possible as the patient is going back to [place] tomorrow. As such, given my inability to perform the optimal test, I did perform a CT of the pelvis which did reveal a possible nondisplaced fracture of the greater trochanter. Radiology recommended MRI, which as previously discussed, cannot be performed today given the patient's [employer] shunt. I consulted the on-call orthopedic surgeon who advised that the patient is safe to proceed home and may weight-bear as tolerated on that leg. The orthopedic surgeon advised that should the patient's pain worsen, he should follow-up once he returns home to [place] to have a hip MRI performed there and then have his [employer] shunt reprogrammed afterwards by his neurosurgeon. I discussed this plan with the patient and he is in agreement. I do feel that a short course of narcotic pain medication is indicated in this patient. I checked the E-FORCSE prior to prescribing narcotics. I discussed the use of narcotics with the patient including: the risk of addiction; the risk and treatment of resulting constipation; and the sedating nature of narcotics with instructions to avoid driving or operating heavy machinery during their use. The patient voiced understanding of these instructions. Careful return precautions were reviewed and the patient was discharged home in good condition. Impression: The encounter diagnosis was Closed nondisplaced fracture of greater trochanter of left femur, initial encounter ([facility]). Yissel Urbina MD [facility] called and want to know if you can help get pt seen with Dr. Nguyễn. See message that has been sent to Dr. Nguyễn earlier today. Pt has a broken left hip that needs to be taken care of. said they have been sent all over the place and not getting any where and waiting for a response from Dr. Nguyễn to see if he can help them. Please advise . ( states all records are in pt's MyChart per daughter, not certain where this is) Krysten Woo LPN documented in this encounter [facility] 08-28-2022 Miscellaneous Notes Spoke with patient's . Piece of luggage fell striking left hip. Seen at [facility] in [facility]. X Ray and CT done. Radiologist's reports in Care Everywhere. Patient has a CSF shunt and needs to have a neurosurgeon present if MRI is to be done. Patient was seen at [facility] main ED as instructed by neuro it application support analyst. No MRI done. Advised that appt with Johnnie Gutierrez was incorrectly scheduled. Advised to be seen by either Dr. Nguyễn or Jose Daniel closer to her home. Phone numbers given to offices. Called [facility]. They will FedEx CD with images to [employer] and we will upload into the patient's chart. Spoke with patient's . Piece of luggage fell striking left hip. Seen at [facility] in [facility]. X Ray and CT done. Radiologist's reports in Care Everywhere. Patient has a CSF shunt and needs to have a neurosurgeon present if MRI is to be done. Patient was seen at [facility] main ED as instructed by neuro it application support analyst. No MRI done. Advised that appt with Johnnie Gutierrez was incorrectly scheduled. Advised to be seen by either Dr. Nguyễn or Jose Daniel closer to her home. Phone numbers given to offices. Called [facility]. They will FedEx CD with images to [employer] and we will upload into the patient's chart. Oni Hernández is calling Johnnie Gutierrez PA-C today patient's spouse call to give information to obtain the patient CT scan of left fractured hip. Patient was seen at [facility] on 08/23/22. . Patient's appointment 09/02/22 Person calling: spouse: Call patient at: [phone] (home) Closing statement: Results or non-symptom based questions: Thank you for calling [facility], your call will be returned within the next business day. Sonali Ahumada Pss documented in this encounter [facility] 08-26-2022 Miscellaneous Notes Received a call back from Dr. Wesley. Per Dr. Wesley, he encourage pt to have MRI outpatient and not via ED. He will be scrubbing into surgery but paging [phone] will get a NSGY provider to read before and after xrays or adjust shunt valve. Or if they have the MRI order from the [place] ED physician, we can schedule it out patient and adjust the shunt in the office. Called patient via phone and notified his of Dr. Wesley's recommendations above. verbalized understanding and was appreciative of call. Received a call from pt's Dioni. Per Dioni, patient was seen in an ED in [place] on 08/23/22 and diagnosed with a broken hip via xray and CT scan. Since pt had a shunt, they could not do an MRI and were told to come to [facility] main ED. Dioni wanted neurosurgery paged so they could get their MRI- specifically Dr. Wesley. Pt and are currently in [facility]. This RN educated that pt will have to be examined by the ED physician and he will need to order the hip MRI and consult neurosurgery. thought that they would not have to wait to be seen and could go straight to MRI once neuro surgery had been paged. This RN stated that we would page Dr. Wesley to notify him they have arrived but it would not change the process of needing and ED assessment and MRI order first. verbalized understanding. Dr. Wesley notified via page that pt has arrived to ED waiting room. documented in this encounter [facility] 05-06-2022 History of Present illness Narrative CC: Oni Hernández is a 87 year old male who presents to the office for follow up HPI: HTN, well controlled, taking amlodipine as prescribed, no CP or dyspnea or dizziness/LH recently. Was just recently started on metoprolol low dose at 12.5 mg after wearing gambling monitor and found to have 3% of rhythm in Atrial fibrillation, already taking an anticoagulant. No SE with medication NPH, no recent falls, does have some balance disturbance and gait changes. Is going to exercise classes/stregthening/balance class at [facility] twice a week- notices that this has helped with his balance and he is walking better/more stable. Mood, overall improved over the last 1-2 months, seems to be controlled most days and less verbal aggression towards her. Taking Prozac as prescribed, tolerating well. HPL, taking crestor, tolerating well Cholesterol, Total Date Value Ref Range Status 04/30/2022 143 <200 mg/dL Final Comment: <200 mg/dL, Desirable 200-239 mg/dL, Borderline high >239 mg/dL, High HDL Cholesterol Date Value Ref Range Status 04/30/2022 54 >39 mg/dL Final Comment: 40-59 mg/dL, Acceptable >59 mg/dL, High: Negative risk factor for coronary heart disease <40 mg/dL, Low: Positive risk factor for coronary heart disease LDL Cholesterol Date Value Ref Range Status 04/30/2022 78 <100 mg/dL Final Comment: <100 mg/dL, Optimal 100-129 mg/dL, Near optimal/above optimal 130-159 mg/dL, Borderline high 160-189 mg/dL, High >189 mg/dL, Very high Secondary prevention optimal LDL Cholesterol levels are recommended to be < 70 mg/dL Triglyceride Date Value Ref Range Status 04/30/2022 56 <150 mg/dL Final Comment: <150 mg/dL, Normal 150-199 mg/dL, Borderline high 200-499 mg/dL, High >499 mg/dL, Very high Glucose (mg/dL) Date Value 04/30/2022 115 10/25/2021 91 Potassium (mmol/L) Date Value 04/30/2022 4.2 10/25/2021 4.2 Sodium (mmol/L) Date Value 04/30/2022 139 10/25/2021 138 Chloride (mmol/L) Date Value 04/30/2022 105 10/25/2021 105 CO2 (mmol/L) Date Value 04/30/2022 23 10/25/2021 24 Creatinine (mg/dL) Date Value 04/30/2022 0.97 10/25/2021 0.88 BUN (mg/dL) Date Value 04/30/2022 20 10/25/2021 21 Anion Gap (mmol/L) Date Value 04/30/2022 11 10/25/2021 9 Calcium (mg/dL) Date Value 10/25/2021 8.9 Calcium, Total (mg/dL) Date Value 04/30/2022 9.2 Protein, Total (g/dL) Date Value 04/30/2022 6.6 10/25/2021 6.3 Albumin (g/dL) Date Value 04/30/2022 4.2 10/25/2021 4.0 Bilirubin, Total (mg/dL) Date Value 04/30/2022 0.3 10/25/2021 0.4 Alkaline Phosphatase (U/L) Date Value 04/30/2022 96 10/25/2021 94 AST (U/L) Date Value 04/30/2022 17 10/25/2021 15 ALT (U/L) Date Value 04/30/2022 23 10/25/2021 26 Hemoglobin (g/dL) Date Value 04/30/2022 13.8 10/25/2021 14.3 Hematocrit (%) Date Value 04/30/2022 41.7 10/25/2021 42.3 WBC (k/uL) Date Value 04/30/2022 4.89 10/25/2021 5.40 PAST MEDICAL HISTORY Diagnosis Date Allergic rhinitis, cause unspecified Asthma Carotid stenosis Cognitive impairment Neurologist, worsened with Aricept Fracture 8 years old broke his right arm a long time ago Generalized and unspecified atherosclerosis HTN (hypertension) Hyperlipidemia Kidney stones Lower back pain Lumbar spinal stenosis Dr. Unger Malignant neoplasm prostate (HCC) 05/15/2010 T1C, [place] 8, PSA 7.1 ng/mL Mild dementia (HCC) NPH (normal pressure hydrocephalus) (HCC) unlikely clinical picture for NPH. Had drain trial w/ subjective improvement in gait TIA (transient ischemic attack) Neurologist PAST SURGICAL HISTORY Procedure Laterality Date APPENDECTOMY 1950 at age 19 CATARACT EXTRACTION HX Right 11/10/2017 Dr. Arcos Ground Crew Supervisor CATARACT EXTRACTION HX Left 11/26/2017 Dr. Josselyn CERON PROSTECT RETROPUBIC RAD W/NRV SPARING ROBOT 07/24/2010 Dr. Ovalles, robotic, pT3a, [place] 4+3, SM pos, 0/14 LN+ PAST SURGICAL HISTORY OF 2014 nerve ablation lower back left side PAST SURGICAL HISTORY OF 08/03/2016 Nerve ablation back PAST SURGICAL HISTORY OF kidney stone removal x 3 - last episode 1985 VASECTOMY UNI/BI SPX W/POSTOP SEMEN EXAMS 1971 Social History: Social History Tobacco Use Smoking status: Never Smokeless tobacco: Never Vaping Use Vaping Use: Never used Substance Use Topics Alcohol use: Yes Alcohol/week: 2.5 - 5.0 standard drinks Types: 1 - 2 Mixed Drinks per week Drug use: No FAMILY HISTORY Problem Relation Age of Onset Stroke Mother Breast Cancer Mother Ischemic Heart Disease Mother Stroke Father Lipids Sister other (gerd) Sister other (healthy) Son Skin Cancer Daughter Current Outpatient prescriptions: cyanocobalamin 1,000 mcg/mL^Inject 1 mL intramuscularly once every month.^Disp: 3 mL^Rfl: 3 amLODIPine (NORVASC) 5 mg tablet^Take 1 tablet by mouth once daily.^Disp: 90 tablet^Rfl: 3 rivaroxaban (XARELTO) 20 mg tablet^Take 1 tablet by mouth daily with dinner.^Disp: 90 tablet^Rfl: 3 rosuvastatin (CRESTOR) 20 mg tablet^Take 1 tablet by mouth once daily.^Disp: 90 tablet^Rfl: 3 FLUoxetine (PROZAC) 10 mg capsule^Take 1 capsule by mouth once daily.^Disp: 90 capsule^Rfl: 3 Syringe with Needle, Disp, (SYRINGE 3CC/25GX1 )^1 Syringe once every month.^Disp: 4 Each^Rfl: 3 fluticasone (FLOVENT HFA) 110 mcg/actuation inhaler^Inhale 1 Puff as instructed twice daily.^Disp: 3 Inhaler^Rfl: 1 Lysine 500 mg tab^Take 500 mg by mouth once daily.^Disp: ^Rfl: cholecalciferol (VITAMIN D-3) 5,000 unit tab^Take 5,000 Units by mouth once daily.^Disp: ^Rfl: UBIDECARENONE (COQ-10 ORAL)^Take 1 tablet by mouth once daily. ^Disp: ^Rfl: multivitamins(MULTIPLE VITAMIN TAB)^Take one(1) tablet daily.^Disp: 0^Rfl: 0 metoprolol tartrate, short acting, (LOPRESSOR) 25 mg tablet^Take 0.5 tablets by mouth twice daily.^Disp: 45 tablet^Rfl: 3 Allergies: ALLERGIES Allergen Reactions Crab Anaphylaxis Aricept [Donepezil] Mental Status Change Regression Cefdinir Itching Ciprofloxacin hives Eliquis [Apixaban] Rash Penicillins hives Sulfa (Sulfonamide * hives ROS: See HPI PE: 05/06/22 1055 BP: 110/70 Pulse: 76 Resp: 20 Temp: 36.1 C (97 F) TempSrc: Left Tympanic Weight: 84.4 kg (186 lb) Gen: A&O, NAD, non-toxic appearing, Pleasant, cooperative, short term memory loss HEENT: NT/AC, PERRLA, EOMs intact b/l, nares clear and patent b/l, pharynx without erythema, exudate or lesions. Uvula midline. EACs without erythema or debris. TMs pearly diaz with intact landmarks b/l. Shunt present right side of head/neck Neck: supple, No cervical LAD, no thyromegaly, no carotid bruits CV: RRR, normal S1 and S2, no murmurs, no gallops, no rubs, Pulses 2+ and symmetric in UE and LE b/l Lungs: normal respiratory effort, CTA b/l, no wheezing or rhonchi or rales Abd: soft, NT, ND, +BS, no hepatosplenomegaly MS: weak core strength, slightly off balance Neuro: CN II-XII intact b/l, strength 5/5 b/l UE and LE, DTRs 2/4 UE and LE, sensation intact. Skin: warm, dry, intact, scattered angiomas and seborrheic keratoses. no edema legs Resting tremor right hand ASSESSMENT/PLAN: 1. Vitamin B12 deficiency - ICD9: 266.2, ICD10: E53.8 (primary diagnosis) Stable, continue supplement 2. Dyslipidemia - ICD9: 272.4, ICD10: E78.5 - suboptimal control - Continue current medication. - Encouraged following a low fat, low cholesterol diet. - Discussed the benefits of regular aerobic exercise and weight loss. 3. Essential hypertension - ICD9: 401.9, ICD10: I10 - good control - Continue current medication(s) - Recommended regular aerobic exercise. - Recommend home blood pressure monitoring, to bring results in on next visit - Goal of BP <130/80 4. NPH (normal pressure hydrocephalus) (HCC) - ICD9: 331.5, ICD10: G91.2 Stable, no recent falls, needs to continue exercise routine 5. Dysthymia - ICD9: 300.4, ICD10: F34.1 Overall stable, mood seems to be improved. 6. IFG (impaired fasting glucose) - ICD9: 790.21, ICD10: R73.01 Stable, continue low carb diet. 7. Fatigue, unspecified type - ICD9: 780.79, ICD10: R53.83 - stable 8. Paroxysmal atrial fibrillation (HCC) - ICD9: 427.31, ICD10: I48.0 - newly diagnosed, tolerating metoprolol well without SE, follow up with Carriage Setter as scheduled Kapil Lara DO To ER if develops chest pain, shortness of breath, or severe worsening of symptoms. Discussed risks, benefits, alternatives, and potential side effects of medications. Patient expressed understanding and agreed with the plan. Kapil Lara DO [address] [place] [address] documented in this encounter [facility] 04-09-2022 Miscellaneous Notes Please see other phone encounter for today under Aundrea Calvert. Pt. and call back together. Patient notified of results and provider's instructions. Patient verbalizes understanding and is agreeable to starting metoprolol, however, they refuse to use [facility] and are asking for this to be resent to [facility] in winter for 30 day supply. Patient has been identified by name and date of : Yes Pending Prescriptions Disp Refills METOPROLOL TARTRATE 25 MG TABLET 30 tablet 0 Sig: Take 0.5 tablets by mouth twice daily. RUIZ: No RX INSTRUCTIONS: Patient aware RX will be sent to pharmacy. No need to notify patient. Nadya Wright RN documented in this encounter [facility] 04-09-2022 Miscellaneous Notes Spoke to Arely. States pt is away at a cardio class and will have pt call us back when he returns. Please review below message from Aundrea Calvert when pt. calls back and discuss possible Metoprolol. Thank you. Paulette Gill RN Monitor results: Patient had a min HR of 60 bpm, max HR of 173 bpm, and avg HR of 77 bpm. 3% burden of a-fib with max rate 173 and 4 beats of VT. We can consider a low dose beta victoria 12.5 mg metoprolol BID to keep a-fib rate controlled if he has recurrent episodes. Please see if the patient would be agreeable. Thank you! Aundrea Calvert APRN.CNP documented in this encounter [facility] 03-22-2022 Miscellaneous Notes Patient notified of stable results via my chart. Thank you documented in this encounter [facility] 03-21-2022 History of Present illness Narrative EVENT MONITOR DISPOSABLE PATCH INSTRUCTIONS Patient Name: Oni Hernández [facility] Number: [id number] Skin prepped and cleansed with alcohol Patch secured to prepped area Monitor Activated Serial #: [id number] Patient Instructed: 1.) Prescribed order timeframe 2.) Bathing guidelines 3.) Usage of event button and diary documentation 4.) Return of monitor at the end of prescribed order 5.) Call with problems [phone] or [phone] ext. [phone] Patient expresses a good understanding of instructions Jessa Nelson RN documented in this encounter [facility] 03-15-2022 Miscellaneous Notes Spouse calling in regards to [employer] message from 03/09/22. Patient with similar sx and episode in 2018 when he developed A fib. Concerned he may be back in A fib and would like to rule out a cardiac cause for sx. Please advise. Nuris Castaneda LPN documented in this encounter [facility] 03-15-2022 History of Present illness Narrative Radiology Service Progress Note PATIENT NAME: Oni Hernández DATE OF SERVICE: March 15, 2022 TIME: 2:10 PM PATIENT IDENTITY VERIFICATION COMPLETED USING TWO (2) IDENTIFIERS: Name and Date of confirmed by patient verbally. FALL SCREENING: Has the patient had 2 falls in the last year or 1 fall with injury or currently using an Ambulatory Assistive Device (Walker, Cane, Wheelchair, Crutches, etc.)? No PATIENT GENDER DATA: Male PATIENT RELEVANT IMPLANT DATA REVIEWED: Not Applicable RADIOLOGY DEPARTMENT: CT; Exam(s) Completed: Brain PERIPHERAL IV DATA: Not applicable SIGNED BY: RT Dai(R) March 15, 2022 2:10 PM documented in this encounter [facility] 03-15-2022 History of Present illness Narrative Radiology Service Progress Note PATIENT NAME: Oni Hernández DATE OF SERVICE: March 15, 2022 TIME: 9:25 AM PATIENT IDENTITY VERIFICATION COMPLETED USING TWO (2) IDENTIFIERS: Name and Date of confirmed by patient verbally. FALL SCREENING: Has the patient had 2 falls in the last year or 1 fall with injury or currently using an Ambulatory Assistive Device (Walker, Cane, Wheelchair, Crutches, etc.)? No PATIENT GENDER DATA: Male PATIENT RELEVANT IMPLANT DATA REVIEWED: Yes RADIOLOGY DEPARTMENT: General X-ray: Exam(s) Completed: Skull X-Ray 5 view shunt series PERIPHERAL IV DATA: Not applicable SIGNED BY: Miranda Dougherty RT(R) March 15, 2022 9:25 AM documented in this encounter [facility] 03-14-2022 Miscellaneous Notes Called and spoke with pt's via phone. Notified her that ellie CHAUDHARY has placed an order for a CT brain and shunt series xray. Once completed, patient should follow up with JET Bose. Dioni verbalized understanding and was appreciative of call. I am happy to see the pt with a CT brain and shunt series if they have no other answers. Called and spoke with pt's . She states that he is irritable and easy to anger. Last week he was in the urgent care and ED Per , pt does not remember an incident or fall but he has been diagnosed with a strained back and a black eye. She denies any changes in balance or headaches. Pt was nauseated once last week but it has resolved. She has seen no change in his orientation but states that the patient is delayed when responding. She states that he wears bilateral hearing aides and they are being cleaned/hearing checked next week. She denies patient having a flat affect. They have reached out to his brush worker in case it is A fib related. is inquiring if the personality change could be shunt related. This RN educated that typically, in regards to personality, patients are more withdrawn or lethargic if they are having shunt shunt issues. This RN stated that the above information would be forwarded to the PA for review and recommendation. was appreciative of call. General Call Caller : Patients spouse Contact Reason for Call : Patients spouse has concerns regarding patients shunt. Patient is experiencing difficulties with shunt. Patient is currently very irritable and extreme anger Patient requesting return call ? Yes documented in this encounter [facility] 03-12-2022 Miscellaneous Notes Order for CMP placed Kapil Lara DO calls in to request results of CMP, amylase, and lipase. Contacted main lab and those labs were not in process. Lab will add on amylase and lipase but CMP will have to be redrawn. Lab asked to re-order CMP with lab collect specified. Order pended. Spoke to Dioni to update and patient will be in later this afternoon to have the CMP redrawn. Kaitlynn Ley RN documented in this encounter [facility] 03-08-2022 History of Present illness Narrative Radiology Service Progress Note PATIENT NAME: Oni Hernández DATE OF SERVICE: March 08, 2022 TIME: 1:59 PM PATIENT IDENTITY VERIFICATION COMPLETED USING TWO (2) IDENTIFIERS: Name and Date of confirmed by patient verbally. FALL SCREENING: Has the patient had 2 falls in the last year or 1 fall with injury or currently using an Ambulatory Assistive Device (Walker, Cane, Wheelchair, Crutches, etc.)? No PATIENT GENDER DATA: Male PATIENT RELEVANT IMPLANT DATA REVIEWED: Not Applicable RADIOLOGY DEPARTMENT: Ultrasound PERIPHERAL IV DATA: Not applicable SIGNED BY: Aundrea Molina RDMS RVT March 08, 2022 1:59 PM documented in this encounter [facility] 03-08-2022 Miscellaneous Notes Addended by: ABISAI YODER on: 03/08/2022 09:47 AM Modules accepted: Orders documented in this encounter [facility] 03-08-2022 Instructions Abisai Yoder APRN.CNP - 03/08/2022 9:03 AM EDT Schedule your ultrasounds. Have your xray of your back completed. Have your labs completed-blood and urine. documented in this encounter [facility] 03-08-2022 History of Present illness Narrative Chief Complaint Patient presents with: ER F/U: possible kidney stone Back Pain: left lower side HPI Oni Hernández is a 86 year old male who presents here today for Above Complaints. Today: Left lower back. A week ago, started getting pain on lower left side. Gradually worsened. Does have hx kidney stones-was 20ish years ago. His suspicion was for a kidney stone. Went to urgent care 1 week ago. They did a urine sample and did not show blood, so didn't do anything else. Suggested he go to the hospital. On 03/04, he went to [facility] ED. Dr vasquez told him he didn't have a kidney stone. Urine and blood samples were drawn and were not even used. hit him in the back and told him it is a back strain. About 10 days ago noticed a bruise to his left eye. Wondering if he may have fallen. He doesn't remember it or remember getting the bruise. Has hx of A-fib that has caused him to black out and not remember things. Pain is 8-9/10. Is a sharp shooting, painful pain. Heat does seem to help. Is rotating heat and ice. Given hydrocodone at [facility]-not sure that this helped at all. Pain is significantly limiting his normal activity. Has to be careful about bending over and stooping down. Has to have a routine to get into bed and getting up out of a sitting position. Denies constipation or difficulty/discomfort with urination-no changes in either of these habits. No N/V. Normal appetite. Past medical history, appointments, medications, allergies reviewed. Previous Medical History PAST MEDICAL HISTORY Diagnosis Date Allergic rhinitis, cause unspecified Asthma Carotid stenosis Cognitive impairment Neurologist, worsened with Aricept Fracture 8 years old broke his right arm a long time ago Generalized and unspecified atherosclerosis HTN (hypertension) Hyperlipidemia Kidney stones Lower back pain Lumbar spinal stenosis Dr. Unger Malignant neoplasm prostate (HCC) 05/15/2010 T1C, [place] 8, PSA 7.1 ng/mL Mild dementia (HCC) NPH (normal pressure hydrocephalus) (HCC) unlikely clinical picture for NPH. Had drain trial w/ subjective improvement in gait TIA (transient ischemic attack) Neurologist Previous Surgical History PAST SURGICAL HISTORY Procedure Laterality Date APPENDECTOMY 1950 at age 19 CATARACT EXTRACTION HX Right 11/10/2017 Dr. Arcos Ground Crew Supervisor CATARACT EXTRACTION HX Left 11/26/2017 Dr. Josselyn CERON PROSTECT RETROPUBIC RAD W/NRV SPARING ROBOT 07/24/2010 Dr. Ovalles, robotic, pT3a, [place] 4+3, SM pos, 0/14 LN+ PAST SURGICAL HISTORY OF 2014 nerve ablation lower back left side PAST SURGICAL HISTORY OF 08/03/2016 Nerve ablation back PAST SURGICAL HISTORY OF kidney stone removal x 3 - last episode 1985 VASECTOMY UNI/BI SPX W/POSTOP SEMEN EXAMS 1971 Family History FAMILY HISTORY Problem Relation Age of Onset Stroke Mother Breast Cancer Mother Ischemic Heart Disease Mother Stroke Father Lipids Sister other (gerd) Sister other (healthy) Son Skin Cancer Daughter Patient Allergies ALLERGIES Allergen Reactions Crab Anaphylaxis Aricept [Donepezil] Mental Status Change Regression Cefdinir Itching Ciprofloxacin hives Eliquis [Apixaban] Rash Penicillins hives Sulfa (Sulfonamide * hives Current Medications Current Outpatient Medications on File Prior to Visit Medication Sig cyanocobalamin 1,000 mcg/mL Inject 1 mL intramuscularly once every month. amLODIPine (NORVASC) 5 mg tablet Take 1 tablet by mouth once daily. rivaroxaban (XARELTO) 20 mg tablet Take 1 tablet by mouth daily with dinner. rosuvastatin (CRESTOR) 20 mg tablet Take 1 tablet by mouth once daily. FLUoxetine (PROZAC) 10 mg capsule Take 1 capsule by mouth once daily. Syringe with Needle, Disp, (SYRINGE 3CC/25GX1 ) 1 Syringe once every month. fluticasone (FLOVENT HFA) 110 mcg/actuation inhaler Inhale 1 Puff as instructed twice daily. Lysine 500 mg tab Take 500 mg by mouth once daily. cholecalciferol (VITAMIN D-3) 5,000 unit tab Take 5,000 Units by mouth once daily. UBIDECARENONE (COQ-10 ORAL) Take 1 tablet by mouth once daily. multivitamins(MULTIPLE VITAMIN TAB) Take one(1) tablet daily. albuterol HFA (PROVENTIL HFA, VENTOLIN HFA) 90 mcg/actuation inhaler Inhale 2 Puffs as instructed every 4 hours as needed for Wheezing/Shortness of Breath. TURMERIC ORAL Take 650 mg by mouth twice daily. fexofenadine (ADELAIDE) 180 mg tablet Take 180 mg by mouth once daily. omega-3 fatty acids/vitamin e(FISH OIL 1,000 MG CAP) 2 caps a day No current facility-administered medications on file prior to visit. Social History Social History Tobacco Use Smoking status: Never Smoker Smokeless tobacco: Never Used Vaping Use Vaping Use: Never used Substance Use Topics Alcohol use: Yes Alcohol/week: 2.5 - 5.0 standard drinks Types: 1 - 2 Mixed Drinks per week Drug use: No Review of Symptoms REVIEW OF SYSTEMS see HPI, otherwise negative EXAM: BP 122/74 (BP Site: Left Arm, BP Position: Sitting, BP Cuff Size: Regular Adult) Pulse 77 Resp 16 Wt 84.4 kg (186 lb) SpO2 95% BMI 26.69 kg/m General Appearance: Well appearing, alert, in no acute distress, well-hydrated, well nourished.. Skin: Skin color, texture, turgor normal, no suspicious rashes or lesions, healing yellow bruising to left lateral eyebrow. Head: Normocephalic, no masses, lesions, tenderness or abnormalities. Back:no pain to palpation of vertebrae, + muscle tenderness to left lower back, motor and sensory appear to be normal Lungs: Lungs clear to auscultation. No wheezing, rhonchi, rales.. Heart: RRR without murmur, gallop, or rubs. No ectopy. Abdomen: Negative findings: no masses palpable, no organomegaly, no bruits heard, spleen non-palpable and aorta normal, Positive findings: significant tenderness to left lower quadrant as well as periumbilical. Slight firmness to periumbilical area, but no specific mass or hernia appreciated. Neurologic: Gait normal. Reflexes normal and symmetric. Sensation grossly intact., Negative findings: speech normal, mental status intact, Positive findings: abnormality of coordination r/t gait, Oriented X 4. Health Maintenance List SHINGRIX VACCINE(1 of 2) Never done ADVANCE DIRECTIVE DISCUSSION Never done COVID-19 VACCINE(4 - Booster for Moderna series) due on 11/30/2021 DIABETES SCREEN due on 10/25/2024 DTAP,TDAP,TD(2 - Td or Tdap) due on 07/07/2029 SPIROMETRY Completed INFLUENZA Completed PNEUMOCOCCAL: 65+ Completed Data reviewed Previous records, office notes ASSESSMENT/PLAN: 1. Acute left-sided low back pain without sciatica - ICD9: 724.2, ICD10: M54.50 (primary diagnosis) Concern for nephrolithiasis vs diverticulitis vs muscle strain vs? Feel less likely r/t muscular cause. Toradol IM given. - URINALYSIS, WITH MICROSCOPIC - URINE CULTURE - CBC - COMP METABOLIC PANEL - LIPASE BLD - AMYLASE BLD - XR LUMBAR GENERAL 3V AP/LAT/L5-S1 - US ABDOMEN COMPLETE - US KIDNEY/BLADDER - KETOROLAC 60 MG/2 ML INTRAMUSCULAR SOLUTION 2. Left lower quadrant abdominal pain - ICD9: 789.04, ICD10: R10.32 Concern for nephrolithiasis vs diverticulitis vs muscle strain vs? Feel less likely r/t muscular cause. Toradol IM given. - URINALYSIS, WITH MICROSCOPIC - URINE CULTURE - CBC - COMP METABOLIC PANEL - LIPASE BLD - AMYLASE BLD - XR LUMBAR GENERAL 3V AP/LAT/L5-S1 - US ABDOMEN COMPLETE - US KIDNEY/BLADDER - KETOROLAC 60 MG/2 ML INTRAMUSCULAR SOLUTION Abisai Yoder APRN.MACHINE FASTENER documented in this encounter [facility] 03-07-2022 Miscellaneous Notes Patient had gone to [facility] ER 03/04. No imaging was done. Please clarify, it appears that he has gone to the EMERGENCY DEPARTMENT for care Kapil Lara DO Patient Dioni anderson was seen in urgent care Thursday 03/01, for left flank pain. It was to late in the day to order any imaging. His pain is getting worse, he thinks has kidney stone that is not moving. He has Cardiology appt late morning today so will be at specialty center for that. Patient asking if PCP could order what ever imaging she wants him to have done? Please advise documented in this encounter [facility] 03-07-2022 Miscellaneous Notes Patient monica was expecting a call from the office my chart response from Payton Amezquita NP. They have not gotten a call to set up an appt. Aware SCALE RECLAMATION TENDER is not in the office today. Scheduled patient with Beryl Yoder SCALE RECLAMATION TENDER for Friday morning at 820 am for [facility] ER follow up appt. Please assist patient in scheduling for a follow-up appt. Thank you, Payton Amezquita APRN.RAVEN documented in this encounter [facility] 03-01-2022 History of Present illness Narrative Images from the original note were not included. Subjective HPI Nontoxic-appearing male presents urgent care chief complaint lower back pain. Duration of symptoms 5 days. Associated symptoms lower back pain mainly over the left lower region. Patient states pain is worse at night. Currently pain is 4 out of 10. States last night it was 9-10 out of 10. States he is concerned about kidney stones. Has had multiple stones in the past this feels similar. States he has had to have stone surgically removed. Denies any known injury. States pain is worse with certain movements. Denies any fevers nausea vomiting abdominal pain blood in urine testicular pain dysuria change in bowel or bladder habits. Past medical history prescription medication use allergies reviewed. .Patient presents with: Low Back Pain: L sided low back pain, concerns for kidney stone x5 days PAST MEDICAL HISTORY Diagnosis Date Allergic rhinitis, cause unspecified Asthma Carotid stenosis Cognitive impairment Neurologist, worsened with Aricept Fracture 8 years old broke his right arm a long time ago Generalized and unspecified atherosclerosis HTN (hypertension) Hyperlipidemia Kidney stones Lower back pain Lumbar spinal stenosis Dr. Unger Malignant neoplasm prostate (HCC) 05/15/2010 T1C, [place] 8, PSA 7.1 ng/mL Mild dementia (HCC) NPH (normal pressure hydrocephalus) (HCC) unlikely clinical picture for NPH. Had drain trial w/ subjective improvement in gait TIA (transient ischemic attack) Neurologist PAST SURGICAL HISTORY Procedure Laterality Date APPENDECTOMY 1948 at age 19 CATARACT EXTRACTION HX Right 11/10/2017 Dr. Arcos [employer] CATARACT EXTRACTION HX Left 11/26/2017 Dr. Arcos LAPJames PROSTECT RETROPUBIC RAD W/NRV SPARING ROBOT 07/24/2010 Dr. Ovalles, robotic, pT3a, [place] 4+3, SM pos, 0/14 LN+ PAST SURGICAL HISTORY OF 2014 nerve ablation lower back left side PAST SURGICAL HISTORY OF 08/03/2016 Nerve ablation back PAST SURGICAL HISTORY OF kidney stone removal x 3 - last episode 1985 VASECTOMY UNI/BI SPX W/POSTOP SEMEN EXAMS 1971 ALLERGIES Crab, Aricept [Donepezil], Cefdinir, Ciprofloxacin, Eliquis [Apixaban], Penicillins, and Sulfa (Sulfonamide Antibiotics) MEDICATIONS cyanocobalamin 1,000 mcg/mL Inject 1 mL intramuscularly once every month. amLODIPine (NORVASC) 5 mg tablet Take 1 tablet by mouth once daily. rivaroxaban (XARELTO) 20 mg tablet Take 1 tablet by mouth daily with dinner. rosuvastatin (CRESTOR) 20 mg tablet Take 1 tablet by mouth once daily. FLUoxetine (PROZAC) 10 mg capsule Take 1 capsule by mouth once daily. Syringe with Needle, Disp, (SYRINGE 3CC/25GX1 ) 1 Syringe once every month. fluticasone (FLOVENT HFA) 110 mcg/actuation inhaler Inhale 1 Puff as instructed twice daily. Lysine 500 mg tab Take 500 mg by mouth once daily. TURMERIC ORAL Take 650 mg by mouth twice daily. cholecalciferol (VITAMIN D-3) 5,000 unit tab Take 5,000 Units by mouth once daily. UBIDECARENONE (COQ-10 ORAL) Take 1 tablet by mouth once daily. multivitamins(MULTIPLE VITAMIN TAB) Take one(1) tablet daily. albuterol HFA (PROVENTIL HFA, VENTOLIN HFA) 90 mcg/actuation inhaler Inhale 2 Puffs as instructed every 4 hours as needed for Wheezing/Shortness of Breath. fexofenadine (ADELAIDE) 180 mg tablet Take 180 mg by mouth once daily. omega-3 fatty acids/vitamin e(FISH OIL 1,000 MG CAP) 2 caps a day FAMILY HISTORY Problem Relation Age of Onset Stroke Mother Breast Cancer Mother Ischemic Heart Disease Mother Stroke Father Lipids Sister other (gerd) Sister other (healthy) Son Skin Cancer Daughter Social History Tobacco Use Smoking status: Never Smoker Smokeless tobacco: Never Used Vaping Use Vaping Use: Never used Substance Use Topics Alcohol use: Yes Alcohol/week: 2.5 - 5.0 standard drinks Types: 1 - 2 Mixed Drinks per week Drug use: No BP 138/82 Pulse 78 Temp 36.6 C (97.8 F) Resp 20 Wt 84.9 kg (187 lb 3.2 oz) SpO2 98% BMI 26.86 kg/m Review of Systems Constitutional: Negative for chills, fever and malaise/fatigue. HENT: Negative for congestion, ear discharge, ear pain, sinus pain and sore throat. Eyes: Negative for blurred vision, pain, discharge and redness. Respiratory: Negative for cough, hemoptysis, sputum production, shortness of breath, wheezing and stridor. Cardiovascular: Negative for chest pain. Gastrointestinal: Negative for abdominal pain, diarrhea, nausea and vomiting. Genitourinary: Negative for dysuria, flank pain, frequency, hematuria and urgency. Musculoskeletal: Positive for back pain. Negative for myalgias. Skin: Negative for itching and rash. Neurological: Negative for dizziness and headaches. Objective Physical Exam Constitutional: General: He is not in acute distress. Appearance: He is not diaphoretic. HENT: Head: Normocephalic. Mouth/Throat: Mouth: Mucous membranes are moist. Pharynx: Oropharynx is clear. No oropharyngeal exudate or posterior oropharyngeal erythema. Eyes: Conjunctiva/sclera: Conjunctivae normal. Pupils: Pupils are equal, round, and reactive to light. Cardiovascular: Rate and Rhythm: Normal rate and regular rhythm. Heart sounds: Normal heart sounds. Pulmonary: Effort: Pulmonary effort is normal. No tachypnea, accessory muscle usage or respiratory distress. Breath sounds: Normal breath sounds. No stridor. Abdominal: Palpations: Abdomen is soft. Tenderness: There is no abdominal tenderness. There is no right CVA tenderness, left CVA tenderness, guarding or rebound. Musculoskeletal: Cervical back: Normal range of motion and neck supple. No rigidity or tenderness. Back: Comments: Reproducible pain noted left lower back. Pain with palpation in this area. No spinal tenderness. No lower abdominal pain with palpation. No rashes. Lymphadenopathy: Cervical: No cervical adenopathy. Skin: General: Skin is warm and dry. Neurological: Mental Status: He is alert and oriented to person, place, and time. ASSESSMENT/PLAN: 1. Acute left-sided low back pain without sciatica - ICD9: 724.2, ICD10: M54.50 - UA DIP, URINE (POC) Urine negative. Pain is reproducible. No abdominal pain with palpation. Suspicious of muscle injury. Supportive therapies discussed. Follow-up with PCP 2 to 3 days symptoms do not improve. We discussed red flags for prompt reevaluation. Patient will be seen in emergency room for any new or worsening symptoms. Patient/significant other verbalized understanding agrees with plan of care. Alex Gusman APRN.RAVEN documented in this encounter [facility] documented as of this encounter (statuses as of 03/01/2022) [facility] History of Past illness Narrative* Problem Noted Date Resolved Date Elevated blood pressure read ing without diagnosis of hypertension 09/13/2019 04/17/2020 Syncope and collapse 04/26/2019 04/17/2020 Acute otitis externa of right ear 07/15/2018 06/21/2020 Pre-op testing 02/12/2018 06/21/2020 Overview: Added automatically from request for surgery [id number] 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 01/28/2018 0 Last Assessment & Plan: Mild cognitive impairment Left inguinal hernia 01/28/2018 06/21/2020 Spinal stenosis, lumbar lulu on, without neurogenic claudication 01/24/2016 06/21/2020 Malignant neoplasm of prostate 07/23/2010 0 06/21/2020 Last Assessment & Plan: Assessment: s/p prostatectomy, no radiation or chemo Cervicalgia 04/04/2003 06/21/2020 Torticollis, unspecified 04/04/2003 020 documented as of this encounter (statuses as of 03/07/2022) [facility] History of Past illness Narrative* Problem Noted Date Resolved Date Elevated blood pressure read ing without diagnosis of hypertension 09/13/2019 04/17/2020 Syncope and collapse 04/26/2019 04/17/2020 Acute otitis externa of right ear 07/15/2018 06/21/2020 Pre-op testing 02/12/2018 06/21/2020 Overview: Added automatically from request for surgery [id number] 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 01/28/2018 0 Last Assessment & Plan: Mild cognitive impairment Left inguinal hernia 01/28/2018 06/21/2020 Spinal stenosis, lumbar lulu on, without neurogenic claudication 01/24/2016 06/21/2020 Malignant neoplasm of prostate 07/23/2010 0 06/21/2020 Last Assessment & Plan: Assessment: s/p prostatectomy, no radiation or chemo Cervicalgia 04/04/2003 06/21/2020 Torticollis, unspecified 04/04/2003 020 documented as of this encounter (statuses as of 03/07/2022) [facility] History of Past illness Narrative* Problem Noted Date Resolved Date Elevated blood pressure read ing without diagnosis of hypertension 09/13/2019 04/17/2020 Syncope and collapse 04/26/2019 04/17/2020 Acute otitis externa of right ear 07/15/2018 06/21/2020 Pre-op testing 02/12/2018 06/21/2020 Overview: Added automatically from request for surgery [id number] 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 01/28/2018 0 Last Assessment & Plan: Mild cognitive impairment Left inguinal hernia 01/28/2018 06/21/2020 Spinal stenosis, lumbar lulu on, without neurogenic claudication 01/24/2016 06/21/2020 Malignant neoplasm of prostate 07/23/2010 0 06/21/2020 Last Assessment & Plan: Assessment: s/p prostatectomy, no radiation or chemo Cervicalgia 04/04/2003 06/21/2020 Torticollis, unspecified 04/04/2003 020 documented as of this encounter (statuses as of 03/08/2022) [facility] History of Past illness Narrative* Problem Noted Date Resolved Date Elevated blood pressure read ing without diagnosis of hypertension 09/13/2019 04/17/2020 Syncope and collapse 04/26/2019 04/17/2020 Acute otitis externa of right ear 07/15/2018 06/21/2020 Pre-op testing 02/12/2018 06/21/2020 Overview: Added automatically from request for surgery [id number] 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 01/28/2018 0 Last Assessment & Plan: Mild cognitive impairment Left inguinal hernia 01/28/2018 06/21/2020 Spinal stenosis, lumbar lulu on, without neurogenic claudication 01/24/2016 06/21/2020 Malignant neoplasm of prostate 07/23/2010 0 06/21/2020 Last Assessment & Plan: Assessment: s/p prostatectomy, no radiation or chemo Cervicalgia 04/04/2003 06/21/2020 Torticollis, unspecified 04/04/2003 020 documented as of this encounter (statuses as of 03/09/2022) [facility] History of Past illness Narrative* Problem Noted Date Resolved Date Elevated blood pressure read ing without diagnosis of hypertension 09/13/2019 04/17/2020 Syncope and collapse 04/26/2019 04/17/2020 Acute otitis externa of right ear 07/15/2018 06/21/2020 Pre-op testing 02/12/2018 06/21/2020 Overview: Added automatically from request for surgery [id number] 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 01/28/2018 0 Last Assessment & Plan: Mild cognitive impairment Left inguinal hernia 01/28/2018 06/21/2020 Spinal stenosis, lumbar lulu on, without neurogenic claudication 01/24/2016 06/21/2020 Malignant neoplasm of prostate 07/23/2010 0 06/21/2020 Last Assessment & Plan: Assessment: s/p prostatectomy, no radiation or chemo Cervicalgia 04/04/2003 06/21/2020 Torticollis, unspecified 04/04/2003 020 documented as of this encounter (statuses as of 03/09/2022) [facility] History of Past illness Narrative* Problem Noted Date Resolved Date Elevated blood pressure read ing without diagnosis of hypertension 09/13/2019 04/17/2020 Syncope and collapse 04/26/2019 04/17/2020 Acute otitis externa of right ear 07/15/2018 06/21/2020 Pre-op testing 02/12/2018 06/21/2020 Overview: Added automatically from request for surgery [id number] 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 01/28/2018 0 Last Assessment & Plan: Mild cognitive impairment Left inguinal hernia 01/28/2018 06/21/2020 Spinal stenosis, lumbar lulu on, without neurogenic claudication 01/24/2016 06/21/2020 Malignant neoplasm of prostate 07/23/2010 0 06/21/2020 Last Assessment & Plan: Assessment: s/p prostatectomy, no radiation or chemo Cervicalgia 04/04/2003 06/21/2020 Torticollis, unspecified 04/04/2003 020 documented as of this encounter (statuses as of 03/11/2022) [facility] History of Past illness Narrative* Problem Noted Date Resolved Date Elevated blood pressure read ing without diagnosis of hypertension 09/13/2019 04/17/2020 Syncope and collapse 04/26/2019 04/17/2020 Acute otitis externa of right ear 07/15/2018 06/21/2020 Pre-op testing 02/12/2018 06/21/2020 Overview: Added automatically from request for surgery [id number] 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 01/28/2018 0 Last Assessment & Plan: Mild cognitive impairment Left inguinal hernia 01/28/2018 06/21/2020 Spinal stenosis, lumbar lulu on, without neurogenic claudication 01/24/2016 06/21/2020 Malignant neoplasm of prostate 07/23/2010 0 06/21/2020 Last Assessment & Plan: Assessment: s/p prostatectomy, no radiation or chemo Cervicalgia 04/04/2003 06/21/2020 Torticollis, unspecified 04/04/2003 020 documented as of this encounter (statuses as of 03/12/2022) [facility] History of Past illness Narrative* Problem Noted Date Resolved Date Elevated blood pressure read ing without diagnosis of hypertension 09/13/2019 04/17/2020 Syncope and collapse 04/26/2019 04/17/2020 Acute otitis externa of right ear 07/15/2018 06/21/2020 Pre-op testing 02/12/2018 06/21/2020 Overview: Added automatically from request for surgery [id number] 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 01/28/2018 0 Last Assessment & Plan: Mild cognitive impairment Left inguinal hernia 01/28/2018 06/21/2020 Spinal stenosis, lumbar lulu on, without neurogenic claudication 01/24/2016 06/21/2020 Malignant neoplasm of prostate 07/23/2010 0 06/21/2020 Last Assessment & Plan: Assessment: s/p prostatectomy, no radiation or chemo Cervicalgia 04/04/2003 06/21/2020 Torticollis, unspecified 04/04/2003 09/23/2 020 documented as of this encounter (statuses as of 03/14/2022) [facility] History of Past illness Narrative* Problem Noted Date Resolved Date Elevated blood pressure read ing without diagnosis of hypertension 09/13/2019 04/17/2020 Syncope and collapse 04/26/2019 04/17/2020 Acute otitis externa of right ear 07/15/2018 06/21/2020 Pre-op testing 02/12/2018 06/21/2020 Overview: Added automatically from request for surgery [id number] 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 01/28/2018 0 Last Assessment & Plan: Mild cognitive impairment Left inguinal hernia 01/28/2018 06/21/2020 Spinal stenosis, lumbar lulu on, without neurogenic claudication 01/24/2016 06/21/2020 Malignant neoplasm of prostate 07/23/2010 0 06/21/2020 Last Assessment & Plan: Assessment: s/p prostatectomy, no radiation or chemo Cervicalgia 04/04/2003 06/21/2020 Torticollis, unspecified 04/04/2003 020 documented as of this encounter (statuses as of 03/16/2022) [facility] History of Past illness Narrative* Problem Noted Date Resolved Date Elevated blood pressure read ing without diagnosis of hypertension 09/13/2019 04/17/2020 Syncope and collapse 04/26/2019 04/17/2020 Acute otitis externa of right ear 07/15/2018 06/21/2020 Pre-op testing 02/12/2018 06/21/2020 Overview: Added automatically from request for surgery [id number] 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 01/28/2018 0 Last Assessment & Plan: Mild cognitive impairment Left inguinal hernia 01/28/2018 06/21/2020 Spinal stenosis, lumbar lulu on, without neurogenic claudication 01/24/2016 06/21/2020 Malignant neoplasm of prostate 07/23/2010 0 06/21/2020 Last Assessment & Plan: Assessment: s/p prostatectomy, no radiation or chemo Cervicalgia 04/04/2003 06/21/2020 Torticollis, unspecified 04/04/2003 020 documented as of this encounter (statuses as of 03/16/2022) [facility] of Past illness Narrative* Problem Noted Date Resolved Date Elevated blood pressure read ing without diagnosis of hypertension 09/13/2019 04/17/2020 Syncope and collapse 04/26/2019 04/17/2020 Acute otitis externa of right ear 07/15/2018 06/21/2020 Pre-op testing 02/12/2018 06/21/2020 Overview: Added automatically from request for surgery [id number] 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 01/28/2018 0 Last Assessment & Plan: Mild cognitive impairment Left inguinal hernia 01/28/2018 06/21/2020 Spinal stenosis, lumbar lulu on, without neurogenic claudication 01/24/2016 06/21/2020 Malignant neoplasm of prostate 07/23/2010 0 06/21/2020 Last Assessment & Plan: Assessment: s/p prostatectomy, no radiation or chemo Cervicalgia 04/04/2003 06/21/2020 Torticollis, unspecified 04/04/2003 020 documented as of this encounter (statuses as of 03/18/2022) [facility] of Past illness Narrative* Problem Noted Date Resolved Date Elevated blood pressure read ing without diagnosis of hypertension 09/13/2019 04/17/2020 Syncope and collapse 04/26/2019 04/17/2020 Acute otitis externa of right ear 07/15/2018 06/21/2020 Pre-op testing 02/12/2018 06/21/2020 Overview: Added automatically from request for surgery [id number] 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 01/28/2018 0 Last Assessment & Plan: Mild cognitive impairment Left inguinal hernia 01/28/2018 06/21/2020 Spinal stenosis, lumbar lulu on, without neurogenic claudication 01/24/2016 06/21/2020 Malignant neoplasm of prostate 07/23/2010 0 06/21/2020 Last Assessment & Plan: Assessment: s/p prostatectomy, no radiation or chemo Cervicalgia 04/04/2003 06/21/2020 Torticollis, unspecified 04/04/2003 020 documented as of this encounter (statuses as of 03/21/2022) [facility] of Past illness Narrative* Problem Noted Date Resolved Date Elevated blood pressure read ing without diagnosis of hypertension 09/13/2019 04/17/2020 Syncope and collapse 04/26/2019 04/17/2020 Acute otitis externa of right ear 07/15/2018 06/21/2020 Pre-op testing 02/12/2018 06/21/2020 Overview: Added automatically from request for surgery [id number] 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 01/28/2018 0 Last Assessment & Plan: Mild cognitive impairment Left inguinal hernia 01/28/2018 06/21/2020 Spinal stenosis, lumbar lulu on, without neurogenic claudication 01/24/2016 06/21/2020 Malignant neoplasm of prostate 07/23/2010 0 06/21/2020 Last Assessment & Plan: Assessment: s/p prostatectomy, no radiation or chemo Cervicalgia 04/04/2003 06/21/2020 Torticollis, unspecified 04/04/2003 020 documented as of this encounter (statuses as of 03/23/2022) [facility] Past illness Narrative* Problem Noted Date Resolved Date Elevated blood pressure read ing without diagnosis of hypertension 09/13/2019 04/17/2020 Syncope and collapse 04/26/2019 04/17/2020 Acute otitis externa of right ear 07/15/2018 06/21/2020 Pre-op testing 02/12/2018 06/21/2020 Overview: Added automatically from request for surgery [id number] 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 01/28/2018 0 Last Assessment & Plan: Mild cognitive impairment Left inguinal hernia 01/28/2018 06/21/2020 Spinal stenosis, lumbar lulu on, without neurogenic claudication 01/24/2016 06/21/2020 Malignant neoplasm of prostate 07/23/2010 0 06/21/2020 Last Assessment & Plan: Assessment: s/p prostatectomy, no radiation or chemo Cervicalgia 04/04/2003 06/21/2020 Torticollis, unspecified 04/04/2003 020 documented as of this encounter (statuses as of 03/29/2022) [facility] Past illness Narrative* Problem Noted Date Resolved Date Elevated blood pressure read ing without diagnosis of hypertension 09/13/2019 04/17/2020 Syncope and collapse 04/26/2019 04/17/2020 Acute otitis externa of right ear 07/15/2018 06/21/2020 Pre-op testing 02/12/2018 06/21/2020 Overview: Added automatically from request for surgery [id number] 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 01/28/2018 0 Last Assessment & Plan: Mild cognitive impairment Left inguinal hernia 01/28/2018 06/21/2020 Spinal stenosis, lumbar lulu on, without neurogenic claudication 01/24/2016 06/21/2020 Malignant neoplasm of prostate 07/23/2010 0 06/21/2020 Last Assessment & Plan: Assessment: s/p prostatectomy, no radiation or chemo Cervicalgia 04/04/2003 06/21/2020 Torticollis, unspecified 04/04/2003 020 documented as of this encounter (statuses as of 04/09/2022) [facility] Past illness Narrative* Problem Noted Date Resolved Date Elevated blood pressure read ing without diagnosis of hypertension 09/13/2019 04/17/2020 Syncope and collapse 04/26/2019 04/17/2020 Acute otitis externa of right ear 07/15/2018 06/21/2020 Pre-op testing 02/12/2018 06/21/2020 Overview: Added automatically from request for surgery [id number] 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 01/28/2018 0 Last Assessment & Plan: Mild cognitive impairment Left inguinal hernia 01/28/2018 06/21/2020 Spinal stenosis, lumbar lulu on, without neurogenic claudication 01/24/2016 06/21/2020 Malignant neoplasm of prostate 07/23/2010 0 06/21/2020 Last Assessment & Plan: Assessment: s/p prostatectomy, no radiation or chemo Cervicalgia 04/04/2003 06/21/2020 Torticollis, unspecified 04/04/2003 020 documented as of this encounter (statuses as of 04/09/2022) [facility] Past illness Narrative* Problem Noted Date Resolved Date Elevated blood pressure read ing without diagnosis of hypertension 09/13/2019 04/17/2020 Syncope and collapse 04/26/2019 04/17/2020 Acute otitis externa of right ear 07/15/2018 06/21/2020 Pre-op testing 02/12/2018 06/21/2020 Overview: Added automatically from request for surgery [id number] 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 01/28/2018 0 Last Assessment & Plan: Mild cognitive impairment Left inguinal hernia 01/28/2018 06/21/2020 Spinal stenosis, lumbar lulu on, without neurogenic claudication 01/24/2016 06/21/2020 Malignant neoplasm of prostate 07/23/2010 0 06/21/2020 Last Assessment & Plan: Assessment: s/p prostatectomy, no radiation or chemo Cervicalgia 04/04/2003 06/21/2020 Torticollis, unspecified 04/04/2003 020 documented as of this encounter (statuses as of 05/06/2022) [facility] of Past illness Narrative* Problem Noted Date Resolved Date Elevated blood pressure read ing without diagnosis of hypertension 09/13/2019 04/17/2020 Syncope and collapse 04/26/2019 04/17/2020 Acute otitis externa of right ear 07/15/2018 06/21/2020 Pre-op testing 02/12/2018 06/21/2020 Overview: Added automatically from request for surgery [id number] 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 01/28/2018 0 Last Assessment & Plan: Mild cognitive impairment Left inguinal hernia 01/28/2018 06/21/2020 Spinal stenosis, lumbar lulu on, without neurogenic claudication 01/24/2016 06/21/2020 Malignant neoplasm of prostate 07/23/2010 0 06/21/2020 Last Assessment & Plan: Assessment: s/p prostatectomy, no radiation or chemo Cervicalgia 04/04/2003 06/21/2020 Torticollis, unspecified 04/04/2003 020 documented as of this encounter (statuses as of 08/26/2022) [facility] of Past illness Narrative* Problem Noted Date Resolved Date Elevated blood pressure read ing without diagnosis of hypertension 09/13/2019 04/17/2020 Syncope and collapse 04/26/2019 04/17/2020 Acute otitis externa of right ear 07/15/2018 06/21/2020 Pre-op testing 02/12/2018 06/21/2020 Overview: Added automatically from request for surgery [id number] 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 01/28/2018 0 Last Assessment & Plan: Mild cognitive impairment Left inguinal hernia 01/28/2018 06/21/2020 Spinal stenosis, lumbar lulu on, without neurogenic claudication 01/24/2016 06/21/2020 Malignant neoplasm of prostate 07/23/2010 0 06/21/2020 Last Assessment & Plan: Assessment: s/p prostatectomy, no radiation or chemo Cervicalgia 04/04/2003 06/21/2020 Torticollis, unspecified 04/04/2003 020 documented as of this encounter (statuses as of 08/28/2022) [facility] Past [facility] Narrative* Problem Noted Date Resolved Date Elevated blood pressure read ing without diagnosis of hypertension 09/13/2019 04/17/2020 Syncope and collapse 04/26/2019 04/17/2020 Acute otitis externa of right ear 07/15/2018 06/21/2020 Pre-op testing 02/12/2018 06/21/2020 Overview: Added automatically from request for surgery [id number] 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 01/28/2018 0 Last Assessment & Plan: Mild cognitive impairment Left inguinal hernia 01/28/2018 06/21/2020 Spinal stenosis, lumbar lulu on, without neurogenic claudication 01/24/2016 06/21/2020 Malignant neoplasm of prostate 07/23/2010 0 06/21/2020 Last Assessment & Plan: Assessment: s/p prostatectomy, no radiation or chemo Cervicalgia 04/04/2003 06/21/2020 Torticollis, unspecified 04/04/2003 020 documented as of this encounter (statuses as of 08/29/2022) [facility]12-16-2019 History of Past illness Narrative* Problem Noted Date Resolved Date Elevated blood pressure read ing without diagnosis of hypertension 09/13/2019 04/17/2020 Syncope and collapse 04/26/2019 04/17/2020 Acute otitis externa of right ear 07/15/2018 06/21/2020 Pre-op testing 02/12/2018 06/21/2020 Overview: Added automatically from request for surgery [id number] 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 01/28/2018 0 Last Assessment & Plan: Mild cognitive impairment Left inguinal hernia 01/28/2018 06/21/2020 Spinal stenosis, lumbar lulu on, without neurogenic claudication 01/24/2016 06/21/2020 Malignant neoplasm of prostate 07/23/2010 0 06/21/2020 Last Assessment & Plan: Assessment: s/p prostatectomy, no radiation or chemo Cervicalgia 04/04/2003 06/21/2020 Torticollis, unspecified 04/04/2003 020 documented as of this encounter (statuses as of 08/30/2022) [facility]2019 History of Past illness Narrative* Problem Noted Date Resolved Date Elevated blood pressure read ing without diagnosis of hypertension 09/13/2019 04/17/2020 Syncope and collapse 04/26/2019 04/17/2020 Acute otitis externa of right ear 07/15/2018 06/21/2020 Pre-op testing 02/12/2018 06/21/2020 Overview: Added automatically from request for surgery [id number] 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 01/28/2018 0 Last Assessment & Plan: Mild cognitive impairment Left inguinal hernia 01/28/2018 06/21/2020 Spinal stenosis, lumbar lulu on, without neurogenic claudication 01/24/2016 06/21/2020 Malignant neoplasm of prostate 07/23/2010 0 06/21/2020 Last Assessment & Plan: Assessment: s/p prostatectomy, no radiation or chemo Cervicalgia 04/04/2003 06/21/2020 Torticollis, unspecified 04/04/2003 020 documented as of this encounter (statuses as of 09/02/2022) [facility] History of Past illness Narrative* Problem Noted Date Resolved Date Elevated blood pressure read ing without diagnosis of hypertension 09/13/2019 04/17/2020 Syncope and collapse 04/26/2019 04/17/2020 Acute otitis externa of right ear 07/15/2018 06/21/2020 Pre-op testing 02/12/2018 06/21/2020 Overview: Added automatically from request for surgery [id number] 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 01/28/2018 0 Last Assessment & Plan: Mild cognitive impairment Left inguinal hernia 01/28/2018 06/21/2020 Spinal stenosis, lumbar lulu on, without neurogenic claudication 01/24/2016 06/21/2020 Malignant neoplasm of prostate 07/23/2010 0 06/21/2020 Last Assessment & Plan: Assessment: s/p prostatectomy, no radiation or chemo Cervicalgia 04/04/2003 06/21/2020 Torticollis, unspecified 04/04/2003 020 documented as of this encounter (statuses as of 09/04/2022) [facility] History of Past illness Narrative* Problem Noted Date Resolved Date Elevated blood pressure read ing without diagnosis of hypertension 09/13/2019 04/17/2020 Syncope and collapse 04/26/2019 04/17/2020 Acute otitis externa of right ear 07/15/2018 06/21/2020 Pre-op testing 02/12/2018 06/21/2020 Overview: Added automatically from request for surgery [id number] 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 01/28/2018 0 Last Assessment & Plan: Mild cognitive impairment Left inguinal hernia 01/28/2018 06/21/2020 Spinal stenosis, lumbar lulu on, without neurogenic claudication 01/24/2016 06/21/2020 Malignant neoplasm of prostate 07/23/2010 0 06/21/2020 Last Assessment & Plan: Assessment: s/p prostatectomy, no radiation or chemo Cervicalgia 04/04/2003 06/21/2020 Torticollis, unspecified 04/04/2003 020 documented as of this encounter (statuses as of 09/05/2022) [facility] History of Past illness Narrative* Problem Noted Date Resolved Date Elevated blood pressure read ing without diagnosis of hypertension 09/13/2019 04/17/2020 Syncope and collapse 04/26/2019 04/17/2020 Acute otitis externa of right ear 07/15/2018 06/21/2020 Pre-op testing 02/12/2018 06/21/2020 Overview: Added automatically from request for surgery [id number] 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 01/28/2018 0 Last Assessment & Plan: Mild cognitive impairment Left inguinal hernia 01/28/2018 06/21/2020 Spinal stenosis, lumbar lulu on, without neurogenic claudication 01/24/2016 06/21/2020 Malignant neoplasm of prostate 07/23/2010 0 06/21/2020 Last Assessment & Plan: Assessment: s/p prostatectomy, no radiation or chemo Cervicalgia 04/04/2003 06/21/2020 Torticollis, unspecified 04/04/2003 020 documented as of this encounter (statuses as of 09/20/2022) [facility] History of Past illness Narrative* Problem Noted Date Resolved Date Elevated blood pressure read ing without diagnosis of hypertension 09/13/2019 04/17/2020 Syncope and collapse 04/26/2019 04/17/2020 Acute otitis externa of right ear 07/15/2018 06/21/2020 Pre-op testing 02/12/2018 06/21/2020 Overview: Added automatically from request for surgery [id number] 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 01/28/2018 0 Last Assessment & Plan: Mild cognitive impairment Left inguinal hernia 01/28/2018 06/21/2020 Spinal stenosis, lumbar lulu on, without neurogenic claudication 01/24/2016 06/21/2020 Malignant neoplasm of prostate 07/23/2010 0 06/21/2020 Last Assessment & Plan: Assessment: s/p prostatectomy, no radiation or chemo Cervicalgia 04/04/2003 06/21/2020 Torticollis, unspecified 04/04/2003 020 documented as of this encounter (statuses as of 10/07/2022) [facility] History of Past illness Narrative* Problem Noted Date Resolved Date Elevated blood pressure read ing without diagnosis of hypertension 09/13/2019 04/17/2020 Syncope and collapse 04/26/2019 04/17/2020 Acute otitis externa of right ear 07/15/2018 06/21/2020 Pre-op testing 02/12/2018 06/21/2020 Overview: Added automatically from request for surgery [id number] 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 01/28/2018 0 Last Assessment & Plan: Mild cognitive impairment Left inguinal hernia 01/28/2018 06/21/2020 Spinal stenosis, lumbar lulu on, without neurogenic claudication 01/24/2016 06/21/2020 Malignant neoplasm of prostate 07/23/2010 0 06/21/2020 Last Assessment & Plan: Assessment: s/p prostatectomy, no radiation or chemo Cervicalgia 04/04/2003 06/21/2020 Torticollis, unspecified 04/04/2003 020 documented as of this encounter (statuses as of 10/15/2022) [facility] History of Past illness Narrative* Problem Noted Date Resolved Date Elevated blood pressure read ing without diagnosis of hypertension 09/13/2019 04/17/2020 Syncope and collapse 04/26/2019 04/17/2020 Acute otitis externa of right ear 07/15/2018 06/21/2020 Pre-op testing 02/12/2018 06/21/2020 Overview: Added automatically from request for surgery [id number] 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 01/28/2018 0 Last Assessment & Plan: Mild cognitive impairment Left inguinal hernia 01/28/2018 06/21/2020 Spinal stenosis, lumbar lulu on, without neurogenic claudication 01/24/2016 06/21/2020 Malignant neoplasm of prostate 07/23/2010 0 06/21/2020 Last Assessment & Plan: Assessment: s/p prostatectomy, no radiation or chemo Cervicalgia 04/04/2003 06/21/2020 Torticollis, unspecified 04/04/2003 020 documented as of this encounter (statuses as of 10/29/2022) [facility] History of Past illness Narrative* Problem Noted Date Resolved Date Elevated blood pressure read ing without diagnosis of hypertension 09/13/2019 04/17/2020 Syncope and collapse 04/26/2019 04/17/2020 Acute otitis externa of right ear 07/15/2018 06/21/2020 Pre-op testing 02/12/2018 06/21/2020 Overview: Added automatically from request for surgery [id number] 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 01/28/2018 0 Last Assessment & Plan: Mild cognitive impairment Left inguinal hernia 01/28/2018 06/21/2020 Spinal stenosis, lumbar lulu on, without neurogenic claudication 01/24/2016 06/21/2020 Malignant neoplasm of prostate 07/23/2010 0 06/21/2020 Last Assessment & Plan: Assessment: s/p prostatectomy, no radiation or chemo Cervicalgia 04/04/2003 06/21/2020 Torticollis, unspecified 04/04/2003 020 documented as of this encounter (statuses as of 11/25/2022) [facility] History of Past illness Narrative* Problem Noted Date Resolved Date Elevated blood pressure read ing without diagnosis of hypertension 09/13/2019 04/17/2020 Syncope and collapse 04/26/2019 04/17/2020 Acute otitis externa of right ear 07/15/2018 06/21/2020 Pre-op testing 02/12/2018 06/21/2020 Overview: Added automatically from request for surgery [id number] 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 01/28/2018 0 Last Assessment & Plan: Mild cognitive impairment Left inguinal hernia 01/28/2018 06/21/2020 Spinal stenosis, lumbar lulu on, without neurogenic claudication 01/24/2016 06/21/2020 Malignant neoplasm of prostate 07/23/2010 0 06/21/2020 Last Assessment & Plan: Assessment: s/p prostatectomy, no radiation or chemo Cervicalgia 04/04/2003 06/21/2020 Torticollis, unspecified 04/04/2003 020 documented as of this encounter (statuses as of 11/26/2022) [facility] History of Past illness Narrative* Problem Noted Date Resolved Date Elevated blood pressure read ing without diagnosis of hypertension 09/13/2019 04/17/2020 Syncope and collapse 04/26/2019 04/17/2020 Acute otitis externa of right ear 07/15/2018 06/21/2020 Pre-op testing 02/12/2018 06/21/2020 Overview: Added automatically from request for surgery [id number] 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 01/28/2018 0 Last Assessment & Plan: Mild cognitive impairment Left inguinal hernia 01/28/2018 06/21/2020 Spinal stenosis, lumbar lulu on, without neurogenic claudication 01/24/2016 06/21/2020 Malignant neoplasm of prostate 07/23/2010 0 06/21/2020 Last Assessment & Plan: Assessment: s/p prostatectomy, no radiation or chemo Cervicalgia 04/04/2003 06/21/2020 Torticollis, unspecified 04/04/2003 020 documented as of this encounter (statuses as of 11/27/2022) [facility] History of Past illness Narrative* Problem Noted Date Resolved Date Elevated blood pressure read ing without diagnosis of hypertension 09/13/2019 04/17/2020 Syncope and collapse 04/26/2019 04/17/2020 Acute otitis externa of right ear 07/15/2018 06/21/2020 Pre-op testing 02/12/2018 06/21/2020 Overview: Added automatically from request for surgery [id number] 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 01/28/2018 0 Last Assessment & Plan: Mild cognitive impairment Left inguinal hernia 01/28/2018 06/21/2020 Spinal stenosis, lumbar lulu on, without neurogenic claudication 01/24/2016 06/21/2020 Malignant neoplasm of prostate 07/23/2010 0 06/21/2020 Last Assessment & Plan: Assessment: s/p prostatectomy, no radiation or chemo Cervicalgia 04/04/2003 06/21/2020 Torticollis, unspecified 04/04/2003 020 documented as of this encounter (statuses as of 01/11/2023) [facility] History of Past illness Narrative* Problem Noted Date Resolved Date Elevated blood pressure read ing without diagnosis of hypertension 09/13/2019 04/17/2020 Syncope and collapse 04/26/2019 04/17/2020 Acute otitis externa of right ear 07/15/2018 06/21/2020 Pre-op testing 02/12/2018 06/21/2020 Overview: Added automatically from request for surgery [id number] 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 01/28/2018 0 Last Assessment & Plan: Mild cognitive impairment Left inguinal hernia 01/28/2018 06/21/2020 Spinal stenosis, lumbar lulu on, without neurogenic claudication 01/24/2016 06/21/2020 Malignant neoplasm of prostate 07/23/2010 0 06/21/2020 Last Assessment & Plan: Assessment: s/p prostatectomy, no radiation or chemo Cervicalgia 04/04/2003 06/21/2020 Torticollis, unspecified 04/04/2003 020 documented as of this encounter (statuses as of 02/25/2023) [facility] History of Past illness Narrative* Problem Noted Date Resolved Date Elevated blood pressure read ing without diagnosis of hypertension 09/13/2019 04/17/2020 Syncope and collapse 04/26/2019 04/17/2020 Acute otitis externa of right ear 07/15/2018 06/21/2020 Pre-op testing 02/12/2018 06/21/2020 Overview: Added automatically from request for surgery [id number] 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 01/28/2018 0 Last Assessment & Plan: Mild cognitive impairment Left inguinal hernia 01/28/2018 06/21/2020 Spinal stenosis, lumbar lulu on, without neurogenic claudication 01/24/2016 06/21/2020 Malignant neoplasm of prostate 07/23/2010 0 06/21/2020 Last Assessment & Plan: Assessment: s/p prostatectomy, no radiation or chemo Cervicalgia 04/04/2003 06/21/2020 Torticollis, unspecified 04/04/2003 020 documented as of this encounter (statuses as of 02/26/2023) [facility] History of Past illness Narrative* Problem Noted Date Resolved Date Elevated blood pressure read ing without diagnosis of hypertension 09/13/2019 04/17/2020 Syncope and collapse 04/26/2019 04/17/2020 Acute otitis externa of right ear 07/15/2018 06/21/2020 Pre-op testing 02/12/2018 06/21/2020 Overview: Added automatically from request for surgery [id number] 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 01/28/2018 0 Last Assessment & Plan: Mild cognitive impairment Left inguinal hernia 01/28/2018 06/21/2020 Spinal stenosis, lumbar lulu on, without neurogenic claudication 01/24/2016 06/21/2020 Malignant neoplasm of prostate 07/23/2010 0 06/21/2020 Last Assessment & Plan: Assessment: s/p prostatectomy, no radiation or chemo Cervicalgia 04/04/2003 06/21/2020 Torticollis, unspecified 04/04/2003 020 documented as of this encounter (statuses as of 02/26/2023) [facility] History of Past illness Narrative* Problem Noted Date Resolved Date Elevated blood pressure read ing without diagnosis of hypertension 09/13/2019 04/17/2020 Syncope and collapse 04/26/2019 04/17/2020 Acute otitis externa of right ear 07/15/2018 06/21/2020 Pre-op testing 02/12/2018 06/21/2020 Overview: Added automatically from request for surgery [id number] 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 01/28/2018 0 Last Assessment & Plan: Mild cognitive impairment Left inguinal hernia 01/28/2018 06/21/2020 Spinal stenosis, lumbar lulu on, without neurogenic claudication 01/24/2016 06/21/2020 Malignant neoplasm of prostate 07/23/2010 0 06/21/2020 Last Assessment & Plan: Assessment: s/p prostatectomy, no radiation or chemo Cervicalgia 04/04/2003 06/21/2020 Torticollis, unspecified 04/04/2003 020 documented as of this encounter (statuses as of 02/26/2023) [facility] History of Past illness Narrative* Problem Noted Date Resolved Date Elevated blood pressure read ing without diagnosis of hypertension 09/13/2019 04/17/2020 Syncope and collapse 04/26/2019 04/17/2020 Acute otitis externa of right ear 07/15/2018 06/21/2020 Pre-op testing 02/12/2018 06/21/2020 Overview: Added automatically from request for surgery [id number] 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 01/28/2018 0 Last Assessment & Plan: Mild cognitive impairment Left inguinal hernia 01/28/2018 06/21/2020 Spinal stenosis, lumbar lulu on, without neurogenic claudication 01/24/2016 06/21/2020 Malignant neoplasm of prostate 07/23/2010 0 06/21/2020 Last Assessment & Plan: Assessment: s/p prostatectomy, no radiation or chemo Cervicalgia 04/04/2003 06/21/2020 Torticollis, unspecified 04/04/2003 020 documented as of this encounter (statuses as of 03/17/2023) [facility] History of Past illness Narrative* Problem Noted Date Resolved Date Elevated blood pressure read ing without diagnosis of hypertension 09/13/2019 04/17/2020 Syncope and collapse 04/26/2019 04/17/2020 Acute otitis externa of right ear 07/15/2018 06/21/2020 Pre-op testing 02/12/2018 06/21/2020 Overview: Added automatically from request for surgery [id number] 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 01/28/2018 0 Last Assessment & Plan: Mild cognitive impairment Left inguinal hernia 01/28/2018 06/21/2020 Spinal stenosis, lumbar lulu on, without neurogenic claudication 01/24/2016 06/21/2020 Malignant neoplasm of prostate 07/23/2010 0 06/21/2020 Last Assessment & Plan: Assessment: s/p prostatectomy, no radiation or chemo Cervicalgia 04/04/2003 06/21/2020 Torticollis, unspecified 04/04/2003 020 documented as of this encounter (statuses as of 03/27/2023) [facility] History of Past illness Narrative* Problem Noted Date Resolved Date Elevated blood pressure read ing without diagnosis of hypertension 09/13/2019 04/17/2020 Syncope and collapse 04/26/2019 04/17/2020 Acute otitis externa of right ear 07/15/2018 06/21/2020 Pre-op testing 02/12/2018 06/21/2020 Overview: Added automatically from request for surgery [id number] 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 01/28/2018 0 Last Assessment & Plan: Mild cognitive impairment Left inguinal hernia 01/28/2018 06/21/2020 Spinal stenosis, lumbar lulu on, without neurogenic claudication 01/24/2016 06/21/2020 Malignant neoplasm of prostate 07/23/2010 0 06/21/2020 Last Assessment & Plan: Assessment: s/p prostatectomy, no radiation or chemo Cervicalgia 04/04/2003 06/21/2020 Torticollis, unspecified 04/04/2003 020 documented as of this encounter (statuses as of 03/28/2023) [facility] History of Past illness Narrative* Problem Noted Date Resolved Date Elevated blood pressure read ing without diagnosis of hypertension 09/13/2019 04/17/2020 Syncope and collapse 04/26/2019 04/17/2020 Acute otitis externa of right ear 07/15/2018 06/21/2020 Pre-op testing 02/12/2018 06/21/2020 Overview: Added automatically from request for surgery [id number] 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 01/28/2018 0 Last Assessment & Plan: Mild cognitive impairment Left inguinal hernia 01/28/2018 06/21/2020 Spinal stenosis, lumbar lulu on, without neurogenic claudication 01/24/2016 06/21/2020 Malignant neoplasm of prostate 07/23/2010 0 06/21/2020 Last Assessment & Plan: Assessment: s/p prostatectomy, no radiation or chemo Cervicalgia 04/04/2003 06/21/2020 Torticollis, unspecified 04/04/2003 020 documented as of this encounter (statuses as of 2023) [facility] History of Past illness Narrative* Problem Noted Date Resolved Date Elevated blood pressure read ing without diagnosis of hypertension 09/13/2019 04/17/2020 Syncope and collapse 04/26/2019 04/17/2020 Acute otitis externa of right ear 07/15/2018 06/21/2020 Pre-op testing 02/12/2018 06/21/2020 Overview: Added automatically from request for surgery [id number] 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 01/28/2018 0 Last Assessment & Plan: Mild cognitive impairment Left inguinal hernia 01/28/2018 06/21/2020 Spinal stenosis, lumbar lulu on, without neurogenic claudication 01/24/2016 06/21/2020 Malignant neoplasm of prostate 07/23/2010 0 06/21/2020 Last Assessment & Plan: Assessment: s/p prostatectomy, no radiation or chemo Cervicalgia 04/04/2003 06/21/2020 Torticollis, unspecified 04/04/2003 020 documented as of this encounter (statuses as of 04/01/2023) [facility] History of Past illness Narrative* Problem Noted Date Diagnosed Date Resolved Date Elevated blood pressure read ing without diagnosis of hypertension 09/13/2019 04/17/2020 Syncope and collapse 04/26/2019 020 Acute otitis externa of right ear 07/15/2018 06/21/2020 Pre-op testing 02/12/2018 06/21/2020 Overview: Added automatically from request for surgery [id number] 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 01/28/201806/21 Last Assessment & Plan: Mild cognitive impairment Left inguinal hernia 01/28/2018 020 Spinal stenosis, lumbar lulu on, without neurogenic claudication 01/24/2016 06/21/2020 Malignant neoplasm of prostate 07/23/2010 06/21/2020 Last Assessment & Plan: Assessment: s/p prostatectomy, no radiation or chemo Cervicalgia 04/04/2003 06/21/2020 Torticollis, unspecified 04/04/2003 documented as of this encounter (statuses as of 04/09/2023) [facility] History of Past illness Narrative* Problem Noted Date Diagnosed Date Resolved Date Elevated blood pressure read ing without diagnosis of hypertension 09/13/2019 04/17/2020 Syncope and collapse 04/26/2019 020 Acute otitis externa of right ear 07/15/2018 06/21/2020 Pre-op testing 02/12/2018 06/21/2020 Overview: Added automatically from request for surgery [id number] 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 01/28/201806/21 Last Assessment & Plan: Mild cognitive impairment Left inguinal hernia 01/28/2018 020 Spinal stenosis, lumbar lulu on, without neurogenic claudication 01/24/2016 06/21/2020 Malignant neoplasm of prostate 07/23/2010 06/21/2020 Last Assessment & Plan: Assessment: s/p prostatectomy, no radiation or chemo Cervicalgia 04/04/2003 06/21/2020 Torticollis, unspecified 04/04/2003 documented as of this encounter (statuses as of 04/11/2023) [facility] History of Past illness Narrative* Problem Noted Date Diagnosed Date Resolved Date Elevated blood pressure read ing without diagnosis of hypertension 09/13/2019 04/17/2020 Syncope and collapse 04/26/2019 020 Acute otitis externa of right ear 07/15/2018 06/21/2020 Pre-op testing 02/12/2018 06/21/2020 Overview: Added automatically from request for surgery [id number] 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 01/28/201806/21 Last Assessment & Plan: Mild cognitive impairment Left inguinal hernia 01/28/2018 020 Spinal stenosis, lumbar lulu on, without neurogenic claudication 01/24/2016 06/21/2020 Malignant neoplasm of prostate 07/23/2010 06/21/2020 Last Assessment & Plan: Assessment: s/p prostatectomy, no radiation or chemo Cervicalgia 04/04/2003 06/21/2020 Torticollis, unspecified 04/04/2003 documented as of this encounter (statuses as of 04/12/2023) [facility] History of Past illness Narrative* Problem Noted Date Diagnosed Date Resolved Date Elevated blood pressure read ing without diagnosis of hypertension 09/13/2019 04/17/2020 Syncope and collapse 04/26/2019 020 Acute otitis externa of right ear 07/15/2018 06/21/2020 Pre-op testing 02/12/2018 06/21/2020 Overview: Added automatically from request for surgery [id number] 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 01/28/201806/21 Last Assessment & Plan: Mild cognitive impairment Left inguinal hernia 01/28/2018 020 Spinal stenosis, lumbar lulu on, without neurogenic claudication 01/24/2016 06/21/2020 Malignant neoplasm of prostate 07/23/2010 06/21/2020 Last Assessment & Plan: Assessment: s/p prostatectomy, no radiation or chemo Cervicalgia 04/04/2003 06/21/2020 Torticollis, unspecified 04/04/2003 documented as of this encounter (statuses as of 04/24/2023) [facility] History of Past illness Narrative* Problem Noted Date Diagnosed Date Resolved Date Elevated blood pressure read ing without diagnosis of hypertension 09/13/2019 04/17/2020 Syncope and collapse 04/26/2019 020 Acute otitis externa of right ear 07/15/2018 06/21/2020 Pre-op testing 02/12/2018 06/21/2020 Overview: Added automatically from request for surgery [id number] 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 01/28/201806/21 Last Assessment & Plan: Mild cognitive impairment Left inguinal hernia 01/28/2018 020 Spinal stenosis, lumbar lulu on, without neurogenic claudication 01/24/2016 06/21/2020 Malignant neoplasm of prostate 07/23/2010 06/21/2020 Last Assessment & Plan: Assessment: s/p prostatectomy, no radiation or chemo Cervicalgia 04/04/2003 06/21/2020 Torticollis, unspecified 04/04/2003 documented as of this encounter (statuses as of 05/07/2023) [facility] History of Past illness Narrative* Problem Noted Date Diagnosed Date Resolved Date Elevated blood pressure read ing without diagnosis of hypertension 09/13/2019 04/17/2020 Syncope and collapse 04/26/2019 020 Acute otitis externa of right ear 07/15/2018 06/21/2020 Pre-op testing 02/12/2018 06/21/2020 Overview: Added automatically from request for surgery [id number] 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 01/28/201806/21 Last Assessment & Plan: Mild cognitive impairment Left inguinal hernia 01/28/2018 020 Spinal stenosis, lumbar lulu on, without neurogenic claudication 01/24/2016 06/21/2020 Malignant neoplasm of prostate 07/23/2010 06/21/2020 Last Assessment & Plan: Assessment: s/p prostatectomy, no radiation or chemo Cervicalgia 04/04/2003 06/21/2020 Torticollis, unspecified 04/04/2003 documented as of this encounter (statuses as of 05/13/2023) [facility] History of Past illness Narrative* Problem Noted Date Diagnosed Date Resolved Date Elevated blood pressure read ing without diagnosis of hypertension 09/13/2019 04/17/2020 Syncope and collapse 04/26/2019 020 Acute otitis externa of right ear 07/15/2018 06/21/2020 Pre-op testing 02/12/2018 06/21/2020 Overview: Added automatically from request for surgery [id number] 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 01/28/201806/21 Last Assessment & Plan: Mild cognitive impairment Left inguinal hernia 01/28/2018 020 Spinal stenosis, lumbar lulu on, without neurogenic claudication 01/24/2016 06/21/2020 Malignant neoplasm of prostate 07/23/2010 06/21/2020 Last Assessment & Plan: Assessment: s/p prostatectomy, no radiation or chemo Cervicalgia 04/04/2003 06/21/2020 Torticollis, unspecified 04/04/2003 documented as of this encounter (statuses as of 05/15/2023) [facility] History of Past illness Narrative* Problem Noted Date Diagnosed Date Resolved Date Elevated blood pressure read ing without diagnosis of hypertension 09/13/2019 04/17/2020 Syncope and collapse 04/26/2019 020 Acute otitis externa of right ear 07/15/2018 06/21/2020 Pre-op testing 02/12/2018 06/21/2020 Overview: Added automatically from request for surgery [id number] 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 01/28/201806/21 Last Assessment & Plan: Mild cognitive impairment Left inguinal hernia 01/28/2018 020 Spinal stenosis, lumbar lulu on, without neurogenic claudication 01/24/2016 06/21/2020 Malignant neoplasm of prostate 07/23/2010 06/21/2020 Last Assessment & Plan: Assessment: s/p prostatectomy, no radiation or chemo Cervicalgia 04/04/2003 06/21/2020 Torticollis, unspecified 04/04/2003 documented as of this encounter (statuses as of 05/19/2023) [facility] History of Past illness Narrative* Problem Noted Date Diagnosed Date Resolved Date Elevated blood pressure read ing without diagnosis of hypertension 09/13/2019 04/17/2020 Syncope and collapse 04/26/2019 020 Acute otitis externa of right ear 07/15/2018 06/21/2020 Pre-op testing 02/12/2018 06/21/2020 Overview: Added automatically from request for surgery [id number] 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 01/28/201806/21 Last Assessment & Plan: Mild cognitive impairment Left inguinal hernia 01/28/2018 020 Spinal stenosis, lumbar lulu on, without neurogenic claudication 01/24/2016 06/21/2020 Malignant neoplasm of prostate 07/23/2010 06/21/2020 Last Assessment & Plan: Assessment: s/p prostatectomy, no radiation or chemo Cervicalgia 04/04/2003 06/21/2020 Torticollis, unspecified 04/04/2003 documented as of this encounter (statuses as of 05/22/2023) [facility] History of Past illness Narrative* Problem Noted Date Diagnosed Date Resolved Date Elevated blood pressure read ing without diagnosis of hypertension 09/13/2019 04/17/2020 Syncope and collapse 04/26/2019 020 Acute otitis externa of right ear 07/15/2018 06/21/2020 Pre-op testing 02/12/2018 06/21/2020 Overview: Added automatically from request for surgery [id number] 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 01/28/201806/21 Last Assessment & Plan: Mild cognitive impairment Left inguinal hernia 01/28/2018 020 Spinal stenosis, lumbar lulu on, without neurogenic claudication 01/24/2016 06/21/2020 Malignant neoplasm of prostate 07/23/2010 06/21/2020 Last Assessment & Plan: Assessment: s/p prostatectomy, no radiation or chemo Cervicalgia 04/04/2003 06/21/2020 Torticollis, unspecified 04/04/2003 documented as of this encounter (statuses as of 05/27/2023) [facility] History of Past illness Narrative* Problem Noted Date Diagnosed Date Resolved Date Elevated blood pressure read ing without diagnosis of hypertension 09/13/2019 04/17/2020 Syncope and collapse 04/26/2019 020 Acute otitis externa of right ear 07/15/2018 06/21/2020 Pre-op testing 02/12/2018 06/21/2020 Overview: Added automatically from request for surgery [id number] 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 01/28/201806/21 Last Assessment & Plan: Mild cognitive impairment Left inguinal hernia 01/28/2018 020 Spinal stenosis, lumbar lulu on, without neurogenic claudication 01/24/2016 06/21/2020 Malignant neoplasm of prostate 07/23/2010 06/21/2020 Last Assessment & Plan: Assessment: s/p prostatectomy, no radiation or chemo Cervicalgia 04/04/2003 06/21/2020 Torticollis, unspecified 04/04/2003 documented as of this encounter (statuses as of 05/27/2023) [facility] History of Past illness Narrative* Problem Noted Date Diagnosed Date Resolved Date Elevated blood pressure read ing without diagnosis of hypertension 09/13/2019 04/17/2020 Syncope and collapse 04/26/2019 020 Acute otitis externa of right ear 07/15/2018 06/21/2020 Pre-op testing 02/12/2018 06/21/2020 Overview: Added automatically from request for surgery [id number] 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 01/28/201806/21 Last Assessment & Plan: Mild cognitive impairment Left inguinal hernia 01/28/2018 020 Spinal stenosis, lumbar lulu on, without neurogenic claudication 01/24/2016 06/21/2020 Malignant neoplasm of prostate 07/23/2010 06/21/2020 Last Assessment & Plan: Assessment: s/p prostatectomy, no radiation or chemo Cervicalgia 04/04/2003 06/21/2020 Torticollis, unspecified 04/04/2003 documented as of this encounter (statuses as of 05/29/2023) [facility] History of Past illness Narrative* Problem Noted Date Diagnosed Date Resolved Date Elevated blood pressure read ing without diagnosis of hypertension 09/13/2019 04/17/2020 Syncope and collapse 04/26/2019 020 Acute otitis externa of right ear 07/15/2018 06/21/2020 Pre-op testing 02/12/2018 06/21/2020 Overview: Added automatically from request for surgery [id number] 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 01/28/201806/21 Last Assessment & Plan: Mild cognitive impairment Left inguinal hernia 01/28/2018 020 Spinal stenosis, lumbar lulu on, without neurogenic claudication 01/24/2016 06/21/2020 Malignant neoplasm of prostate 07/23/2010 06/21/2020 Last Assessment & Plan: Assessment: s/p prostatectomy, no radiation or chemo Cervicalgia 04/04/2003 06/21/2020 Torticollis, unspecified 04/04/2003 documented as of this encounter (statuses as of 05/29/2023) [facility] History of Past illness Narrative* Problem Noted Date Diagnosed Date Resolved Date Elevated blood pressure read ing without diagnosis of hypertension 09/13/2019 04/17/2020 Syncope and collapse 04/26/2019 020 Acute otitis externa of right ear 07/15/2018 06/21/2020 Pre-op testing 02/12/2018 06/21/2020 Overview: Added automatically from request for surgery [id number] 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 01/28/201806/21 Last Assessment & Plan: Mild cognitive impairment Left inguinal hernia 01/28/2018 020 Spinal stenosis, lumbar lulu on, without neurogenic claudication 01/24/2016 06/21/2020 Malignant neoplasm of prostate 07/23/2010 06/21/2020 Last Assessment & Plan: Assessment: s/p prostatectomy, no radiation or chemo Cervicalgia 04/04/2003 06/21/2020 Torticollis, unspecified 04/04/2003 documented as of this encounter (statuses as of 05/31/2023) [facility] History of Past illness Narrative* Problem Noted Date Diagnosed Date Resolved Date Elevated blood pressure read ing without diagnosis of hypertension 09/13/2019 04/17/2020 Syncope and collapse 04/26/2019 020 Acute otitis externa of right ear 07/15/2018 06/21/2020 Pre-op testing 02/12/2018 06/21/2020 Overview: Added automatically from request for surgery [id number] 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 01/28/201806/21 Last Assessment & Plan: Mild cognitive impairment Left inguinal hernia 01/28/2018 020 Spinal stenosis, lumbar lulu on, without neurogenic claudication 01/24/2016 06/21/2020 Malignant neoplasm of prostate 07/23/2010 06/21/2020 Last Assessment & Plan: Assessment: s/p prostatectomy, no radiation or chemo Cervicalgia 04/04/2003 06/21/2020 Torticollis, unspecified 04/04/2003 documented as of this encounter (statuses as of 07/22/2023) [facility] History of Past illness Narrative* Problem Noted Date Diagnosed Date Resolved Date Elevated blood pressure read ing without diagnosis of hypertension 09/13/2019 04/17/2020 Syncope and collapse 04/26/2019 020 Acute otitis externa of right ear 07/15/2018 06/21/2020 Pre-op testing 02/12/2018 06/21/2020 Overview: Added automatically from request for surgery [id number] 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 01/28/201806/21 Last Assessment & Plan: Mild cognitive impairment Left inguinal hernia 01/28/2018 020 Spinal stenosis, lumbar lulu on, without neurogenic claudication 01/24/2016 06/21/2020 Malignant neoplasm of prostate 07/23/2010 06/21/2020 Last Assessment & Plan: Assessment: s/p prostatectomy, no radiation or chemo Cervicalgia 04/04/2003 06/21/2020 Torticollis, unspecified 04/04/2003 documented as of this encounter (statuses as of 07/22/2023) [facility] History of Past illness Narrative* Problem Noted Date Diagnosed Date Resolved Date Elevated blood pressure read ing without diagnosis of hypertension 09/13/2019 04/17/2020 Syncope and collapse 04/26/2019 020 Acute otitis externa of right ear 07/15/2018 06/21/2020 Pre-op testing 02/12/2018 06/21/2020 Overview: Added automatically from request for surgery [id number] 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 01/28/201806/21 Last Assessment & Plan: Mild cognitive impairment Left inguinal hernia 01/28/2018 020 Spinal stenosis, lumbar lulu on, without neurogenic claudication 01/24/2016 06/21/2020 Malignant neoplasm of prostate 07/23/2010 06/21/2020 Last Assessment & Plan: Assessment: s/p prostatectomy, no radiation or chemo Cervicalgia 04/04/2003 06/21/2020 Torticollis, unspecified 04/04/2003 documented as of this encounter (statuses as of 08/03/2023) [facility] History of Past illness Narrative* Problem Noted Date Diagnosed Date Resolved Date Elevated blood pressure read ing without diagnosis of hypertension 09/13/2019 04/17/2020 Syncope and collapse 04/26/2019 020 Acute otitis externa of right ear 07/15/2018 06/21/2020 Pre-op testing 02/12/2018 06/21/2020 Overview: Added automatically from request for surgery [id number] 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 01/28/201806/21 Last Assessment & Plan: Mild cognitive impairment Left inguinal hernia 01/28/2018 020 Spinal stenosis, lumbar lulu on, without neurogenic claudication 01/24/2016 06/21/2020 Malignant neoplasm of prostate 07/23/2010 06/21/2020 Last Assessment & Plan: Assessment: s/p prostatectomy, no radiation or chemo Cervicalgia 04/04/2003 06/21/2020 Torticollis, unspecified 04/04/2003 documented as of this encounter (statuses as of 08/03/2023) [facility] History of Past illness Narrative* Problem Noted Date Diagnosed Date Resolved Date Elevated blood pressure read ing without diagnosis of hypertension 09/13/2019 04/17/2020 Syncope and collapse 04/26/2019 020 Acute otitis externa of right ear 07/15/2018 06/21/2020 Pre-op testing 02/12/2018 06/21/2020 Overview: Added automatically from request for surgery [id number] 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 01/28/201806/21 Last Assessment & Plan: Mild cognitive impairment Left inguinal hernia 01/28/2018 020 Spinal stenosis, lumbar lulu on, without neurogenic claudication 01/24/2016 06/21/2020 Malignant neoplasm of prostate 07/23/2010 06/21/2020 Last Assessment & Plan: Assessment: s/p prostatectomy, no radiation or chemo Cervicalgia 04/04/2003 06/21/2020 Torticollis, unspecified 04/04/2003 documented as of this encounter (statuses as of 08/12/2023) [facility] History of Past illness Narrative* Problem Noted Date Diagnosed Date Resolved Date Elevated blood pressure read ing without diagnosis of hypertension 09/13/2019 04/17/2020 Syncope and collapse 04/26/2019 020 Acute otitis externa of right ear 07/15/2018 06/21/2020 Pre-op testing 02/12/2018 06/21/2020 Overview: Added automatically from request for surgery [id number] 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 01/28/201806/21 Last Assessment & Plan: Mild cognitive impairment Left inguinal hernia 01/28/2018 020 Spinal stenosis, lumbar lulu on, without neurogenic claudication 01/24/2016 06/21/2020 Malignant neoplasm of prostate 07/23/2010 06/21/2020 Last Assessment & Plan: Assessment: s/p prostatectomy, no radiation or chemo Cervicalgia 04/04/2003 06/21/2020 Torticollis, unspecified 04/04/2003 documented as of this encounter (statuses as of 08/15/2023) [facility] History of Past illness Narrative* Problem Noted Date Diagnosed Date Resolved Date Elevated blood pressure read ing without diagnosis of hypertension 09/13/2019 04/17/2020 Syncope and collapse 04/26/2019 020 Acute otitis externa of right ear 07/15/2018 06/21/2020 Pre-op testing 02/12/2018 06/21/2020 Overview: Added automatically from request for surgery [id number] 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 01/28/201806/21 Last Assessment & Plan: Mild cognitive impairment Left inguinal hernia 01/28/2018 020 Spinal stenosis, lumbar lulu on, without neurogenic claudication 01/24/2016 06/21/2020 Malignant neoplasm of prostate 07/23/2010 06/21/2020 Last Assessment & Plan: Assessment: s/p prostatectomy, no radiation or chemo Cervicalgia 04/04/2003 06/21/2020 Torticollis, unspecified 04/04/2003 documented as of this encounter (statuses as of 08/19/2023) [facility] History of Past illness Narrative* Problem Noted Date Diagnosed Date Resolved Date Elevated blood pressure read ing without diagnosis of hypertension 09/13/2019 04/17/2020 Syncope and collapse 04/26/2019 020 Acute otitis externa of right ear 07/15/2018 06/21/2020 Pre-op testing 02/12/2018 06/21/2020 Overview: Added automatically from request for surgery [id number] 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 01/28/201806/21 Last Assessment & Plan: Mild cognitive impairment Left inguinal hernia 01/28/2018 020 Spinal stenosis, lumbar lulu on, without neurogenic claudication 01/24/2016 06/21/2020 Malignant neoplasm of prostate 07/23/2010 06/21/2020 Last Assessment & Plan: Assessment: s/p prostatectomy, no radiation or chemo Cervicalgia 04/04/2003 06/21/2020 Torticollis, unspecified 04/04/2003 documented as of this encounter (statuses as of 09/05/2023) [facility] History of Past illness Narrative* Problem Noted Date Diagnosed Date Resolved Date Elevated blood pressure read ing without diagnosis of hypertension 09/13/2019 04/17/2020 Syncope and collapse 04/26/2019 020 Acute otitis externa of right ear 07/15/2018 06/21/2020 Pre-op testing 02/12/2018 06/21/2020 Overview: Added automatically from request for surgery [id number] 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 01/28/201806/21 Last Assessment & Plan: Mild cognitive impairment Left inguinal hernia 01/28/2018 020 Spinal stenosis, lumbar lulu on, without neurogenic claudication 01/24/2016 06/21/2020 Malignant neoplasm of prostate 07/23/2010 06/21/2020 Last Assessment & Plan: Assessment: s/p prostatectomy, no radiation or chemo Cervicalgia 04/04/2003 06/21/2020 Torticollis, unspecified 04/04/2003 documented as of this encounter (statuses as of 09/09/2023) [facility] note* Diagnosis Acute left-sided low back pain without sciatica- Primary [facility] Diagnosis Acute left-sided low back pain without sciatica- Primary Left lower quadrant abdominal pain [facility] Diagnosis Acute left-sided low back pain without sciatica Left lower quadrant abdominal pain [facility] Diagnosis Acute left-sided low back pain without sciatica Left lower quadrant abdominal pain [facility] Diagnosis Acute left lower quadrant pain- Primary Abdominal pain, left lower quadrant Acute left-sided low back pain without sciatica [facility]* Diagnosis Other hydrocephalus (HCC) [facility]* Diagnosis Other hydrocephalus (HCC) [facility]* Diagnosis Other hydrocephalus (HCC) [facility]* Diagnosis Paroxysmal A-fib (HCC) Atrial fibrillation Syncope, unspecified syncope type documented in this encounter [facility] note* Diagnosis Bradycardia Other specified cardiac dysrhythmias Paroxysmal atrial fibrillation (HCC) Atrial fibrillation Syncope, unspecified syncope type [facility] Diagnosis Vitamin B12 deficiency- Primary Other B-complex deficiencies Dyslipidemia Other and unspecified hyperlipidemia Essential hypertension Unspecified essential hypertension NPH (normal pressure hydrocephalus) (HCC) Idiopathic normal pressure hydrocephalus (INPH) Dysthymia Dysthymic disorder IFG (impaired fasting glucose) Impaired fasting glucose Fatigue, unspecified type Paroxysmal atrial fibrillation (HCC) Atrial fibrillation [facility] Diagnosis Closed fracture of left hip, initial encounter (HCC)- Primary [facility] Diagnosis Pain in left hip- Primary Pain in joint, pelvic region and thigh [facility] this [facility]* Diagnosis Arthritis of hip- Primary Unspecified arthropathy, pelvic region and thigh [facility] Diagnosis Paroxysmal atrial fibrillation (HCC) Atrial fibrillation Essential hypertension Unspecified essential hypertension Vasovagal syncope Syncope and collapse Pure hypercholesterolemia [facility]* Diagnosis Acute cough- Primary URI, acute Acute upper respiratory infections of unspecified site Mild intermittent asthma, uncomplicated Unspecified asthma [facility]* Diagnosis COVID-19- Primary [facility]* Diagnosis Dyslipidemia Other and unspecified hyperlipidemia [facility]* Diagnosis Fatigue, unspecified type- Primary Increased frequency of urination Urinary frequency Elevated troponin Other abnormal blood chemistry Paroxysmal atrial fibrillation (HCC) Atrial fibrillation IFG (impaired fasting glucose) Impaired fasting glucose Vitamin D deficiency Unspecified vitamin D deficiency Elevated brain natriuretic peptide (BNP) level Other nonspecific findings on examination of blood DENNIS (dyspnea on exertion) Other dyspnea and respiratory abnormality [facility]* Diagnosis Groin pain, right- Primary [facility]* Diagnosis Abdominal pain, RLQ- Primary Abdominal pain, right lower quadrant Acute right-sided low back pain without sciatica Nausea and vomiting, unspecified vomiting type documented in this encounter [facility] note* Diagnosis Paroxysmal atrial fibrillation (HCC)- Primary Atrial fibrillation Essential hypertension Unspecified essential hypertension Pure hypercholesterolemia Bradycardia Other specified cardiac dysrhythmias Dizziness and giddiness Vasovagal syncope Syncope and collapse documented in this encounter [facility] note* Diagnosis Vitamin B12 deficiency Other B-complex deficiencies documented in this encounter [facility] note* Diagnosis Right groin pain- Primary Abdominal pain, right lower quadrant Right lumbar pain Lumbago Fluctuating blood pressure Other abnormal clinical finding Fatigue, unspecified type documented in this encounter [facility] note* Diagnosis Paroxysmal atrial fibrillation (HCC)- Primary Atrial fibrillation Irregular cardiac rhythm Cardiac dysrhythmia, unspecified Hypotension, unspecified hypotension type documented in this encounter [facility] note* Diagnosis Paroxysmal atrial fibrillation (HCC) Atrial fibrillation Bradycardia Other specified cardiac dysrhythmias Essential hypertension Unspecified essential hypertension Pure hypercholesterolemia documented in this encounter [facility] note* Diagnosis Other specified hypotension- Primary Vitamin B12 deficiency Other B-complex deficiencies Paroxysmal atrial fibrillation (HCC) Atrial fibrillation Near syncope Syncope and collapse documented in this encounter [facility] note* Diagnosis Vitamin B12 deficiency Other B-complex deficiencies documented in this encounter [facility] note* Diagnosis NPH (normal pressure hydrocephalus) (HCC)- Primary Idiopathic normal pressure hydrocephalus (INPH) documented in this encounter [facility] note* Diagnosis Right groin pain Abdominal pain, right lower quadrant Right lumbar pain Lumbago documented in this encounter [facility] note* Diagnosis Wheezing SOB (shortness of breath) Shortness of breath documented in this encounter [facility] note* Diagnosis NPH (normal pressure hydrocephalus) (HCC) Idiopathic normal pressure hydrocephalus (INPH) documented in this encounter [facility] note* Diagnosis NPH (normal pressure hydrocephalus) (HCC)- Primary Idiopathic normal pressure hydrocephalus (INPH) [facility]* Diagnosis NPH (normal pressure hydrocephalus) (HCC)- Primary Idiopathic normal pressure hydrocephalus (INPH) [facility]* Diagnosis URI, acute- Primary Acute upper respiratory infections of unspecified site Acute cough documented in this encounter [facility] note* Diagnosis Upper respiratory tract infection, unspecified type- Primary Wheezing [facility] Diagnostic Procedure Only (Urgent) - Closed Specialty Diagnoses / Procedures Referred By Contac t Referred To Contact US IMAGING Diagnoses Acute left-sided low back pain without sciatica Left lower quadrant abdominal pain Procedures US ABDOMEN COMPLETE US ABDOMINAL REAL TIME W/IMAGE DOCUMENTATION Abisai Yoder APRN.[employer]ACHINE [employer] [address] [place] [address] Us Imaging Referral ID Status Reason Start Date Expiration Date V isits Requested Visits Authorized [id number] Closed Auto-Generate d Referral 03/08/2022 04/07/2023 1 1 * Diagnostic Procedure Only (Urgent) - Closed Specialty Diagnoses / Procedures Referred By Contac t Referred To Contact XR IMAGING Diagnoses Acute left-sided low back pain without sciatica Left lower quadrant abdominal pain Procedures XR LUMBAR GENERAL 3V AP/LAT/L5-S1 RADEX SPINE LUMBOSACRAL 2/3 VIEWS Abisai Yoder APRN.MACHINE [employer]ENER [address] [place] [address] Xr Imaging Referral ID Status Reason Start Date Expiration Date V isits Requested Visits Authorized [id number] Closed Auto-Generate d Referral 03/08/2022 04/07/2023 1 1 [facility] for referral (narrative)* Diagnostic Procedure Only (Urgent) - Closed Specialty Diagnoses / Procedures Referred By Contac t Referred To Contact XR IMAGING Diagnoses Acute left-sided low back pain without sciatica Left lower quadrant abdominal pain Procedures XR LUMBAR GENERAL 3V AP/LAT/L5-S1 RADEX SPINE LUMBOSACRAL 2/3 VIEWS Abisai Yoder APRN.MACHINE [employer] [address] [place] [address] Xr Imaging Referral ID Status Reason Start Date Expiration Date V isits Requested Visits Authorized [id number] Closed Auto-Generate d Referral 03/08/2022 04/07/2023 1 1 [facility] for referral (narrative)* Diagnostic Procedure Only (Urgent) - Closed Specialty Diagnoses / Procedures Referred By Contac t Referred To Contact US IMAGING Diagnoses Acute left-sided low back pain without sciatica Left lower quadrant abdominal pain Procedures US ABDOMEN COMPLETE US ABDOMINAL REAL TIME W/IMAGE DOCUMENTATION Abisai Yoder APRN.CNP [address] [place] [address] Us Imaging Referral ID Status Reason Start Date Expiration Date V isits Requested Visits Authorized [id number] Closed Auto-Generate d Referral 03/08/2022 04/07/2023 1 1 [facility] for referral (narrative)* Diagnostic Procedure Only (Routine) - Authorized Specialty Diagnoses / Procedures Referred By Contac t Referred To Contact XR IMAGING Diagnoses Other hydrocephalus (HCC) Procedures XR RENTAL CLERK TOOL AND EQUIPMENT SHUNT SERIES 5V SKULL/NECK/CHEST/ABD/CTL ABD RADIOLOGIC EXAMINATION SKULL 4< VIEWS RADIOLOGIC EXAMINATION NECK SOFT TISSUE RADIOLOGIC EXAM CHEST SINGLE VIEW RADIOLOGIC EXAM ABDOMEN 1 VIEW Ellie Gurrola PA-C [address] [place] [address] Xr Imaging Referral ID Status Reason Start Date Expiration Date Visits Requested Visits Authorized [id number] Authorized Auto-Generat ed Referral 03/14/2022 04/13/2023 1 1 * MRI/CT (Routine) - Authorized Specialty Diagnoses / Procedures Referred By Contac t Referred To Contact CT IMAGING Diagnoses Other hydrocephalus (HCC) Procedures CT BRAIN WO IVCON CT HEAD/BRAIN W/O CONTRAST MATERIAL Ellie Gurrola PA-C [address] [place] [address] Ct Imaging Referral ID Status Reason Start Date Expiration Date Visits Requested Visits Authorized [id number] Authorized Auto-Generat ed Referral 03/14/2022 04/13/2023 1 1 T [facility] for referral (narrative)* Diagnostic Procedure Only (Routine) - Closed Specialty Diagnoses / Procedures Referred By Contac t Referred To Contact XR IMAGING Diagnoses Other hydrocephalus (HCC) Procedures XR RENTAL CLERK TOOL AND EQUIPMENT SHUNT SERIES 5V SKULL/NECK/CHEST/ABD/CTL ABD RADIOLOGIC EXAMINATION SKULL 4< VIEWS RADIOLOGIC EXAMINATION NECK SOFT TISSUE RADIOLOGIC EXAM CHEST SINGLE VIEW RADIOLOGIC EXAM ABDOMEN 1 VIEW Ellie Gurrola PA-C [address] [place] [address] Xr Imaging Referral ID Status Reason Start Date Expiration Date V isits Requested Visits Authorized [id number] Closed Auto-Generate d Referral 03/14/2022 04/13/[address] [facility] for referral (narrative)* Diagnostic Procedure Only (Routine) - Closed Specialty Diagnoses / Procedures Referred By Contac t Referred To Contact XR IMAGING Diagnoses Pain in left hip Procedures XR HIP GENERAL 3V PELV/AP/LAT LEFT RADEX HIP UNILATERAL WITH PELVIS 2-3 VIEWS Douglas Nguyễn MD [address] [place] [address] Xr Imaging Referral ID Status Reason Start Date Expiration Date V isits Requested Visits Authorized [id number] Closed Auto-Generate d Referral 09/04/2022 10/04/2023 1 1 [facility] for referral (narrative)* Outpatient Procedure (Routine) - Authorized Specialty Diagnoses / Procedures Referred By Contac t Referred To Contact [facility] Diagnoses Fatigue, unspecified type Increased frequency of urination Elevated troponin Paroxysmal atrial fibrillation (HCC) Procedures ECHO ECHO TTHRC R-T 2D W/WOM-MODE COMPL SPEC&COLR D Kapil Lara DO [address] [place] [address] [facility] [address] [place] [address] Referral ID Status Reason Start Date Expiration Date Visits Requested Visits Authorized [id number] Authorized Auto-Generat ed Referral 02/26/2023 02/26/2024 1 1 [facility] for referral (narrative)* Diagnostic Procedure Only (Routine) - Pending Review Specialty Diagnoses / Procedures Referred By Contac t Referred To Contact XR IMAGING Diagnoses Right groin pain Right lumbar pain Procedures XR HIP GENERAL 3V PELV/AP/LAT RIGHT RADEX HIP UNILATERAL WITH PELVIS 2-3 VIEWS Kapil Lara, DO [address] [place] [address] Xr Imaging Referral ID Status Reason Start Date Expiration Date Visits Requested Visits Authorized [id number] Pending Review Auto-Generat ed Referral 04/23/2023 05/22/2024 1 1 * Diagnostic Procedure Only (Routine) - Pending Review Specialty Diagnoses / Procedures Referred By Contac t Referred To Contact XR IMAGING Diagnoses Right groin pain Right lumbar pain Procedures XR LUMBAR GENERAL 3V AP/LAT/L5-S1 RADEX SPINE LUMBOSACRAL 2/3 VIEWS Kapil Lara, DO [address] [place] [address] Xr Imaging Referral ID Status Reason Start Date Expiration Date Visits Requested Visits Authorized [id number] Pending Review Auto-Generat ed Referral 04/23/2023 05/22/2024 1 1 [facility] for referral (narrative)* Diagnostic Procedure Only (Routine) - Closed Specialty Diagnoses / Procedures Referred By Contac t Referred To Contact XR IMAGING Diagnoses Right groin pain Right lumbar pain Procedures XR HIP GENERAL 3V PELV/AP/LAT RIGHT RADEX HIP UNILATERAL WITH PELVIS 2-3 VIEWS Kapil Lara, DO [address] [place] [address] [place] [address] Referral ID Status Reason Start Date Expiration Date V isits Requested Visits Authorized [id number] Closed Auto-Generate d Referral 04/23/2023 05/22/2024 1 1 * Diagnostic Procedure Only (Routine) - Closed Specialty Diagnoses / Procedures Referred By Contac t Referred To Contact XR IMAGING Diagnoses Right groin pain Right lumbar pain Procedures XR LUMBAR GENERAL 3V AP/LAT/L5-S1 RADEX SPINE LUMBOSACRAL 2/3 VIEWS Kapil Lara, DO [address] [place] [address] [place] [address] Referral ID Status Reason Start Date Expiration Date V isits Requested Visits Authorized [id number] Closed Auto-Generate d Referral 04/23/2023 05/22/2024 1 1 [facility] for visit Narrative* Diagnostic Procedure Only (Urgent) - Closed Specialty Diagnoses / Procedures Referred By Contac t Referred To Contact XR IMAGING Diagnoses Acute left-sided low back pain without sciatica Left lower quadrant abdominal pain Procedures XR LUMBAR GENERAL 3V AP/LAT/L5-S1 RADEX SPINE LUMBOSACRAL 2/3 VIEWS Abisai Yoder APRN.MACHINE FASTENER [address] [place] [address] Xr Imaging Referral ID Status Reason Start Date Expiration Date V isits Requested Visits Authorized [id number] Closed Auto-Generate d Referral 03/08/2022 04/07/2023 1 1 [facility] for visit Narrative* Diagnostic Procedure Only (Routine) - Closed Specialty Diagnoses / Procedures Referred By Contac t Referred To Contact XR IMAGING Diagnoses Other hydrocephalus (HCC) Procedures XR RENTAL CLERK TOOL AND EQUIPMENT SHUNT SERIES 5V SKULL/NECK/CHEST/ABD/CTL ABD RADIOLOGIC EXAMINATION SKULL 4< VIEWS RADIOLOGIC EXAMINATION NECK SOFT TISSUE RADIOLOGIC EXAM CHEST SINGLE VIEW RADIOLOGIC EXAM ABDOMEN 1 VIEW Ellie Gurrola PA-C [address] [place] [address] Xr Imaging Referral ID Status Reason Start Date Expiration Date V isits Requested Visits Authorized [id number] Closed Auto-Generate d Referral 03/14/2022 04/13/2023 1 1 [facility] for visit Narrative* Outpatient Procedure (Routine) - Closed Specialty Diagnoses / Procedures Referred By Contac t Referred To Contact [facility] Diagnoses Bradycardia Paroxysmal atrial fibrillation (HCC) Syncope, unspecified syncope type Procedures ECHO ECHO TTHRC R-T 2D W/WOM-MODE COMPL SPEC&COLR D Aundrea Calvert APRN.MACHINE FASTENER [address] [place] [address] [facility] [address] [place] [address] Referral ID Status Reason Start Date Expiration Date V isits Requested Visits Authorized [id number] Closed Auto-Generate d Referral 03/17/2022 03/17/2023 1 1 [facility] for visit Narrative* Diagnostic Procedure Only (Routine) - Closed Specialty Diagnoses / Procedures Referred By Contac t Referred To Contact XR IMAGING Diagnoses Right groin pain Right lumbar pain Procedures XR HIP GENERAL 3V PELV/AP/LAT RIGHT RADEX HIP UNILATERAL WITH PELVIS 2-3 VIEWS Kapil Lara L, DO [address] [place] [address] [place] [address] Referral ID Status Reason Start Date Expiration Date V isits Requested Visits Authorized [id number] Closed Auto-Generate d Referral 04/23/2023 05/22/2024 1 1 [facility] Summary Purpose Family History No Family History Records FoundNo Family History Records FoundNo Family History Records FoundNo Family History Records Found Advance Directives No Advanced Directives Records FoundDocuments on File Type Date Recorded Patient Showcase Maker Expl anation Advance Directive(s) 11/22/2019 6:17 AM Advance Directive(s) 10/19/2019 9:02 AM Advance Directive(s) 09/06/2019 12:38 PM Advance Directive(s) 04/19/2019 3:49 PM Advance Directive(s) 03/26/2019 3:14 PM Advance Directive(s) 12/23/2018 7:33 AM Advance Directive(s) 11/13/2018 1:39 PM Advance Directive(s) 03/05/2018 11:29 AM Advance Directive(s) 12/31/2017 12:44 PM Advance Directive(s) 05/08/2016 10:56 AM Documents on File Type Date Recorded Patient Showcase Maker Expl anation Advance Directive(s) 11/22/2019 6:17 AM Advance Directive(s) 10/19/2019 9:02 AM Advance Directive(s) 09/06/2019 12:38 PM Advance Directive(s) 04/19/2019 3:49 PM Advance Directive(s) 03/26/2019 3:14 PM Advance Directive(s) 12/23/2018 7:33 AM Advance Directive(s) 11/13/2018 1:39 PM Advance Directive(s) 03/05/2018 11:29 AM Advance Directive(s) 12/31/2017 12:44 PM Advance Directive(s) 05/08/2016 10:56 AM Documents on File Type Date Recorded Patient Showcase Maker Expl anation Advance Directive(s) 03/26/2019 3:14 PM Documents on File Type Date Recorded Patient Showcase Maker Expl anation Advance Directive(s) 03/26/2019 3:14 PM Hospital Course Note HNO ID: [id number] Author: James Gurrola (Pa) Service: Neurosurgery Author Type: Physician Sack Keeper Type: Discharge Summary Filed: 11/23/2019 12:33 PM Note Text: Attestation signed by Abner Serrano at 11/23/2019 1:17 PM Abner Serrano MD DISCHARGE NOTE (Patient Admitted Less than 48 Hours) SERVICE DATE: 11/23/2019 SERVICE TIME: 12:33 PM ADMISSION DATE: 11/22/2019 DISCHARGE DISPOSITION: Home with Home Health Care Awake and alert Ox3 LOPEZ Ambulating with assist DIET: Regular ACTIVITY AFTER DISCHARGE: see dc instr FOLLOW UP CARE REQUIRED: in 2 weeks DISCHARGE MEDICATIONS (ONLY ACTIVATE WHEN READY TO DISCHARGE): Current Discharge Medication List CONTINUE these medications which have NOT CHANGED albuterol HFA (PROVENTIL HFA, VENTOLIN HFA) 2 Puffs Inhale 2 Puffs as instructed every 4 hours as needed for Wheezing/Shortness (more content not included)... Note HNO ID: [id number] Author: Christine Barney (Aa) Service: ? Author Type: Deburrer Type: Anesthesia Procedure Notes Filed: 11/22/2019 8:31 AM Note Text: ANESTHESIOLOGY PROCEDURE NOTE Airway General Information Procedure Start Time/Medication Administration: 11/22/2019 8:13 AM Patient location during procedure: OR Staffing Anesthesiologist: Alexandru MCNEILL: Flora Barney (Aa) Performed by: OSITO Indications and Patient Condition Preoxygenated: yes Difficult Mask: No Indications for airway management: anesthesia anesthesia circuit Method: sleep Airway Accessory: oral airway Final Airway Details Final airway type: endotracheal airway Final Endotracheal Airway: ETT Cuffed: yes Devices used: Glidescope Endotracheal tube insertion site: oral ETT size (mm): 7.5 Measured from: lips Measurement (cm): 23 Placement verified by: capnometry Number of attempts at approach: 2 Ventilation between attempts: BVM Other Attempts Unsuccessful attempted endotracheal techniques: direct laryngoscopy ( (more content not included)... Note HNO ID: [id number] Author: Christine Barney (Aa) Service: ? Author Type: Deburrer Type: Anesthesia Procedure Notes Filed: 11/22/2019 8:32 AM Note Text: ANESTHESIOLOGY PROCEDURE NOTE PIV General Information Procedure Start Time/Medication Administration: 11/22/2019 8:15 AM Patient Location: OR Staffing Anesthesiologist: Alexandru Barney (Aa) Performed by: OSITO Preparation Sterility Preparation: surgical cap used, mask used Procedure prep: alcohol prep. Procedure Details Indication: need for IV access Needle Size/Type: 20 gauge angiocath Orientation: Right Location: Forearm Appropriate fluid pocket was identified and marked: Yes SIGNATURE: Flora Barney CRNA PATIENT NAME: Oni Hernández DATE: November 22, 2019 TIME: 8:31 AM CSN: [id number] Note HNO ID: [id number] Author: James Serrano Service: Neurosurgery Author Type: Physician Type: Brief Op Note Filed: 11/22/2019 8:58 AM Note Text: BRIEF OPERATIVE / PROCEDURE NOTE LOG ID: [id number] SURGERY/PROCEDURE DATE: 11/22/2019 INCISION/PROCEDURE START TIME: 8:40 AM INCISION CLOSE/PROCEDURE END TIME: 8:56 AM SURGEON(S)/PROCEDURALIST(S) AND VERTICA ARCHITECT(S): Surgeon(s) and Role: Panel 1: * Abner Serrano - Primary Panel 2: * Joceline Phillips - Primary Physician Sack Keeper: JET Hackett (Pa); Ellie Ceron) [employer] SURGERY/PROCEDURE(S): Right frontal RENTAL CLERK TOOL AND EQUIPMENT-shunt with Medos valve set at 140 and laparoscopic distal catheter placement ANESTHESIA: General FINDINGS: Clear CSF at first pass ESTIMATED BLOOD LOSS: 5 mls SPECIMENS: None COMPLICATIONS: None PRE-OP/PRE-PROCEDURE DIAGNOSIS: Normal Pressure Hydrocephalus POST-OP/POST-PROCEDURE DIAGNOSIS: Normal Pressure Hydrocephalus SIGNATURE: Abner Serrano MD PATIENT NAME: Oni Hernández DATE: November 22, 2019 T (more content not included)... Procedure Findings Note HNO ID: [id number] Author: Christine Barney (Aa) Service: ? Author Type: Deburrer Type: Anesthesia Procedure Notes Filed: 11/22/2019 8:31 AM Note Text: ANESTHESIOLOGY PROCEDURE NOTE Airway General Information Procedure Start Time/Medication Administration: 11/22/2019 8:13 AM Patient location during procedure: OR Staffing Anesthesiologist: Alexandru Heard CAA: Flora Barney (Aa) Performed by: OSITO Indications and Patient Condition Preoxygenated: yes Difficult Mask: No Indications for airway management: anesthesia anesthesia circuit Method: sleep Airway Accessory: oral airway Final Airway Details Final airway type: endotracheal airway Final Endotracheal Airway: ETT Cuffed: yes Devices used: Glidescope Endotracheal tube insertion site: oral ETT size (mm): 7.5 Measured from: lips Measurement (cm): 23 Placement verified by: capnometry Number of attempts at approach: 2 Ventilation between attempts: BVM Other Attempts Unsuccessful attempted endotracheal techniques: direct laryngoscopy ( (more content not included)... Note HNO ID: [id number] Author: Christine Barney (Aa) Service: ? Author Type: Deburrer Type: Anesthesia Procedure Notes Filed: 11/22/2019 8:32 AM Note Text: ANESTHESIOLOGY PROCEDURE NOTE PIV General Information Procedure Start Time/Medication Administration: 11/22/2019 8:15 AM Patient Location: OR Staffing Anesthesiologist: Alexandru Heard CAA: Flora Barney (Aa) Performed by: CAA Preparation Sterility Preparation: surgical cap used, mask used Procedure prep: alcohol prep. Procedure Details Indication: need for IV access Needle Size/Type: 20 gauge angiocath Orientation: Right Location: Forearm Appropriate fluid pocket was identified and marked: Yes SIGNATURE: Flora Barney CRNA PATIENT NAME: Oni Hernández DATE: November 22, 2019 TIME: 8:31 AM CSN: [id number] Note HNO ID: [id number] Author: James Serrano Service: Neurosurgery Author Type: Physician Type: Brief Op Note Filed: 11/22/2019 8:58 AM Note Text: BRIEF OPERATIVE / PROCEDURE NOTE LOG ID: [id number] SURGERY/PROCEDURE DATE: 11/22/2019 INCISION/PROCEDURE START TIME: 8:40 AM INCISION CLOSE/PROCEDURE END TIME: 8:56 AM SURGEON(S)/PROCEDURALIST(S) AND VERTICA ARCHITECT(S): Surgeon(s) and Role: Panel 1: * Abner Serrano - Primary Panel 2: * Joceline Phillips - Primary Physician Sack Keeper: JET Hackett (Pa); Ellie Gurrola (Pa) SURGERY/PROCEDURE(S): Right frontal RENTAL CLERK TOOL AND EQUIPMENT-shunt with Medos valve set at 140 and laparoscopic distal catheter placement ANESTHESIA: General FINDINGS: Clear CSF at first pass ESTIMATED BLOOD LOSS: 5 mls SPECIMENS: None COMPLICATIONS: None PRE-OP/PRE-PROCEDURE DIAGNOSIS: Normal Pressure Hydrocephalus POST-OP/POST-PROCEDURE DIAGNOSIS: Normal Pressure Hydrocephalus SIGNATURE: Abner Serrano MD PATIENT NAME: Oni Hernández DATE: November 22, 2019 T (more content not included)... Medications Administered Section Inactive Administered Medications - up to 3 most recent administrations Medication Order MAR Action Action Date Dose Rate Site keTORolac 60 mg injection (TORADOL) 60 mg, INTRAMUSCULAR, ONCE, 1 dose, On Fri03/08/22 at 0930, Ketorolac (Toradol) is indicated for the short-term (up to 5 days) management of moderately severe acute pain. Continuation of ketorolac (Toradol) beyond 5 days increases the risk of developing serious adverse events. Please verify the duration of therapy for ketorolac (Toradol)., If ordered PRN for pain, patient/guardian may elect to receive this medication for higher pain levels INSTEAD of the opioid, if preferred: Yes Given 03/08/2022 9:17 AM EDT 60 mg Buttocks, Left Reason for Referral Specialty Diagnoses / Procedures Referred By Contac t Referred To Contact CT IMAGING Diagnoses Other hydrocephalus (HCC) Procedures CT BRAIN WO IVC CT HEAD/BRAIN W/O CONTRAST MATERIAL Ellie Gurrola PA-C [address] [place] [address] Ct Imaging Referral ID Status Reason Start Date Expiration Date V isits Requested Visits Authorized [id number] Closed Auto-Generate d Referral 03/14/2022 04/13/2023 1 1 Specialty Diagnoses / Procedures Referred By Contac t Referred To Contact Orthopedics Diagnoses Closed fracture of left hip, initial encounter (HCC) Procedures CONSULT TO ORTHOPAEDICS OFFICE/OUTPATIENT NEW HIGH MDM 60-74 MINUTES Kapil Lara, [address] [place] [address] Referral ID Status Reason Start Date Expiration Date Visits Requested Visits Authorized [id number] Authorized PCP Requested Referral 2 08/28/2023 1 1 Specialty Diagnoses / Procedures Referred By Contac t Referred To Contact Diagnoses Vitamin B12 deficiency Kapil Lara, DO [address] [place] [address] Referral ID Status Reason Start Date Expiration Date V isits Requested Visits Authorized [id number] Pending Review 1 1 Specialty Diagnoses / Procedures Referred By Contac t Referred To Contact Diagnoses Paroxysmal atrial fibrillation (HCC) Bradycardia Procedures CONSULT TO ELECTROPHYSIOLOGY Oni Grimm MD [address] [place] [id number] Diane Owusu MD [address] [place] [address] Referral ID Status Reason Start Date Expiration Date Visits Requested Visits Authorized [id number] Ref Not Required PCP Requested Referral 05/26/2023 08/24/2023 3 3 Specialty Diagnoses / Procedures Referred By Contac t Referred To Contact Cardiology Diagnoses Paroxysmal atrial fibrillation (HCC) Procedures CONSULT TO CARDIOLOGY OFFICE/OUTPATIENT NEW HIGH MDM 60-74 MINUTES Kapil Lara, DO [address] [place] [address] Referral ID Status Reason Start Date Expiration Date Visits Requested Visits Authorized [id number] Authorized PCP Requested Referral 05/28/2023 05/27/2024 1 1 Specialty Diagnoses / Procedures Referred By Contac t Referred To Contact CT IMAGING Diagnoses NPH (normal pressure hydrocephalus) (HCC) Procedures CT BRAIN WO IVCON CT HEAD/BRAIN W/O CONTRAST MATERIAL Matheus Butler, PARTS SALES MANAGER.MACHINE FASTENER [id number] [facility] [place] [address] Referral ID Status Reason Start Date Expiration Date Visits Requested Visits Authorized [id number] Authorized Auto-Generat ed Referral 3 08/20/2024 1 1 Referral ID Status Reason Start Date Expiration Date V isits Requested Visits Authorized [id number] Closed Auto-Generate d Referral 07/22/2023 08/20/2024 1 1 Specialty Diagnoses / Procedures Referred By Contac t Referred To Contact CT IMAGING Diagnoses NPH (normal pressure hydrocephalus) (HCC) Procedures CT BRAIN WO IVCON CT HEAD/BRAIN W/O CONTRAST MATERIAL Ellie Gurrola PA-C [address] [place] [address] Ct Imaging [place] [address] Referral ID Status Reason Start Date Expiration Date Visits Requested Visits Authorized [id number] Pending Review Auto-Generat ed Referral 3 09/17/2024 1 1 Health Concerns Infection Onset Date Last Indicated Resolved Time COVID-19 Rule-Out 11/25/2022 11/25/2022 Infection Onset Date Last Indicated Resolved Time COVID-19 Rule-Out 11/25/2022 11/25/2022 11/26/2022 3:53 AM EST COVID-19 Confirmed 11/25/2022 11/25/2022 Infection Onset Date Last Indicated Resolved Time COVID-19 Confirmed 11/25/2022 11/25/2022 Infection Onset Date Last Indicated Resolved Time COVID-19 Rule-Out 11/25/2022 11/25/2022 11/26/2022 3:53 AM EST COVID-19 Confirmed 11/25/2022 11/25/2022 8:51 PM EST Additional Source Comments (unrecognized sect ion and content) No Status Records FoundNo Status Records FoundNo Status Records FoundNo Status Records Found INFORMATION SOURCE (unrecogn ized section and content) DATE CREATED AUTHOR AUTHOR'S ORGANIZ ATION 04/22/2020 [facility] DATE CREATED AUTHOR AUTHOR'S ORGANIZ ATION 07/02/2023 [facility] DATE CREATED AUTHOR AUTHOR'S ORGANIZ ATION 10/21/2023 [facility] Source Comments (unrecognize d section and content) In the event this informatio n is protected by the Federal Confidentiality of Alcohol and Drug Abuse Patient Records regulations: The Federal rules restrict any use of the information to criminally investigate or prosecute any alcohol or drug abuse patient.[facility] the event this information is protected by the Federal Confidentiality of Alcohol and Drug Abuse Patient Records regulations: The Federal rules restrict any use of the information to criminally investigate or prosecute any alcohol or drug abuse patient.[facility] the event this information is protected by the Federal Confidentiality of Alcohol and Drug Abuse Patient Records regulations: The Federal rules restrict any use of the information to criminally investigate or prosecute any alcohol or drug abuse patient.[facility] the event this information is protected by the Federal Confidentiality of Alcohol and Drug Abuse Patient Records regulations: The Federal rules restrict any use of the information to criminally investigate or prosecute any alcohol or drug abuse patient.[facility] the event this information is protected by the Federal Confidentiality of Alcohol and Drug Abuse Patient Records regulations: The Federal rules restrict any use of the information to criminally investigate or prosecute any alcohol or drug abuse patient.[facility] the event this information is protected by the Federal Confidentiality of Alcohol and Drug Abuse Patient Records regulations: The Federal rules restrict any use of the information to criminally investigate or prosecute any alcohol or drug abuse patient.[facility] the event this information is protected by the Federal Confidentiality of Alcohol and Drug Abuse Patient Records regulations: The Federal rules restrict any use of the information to criminally investigate or prosecute any alcohol or drug abuse patient.[facility] the event this information is protected by the Federal Confidentiality of Alcohol and Drug Abuse Patient Records regulations: The Federal rules restrict any use of the information to criminally investigate or prosecute any alcohol or drug abuse patient.[facility] the event this information is protected by the Federal Confidentiality of Alcohol and Drug Abuse Patient Records regulations: The Federal rules restrict any use of the information to criminally investigate or prosecute any alcohol or drug abuse patient.[facility] the event this information is protected by the Federal Confidentiality of Alcohol and Drug Abuse Patient Records regulations: The Federal rules restrict any use of the information to criminally investigate or prosecute any alcohol or drug abuse patient.[facility] the event this information is protected by the Federal Confidentiality of Alcohol and Drug Abuse Patient Records regulations: The Federal rules restrict any use of the information to criminally investigate or prosecute any alcohol or drug abuse patient.[facility] the event this information is protected by the Federal Confidentiality of Alcohol and Drug Abuse Patient Records regulations: The Federal rules restrict any use of the information to criminally investigate or prosecute any alcohol or drug abuse patient.[facility] HospitalIn the event this information is protected by the Federal Confidentiality of Alcohol and Drug Abuse Patient Records regulations: The Federal rules restrict any use of the information to criminally investigate or prosecute any alcohol or drug abuse patient.[facility] HospitalIn the event this information is protected by the Federal Confidentiality of Alcohol and Drug Abuse Patient Records regulations: The Federal rules restrict any use of the information to criminally investigate or prosecute any alcohol or drug abuse patient.[facility] HospitalIn the event this information is protected by the Federal Confidentiality of Alcohol and Drug Abuse Patient Records regulations: The Federal rules restrict any use of the information to criminally investigate or prosecute any alcohol or drug abuse patient.[facility] HospitalIn the event this information is protected by the Federal Confidentiality of Alcohol and Drug Abuse Patient Records regulations: The Federal rules restrict any use of the information to criminally investigate or prosecute any alcohol or drug abuse patient.[facility] HospitalIn the event this information is protected by the Federal Confidentiality of Alcohol and Drug Abuse Patient Records regulations: The Federal rules restrict any use of the information to criminally investigate or prosecute any alcohol or drug abuse patient.[facility] HospitalIn the event this information is protected by the Federal Confidentiality of Alcohol and Drug Abuse Patient Records regulations: The Federal rules restrict any use of the information to criminally investigate or prosecute any alcohol or drug abuse patient.[facility] HospitalIn the event this information is protected by the Federal Confidentiality of Alcohol and Drug Abuse Patient Records regulations: The Federal rules restrict any use of the information to criminally investigate or prosecute any alcohol or drug abuse patient.[facility] HospitalIn the event this information is protected by the Federal Confidentiality of Alcohol and Drug Abuse Patient Records regulations: The Federal rules restrict any use of the information to criminally investigate or prosecute any alcohol or drug abuse patient.[facility] HospitalIn the event this information is protected by the Federal Confidentiality of Alcohol and Drug Abuse Patient Records regulations: The Federal rules restrict any use of the information to criminally investigate or prosecute any alcohol or drug abuse patient.[facility] HospitalIn the event this information is protected by the Federal Confidentiality of Alcohol and Drug Abuse Patient Records regulations: The Federal rules restrict any use of the information to criminally investigate or prosecute any alcohol or drug abuse patient.[facility] HospitalIn the event this information is protected by the Federal Confidentiality of Alcohol and Drug Abuse Patient Records regulations: The Federal rules restrict any use of the information to criminally investigate or prosecute any alcohol or drug abuse patient.[facility] HospitalIn the event this information is protected by the Federal Confidentiality of Alcohol and Drug Abuse Patient Records regulations: The Federal rules restrict any use of the information to criminally investigate or prosecute any alcohol or drug abuse patient.[facility] HospitalIn the event this information is protected by the Federal Confidentiality of Alcohol and Drug Abuse Patient Records regulations: The Federal rules restrict any use of the information to criminally investigate or prosecute any alcohol or drug abuse patient.[facility] HospitalIn the event this information is protected by the Federal Confidentiality of Alcohol and Drug Abuse Patient Records regulations: The Federal rules restrict any use of the information to criminally investigate or prosecute any alcohol or drug abuse patient.[facility] HospitalIn the event this information is protected by the Federal Confidentiality of Alcohol and Drug Abuse Patient Records regulations: The Federal rules restrict any use of the information to criminally investigate or prosecute any alcohol or drug abuse patient.[facility] HospitalIn the event this information is protected by the Federal Confidentiality of Alcohol and Drug Abuse Patient Records regulations: The Federal rules restrict any use of the information to criminally investigate or prosecute any alcohol or drug abuse patient.[facility] HospitalIn the event this information is protected by the Federal Confidentiality of Alcohol and Drug Abuse Patient Records regulations: The Federal rules restrict any use of the information to criminally investigate or prosecute any alcohol or drug abuse patient.[facility] HospitalIn the event this information is protected by the Federal Confidentiality of Alcohol and Drug Abuse Patient Records regulations: The Federal rules restrict any use of the information to criminally investigate or prosecute any alcohol or drug abuse patient.[facility] HospitalIn the event this information is protected by the Federal Confidentiality of Alcohol and Drug Abuse Patient Records regulations: The Federal rules restrict any use of the information to criminally investigate or prosecute any alcohol or drug abuse patient.[facility] HospitalIn the event this information is protected by the Federal Confidentiality of Alcohol and Drug Abuse Patient Records regulations: The Federal rules restrict any use of the information to criminally investigate or prosecute any alcohol or drug abuse patient.[facility] HospitalIn the event this information is protected by the Federal Confidentiality of Alcohol and Drug Abuse Patient Records regulations: The Federal rules restrict any use of the information to criminally investigate or prosecute any alcohol or drug abuse patient.[facility] HospitalIn the event this information is protected by the Federal Confidentiality of Alcohol and Drug Abuse Patient Records regulations: The Federal rules restrict any use of the information to criminally investigate or prosecute any alcohol or drug abuse patient.[facility] HospitalIn the event this information is protected by the Federal Confidentiality of Alcohol and Drug Abuse Patient Records regulations: The Federal rules restrict any use of the information to criminally investigate or prosecute any alcohol or drug abuse patient.[facility] HospitalIn the event this information is protected by the Federal Confidentiality of Alcohol and Drug Abuse Patient Records regulations: The Federal rules restrict any use of the information to criminally investigate or prosecute any alcohol or drug abuse patient.[facility] HospitalIn the event this information is protected by the Federal Confidentiality of Alcohol and Drug Abuse Patient Records regulations: The Federal rules restrict any use of the information to criminally investigate or prosecute any alcohol or drug abuse patient.[facility] HospitalIn the event this information is protected by the Federal Confidentiality of Alcohol and Drug Abuse Patient Records regulations: The Federal rules restrict any use of the information to criminally investigate or prosecute any alcohol or drug abuse patient.[facility] HospitalIn the event this information is protected by the Federal Confidentiality of Alcohol and Drug Abuse Patient Records regulations: The Federal rules restrict any use of the information to criminally investigate or prosecute any alcohol or drug abuse patient.[facility] HospitalIn the event this information is protected by the Federal Confidentiality of Alcohol and Drug Abuse Patient Records regulations: The Federal rules restrict any use of the information to criminally investigate or prosecute any alcohol or drug abuse patient.[facility] HospitalIn the event this information is protected by the Federal Confidentiality of Alcohol and Drug Abuse Patient Records regulations: The Federal rules restrict any use of the information to criminally investigate or prosecute any alcohol or drug abuse patient.[facility] HospitalIn the event this information is protected by the Federal Confidentiality of Alcohol and Drug Abuse Patient Records regulations: The Federal rules restrict any use of the information to criminally investigate or prosecute any alcohol or drug abuse patient.[facility] HospitalIn the event this information is protected by the Federal Confidentiality of Alcohol and Drug Abuse Patient Records regulations: The Federal rules restrict any use of the information to criminally investigate or prosecute any alcohol or drug abuse patient.[facility] HospitalIn the event this information is protected by the Federal Confidentiality of Alcohol and Drug Abuse Patient Records regulations: The Federal rules restrict any use of the information to criminally investigate or prosecute any alcohol or drug abuse patient.[facility] HospitalIn the event this information is protected by the Federal Confidentiality of Alcohol and Drug Abuse Patient Records regulations: The Federal rules restrict any use of the information to criminally investigate or prosecute any alcohol or drug abuse patient.[facility] HospitalIn the event this information is protected by the Federal Confidentiality of Alcohol and Drug Abuse Patient Records regulations: The Federal rules restrict any use of the information to criminally investigate or prosecute any alcohol or drug abuse patient.[facility] HospitalIn the event this information is protected by the Federal Confidentiality of Alcohol and Drug Abuse Patient Records regulations: The Federal rules restrict any use of the information to criminally investigate or prosecute any alcohol or drug abuse patient.[facility] HospitalIn the event this information is protected by the Federal Confidentiality of Alcohol and Drug Abuse Patient Records regulations: The Federal rules restrict any use of the information to criminally investigate or prosecute any alcohol or drug abuse patient.[facility] HospitalIn the event this information is protected by the Federal Confidentiality of Alcohol and Drug Abuse Patient Records regulations: The Federal rules restrict any use of the information to criminally investigate or prosecute any alcohol or drug abuse patient.[facility] HospitalIn the event this information is protected by the Federal Confidentiality of Alcohol and Drug Abuse Patient Records regulations: The Federal rules restrict any use of the information to criminally investigate or prosecute any alcohol or drug abuse patient.[facility] HospitalIn the event this information is protected by the Federal Confidentiality of Alcohol and Drug Abuse Patient Records regulations: The Federal rules restrict any use of the information to criminally investigate or prosecute any alcohol or drug abuse patient.[facility] HospitalIn the event this information is protected by the Federal Confidentiality of Alcohol and Drug Abuse Patient Records regulations: The Federal rules restrict any use of the information to criminally investigate or prosecute any alcohol or drug abuse patient.[facility] HospitalIn the event this information is protected by the Federal Confidentiality of Alcohol and Drug Abuse Patient Records regulations: The Federal rules restrict any use of the information to criminally investigate or prosecute any alcohol or drug abuse patient.[facility] HospitalIn the event this information is protected by the Federal Confidentiality of Alcohol and Drug Abuse Patient Records regulations: The Federal rules restrict any use of the information to criminally investigate or prosecute any alcohol or drug abuse patient.[facility] HospitalIn the event this information is protected by the Federal Confidentiality of Alcohol and Drug Abuse Patient Records regulations: The Federal rules restrict any use of the information to criminally investigate or prosecute any alcohol or drug abuse patient.[facility] HospitalIn the event this information is protected by the Federal Confidentiality of Alcohol and Drug Abuse Patient Records regulations: The Federal rules restrict any use of the information to criminally investigate or prosecute any alcohol or drug abuse patient.[facility] HospitalIn the event this information is protected by the Federal Confidentiality of Alcohol and Drug Abuse Patient Records regulations: The Federal rules restrict any use of the information to criminally investigate or prosecute any alcohol or drug abuse patient.[facility] HospitalIn the event this information is protected by the Federal Confidentiality of Alcohol and Drug Abuse Patient Records regulations: The Federal rules restrict any use of the information to criminally investigate or prosecute any alcohol or drug abuse patient.[facility] HospitalIn the event this information is protected by the Federal Confidentiality of Alcohol and Drug Abuse Patient Records regulations: The Federal rules restrict any use of the information to criminally investigate or prosecute any alcohol or drug abuse patient.[facility] HospitalIn the event this information is protected by the Federal Confidentiality of Alcohol and Drug Abuse Patient Records regulations: The Federal rules restrict any use of the information to criminally investigate or prosecute any alcohol or drug abuse patient.[facility] HospitalIn the event this information is protected by the Federal Confidentiality of Alcohol and Drug Abuse Patient Records regulations: The Federal rules restrict any use of the information to criminally investigate or prosecute any alcohol or drug abuse patient.[facility] HospitalIn the event this information is protected by the Federal Confidentiality of Alcohol and Drug Abuse Patient Records regulations: The Federal rules restrict any use of the information to criminally investigate or prosecute any alcohol or drug abuse patient.[facility] HospitalIn the event this information is protected by the Federal Confidentiality of Alcohol and Drug Abuse Patient Records regulations: The Federal rules restrict any use of the information to criminally investigate or prosecute any alcohol or drug abuse patient.[facility] HospitalIn the event this information is protected by the Federal Confidentiality of Alcohol and Drug Abuse Patient Records regulations: The Federal rules restrict any use of the information to criminally investigate or prosecute any alcohol or drug abuse patient.[facility] HospitalIn the event this information is protected by the Federal Confidentiality of Alcohol and Drug Abuse Patient Records regulations: The Federal rules restrict any use of the information to criminally investigate or prosecute any alcohol or drug abuse patient.[facility] Reason for Visit (unrecogniz ed section and content) Reason Comments Orders left sided flank kat n kidney stone history Reason Comments ER F/U possible kidney ston e Back Pain left lower side Reason Comments Radiology US Specialty Diagnoses / Procedures Referred By Contac t Referred To Contact US IMAGING Diagnoses Acute left-sided low back pain without sciatica Left lower quadrant abdominal pain Procedures US ABDOMEN COMPLETE US ABDOMINAL REAL TIME W/IMAGE DOCUMENTATION Abisai Yoder, PAU.MACHINE FASTENER [address] [place] [address] Us Imaging Referral ID Status Reason Start Date Expiration Date V isits Requested Visits Authorized [id number] Closed Auto-Generate d Referral 03/08/2022 04/07/2023 1 1 Reason Comments Results Reason Comments Patient Question Reason Comments Radiology CT Specialty Diagnoses / Procedures Referred By Contac t Referred To Contact CT IMAGING Diagnoses Other hydrocephalus (HCC) Procedures CT BRAIN WO IVCON CT HEAD/BRAIN W/O CONTRAST MATERIAL Ellie Gurrola PA-C [address] [place] [address] Ct Imaging Referral ID Status Reason Start Date Expiration Date V isits Requested Visits Authorized [id number] Closed Auto-Generate d Referral 03/14/2022 04/13/2023 1 1 Reason Comments Patient Update Reason Comments Medication Problem Reason Comments Follow Up 6 months Reason Comments Television Analyzer - Other Reason Comments Information regarding CT scan Reason Comments fractured hip Reason Comments Patient Update Patient Question Reason Comments Left hip fracture Reason Comments Established Patient Pain Specialty Diagnoses / Procedures Referred By Contac t Referred To Contact Orthopedics Diagnoses Closed fracture of left hip, initial encounter (HCC) Procedures CONSULT TO ORTHOPAEDICS OFFICE/OUTPATIENT NEW HIGH MDM 60-74 MINUTES Kapil Lara, DO [address] [place] [address] Referral ID Status Reason Start Date Expiration Date V isits Requested Visits Authorized [id number] Closed PCP Requested Referral 08/28/2022 08/28/2023 1 1 Reason Comments Refill Request Reason Onset Date Comments Refill Request 10/28/2022 Reason Comments Cough Chest congestion, lo w grade fever, CÁRDENAS, sob x 1 day Reason Comments Covid Positive Reason Onset Date Comments Refill Request 01/10/2023 Reason Comments ER F/U Reason Comments ER F/U Reason Comments Groin Pain R side groin pain, s hooting through to lower back x1 day, no injury or fall Reason Comments Follow Up Reason Comments Abdominal Pain Reason Onset Date Comments Refill Request 04/11/2023 Reason Comments Blood Pressure Reading Update Reason Comments ER F/U Reason Comments low blood pressure Reason Comments Hospital Follow Up Hypotension & cardia c dysrhythmia, feeling fatigued Reason Comments Patient Update Hospital Follow Up Reason Comments Established Patient Follow-Up Reason Comments Appointment Reason Comments Follow Up Specialty Diagnoses / Procedures Referred By Contac t Referred To Contact CT IMAGING Diagnoses NPH (normal pressure hydrocephalus) ([facility]) Procedures CT BRAIN WO IVCON CT HEAD/BRAIN W/O CONTRAST MATERIAL Matheus Butler, PARTS SALES MANAGER.MACHINE FASTENER [address] [place] [address] [place] [address] Referral ID Status Reason Start Date Expiration Date V isits Requested Visits Authorized [id number] Closed Auto-Generate d Referral 07/22/2023 08/20/2024 1 1 Reason Comments Established Patient Reason Comments Cough ST, CÁRDENAS, fatigue, pawan st congestion x3 days Reason Comments Recheck Cough with wheezing at night, fatigue, body aches, sore throat. Care Teams (unrecognized sec tion and content) Surface Ship Usw Supervisor Relationship Specialty Start Date End Date Kapil Lara, DO [address] [place] [address] PCP - General Family Practice 01/26/16 Surface Ship Usw Supervisor Relationship Specialty Start Date End Date Kapil Lara, DO [address] [place] [address] PCP - General Family Practice 01/26/16 Surface Ship Usw Supervisor Relationship Specialty Start Date End Date Kapil Lara, DO [address] [place] [address] PCP - General Family Practice 01/26/16 Surface Ship Usw Supervisor Relationship Specialty Start Date End Date Kapil Lara, DO [address] [place] [address] PCP - General Family Practice 01/26/16 Surface Ship Usw Supervisor Relationship Specialty Start Date End Date Kapil Lara, DO [address] [place] [address] PCP - General Family Practice 01/26/16 Surface Ship Usw Supervisor Relationship Specialty Start Date End Date Kapil Lara, DO [address] [place] [address] PCP - General Family Practice 01/26/16 Surface Ship Usw Supervisor Relationship Specialty Start Date End Date Kapil Lara, DO [address] [place] [address] PCP - General Family Practice 01/26/16 Surface Ship Usw Supervisor Relationship Specialty Start Date End Date Kapil Lara, DO [address] [place] [address] PCP - General Family Practice 01/26/16 Surface Ship Usw Supervisor Relationship Specialty Start Date End Date Kapil Lara, DO [address] [place] [address] PCP - General Family Practice 01/26/16 Surface Ship Usw Supervisor Relationship Specialty Start Date End Date Kapil Lara, DO [address] [place] [address] PCP - General Family Practice 01/26/16 Surface Ship Usw Supervisor Relationship Specialty Start Date End Date Kapil Lara, DO [address] [place] [address] PCP - General Family Practice 01/26/16 Surface Ship Usw Supervisor Relationship Specialty Start Date End Date Kapil Lara, DO [address] [place] [address] PCP - General Family Practice 01/26/16 Surface Ship Usw Supervisor Relationship Specialty Start Date End Date Kapil Lara, DO [address] [place] [address] PCP - General Family Practice 01/26/16 Surface Ship Usw Supervisor Relationship Specialty Start Date End Date Kapil Lara, DO [address] [place] [address] PCP - General Family Medicine 01/26/16 Surface Ship Usw Supervisor Relationship Specialty Start Date End Date Kapil Lara, DO [address] [place] [address] PCP - General Family Medicine 01/26/16 Surface Ship Usw Supervisor Relationship Specialty Start Date End Date Kapil Lara, DO [address] [place] [address] PCP - General Family Medicine 01/26/16 Surface Ship Usw Supervisor Relationship Specialty Start Date End Date Kapil Lara, DO [address] [place] [address] PCP - General Family Medicine 01/26/16 Surface Ship Usw Supervisor Relationship Specialty Start Date End Date Kapil Lara, DO [address] [place] [address] PCP - General Family Medicine 01/26/16 Surface Ship Usw Supervisor Relationship Specialty Start Date End Date Kapil Lara, DO [address] [place] [address] PCP - General Family Medicine 01/26/16 Surface Ship Usw Supervisor Relationship Specialty Start Date End Date Kapil Lara, DO [address] [place] [address] PCP - General Family Medicine 01/26/16 Surface Ship Usw Supervisor Relationship Specialty Start Date End Date Kapil Lara, DO [address] [place] [address] PCP - General Family Medicine 01/26/16 Surface Ship Usw Supervisor Relationship Specialty Start Date End Date Kapil Lara, DO [address] [place] [address] PCP - General Family Medicine 01/26/16 Surface Ship Usw Supervisor Relationship Specialty Start Date End Date Kapil Lara, DO [address] [place] [address] PCP - General Family Medicine 01/26/16 Surface Ship Usw Supervisor Relationship Specialty Start Date End Date Kapil Lara, DO [address] [place] [address] PCP - General Family Medicine 01/26/16 Surface Ship Usw Supervisor Relationship Specialty Start Date End Date Kapil Lara, DO [address] [place] [address] PCP - General Family Medicine 01/26/16 Surface Ship Usw Supervisor Relationship Specialty Start Date End Date Kapil Lara, DO [address] [place] [address] PCP - General Family Medicine 01/26/16 Surface Ship Usw Supervisor Relationship Specialty Start Date End Date Kapil Lara, DO [address] [place] [address] PCP - General Family Medicine 01/26/16 Surface Ship Usw Supervisor Relationship Specialty Start Date End Date Kapil Lara DO [address] [facility] [place] [address] PCP - General Family Medicine 01/26/16 Surface Ship Usw Supervisor Relationship Specialty Start Date End Date Kapil Lara DO [address] [facility] [place] [place] [address] PCP - General Family Medicine 01/26/16 Surface Ship Usw Supervisor Relationship Specialty Start Date End Date Kapil Lara DO [address] [facility] [place] [address] PCP - General Family Medicine 01/26/16 Surface Ship Usw Supervisor Relationship Specialty Start Date End Date Kapil Lara DO [address] [place] [address] PCP - General Family Medicine 01/26/16 Surface Ship Usw Supervisor Relationship Specialty Start Date End Date Kapil Lara DO [address] [place] [address] PCP - General Family Medicine 01/26/16 Surface Ship Usw Supervisor Relationship Specialty Start Date End Date Kapil Lara DO [address] [place] [address] PCP - General Family Medicine 01/26/16 Surface Ship Usw Supervisor Relationship Specialty Start Date End Date Kapil Lara DO [address] [place] [address] PCP - General Family Medicine 01/26/16 Surface Ship Usw Supervisor Relationship Specialty Start Date End Date Kapil Lara DO [address] [place] [address] PCP - General Family Medicine 01/26/16 Surface Ship U[employer] Supervisor Relationship Specialty Start Date End Date Kapil Lara DO [address] [place] [address] PCP - General Family Medicine 01/26/16 Surface Ship Usw Supervisor Relationship Specialty Start Date End Date Kapil Lara DO [address] [place] [address] PCP - General Family Medicine 01/26/16 Surface Ship Usw Supervisor Relationship Specialty Start Date End Date Kapil Lara DO [address] [place] [address] PCP - General Family Medicine 01/26/16 Surface Ship Usw Supervisor Relationship Specialty Start Date End Date Kapil Lara DO [address] [place] [address] PCP - General Family Medicine 01/26/16 Surface Ship Usw Supervisor Relationship Specialty Start Date End Date Kapil Lara DO [address] [place] [address] PCP - General Family Medicine 01/26/16 Surface Ship U[employer] Supervisor Relationship Specialty Start Date End Date Kapil Lara DO [address] [place] [address] PCP - General Family Medicine 01/26/16 Surface Ship U[employer] Supervisor Relationship Specialty Start Date End Date Kapil Lara DO [address] [place] [address] PCP - General Family Medicine 01/26/16 Surface Ship U[employer] Supervisor Relationship Specialty Start Date End Date Kapil Lara DO [address] [place] [address] PCP - General Family Medicine 01/26/16 Surface Ship Usw Supervisor Relationship Specialty Start Date End Date Kapil Lara DO [address] [place] [address] PCP - General Family Medicine 01/26/16 Surface Ship U[employer] Supervisor Relationship Specialty Start Date End Date Kapil Lara DO [address] [place] [address] PCP - General Family Medicine 01/26/16 Surface Ship U[employer] Supervisor Relationship Specialty Start Date End Date Kapil Lara DO [address] [place] [address] PCP - General Family Medicine 01/26/16 Surface Ship U[employer] Supervisor Relationship Specialty Start Date End Date Kapil Lara DO [address] [place] [address] PCP - General Family Medicine 01/26/16 Surface Ship Usw Supervisor Relationship Specialty Start Date End Date Kapil Lara DO [address] [place] [address] PCP - General Family Medicine 01/26/16 Surface Ship U[employer] Supervisor Relationship Specialty Start Date End Date Kapil Lara DO [address] [place] [address] PCP - General Family Medicine 01/26/16 FOR RECORDS PERTAINING TO PATIENTS WHO ARE OR HAVE BEEN ENROLLED IN A CHEMICAL DEPENDENCY/SUBSTANCEABUSE PROGRAM, SOME INFORMATION MAY BE OMITTED. This clinical summary was aggregated from multiple sources. Caution should be exercised in using it in the provision of clinical care. This summary normalizes information from multiple sources, and as a consequence, information in this document may materially change the coding, format and clinical context of patient data. In addition, data may be omitted in some cases. CLINICAL DECISIONS SHOULD BE BASED ON THE PRIMARY CLINICAL RECORDS. [facility] [email or web address]. provides no warranty or guarantee of the accuracy or completeness of information in this document.
[2023-10-21 13:05] LABS: Hematocrit 38.5 % (40-54); Hemoglobin 12.1 g/dL (13.0-16.5); Mean Corp Hgb Conc 31.4 g/dL (32-36); Mean Corpuscular Hgb 29.8 pg (27.0-32.0); Mean Corpuscular Volume 94.8 fL (80-94); Mean Platelet Vol. 9.4 fl (6.2-12.0); Platelet Count 270 K/mm3 (150-450); RBC Distribution Width CV 13.4 % (11.6-14.6); RBC Distribution Width SD 46.9 fl (35.1-43.9); Red Blood Count 4.06 M/mm3 (4.6-6.2); White Blood Count 8.4 K/mm3 (4.4-11.0)
[2023-10-21 13:52] LABS: BNP,B-Type NATRIURETIC PEPTIDE 129.8 pg/mL (0-100)
[2023-10-21 14:11] LABS: Anion Gap 4 (5-15); BUN 17 mg/dL (7-18); BUN/Creat Ratio 15.3 RATIO (10-20); Calcium,Total 9.6 mg/dL (8.5-10.1); Chloride 105 mmol/L (98-107); Creatinine, Serum 1.11 mg/dL (0.70-1.30); EST Glomerular Filtration Rate 67 mL/min (>60); Est Glom Filt Rate - Afr Amer 81 mL/min (>60); Glucose 149 mg/dL (74-106); Potassium 4.1 mmol/L (3.5-5.1); Sodium Level 137 mmol/L (136-145); Thyroid Stim Hormone (TSH) 2.15 uIU/mL (0.358-3.74)
== END | disposition home or self-care (01) ==
LOC: LAB 12:33
PROVIDERS: PCP Student in an Organized Health Care Education/Training Program; Referring Provider Nurse Practitioner Gerontology; Visit Provider Nurse Practitioner Gerontology
DX: R06.02 Shortness of breath (principal); I48.92 Unspecified atrial flutter; R53.83 Other fatigue; Z79.01 Long term (current) use of anticoagulants
CPT/HCPCS: 36415; 80048; 83880; 84443; 85027

== ENCOUNTER → 2023-10-30 | Outpatient (CLI) | payer MEDICARE, OTHER, SELFPAY ==
[2023-10-30 13:05] LABS: Anion Gap 3 (5-15); BUN 24 mg/dL (7-18); BUN/Creat Ratio 21.8 RATIO (10-20); Calcium,Total 8.8 mg/dL (8.5-10.1); Chloride 104 mmol/L (98-107); EST Glomerular Filtration Rate 67 mL/min (>60); Est Glom Filt Rate - Afr Amer 82 mL/min (>60); Glucose 90 mg/dL (74-106); Potassium 4.1 mmol/L (3.5-5.1); Sodium Level 135 mmol/L (136-145)
== END | disposition home or self-care (01) ==
LOC: LAB 11:14
PROVIDERS: PCP Student in an Organized Health Care Education/Training Program; Referring Provider Nurse Practitioner Gerontology; Visit Provider Nurse Practitioner Gerontology
DX: Z51.81 Encounter for therapeutic drug level monitoring (principal); Z79.899 Other long term (current) drug therapy
CPT/HCPCS: 36415; 80048

== ENCOUNTER → 2024-01-21 | Outpatient (CLI) | payer MEDICARE, OTHER, SELFPAY ==
[2024-01-21 13:14] LABS: Vitamin D,25 Hydroxy 63.9 ng/mL
== END | disposition home or self-care (01) ==
LOC: LAB 11:41
PROVIDERS: PCP Student in an Organized Health Care Education/Training Program; Visit Provider Physician Assistant Medical
DX: E55.9 Vitamin D deficiency, unspecified (principal); R53.83 Other fatigue
CPT/HCPCS: 36415; 82306

== ENCOUNTER 2024-02-03 10:57 | Day surgery (SDC) | payer MEDICARE, OTHER, SELFPAY ==
[2024-01-29 11:24] LABS: Anion Gap 4 (5-15); BUN 15 mg/dL (7-18); BUN/Creat Ratio 13.6 RATIO (10-20); Calcium,Total 9.2 mg/dL (8.5-10.1); Chloride 105 mmol/L (98-107); EST Glomerular Filtration Rate 67 mL/min (>60); Est Glom Filt Rate - Afr Amer 82 mL/min (>60); Glucose 97 mg/dL (74-106); Potassium 4.3 mmol/L (3.5-5.1); Sodium Level 137 mmol/L (136-145)
[2024-02-02 09:18] VITALS: BMI 26.4
--- NOTE | 2024-02-03 12:30 | PCM.OP.PRO ---
Procedure Report Date of Procedure: 02/03/24 DC cardioversion. 88-year-old man with a history of atrial flutter which is symptomatic. Patient was brought to the cardiac catheterization lab in the postabsorptive nonsedated state. Informed consent was obtained. Anterior-posterior pads were applied. The patient was then seen by Dr. Henley of the critical care division. 40 mg of intravenous propofol was administered and 200 J of DC cardioversion energy were applied with prompt reversal to sinus rhythm. Patient tolerated the procedure well. Conclusion: Successful DC cardioversion from atrial fibrillation flutter to sinus rhythm. Continue as per office protocol.
--- NOTE | 2024-02-03 12:47 | PRO.PCM_ITS ---
Procedure Report Date of Procedure: 02/03/24 CONSCIOUS SEDATION REPORT DATE OF SERVICE: February 03, 2024 BRIEF HISTORY OF PRESENT ILLNESS: The patient is an 88-year-old male who presented to [facility] for elective outpatient cardioversion due to underlying atrial fibrillation. The patient denied ever having undergone a prior cardioversion. He denied any prior anesthetic complications. The patient does have a known history of mild, intermittent asthma. He is systemically anticoagulated on Xarelto. His last surface echocardiogram demonstrated an ejection fraction of approximately 65%. PHYSICAL EXAMINATION: VITAL SIGNS: Reviewed and were acceptable. GENERAL: The patient is a male, in no apparent distress, speaking in full sentences. HEENT: Normocephalic, atraumatic. Mucous membranes are moist and pink. Good mouth opening noted. Trachea is midline. Good neck mobility. CHEST: S1, S2 irregularly irregular. No murmurs, rubs or gallops were noted. LUNGS: Clear to auscultation bilaterally without appreciable wheezes, rales or rhonchi. ABDOMEN: Soft, nontender, nondistended. Positive bowel sounds. EXTREMITIES: There is no clubbing, cyanosis or edema. ASA Class: II DESCRIPTION OF PROCEDURE: After confirmation of informed consent, the patient's anesthesia plan was reviewed in detail. Propofol was chosen. Risks and benefits were reviewed and the patient agreed to proceed. At 1222, the patient was given 40 mg of propofol. The patient achieved an appropriate level of sedation and was given a 200 joule synchronized cardioversion by Dr. Gallardo at the bedside. This was successful in achieving normal sinus rhythm. The patient was monitored until 1235, at which time he reached his baseline mental status and function. The patient tolerated the procedure well. COMPLICATIONS: None ESTIMATED BLOOD LOSS: None RECOMMENDATIONS: Okay to recover in usual fashion. Procedures Pulmonary 9xxxx: [id number] Con Sedation
== END 2024-02-03 13:45 | disposition home or self-care (01) ==
LOC: CLSP 10:58
PROVIDERS: Physician Assistant Medical; PCP Student in an Organized Health Care Education/Training Program; Referring Provider Internal Medicine Cardiovascular Disease; Visit Provider Internal Medicine Cardiovascular Disease
DX: I48.0 Paroxysmal atrial fibrillation (principal); I10 Essential (primary) hypertension; E78.5 Hyperlipidemia, unspecified; Z85.46 Personal history of malignant neoplasm of prostate; Z86.73 Personal history of transient ischemic attack (TIA), and cerebral infarction without residual deficits; Z87.442 Personal history of urinary calculi; R53.83 Other fatigue; E55.9 Vitamin D deficiency, unspecified
CPT/HCPCS: 36415; 80048; 92960; 93005; J7040

== ENCOUNTER → 2024-02-10 | Outpatient (CLI) | payer MEDICARE, OTHER, SELFPAY ==
[2024-02-10 11:28] LABS: Absolute Neutrophil Count 4.5 X10^3/uL (2.0-7.7); Basophil# 0.05 X10^3/uL; Basophil% 0.8 % (0-1); Eosinophil# 0.81 X10^3/uL; Eosinophils% 12.3 % (0-5); Hematocrit 41.1 % (40-54); Hemoglobin 13.1 g/dL (13.0-16.5); Lymphocyte % 6.1 % (19-41); Mean Corp Hgb Conc 31.9 g/dL (32-36); Mean Corpuscular Hgb 29.8 pg (27.0-32.0); Mean Corpuscular Volume 93.4 fL (80-94); Mean Platelet Vol. 9.4 fl (6.2-12.0); Monocyte# 0.74 X10^3/uL; Monocyte% 11.2 % (0-10); NRBC Flagged by Analyzer 0 % (0-5); Neutrophil # 4.54 X10^3/uL (2.7-7.7); Neutrophil % 68.8 % (47-70); POSITIVE DIFFERENTIAL YES; Platelet Count 287 K/mm3 (150-450); RBC Distribution Width CV 14.3 % (11.6-14.6); White Blood Count 6.6 K/mm3 (4.4-11.0)
[2024-02-10 11:47] LABS: BNP,B-Type NATRIURETIC PEPTIDE 39.5 pg/mL (0-100)
[2024-02-10 13:23] LABS: Anion Gap 3 (5-15); BUN 20 mg/dL (7-18); BUN/Creat Ratio 17.7 RATIO (10-20); Calcium,Total 9.1 mg/dL (8.5-10.1); Chloride 105 mmol/L (98-107); Creatinine, Serum 1.13 mg/dL (0.70-1.30); EST Glomerular Filtration Rate 65 mL/min (>60); Est Glom Filt Rate - Afr Amer 79 mL/min (>60); Free T3 1.9 pg/mL (2.18-3.98); Glucose 85 mg/dL (74-106); Potassium 3.7 mmol/L (3.5-5.1); Sodium Level 137 mmol/L (136-145); Thyroid Stim Hormone (TSH) 2.54 uIU/mL (0.358-3.74)
== END | disposition home or self-care (01) ==
LOC: LAB 10:29
PROVIDERS: PCP Student in an Organized Health Care Education/Training Program; Referring Provider Physician Assistant Medical; Visit Provider Physician Assistant Medical
DX: R06.02 Shortness of breath (principal); I48.92 Unspecified atrial flutter
CPT/HCPCS: 36415; 80048; 83880; 84439; 84443; 84481; 85025

== ENCOUNTER 2024-02-12 12:50 | Observation (INO) | payer MEDICARE, OTHER, SELFPAY ==
[2024-02-12] VITALS (7 sets, daily range): BP systolic 105–135; BP diastolic 61–95; PULSE 66–76; RESP 16–24; TEMP 36–36.5; O2SAT 91–99; BMI 25.7; BMI 25.2
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
--- NOTE | 2024-02-12 13:32 | RAD_ITS ---
STUDY: X-RAY CHEST REASON FOR EXAM: Male, 88 years old. Dyspnea TECHNIQUE: PA and lateral views of the chest. COMPARISON: Comparison is made with prior study dated May 12, 2023. FINDINGS: A right-sided ventriculoperitoneal shunt tube is seen. EKG electrodes are seen. Minimal increased markings at the lung bases suggestive of a mild scarring. There is no demonstrated pleural abnormality. Normal size heart. Normal mediastinum and new[place]. Normal visualized pulmonary arteries. There is atherosclerotic calcification of the aortic arch with tortuosity. There are diffuse degenerative changes of the visualized thoracic spine. Normal visualized ribs, clavicles, and shoulders. There is no demonstrated abnormality of the visualized soft tissue structures of the upper abdomen. RAD/Chest PA and Lateral IMPRESSION: Stable examination. No acute abnormality is seen. Electronically Signed: Marco Antonio Cummings MD at 13:52 EDT ,
[2024-02-12 13:35] LABS: Absolute Lymphocyte Count 0.48 X10^3/uL (0.83-4.51); Absolute Neutrophil Count 4.3 X10^3/uL (2.0-7.7); Basophil# 0.04 X10^3/uL; Basophil% 0.7 % (0-1); Eosinophil# 0.44 X10^3/uL; Eosinophils% 7.5 % (0-5); Hematocrit 40.7 % (40-54); Hemoglobin 13.1 g/dL (13.0-16.5); Lymphocyte # 0.48 X10^3/ul (0.83-4.51); Lymphocyte % 8.2 % (19-41); Mean Corp Hgb Conc 32.2 g/dL (32-36); Mean Corpuscular Hgb 29.6 pg (27.0-32.0); Mean Corpuscular Volume 92.1 fL (80-94); Mean Platelet Vol. 8.9 fl (6.2-12.0); Monocyte# 0.56 X10^3/uL; Monocyte% 9.6 % (0-10); NRBC Flagged by Analyzer 0 % (0-5); Neutrophil # 4.29 X10^3/uL (2.7-7.7); Neutrophil % 73.3 % (47-70); POSITIVE DIFFERENTIAL YES; Platelet Count 279 K/mm3 (150-450); RBC Distribution Width SD 47.5 fl (35.1-43.9); Red Blood Count 4.42 M/mm3 (4.6-6.2); White Blood Count 5.9 K/mm3 (4.4-11.0)
--- NOTE | 2024-02-12 13:47 | EKG12_ITS ---
Test Reason : DIZZY/SOB Blood Pressure : / mmHG Vent. Rate : 068 BPM Atrial Rate : 068 BPM P-R Int : 288 ms QRS Dur : 150 ms QT Int : 452 ms P-R-T Axes : 060 -66 009 degrees QTc Int : 480 ms Sinus rhythm with 1st degree A-V block Right bundle branch block Left anterior fascicular block Bifascicular block Cannot rule out Septal infarct , age undetermined Abnormal ECG Confirmed by Jose Miguel Renteria ([id number]), associate entertainment editor VERONICA GARCIAS ([id number]) on 02/16/2024 10:17:21 AM Referred By: Confirmed By:Jose Miguel Renteria
[2024-02-12 13:49] LABS: Anion Gap 1 (5-15); BUN 17 mg/dL (7-18); BUN/Creat Ratio 15.2 RATIO (10-20); Calcium,Total 9.3 mg/dL (8.5-10.1); Chloride 104 mmol/L (98-107); Creatinine, Serum 1.12 mg/dL (0.70-1.30); EST Glomerular Filtration Rate 66 mL/min (>60); Est Glom Filt Rate - Afr Amer 80 mL/min (>60); Estimated Creatinine Clearance 48.88 ml/min; Glucose 115 mg/dL (74-106); Potassium 3.9 mmol/L (3.5-5.1); Sodium Level 134 mmol/L (136-145); Troponin-I HS 10 pg/mL (3.0-78.0)
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
--- NOTE | 2024-02-12 14:22 | NURSING ---
PCU OBS WHITE DYSPNEA, HYPOXIA
--- NOTE | 2024-02-12 15:06 | ECHOD_ITS ---
Reason For Study: DYSPNEA Procedure This was a 2D Doppler, Color Flow transthoracic echocardiogram. The study was technically difficult. Definity deferred due to off axis windows. Exam performed portable in patient room. Left Ventricle Normal LV size. The estimated ejection fraction is 65 %. No evidence for diastolic dysfunction. No regional wall motion abnormalities noted. Right Ventricle Normal RV size. Normal systolic function. Atria Normal left atrium. Normal right atrium. No doppler evidence for ASD. Mitral Valve There is moderate mitral annular calcification. There is no mitral valve stenosis. Trivial mitral valve insufficiency. Tricuspid Valve There is no tricuspid stenosis. Trivial tricuspid valve insufficiency. Unable to estimate RV systolic pressure due to insufficient tricuspid regurgitant envelope. Aortic Valve Trisinus/trileaflet aortic valve. Aortic sclerosis, no stenosis. There is no aortic stenosis. No aortic valve insufficiency. Pulmonic Valve There is no pulmonic valvular stenosis. No pulmonic valve insufficiency. Great Vessels Normal aortic root. Pericardium/Pleural No pericardial effusion. MMode/2D Measurements & Calculations LVIDd: 4.0 cm IVSd: 1.5 cm Ao root diam: 3.2 cm LVIDs: 3.1 cm LVPWd: 1.7 cm FS: 23.4 % LAV(MOD-bp): 58.7 ml LA A4 area: 19.7 cm2 LA dimension(2D): 3.2 cm LAV(MOD-bp) Indexed: 29.4 ml/m2 LAV(MOD-sp2): 58.6 ml LAV(MOD-sp4): 50.7 ml Time Measurements MV dec time: 0.29 sec Doppler Measurements & Calculations MV E max paul: 81.2 cm/sec Lat Peak E' Paul: 11.9 cm/sec Med Peak E' Paul: 6.3 cm/sec MV A max paul: 63.2 cm/sec E/E' lat: 6.8 E/E' med: 13.0 MV E/A: 1.3 MV V2 max: 87.3 cm/sec MV dec slope: 293.3 cm/sec2 Ao V2 max: 186.9 cm/sec MV max P.0 mmHg Ao max P.0 mmHg MV V2 mean: 56.2 cm/sec Ao V2 mean: 111.5 cm/sec MV mean P.4 mmHg Ao mean P.2 mmHg MV V2 VTI: 26.6 cm Ao V2 VTI: 41.6 cm AV (velocity ratio): 0.74 LV V1 max: 135.6 cm/sec PA V2 max: 118.3 cm/sec LV V1 max P.4 mmHg PA V2 mean: 82.4 cm/sec LV V1 mean P.2 mmHg LV V1 mean: 96.6 cm/sec LV V1 VTI: 31.0 cm ECHO/Echo Complete Interpretation Summary The estimated ejection fraction is 65 %. No evidence for diastolic dysfunction. Trivial mitral valve insufficiency. Ordering Physician: Shaye Lau Referring Physician: BRIANA MICHELLE Performed By: Leilani Dunaway RCS
[2024-02-12 16:18] LABS: Troponin-I HS 10 pg/mL (3.0-78.0)
[2024-02-12 16:19] LABS: D-Dimer Quantitative (DVT/PE) < 0.27 FEU/ug/m (0.27-0.49)
[2024-02-12] MEDS: Rivaroxaban 20 MG Tablet PO (17:12)
[2024-02-12 18:19] LABS: BNP,B-Type NATRIURETIC PEPTIDE 54.8 pg/mL (0-100)
[2024-02-12] MEDS: Budesonide Respules 0.5 MG/2 ML AMPUL.NEB. INHALATION (19:37)
[2024-02-12 20:11] LABS: Troponin-I HS 9 pg/mL (3.0-78.0)
[2024-02-12] MEDS: Atorvastatin Calcium 40 MG Tablet PO (20:15)
[2024-02-13] VITALS (7 sets, daily range): BP systolic 136–148; BP diastolic 68–78; PULSE 65–78; RESP 16–20; TEMP 36.6; O2SAT 93–97; BMI 25.2
[2024-02-13 06:33] LABS: Absolute Lymphocyte Count 0.63 X10^3/uL (0.83-4.51); Absolute Neutrophil Count 3.7 X10^3/uL (2.0-7.7); Basophil# 0.06 X10^3/uL; Eosinophils% 16.4 % (0-5); Hematocrit 41.3 % (40-54); Hemoglobin 13.3 g/dL (13.0-16.5); Lymphocyte # 0.63 X10^3/ul (0.83-4.51); Lymphocyte % 10.3 % (19-41); Mean Corp Hgb Conc 32.2 g/dL (32-36); Mean Corpuscular Hgb 29.8 pg (27.0-32.0); Mean Corpuscular Volume 92.4 fL (80-94); Monocyte# 0.69 X10^3/uL; Monocyte% 11.3 % (0-10); NRBC Flagged by Analyzer 0 % (0-5); Neutrophil % 60.5 % (47-70); Platelet Count 288 K/mm3 (150-450); RBC Distribution Width CV 13.9 % (11.6-14.6); RBC Distribution Width SD 47.4 fl (35.1-43.9); Red Blood Count 4.47 M/mm3 (4.6-6.2); White Blood Count 6.1 K/mm3 (4.4-11.0)
[2024-02-13 07:16] LABS: ALB/GLOB Ratio 0.8 RATIO (0.9-2.4); AST(SGOT) 38 U/L (15-37); Alanine Aminotransfer ALT/SGPT 87 U/L (16-61); Alkaline Phosphatase 134 U/L (45-117); Anion Gap 5 (5-15); BUN 15 mg/dL (7-18); BUN/Creat Ratio 17.5 RATIO (10-20); Calcium,Total 9.1 mg/dL (8.5-10.1); Chloride 104 mmol/L (98-107); Creatinine, Serum 0.86 mg/dL (0.70-1.30); EST Glomerular Filtration Rate 90 mL/min (>60); Est Glom Filt Rate - Afr Amer 109 mL/min (>60); Estimated Creatinine Clearance 63.66 ml/min; Globulin 3.8 g/dL (2.2-4.2); Glucose 91 mg/dL (74-106); Protein, Total 6.8 g/dL (6.4-8.2); Sodium Level 136 mmol/L (136-145); Thyroid Stim Hormone (TSH) 2.93 uIU/mL (0.358-3.74)
[2024-02-13] MEDS: Budesonide Respules 0.5 MG/2 ML AMPUL.NEB. INHALATION ×2 (07:19→19:32)
[2024-02-13] MEDS: Amiodarone 200 MG Tablet PO (08:41)
[2024-02-13] MEDS: FLUoxetine 20 MG Capsule PO (08:42)
[2024-02-13] MEDS: dilTIAZem CD 120 MG Capsule PO (08:42)
[2024-02-13] MEDS: Senna/Docusate Sodium 1 Tablet 2 TABLET PO (13:17)
--- NOTE | 2024-02-13 14:18 | PN_ITS ---
Subjective Subjective Patient seen and examined. He still complains of subjective shortness of breath. He denies any cough, chest pain, palpitations, dizziness, nausea, vomiting or any other symptoms. He is on room air. review of systems is otherwise negative. Objective Data Objective Data Vital Signs: Vital Signs Temp Pulse Resp BP Pulse Ox O2 Del Method 98 F 78 16 148/78 H 94 Room Air 02/13/24 08:36 02/13/24 08:36 02/13/24 08:36 02/13/24 08:36 02/13/24 12:44 02/13/24 08:46 Oxygen Delivery Method Room Air Weight: 176 lb 2.389 oz Body Mass Index (BMI) 25.2 Intake & Output: Intake and Output for Last 24 Hours 02/11/24 02/12/24 02/13/24 23:59 23:59 23:59 Intake Total 500 / 500 Balance 500 / 500 Medical Nutrition Assessment Dietitian: Malnutrition Criteria Met Start: 02/12/24 16:53 Freq: Status: Active Protocol: Document 02/12/24 16:53 RMA (Rec: 02/12/24 16:53 RMA [id number]) Nutrition Malnutrition Evidence of Malnutrition Exists Yes Malnutrition (severe): Acute Illness/Injury Evidenced By Suboptimal Energy Intake ( Severe),Weight Loss (Severe) Clinical Problem Acute Disease or Injury Related Malnutrition Etiology Severe protein-calorie malnutrition in the context of acute illness related to increased energy expenditure and inadequate energy intake Signs/Symptoms as evidenced by ~5% weight loss x less than 1 month and PO meeting less than 50% estimated nutrition needs Status Active Problem Unintended Weight Loss Etiology likely related to increased energy expenditure and inadequate energy intake Signs/Symptoms as evidenced by ~5% weight loss in less than 1 month Status Active Problem Recommendation Dietitian Recommendations/Changes Will continue cardiac diet for now, liberalize as indicated. Will add ensure compact TID w/ meals. Additional ONS as needed once PO established with meals. Lab / Micro Data 02/13/24 06:07 02/13/24 06:07 Labs: Laboratory Results - last 24 hr 02/12/24 13:23: D-Dimer Quant (PE/DVT) < 0.27 L, Magnesium 2.0, B-Natriuretic Peptide 54.8 02/12/24 15:46: Troponin I High Sens 10, Procalcitonin 0.10 H 02/12/24 19:29: Troponin I High Sens 9 02/13/24 06:07: WBC 6.1, RBC 4.47 L, Hgb 13.3, Hct 41.3, MCV 92.4, MCH 29.8, MCHC 32.2, RDW Std Deviation 47.4 H, RDW Coeff of Lucy 13.9, Plt Count 288, MPV 9.0, Immature Gran % (Auto) 0.500, Neut % (Auto) 60.5, Lymph % (Auto) 10.3 L, M stephen % (Auto) 11.3 H, Eos % (Auto) 16.4 H, Baso % (Auto) 1.0, Absolute Neuts (auto) 3.7, Absolute Lymphs (auto) 0.63 L, Nucleated RBC % 0, Sodium 136, Potassium 4.0, Chloride 104, Carbon Dioxide 27.0, Anion Gap 5, BUN 15, Creatinine 0.86, Estim Creat Clear Calc 63.66, Est GFR (MDRD) Af Amer 109, Est GFR (MDRD) Non-Af 90, BUN/Creatinine Ratio 17.5, Glucose 91, Calcium 9.1, Total Bilirubin 0.40, AST 38 H, ALT 87 H, Alkaline Phosphatase 134 H, Total Protein 6.8, Albumin 3.0 L, Globulin 3.8, Albumin/Globulin Ratio 0.8 L, TSH 2.93 Micro: Microbiology 02/12/24 22:09 Urine, Clean Catch Legionella Antigen - Final 02/12/24 22:09 Urine, Clean Catch Streptococcus pneumoniae Antigen (M - Final 02/12/24 17:09 Mucosa - Nose Respiratory Panel (PCR) - Final Radiography Diagnostic Testing: Radiology Impression Echocardiogram 02/12/24 15:06 Interpretation Summary The estimated ejection fraction is 65 %. No evidence for diastolic dysfunction. Trivial mitral valve insufficiency. Ordering Physician: Shaye Lau Referring Physician: BRIANA MICHELLE Performed By: Leilani Dunaway RCS Physical Exam Const alert, oriented x3, no apparent distress and well nourished General Appearance: cooperative HEENT normocephalic, head/scalp atraumatic, moist oral mucous membranes, oropharynx normal and gingiva normal Eyes PERRL and EOMs intact bilaterally Neck no lymphadenopathy and supple Resp normal respiratory effort, normal air movement and clear to auscultation bilaterally Cardio regular rate, regular rhythm, S1 normal heart sound, S2 normal heart sound and no murmurs GI normal to inspection, nondistended, normoactive bowel sounds, soft to palpation, non-tender and non-distended Extremity normal capillary refill, no clubbing, cyanosis or edema and no calf tenderness General Extremity: no tenderness to palpation of joints or extremities Skin General Skin Exam: no breakdown Neuro CN's II-XII intact bilaterally, no focal motor deficits and deep tendon reflexes 2+ bilaterally Motor Exam: strength 5/5 throughout and general weakness Psych thought process normal, cooperative and affect normal Appearance: appropriate Assessment & Plan Assessment/Plan (1) Hypoxia: PLAN: Plan #HYpoxia * patient is currently on room air. He is not tachypneic, and is saturating at 94 to 95% on room air. * 2D ech showed EF of 65%, couldnt assess RVSP * Chest x-ray showed no acute cardiopulmonary pathology. Respiratory panel is negative. He is on breathing treatments bronchodilators. * titrate oxygen as needed to maintain sats >90% * #Asthma: doesnt seem to be in exacerbation. He has no wheezing or crackles. on room air. Breathing treatment with bronchodilators #Paroxysmal afib: * on cardizem, amiodarone and xarelto. * Amiodarone can cause lung fibrosis. * This could possibly be a cause of his shortness of breath. * CXR showed only mild scarring in the base of his lungs. * will hold his amiodarone for now, pending pulmonology evaluation # Rheumatoid arthritis: Currently not on any medication. Follow-up with hematology on outpatient basis. #History of hydrocephalus: S/p intracranial shunt placement. Follow-up with neurology on outpatient basis. #History of prostate cancer: Currently stable. Follow-up with urology on outpatient basis. #History of TIA and CVA: On statins #Hypertension: On Cardizem. #Hyperlipidemia: on statin DVT prophylaxis; on xarelto Charges/Coding Visit Charges Inpatient E&M: 64847 Subs Hosp L2
[2024-02-13] MEDS: Magnesium Hydroxide 30 ML UDC PO (14:22)
--- NOTE | 2024-02-13 15:37 | CASEMGMT ---
Met with patient and his to complete BONDS form. BONDS form explained to both who voiced understanding and signed form. Original form placed in pt?s chart and copy provided to?patient. Heidy Nunez, Discharge Planning Asst
--- NOTE | 2024-02-13 16:19 | CASEMGMT ---
RN CM in to discuss needs at discharge with patient and . RN CM reviewed therapy with patient and with recommendations for walker and outpatient therapy. Patient and agreeable to outpatient therapy and walker at discharge. Patient and denied further needs or help at discharge. Green sheet on chart.
[2024-02-13] MEDS: Rivaroxaban 20 MG Tablet PO (17:57)
[2024-02-13] MEDS: Atorvastatin Calcium 40 MG Tablet PO (20:35)
--- NOTE | 2024-02-13 21:52 | CT_ITS ---
EXAM: CT ANGIOGRAPHY CHEST WITHOUT AND WITH INTRAVENOUS CONTRAST CLINICAL INDICATION: dyspnea, hypoxemia - evaluate for VTED, ILD, etc. TECHNIQUE: Helically acquired angiography images were obtained of the chest without and with intravenous contrast. This CT exam was performed using one or more of the following dose reduction techniques: automated exposure control, adjustment of the mA and/or kV according to patient size, and/or use of iterative reconstruction technique. MIP reconstructed images were created and reviewed. CONTRAST: 100 cc of Isovue-300 IV. RADIATION DOSE: CTDIvol = 10.12 mGy, DLP = 386.29 mGy-cm COMPARISON: No relevant prior studies available. FINDINGS: PULMONARY ARTERIES: Unremarkable. Normal in caliber. No evidence of pulmonary embolism. AORTA: Unremarkable. Normal in caliber. No evidence of dissection. GREAT VESSELS OF AORTIC ARCH: Unremarkable. Normal in caliber. No evidence of dissection. LUNGS AND PLEURAL SPACES: Unremarkable. No mass. No consolidation or edema. No pleural effusion or thickening. No pneumothorax. HEART: Coronary artery calcifications. Heart size is normal. No pericardial effusion. MEDIASTINUM: Unremarkable. No mediastinal or hilar adenopathy. Esophagus is unremarkable. No hiatal hernia. THYROID: Unremarkable. No thyroid lesions. BONES/JOINTS: Unremarkable. No suspicious lytic or blastic abnormality. LIVER: Small hepatic cysts. GALLBLADDER AND BILE DUCTS: Cholelithiasis. CT/CTA Chest W/WO Contrast IMPRESSION: 1. No pulmonary embolism or aortic dissection. 2. No acute cardiopulmonary abnormality. 3. Cholelithiasis. 4. Small hepatic cysts. No follow-up necessary. 5. Coronary artery disease. Electronically Signed: Jose Miguel Phan MD at 22:46 EDT ,
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
[2024-02-14 02:58] VITALS: BP 126/75; PULSE 72; RESP 18; TEMP 36.7; O2SAT 94
[2024-02-14 04:07] VITALS: BMI 25.2
[2024-02-14 07:18] LABS: Absolute Neutrophil Count 4.1 X10^3/uL (2.0-7.7); Basophil# 0.05 X10^3/uL; Basophil% 0.8 % (0-1); Eosinophil# 0.85 X10^3/uL; Eosinophils% 13.4 % (0-5); Hematocrit 40.4 % (40-54); Hemoglobin 13.4 g/dL (13.0-16.5); Lymphocyte % 9.5 % (19-41); Mean Corp Hgb Conc 33.2 g/dL (32-36); Mean Corpuscular Hgb 30.3 pg (27.0-32.0); Mean Corpuscular Volume 91.4 fL (80-94); Monocyte# 0.75 X10^3/uL; Monocyte% 11.8 % (0-10); NRBC Flagged by Analyzer 0 % (0-5); Neutrophil # 4.07 X10^3/uL (2.7-7.7); Neutrophil % 64.2 % (47-70); POSITIVE DIFFERENTIAL YES; Platelet Count 302 K/mm3 (150-450); RBC Distribution Width CV 13.9 % (11.6-14.6); RBC Distribution Width SD 46.9 fl (35.1-43.9); Red Blood Count 4.42 M/mm3 (4.6-6.2); White Blood Count 6.3 K/mm3 (4.4-11.0)
[2024-02-14 07:30] VITALS: PULSE 68; RESP 16
[2024-02-14] MEDS: Budesonide Respules 0.5 MG/2 ML AMPUL.NEB. INHALATION (07:30)
[2024-02-14 08:00] LABS: Anion Gap 4 (5-15); BUN 14 mg/dL (7-18); BUN/Creat Ratio 16.1 RATIO (10-20); Chloride 103 mmol/L (98-107); Creatinine, Serum 0.87 mg/dL (0.70-1.30); EST Glomerular Filtration Rate 89 mL/min (>60); Est Glom Filt Rate - Afr Amer 107 mL/min (>60); Estimated Creatinine Clearance 62.93 ml/min; Glucose 90 mg/dL (74-106); Potassium 4.2 mmol/L (3.5-5.1); Sodium Level 135 mmol/L (136-145)
[2024-02-14 09:28] VITALS: BP 122/72; PULSE 72; RESP 18; TEMP 36.4; O2SAT 92
--- NOTE | 2024-02-14 09:30 | DCINST_ITS ---
Discharge Instructions Diet Discharge Diet: Low fat / Low cholesterol Activity Discharge Activity: Return to Normal Activity Weight Bearing Status: Weight bearing as tolerated Dressing / Incision Call your doctor if you observe: Fever of 101 or Higher, Shortness of breath, Dizziness, Swelling in the ankles and Chest pain Follow Up Care Test Results: Test results from this visit will be discussed in further detail at your follow- up appointment, if applicable. 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 Attending Provider: Pippa Kothari Primary Care Provider: Kapil Lara Consulting Providers: Shaye Lau; Mahesh Oakes; Duglas Thompson; Elgin Henley; Harpreet Davenport; Santiago Clifton; Lauryn Velez; Juan Villafuerte; Jeanne Montenegro; Joseph Gtz; Brendon Paredes; Gonzalo Swanson; Minh Caban; Andrea Manjarrez; Derick Chan Instructions Patient Instructions: ED Dyspnea Discharge Orders/Prescriptions Prescriptions: Continued coenzyme Q10 300 mg capsule 300 mg PO DAILY multivitamin [Multiple Vitamins] 1 EACH tablet 1 ea PO DAILY lysine [L-Lysine] 500 MG tablet 500 mg PO DAILY cyanocobalamin (vitamin B-12) 1,000 mcg/mL solution 1,000 mcg IM Q2W albuterol sulfate [ProAir HFA] 90 mcg/actuation HFA aerosol inhaler 2 inh inhalation Q4H PRN (Reason: shortness of breath or wheezing) rosuvastatin 20 mg tablet 20 mg PO DAILY fluoxetine 20 mg capsule 20 mg PO DAILY Xarelto 20 mg tablet 20 mg PO DINNER Qty: 90 3RF amiodarone 200 mg tablet 200 mg PO DAILY Qty: 90 3RF diltiazem HCl 120 mg capsule,extended release 24hr 120 mg PO DAILY Qty: 90 3RF Referrals / Follow Up: Kapil Lara DO [Primary Care Provider] - Within 1 Week Disposition Disposition (needs filled in before D/C Order can be placed): Home, Self Care
--- NOTE | 2024-02-14 09:31 | DS.PCM_ITS ---
Providers Date of Admission: 02/12/24 Date of Discharge: 02/14/24 Primary Care Physician: Dr. Kapil Michelle, DO Consultations 02/13/24 14:08 Consult: Credit Compliance Officer / Pulmonary Medicine Routine Consulting Provider: Intensivists/Pulmonary Med Reason for Consult: shortness of breath EMERGENT Consult: No MD Notified: Yes Date Notified: 02/13/24 Time Notified: 14:08 Method of Notification: Verbal Comments:: Dr Duval informed verbally by phone Reason For Visit: DYSPNEA, HYPOXIA Diagnosis Discharge Diagnosis (1) Hypoxia: Status: Acute Code(s): R09.02 - Hypoxemia Plan #HYpoxia * patient is currently on room air. He is not tachypneic, and is saturating at 94 to 95% on room air. * 2D ech showed EF of 65%, couldnt assess RVSP * Chest x-ray showed no acute cardiopulmonary pathology. Respiratory panel is negative. He is on breathing treatments bronchodilators. * titrate oxygen as needed to maintain sats >90% * #Asthma: doesnt seem to be in exacerbation. He has no wheezing or crackles. on room air. Breathing treatment with bronchodilators #Paroxysmal afib: * on cardizem, amiodarone and xarelto. * Amiodarone can cause lung fibrosis. * This could possibly be a cause of his shortness of breath. * CXR showed only mild scarring in the base of his lungs. * will hold his amiodarone for now, pending pulmonology evaluation # Rheumatoid arthritis: Currently not on any medication. Follow-up with hematology on outpatient basis. #History of hydrocephalus: S/p intracranial shunt placement. Follow-up with neurology on outpatient basis. #History of prostate cancer: Currently stable. Follow-up with urology on outpatient basis. #History of TIA and CVA: On statins #Hypertension: On Cardizem. #Hyperlipidemia: on statin DVT prophylaxis; on xarelto Medications at Discharge Home Medications lysine 500 mg tablet (L-Lysine) 500 mg PO DAILY supplement 05/14/17 multivitamin (Multiple Vitamins tablet) 1 ea PO DAILY supplement 05/14/17 coenzyme Q10 300 mg capsule 300 mg PO DAILY 07/04/23 cyanocobalamin (vitamin B-12) 1,000 mcg/mL injection solution 1,000 mcg IM Q2W vitamin 07/04/23 rivaroxaban 20 mg tablet (Xarelto) 20 mg PO DINNER OK to take with Diltiazem, pt has been on this #90 tabs 11/05/23 diltiazem HCl 120 mg capsule,extended release 24 hr 120 mg PO DAILY #90 caps 12/29/23 albuterol sulfate 90 mcg/actuation aerosol inhaler (ProAir HFA) 2 inh inhalation Q4H PRN shortness of breath or wheezing 02/12/24 fluoxetine 20 mg capsule 20 mg PO DAILY 02/12/24 rosuvastatin 20 mg tablet 20 mg PO DAILY 02/12/24 Hospital Course Operations None Procedures 2-D Echocardiogram Summary of Care Provided Minutes Spent on Discharge: 55 Hospital Course: Patient is an 88-year-old male with a past medical history as outlined including A-fib with recent cardioversion and initiation of amiodarone who was admitted through the ED on 02/12/2024 with a complaint of shortness of breath. He has started feeling short of breath about a week prior to admission. His shortness of breath did not improve. It worsened with exertion. He denied any cough or chest pain, palpitations, dizziness, nausea vomiting or any other symptoms. He was not on any oxygen at home. Review of systems otherwise negative. On admission he was saturating at 96% on room air though he had intermittent desaturation down to 88% on room air. Chest x-ray showed no acute cardiopulmonary findings and EKG showed no acute ST changes. He was admitted and managed for hypoxia of unclear etiology. He was placed on breathing treatments and bronchodilators. He had 2D echo which showed EF of 65% with no evidence of diastolic dysfunction and trivial mitral valve insufficiency. His amiodarone was discontinued as it was thought to be the possible cause of lung toxicity causing shortness of breath. CTA of the chest done showed no evidence of PE. Pulmonology was consulted and reviewed patient and also recommended that amiodarone be discontinued. Patient remained stable and was discharged home on 02/14/2024. He is to follow-up with his primary care doctor within 1 to 2 weeks. He is also to follow-up with cardiology for his A-fib medication to be adjusted in light of his amiodarone having been discontinued. Patient seen and examined prior to discharge. He had no active complaints and had an uneventful night. Review of systems otherwise negative. Labs and vitals reviewed. Home medication reviewed and reconciled. Physical Exam Const alert, oriented x3, no apparent distress and well nourished General Appearance: cooperative, comfortable and well kempt HEENT normocephalic, head/scalp atraumatic, hearing grossly normal bilaterally, moist oral mucous membranes, oropharynx normal and gingiva normal Mouth: oral and palatal mucosa normal Eyes PERRL and EOMs intact bilaterally Neck no lymphadenopathy and supple Resp normal respiratory effort, normal air movement and clear to auscultation bilaterally Cardio regular rate, regular rhythm, S1 normal heart sound, S2 normal heart sound and no murmurs GI normal to inspection, nondistended, normoactive bowel sounds, soft to palpation, non-tender and non-distended Extremity normal to inspection, full ROM, normal capillary refill, no clubbing, cyanosis or edema and no calf tenderness General Extremity: no tenderness to palpation of joints or extremities Skin no rashes or lesions noted General Skin Exam: no breakdown Neuro oriented x3, CN's II-XII intact bilaterally, moves all extremities, no focal motor deficits, no sensory deficits noted and deep tendon reflexes 2+ bilaterally Motor Exam: strength 5/5 throughout and general weakness Psych thought process normal, cooperative and affect normal Appearance: appropriate Medical Records Data Medical Nutrition Assessment Dietitian: Malnutrition Criteria Met Start: 02/12/24 16:53 Freq: Status: Active Protocol: Document 02/12/24 16:53 RMA (Rec: 02/12/24 16:53 RMA [id number]) Nutrition Malnutrition Evidence of Malnutrition Exists Yes Malnutrition (severe): Acute Illness/Injury Evidenced By Suboptimal Energy Intake ( Severe),Weight Loss (Severe) Clinical Problem Acute Disease or Injury Related Malnutrition Etiology Severe protein-calorie malnutrition in the context of acute illness related to increased energy expenditure and inadequate energy intake Signs/Symptoms as evidenced by ~5% weight loss x less than 1 month and PO meeting less than 50% estimated nutrition needs Status Active Problem Unintended Weight Loss Etiology likely related to increased energy expenditure and inadequate energy intake Signs/Symptoms as evidenced by ~5% weight loss in less than 1 month Status Active Problem Recommendation Dietitian Recommendations/Changes Will continue cardiac diet for now, liberalize as indicated. Will add ensure compact TID w/ meals. Additional ONS as needed once PO established with meals. Weight / BMI Weight Weight: 175 lb 14.862 oz Body Mass Index (BMI) 25.2 ABG / Lab / Microbiology Data 02/14/24 06:17 02/14/24 06:10 Laboratory: Laboratory Results - last 24 hr 02/14/24 06:10: Sodium 135 L, Potassium 4.2, Chloride 103, Carbon Dioxide 28.0, Anion Gap 4 L, BUN 14, Creatinine 0.87, Estim Creat Clear Calc 62.93, Est GFR (MDRD) Af Amer 107, Est GFR (MDRD) Non-Af 89, BUN/Creatinine Ratio 16.1, Glucose 90, Calcium 9.0 02/14/24 06:17: WBC 6.3, RBC 4.42 L, Hgb 13.4, Hct 40.4, MCV 91.4, MCH 30.3, MCHC 33.2, RDW Std Deviation 46.9 H, RDW Coeff of Lucy 13.9, Plt Count 302, MPV 9.0, Immature Gran % (Auto) 0.300, Neut % (Auto) 64.2, Lymph % (Auto) 9.5 L, M stephen % (Auto) 11.8 H, Eos % (Auto) 13.4 H, Baso % (Auto) 0.8, Absolute Neuts (auto) 4.1, Absolute Lymphs (auto) 0.60 L, Nucleated RBC % 0 Microbiology: Microbiology 02/12/24 22:09 Urine, Clean Catch Legionella Antigen - Final 02/12/24 22:09 Urine, Clean Catch Streptococcus pneumoniae Antigen (M - Final 02/12/24 17:09 Mucosa - Nose Respiratory Panel (PCR) - Final Radiography Diagnostic Testing: Radiology Impression Echocardiogram 02/12/24 15:06 Interpretation Summary The estimated ejection fraction is 65 %. No evidence for diastolic dysfunction. Trivial mitral valve insufficiency. Ordering Physician: Shaye Lau Referring Physician: KAPIL MICHELLE Performed By: Leilani Dunaway RCS Chest CTA 02/13/24 21:52 IMPRESSION: 1. No pulmonary embolism or aortic dissection. 2. No acute cardiopulmonary abnormality. 3. Cholelithiasis. 4. Small hepatic cysts. No follow-up necessary. 5. Coronary artery disease. Electronically Signed: Jose Miguel Phan MD at 22:46 EDT Reading Location ID and State: [address] [place] [address] Tel , Service support , D/C Instructions Discharge Diet: Low fat / Low cholesterol Discharge Activity: Return to Normal Activity Weight Bearing Status: Weight bearing as tolerated Call your doctor if you observe: Fever of 101 or Higher, Shortness of breath, Dizziness, Swelling in the ankles and Chest pain Meaningful Use Info Meaningful Use Meaningful Use Diagnoses (Choose all that apply): None applicable Ischemic Stroke Statin Dosing Therapy Reference: STATIN DOSE THERAPY REFERENCE: * Patients > 75 years receive moderate or high dose statin therapy. * Patients 75 years or YOUNGER should receive HIGH intensity statin dose unless contraindicated. You will be required to document reason for non-treatment if statin daily dose does not meet guidelines. 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 Attending Provider: Pippa Kothari Primary Care Provider: Kapil Michelle Consulting Providers: Shaye Lau; Mahesh Oakes; Duglas Thompson; Elgin Henley; Harpreet Davenport; Santiago Clifton; Lauryn Velez; Jaun Villafuerte; Jeanne Montenegro; Joseph Gtz; Brendon Paredes; Gonzalo Swanson; Minh Caban; Andrea Manjarrez; Derick Chan Instructions Patient Instructions: ED Dyspnea Discharge Orders/Prescriptions Prescriptions: Continued coenzyme Q10 300 mg capsule 300 mg PO DAILY multivitamin [Multiple Vitamins] 1 EACH tablet 1 ea PO DAILY lysine [L-Lysine] 500 MG tablet 500 mg PO DAILY cyanocobalamin (vitamin B-12) 1,000 mcg/mL solution 1,000 mcg IM Q2W albuterol sulfate [ProAir HFA] 90 mcg/actuation HFA aerosol inhaler 2 inh inhalation Q4H PRN (Reason: shortness of breath or wheezing) rosuvastatin 20 mg tablet 20 mg PO DAILY fluoxetine 20 mg capsule 20 mg PO DAILY Xarelto 20 mg tablet 20 mg PO DINNER Qty: 90 3RF diltiazem HCl 120 mg capsule,extended release 24hr 120 mg PO DAILY Qty: 90 3RF Discontinued amiodarone 200 mg tablet 200 mg PO DAILY Qty: 90 3RF Referrals / Follow Up: Kapil Michelle DO [Primary Care Provider] - Within 1 Week Disposition Disposition (needs filled in before D/C Order can be placed): Home, Self Care Charges/Coding Visit Charges Inpatient E&M: 27567 Disch Hosp >30min
[2024-02-14] MEDS: dilTIAZem CD 120 MG Capsule PO (09:49)
[2024-02-14] MEDS: FLUoxetine 20 MG Capsule PO (09:49)
[2024-02-14] MEDS: Senna/Docusate Sodium 1 Tablet 2 TABLET PO (10:30)
--- NOTE | 2024-02-14 11:03 | NURSING ---
Order form for richard from [employer] filled out and signed by pt. Order form with attached script faxed to [employer]. Pt provided with richard from [employer].
[2024-02-14] MEDS: Fleet Enema 133 ML RC (11:59)
--- NOTE | 2024-02-14 12:53 | PN.CC_ITS ---
Objective Data Objective Data Vital Signs: Vital Signs Last response 3 Temperature 36.4 C L 02/14/24 09:28 Temperature Source Temporal 02/14/24 09:28 Pulse Rate 72 02/14/24 09:28 Respiratory Rate 18 02/14/24 09:28 Respiratory Effort Normal, Non-Labored 02/14/24 09:23 Respiratory Depth Deep 02/14/24 09:23 Respiratory Pattern Normal 02/14/24 09:23 Blood Pressure 122/72 H 02/14/24 09:28 Blood Pressure Mean 88 02/14/24 09:28 Blood Pressure Source Monitor 02/14/24 09:28 Blood Pressure Position Semi-Fowlers 02/14/24 09:28 Blood Pressure Location Right Arm 02/14/24 09:28 Pulse Ox 92 02/14/24 09:28 Oxygen Delivery Method Room Air 02/14/24 09:28 I&O: I&O Last 24 Hours 3 02/13/24 02/14/24 02/14/24 23:59 11:59 23:59 Intake Total 980 / 980 Balance 980 / 980 I&O: Total Stay 3 02/12/24 12:50 thru 02/14/24 06:00 Intake Total 980 Balance 980 Current Meds Ordered / Administered: Current meds ordered / Administered 3 Generic Name Dose Route Start Last Admin Trade Name Myles PRN Reason Stop Dose Admin Acetaminophen 650 mg 02/12/24 15:06 Acetaminophen 325 Mg Tablet PO Q4H PRN PRN Fever, pain 1-10/10 Al Hydroxide/Mg Hydroxide 30 ml 02/12/24 15:06 Mag Hydrox/Al Hydrox/Simeth 30 Ml Udc PO Q6H PRN PRN Gastric Burning Albuterol Sulfate 2.5 mg 02/12/24 15:06 Albuterol 2.5 Mg/3 Ml Vial.Neb. INHALATION Q2H PRN PRN Dyspnea, wheezing Amiodarone HCl 200 mg 02/13/24 10:00 02/13/24 08:41 Amiodarone 200 Mg Tablet PO 200 mg DAILY VICENTE Administration Atorvastatin Calcium 40 mg 02/12/24 22:00 02/13/24 20:35 Atorvastatin Calcium 40 Mg Tablet PO 40 mg QHS VICENTE Administration Budesonide 0.5 mg 02/12/24 15:06 02/14/24 07:30 Budesonide Respules 0.5 Mg/2 Ml Ampul.Neb. INHALATION 0.5 mg BID.RT VICENTE Administration Diltiazem HCl 120 mg 02/13/24 10:00 02/14/24 09:49 Diltiazem Cd 120 Mg Capsule PO 120 mg DAILY VICENTE Administration Protocol Fluoxetine HCl 20 mg 02/13/24 10:00 02/14/24 09:49 Fluoxetine 20 Mg Capsule PO 20 mg DAILY VICENTE Administration Guaifenesin 20 ml 02/12/24 15:06 Guaifenesin 10 Ml Udc (200mg/10ml) PO Q4H PRN PRN COUGH Hydralazine HCl 10 mg 02/12/24 15:06 Hydralazine 20 Mg/Ml Vial IV Q4H PRN PRN SBP > 160 Protocol Magnesium Hydroxide 30 ml 02/13/24 13:08 02/13/24 14:22 Magnesium Hydroxide 30 Ml Udc PO 30 ml BID PRN Administration CONSTIPATION Melatonin 3 mg 02/12/24 15:06 Melatonin 3 Mg Tablet PO QHS PRN PRN INSOMNIA Nitroglycerin 0.4 mg 02/12/24 15:06 Nitroglycerin (Inpatient Use) 0.4 Mg Tab.Subl SL Q5M PRN CARDIAC/CHEST PAIN Ondansetron HCl 4 mg 02/12/24 15:06 Ondansetron 4 Mg/2 Ml Vial IV Q8H PRN PRN NAUSEA/VOMITING Prochlorperazine Edisylate 5 mg 02/12/24 15:06 Prochlorperazine 10 Mg/2 Ml Vial IV Q4H PRN PRN Breakthrough Nausea/Vomiting Rivaroxaban 20 mg 02/12/24 17:00 02/13/24 17:57 Rivaroxaban 20 Mg Tablet PO 20 mg DINNER VICENTE Administration Senna/Docusate Sodium 2 tablet 02/12/24 15:06 02/14/24 10:30 Senna/Docusate Sodium 1 Tablet PO 2 tablet BID PRN PRN Administration Constipation Sodium Chloride 10 - 40 ml 02/12/24 15:12 0.9% Saline Lock 10 Ml Syringe IV UD PRN SALINE FLUSH Medical Records Data Medical Nutrition Assessment Dietitian: Malnutrition Criteria Met Start: 02/12/24 16:53 Freq: Status: Active Protocol: Document 02/12/24 16:53 RMA (Rec: 02/12/24 16:53 RMA [id number]) Nutrition Malnutrition Evidence of Malnutrition Exists Yes Malnutrition (severe): Acute Illness/Injury Evidenced By Suboptimal Energy Intake ( Severe),Weight Loss (Severe) Clinical Problem Acute Disease or Injury Related Malnutrition Etiology Severe protein-calorie malnutrition in the context of acute illness related to increased energy expenditure and inadequate energy intake Signs/Symptoms as evidenced by ~5% weight loss x less than 1 month and PO meeting less than 50% estimated nutrition needs Status Active Problem Unintended Weight Loss Etiology likely related to increased energy expenditure and inadequate energy intake Signs/Symptoms as evidenced by ~5% weight loss in less than 1 month Status Active Problem Recommendation Dietitian Recommendations/Changes Will continue cardiac diet for now, liberalize as indicated. Will add ensure compact TID w/ meals. Additional ONS as needed once PO established with meals. Lab / Micro Data 02/14/24 06:17 02/14/24 06:10 Labs: Laboratory Results - last 24 hr 02/14/24 06:10: Sodium 135 L, Potassium 4.2, Chloride 103, Carbon Dioxide 28.0, Anion Gap 4 L, BUN 14, Creatinine 0.87, Estim Creat Clear Calc 62.93, Est GFR (MDRD) Af Amer 107, Est GFR (MDRD) Non-Af 89, BUN/Creatinine Ratio 16.1, Glucose 90, Calcium 9.0 02/14/24 06:17: WBC 6.3, RBC 4.42 L, Hgb 13.4, Hct 40.4, MCV 91.4, MCH 30.3, MCHC 33.2, RDW Std Deviation 46.9 H, RDW Coeff of Lucy 13.9, Plt Count 302, MPV 9.0, Immature Gran % (Auto) 0.300, Neut % (Auto) 64.2, Lymph % (Auto) 9.5 L, M stephen % (Auto) 11.8 H, Eos % (Auto) 13.4 H, Baso % (Auto) 0.8, Absolute Neuts (auto) 4.1, Absolute Lymphs (auto) 0.60 L, Nucleated RBC % 0 Imaging Radiology Impression Chest CTA 02/13/24 21:52 IMPRESSION: 1. No pulmonary embolism or aortic dissection. 2. No acute cardiopulmonary abnormality. 3. Cholelithiasis. 4. Small hepatic cysts. No follow-up necessary. 5. Coronary artery disease. Electronically Signed: Jose Miguel Phan MD at 22:46 EDT , Assessment and Plan . Assessment and plan: 1. DENNIS w/ exertional hypoxemia 2. Recent DCCV for chronic AF - subsequent amiodarone use 3. CT evidence for COPD, unquantified TREATMENT PLAN -stop amiodarone -watch for now off amio, - PFTs may be useful to quantify the degree of obstructive lung disease Critical Care Time: 50 minutes The entirety of this encounter was done via Telemedicine Physical Exam Const oriented x3 General Appearance: cooperative HEENT normocephalic Eyes PERRL and EOMs intact bilaterally Neck full ROM Chest Chest Narrative: diminished BS bilaterally Resp normal respiratory effort Effort and Inspection: able to speak in complete sentences Cardio regular rate Subjective Subjective Quite chatty this morning. seems to be in good spirits. Not requiring oxygen, denies coughing
== END 2024-02-14 13:19 | disposition home or self-care (01) ==
LOC: ED 14:23 → PCU 14:53
PROVIDERS: Physician Assistant; Admitting Provider Family Medicine; Emergency Provider Emergency Medicine; PCP Student in an Organized Health Care Education/Training Program; Visit Provider Student in an Organized Health Care Education/Training Program
DX: R09.02 Hypoxemia (principal); M06.9 Rheumatoid arthritis, unspecified; F03.90 Unspecified dementia, unspecified severity, without behavioral disturbance, psychotic disturbance, mood disturbance, and anxiety; J44.9 Chronic obstructive pulmonary disease, unspecified; I48.0 Paroxysmal atrial fibrillation; E78.00 Pure hypercholesterolemia, unspecified; I10 Essential (primary) hypertension; Z79.01 Long term (current) use of anticoagulants; J45.909 Unspecified asthma, uncomplicated; Z79.899 Other long term (current) drug therapy; R94.31 Abnormal electrocardiogram [ECG] [EKG]; I45.2 Bifascicular block; I08.1 Rheumatic disorders of both mitral and tricuspid valves; F32.A Depression, unspecified; F41.9 Anxiety disorder, unspecified; E43 Unspecified severe protein-calorie malnutrition; Z68.25 Body mass index [BMI] 25.0-25.9, adult
CPT/HCPCS: 36415; 71046; 71275; 80048; 80053; 83735; 83880; 84145; 84443; 84484; 85025; 85379; 87449; 87633; 93005; 93306; 94640; 94668; 97110; 97162; 97166; 97802; 99221; 99284; Q9967; A4216; G0378

== ENCOUNTER 2024-11-29 14:01 | Observation (INO) | payer MEDICARE, OTHER, SELFPAY ==
[2024-11-29] VITALS (10 sets, daily range): BP systolic 93–151; BP diastolic 60–93; PULSE 69–98; RESP 16–24; TEMP 36.4–36.9; O2SAT 95–99; BMI 25.4
--- NOTE | 2024-11-29 16:04 | CT_ITS ---
EXAM: NONCONTRAST CT SCAN OF THE HEAD CLINICAL HISTORY: Fall COMPARISON: 04/17/2019 TECHNIQUE: CT head was performed without IV contrast. Multiplanar reformats were generated. FINDINGS: Mild/moderate motion limitation predominantly limiting evaluation of the calvarium. Brain: No definite acute territorial infarct, visible intracranial hemorrhage, midline shift or mass effect. Evaluation of the brainstem is limited due to beam hardening artifact. Patchy white matter hypoattenuation, nonspecific but grossly similar to prior, favoring chronic microvascular ischemic changes. Diffuse cerebral volume loss. Ventricles: Interval placement of a partially imaged right frontal approach ventriculostomy with tip in the right lateral ventricle. Similar to perhaps minimally decreased ventriculomegaly involving the lateral ventricles, disproportionate to the degree of cerebral volume loss. Relative sulcal effacement at the vertex has improved. Paranasal sinuses: Unremarkable. Mastoid air cells: Unremarkable. Scalp/calvarium: Question mild contusion involving the right frontal scalp/lateral supraorbital region. Orbits: Unremarkable. Other: Intracranial atherosclerosis. Partially imaged lucency surrounding the roots of left maxillary teeth suggestive of periapical abscess. CT/Brain/Head without Contrast IMPRESSION: 1. Question mild contusion involving the right frontal scalp. No visible acute intracranial hemorrhage or other acute posttraumatic intracranial findings. 2. Recommend outpatient dental evaluation for above findings suspicious for per iapical abscess involving partially imaged roots of left maxillary teeth. 3. interval placement of a ventriculostomy catheter with similar to minimally d ecreased ventriculomegaly involving the lateral ventricles. 4. Additional description as above. Reading Location: [facility]
--- NOTE | 2024-11-29 16:06 | EKG12_ITS ---
Test Reason : Blood Pressure : */* mmHG Vent. Rate : 85 BPM Atrial Rate : 85 BPM P-R Int : 220 ms QRS Dur : 126 ms QT Int : 422 ms P-R-T Axes : 80 -63 25 degrees QTcB Int : 502 ms Sinus rhythm with 1st degree A-V block Right bundle branch block Left anterior fascicular block Bifascicular block Septal infarct (cited on or before 03-Feb-2024) Abnormal ECG Confirmed by Jose Miguel Renteria ([id number]), editor city KIZZY STAHL ([id number]) on 11/30/2024 10:42:12 AM Referred By: FLORENCIO Confirmed By: Jose Miguel Renteria
[2024-11-29] MEDS: 0.9% Normal Saline (1000mL) 1,000 ML 999 ML IV (16:15)
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
[2024-11-29 16:23] LABS: Absolute Lymphocyte Count 0.13 X10^3/uL (0.83-4.51); Basophil# 0.02 X10^3/uL; Basophil% 0.3 % (0-1); Hematocrit 40.6 % (40-54); Hemoglobin 13.7 g/dL (13.0-16.5); Lymphocyte # 0.13 X10^3/ul (0.83-4.51); Lymphocyte % 1.7 % (19-41); Mean Corp Hgb Conc 33.7 g/dL (32-36); Mean Corpuscular Hgb 31.4 pg (27.0-32.0); Mean Corpuscular Volume 92.9 fL (80-94); Mean Platelet Vol. 9.1 fl (6.2-12.0); Monocyte# 0.42 X10^3/uL; Monocyte% 5.5 % (0-10); NRBC Flagged by Analyzer 0 % (0-5); Neutrophil # 7.02 X10^3/uL (2.7-7.7); Neutrophil % 92.1 % (47-70); POSITIVE DIFFERENTIAL YES; Platelet Count 226 K/mm3 (150-450); RBC Distribution Width CV 12.8 % (11.6-14.6); RBC Distribution Width SD 43.8 fl (35.1-43.9); Red Blood Count 4.37 M/mm3 (4.6-6.2); White Blood Count 7.6 K/mm3 (4.4-11.0)
[2024-11-29 17:39] LABS: ALB/GLOB Ratio 1.5 RATIO (0.9-2.4); AST(SGOT) 26 U/L (<=37); Alanine Aminotransfer ALT/SGPT 38 U/L (<=46); Alkaline Phosphatase 90 U/L (40-129); BUN 36 mg/dL (4-19); BUN/Creat Ratio 27.8 RATIO (10-20); Creatinine, Serum 1.29 mg/dL (0.70-1.20); EST Glomerular Filtration Rate 54 (>60); Estimated Creatinine Clearance 41.66 ml/min (50-250); Globulin 2.6 g/dL (2.2-4.2); Glucose 109 mg/dL (70-99); Protein, Total 6.6 g/dL (5.9-8.4); Total Bilirubin 0.59 mg/dL (0.00-1.30)
[2024-11-29 19:48] LABS: Anion Gap 15 (5-15); Calcium,Total 9.5 mg/dL (7.6-11.0); Carbon Dioxide 20.3 mmol/L (21.0-32.0); Chloride 104 mmol/L (98-108); Potassium 4.8 mmol/L (3.3-5.1); Sodium Level 139 mmol/L (133-145)
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
[2024-11-29] MEDS: 0.9% Normal Saline (1000mL) 1,000 ML 125 ML IV (23:00)
[2024-11-30] VITALS: BP 132/62; PULSE 90; RESP 16; TEMP 37.1; O2SAT 97
[2024-11-30 04:00] VITALS: BP 131/64; PULSE 93; RESP 19; TEMP 36.8; O2SAT 96
[2024-11-30 04:53] LABS: Absolute Lymphocyte Count 0.24 X10^3/uL (0.83-4.51); Absolute Neutrophil Count 4.3 X10^3/uL (2.0-7.7); Basophil# 0.01 X10^3/uL; Basophil% 0.2 % (0-1); Eosinophil# 0.07 X10^3/uL; Eosinophils% 1.3 % (0-5); Hematocrit 36.4 % (40-54); Hemoglobin 12.2 g/dL (13.0-16.5); Lymphocyte # 0.24 X10^3/ul (0.83-4.51); Lymphocyte % 4.6 % (19-41); Mean Corp Hgb Conc 33.5 g/dL (32-36); Mean Corpuscular Hgb 31.4 pg (27.0-32.0); Mean Corpuscular Volume 93.6 fL (80-94); Mean Platelet Vol. 9.6 fl (6.2-12.0); Monocyte# 0.64 X10^3/uL; Monocyte% 12.2 % (0-10); NRBC Flagged by Analyzer 0 % (0-5); Neutrophil # 4.28 X10^3/uL (2.7-7.7); Neutrophil % 81.3 % (47-70); POSITIVE DIFFERENTIAL YES; Platelet Count 191 K/mm3 (150-450); RBC Distribution Width CV 13.1 % (11.6-14.6); RBC Distribution Width SD 44.8 fl (35.1-43.9); Red Blood Count 3.89 M/mm3 (4.6-6.2); White Blood Count 5.3 K/mm3 (4.4-11.0)
[2024-11-30 05:40] LABS: Anion Gap 11 (5-15); BUN 31 mg/dL (4-19); BUN/Creat Ratio 31.8 RATIO (10-20); Calcium,Total 8.6 mg/dL (7.6-11.0); Carbon Dioxide 21.1 mmol/L (21.0-32.0); Chloride 108 mmol/L (98-108); Creatinine, Serum 0.98 mg/dL (0.70-1.20); EST Glomerular Filtration Rate 75 (>60); Estimated Creatinine Clearance 54.83 ml/min (50-250); Glucose 79 mg/dL (70-99); Sodium Level 140 mmol/L (133-145)
[2024-11-30 08:28] VITALS: BP 133/80; PULSE 88; RESP 16; TEMP 36.6; O2SAT 94
--- NOTE | 2024-11-30 12:37 | CASEMGMT ---
Addendum entered by Monique Warren 11/30/24 13:10: Pt to dc tomorrow. RN CM into pt room, pt is aware that he will dc tomorrow as he needs to dc when medically ready even if his is not. Pt agreeeable to this. Pt aware that his son called in. He gives permission to talk to Jac his son. TC to Jac, he states pt home is uninhabitable due to the sickness in the home and he is asking for recommendations on electrical equipment tester. He is aware that this RN CM does not have recommendations. He asks for transitional housing for pt. Asked if he meant SNF, he asks if pt qualifies. Son is aware that pt does not qualify for SNF under his medicare as he is in observation but there is an option to private pay. He took this number of RN CM and will notify if this is the route chosen. He asks for the RN CM to his , notified Leticia RN CM to call Jac. Original Note: RN CM into pt room, pt lying in bed in no distress. Pt reports he has a walker at home that he typically uses. Spoke with pt nurse and pt walked walsh with nurse without AD. Pt reports being indep typically at home but states he was so dehydrated. Pt reports he does feel stronger but does not want to return home unless his is being dc'd. Pt states he needs her to cook and look after him and he look after her. Discussed any other reasons pt could not return home and he denied. Pt denies need for any HHC or therapy post dc. Updated hospitalist.
[2024-11-30 14:29] VITALS: BP 154/82; PULSE 82; RESP 18; TEMP 36.6; O2SAT 94
--- NOTE | 2024-11-30 15:29 | PN_ITS ---
Subjective Subjective Patient seen and examined. He had no active complaints. He was admitted with nausea and vomiting which have now resolved. Patient is hard of hearing. Review of systems otherwise negative. He has remained hemodynamically stable. Objective Data Objective Data Vital Signs: Vital Signs Temp Pulse Resp BP Pulse Ox O2 Del Method 97.8 F 82 18 154/82 H 94 Room Air 11/30/24 14:29 11/30/24 14:29 11/30/24 14:29 11/30/24 14:29 11/30/24 14:29 11/30/24 14:58 Oxygen Delivery Method Room Air Weight: 177 lb 4.026 oz Body Mass Index (BMI) 25.4 Intake & Output: Intake and Output for Last 24 Hours 11/28/24 11/29/24 11/30/24 23:59 23:59 23:59 Intake Total 1000 / 1250 970 / 970 Balance 1000 / 1250 970 / 970 Lab / Micro Data 11/30/24 04:00 11/30/24 04:00 Labs: Laboratory Results - last 24 hr 11/29/24 16:15: WBC 7.6, RBC 4.37 L, Hgb 13.7, Hct 40.6, MCV 92.9, MCH 31.4, MCHC 33.7, RDW Std Deviation 43.8, RDW Coeff of Lucy 12.8, Plt Count 226, MPV 9.1, Immature Gran % (Auto) 0.400, Neut % (Auto) 92.1 H, Lymph % (Auto) 1.7 L, [place] % (Auto) 5.5, Eos % (Auto) 0.0, Baso % (Auto) 0.3, Absolute Neuts (auto) 7.0, Absolute Lymphs (auto) 0.13 L, Nucleated RBC % 0, Sodium 139, Potassium 4.8, Chloride 104, Carbon Dioxide 20.3 L, Anion Gap 15, BUN 36 H, Creatinine 1.29 H, Estim Creat Clear Calc 41.66 L, Est GFR (MDRD) Non-Af 54 L, B UN/Creatinine Ratio 27.8 H, Glucose 109 H, Calcium 9.5, Total Bilirubin 0.59, AST 26, ALT 38, Alkaline Phosphatase 90, Total Protein 6.6, Albumin 4.0, Globulin 2.6, Albumin/Globulin Ratio 1.5 11/30/24 04:00: WBC 5.3, RBC 3.89 L, Hgb 12.2 L, Hct 36.4 L, MCV 93.6, MCH 31.4, MCHC 33.5, RDW Std Deviation 44.8 H, RDW Coeff of Lucy 13.1, Plt Count 191, MPV 9.6, Immature Gran % (Auto) 0.400, Neut % (Auto) 81.3 H, Lymph % (Auto) 4.6 L, M stephen % (Auto) 12.2 H, Eos % (Auto) 1.3, Baso % (Auto) 0.2, Absolute Neuts (auto) 4.3, Absolute Lymphs (auto) 0.24 L, Nucleated RBC % 0, Sodium 140, Potassium 4.0, Chloride 108, Carbon Dioxide 21.1, Anion Gap 11, BUN 31 H, Creatinine 0.98, Estim Creat Clear Calc 54.83, Est GFR (MDRD) Non-Af 75, BUN/Creatinine Ratio 31.8 H, Glucose 79, Calcium 8.6 Radiography Diagnostic Testing: Radiology Impression Brain CT 11/29/24 16:04 IMPRESSION: 1. Question mild contusion involving the right frontal scalp. No visible acute intracranial hemorrhage or other acute posttraumatic intracranial findings. 2. Recommend outpatient dental evaluation for above findings suspicious for periapical abscess involving partially imaged roots of left maxillary teeth. 3. interval placement of a ventriculostomy catheter with similar to minimally decreased ventriculomegaly involving the lateral ventricles. 4. Additional description as above. Reading Location: [facility] Physical Exam Const alert, oriented x3, no apparent distress and well nourished HEENT normocephalic, head/scalp atraumatic and moist oral mucous membranes Eyes PERRL and EOMs intact bilaterally Neck no lymphadenopathy and supple Lymph Lymphatic: no lymphadenopathy noted and no lymphedema noted Resp normal respiratory effort, normal air movement and clear to auscultation bilaterally Cardio regular rate, regular rhythm, S1 normal heart sound, S2 normal heart sound and no murmurs GI normal to inspection, nondistended, normoactive bowel sounds, soft to palpation, non-tender and non-distended Extremity normal capillary refill, no clubbing, cyanosis or edema and no calf tenderness General Extremity: no tenderness to palpation of joints or extremities Skin Skin Narrative: healing laceration over right eyebrow. Neuro CN's II-XII intact bilaterally, no focal motor deficits and no sensory deficits noted Motor Exam: strength 5/5 throughout and general weakness Psych thought process normal and cooperative Appearance: appropriate Assessment & Plan Assessment/Plan (1) Dehydration: (2) Generalized weakness: (3) Acute diarrhea: (4) Nausea and vomiting: PLAN: Plan #Dehydration due to gastroenteritis * Resolved. Gastroenteritis has resolved and patient is no longer dehydrated. * Continue oral hydration and oral intake. * IV Zofran as needed #Closed head injury due to mechanical fall * Patient fell yesterday and sustained a laceration over the right eyebrow. He denies passing out and thinks he fell because he was weak from diarrhea. * PT OT on board. Fall precautions. * CT of the brain showed no evidence of intracranial bleed. * #Elevated creatinine: Improved with hydration. Creatinine was 1.29 is now down to 0.98 which is around his baseline. #History of atrial fibrillation: On Cardizem. Also on Xarelto. In light of mechanical fall will hold Xarelto for now. #Hyperlipidemia: On statin #Hypertension: On Cardizem #Depression: On fluoxetine #DVT Prophylaxis: SCDs Disposition: * Patient is refusing placement and also does not want home health care. At the same time he says his is on admission and he does not want to be discharged until his is discharged because he needs his to take care of him at home. Patient counseled that would not be practical to wait until his is medically stable for him to be discharged home and he would be discharged when he is medically stable. * * If he does not think he can take care of himself at home without his present then he will need to consider placement. Charges/Coding Visit Charges Inpatient E&M: 14650 Subs Hosp L2
--- NOTE | 2024-11-30 16:25 | CASEMGMT ---
Met with patient to complete BONDS form. BONDS form explained to patient who voiced understanding and signed form. Original form placed in pt?s chart and copy provided to patient. Heidy Nunez, Discharge Planning Asst
[2024-11-30] MEDS: 0.9% Normal Saline (1000mL) 1,000 ML 125 ML IV (16:33)
[2024-11-30] MEDS: Rivaroxaban 20 MG Tablet PO (16:34)
[2024-11-30 20:30] VITALS: BP 158/89; PULSE 77; RESP 16; TEMP 36.8; O2SAT 100
[2024-12-01 02:20] VITALS: BP 149/88; PULSE 80; RESP 16; TEMP 36.6; O2SAT 97
[2024-12-01 05:52] LABS: Absolute Lymphocyte Count 0.71 X10^3/uL (0.83-4.51); Absolute Neutrophil Count 2.4 X10^3/uL (2.0-7.7); Basophil# 0.01 X10^3/uL; Basophil% 0.2 % (0-1); Eosinophil# 0.29 X10^3/uL; Eosinophils% 6.9 % (0-5); Hematocrit 36.7 % (40-54); Hemoglobin 12.4 g/dL (13.0-16.5); Lymphocyte # 0.71 X10^3/ul (0.83-4.51); Mean Corp Hgb Conc 33.8 g/dL (32-36); Mean Corpuscular Hgb 31.5 pg (27.0-32.0); Mean Corpuscular Volume 93.1 fL (80-94); Mean Platelet Vol. 9.3 fl (6.2-12.0); Monocyte# 0.72 X10^3/uL; Monocyte% 17.2 % (0-10); NRBC Flagged by Analyzer 0 % (0-5); Neutrophil # 2.43 X10^3/uL (2.7-7.7); Neutrophil % 58.2 % (47-70); Platelet Count 188 K/mm3 (150-450); RBC Distribution Width CV 12.7 % (11.6-14.6); RBC Distribution Width SD 43.6 fl (35.1-43.9); Red Blood Count 3.94 M/mm3 (4.6-6.2); White Blood Count 4.2 K/mm3 (4.4-11.0)
[2024-12-01 06:48] LABS: Anion Gap 11 (5-15); BUN 16 mg/dL (4-19); BUN/Creat Ratio 20.7 RATIO (10-20); Calcium,Total 8.3 mg/dL (7.6-11.0); Carbon Dioxide 21.5 mmol/L (21.0-32.0); Chloride 106 mmol/L (98-108); Creatinine, Serum 0.79 mg/dL (0.70-1.20); EST Glomerular Filtration Rate 86 (>60); Estimated Creatinine Clearance 67.17 ml/min (50-250); Glucose 78 mg/dL (70-99); Potassium 3.8 mmol/L (3.3-5.1); Sodium Level 139 mmol/L (133-145)
[2024-12-01 10:00] VITALS: BP 149/80; PULSE 77; RESP 16; TEMP 36.7; O2SAT 97
--- NOTE | 2024-12-01 11:54 | DS.PCM_ITS ---
Providers Date of Admission: 11/29/24 Date of Discharge: 12/01/24 Primary Care Physician: Dr. Kapil Lara, Reason For Visit: NAUSEA AND VOMITING, DEHYDRATION Diagnosis Discharge Diagnosis (1) Dehydration: Status: Acute Code(s): E86.0 - Dehydration (2) Generalized weakness: Status: Acute Code(s): R53.1 - Weakness (3) Acute diarrhea: Status: Acute Code(s): R19.7 - Diarrhea, unspecified (4) Nausea and vomiting: Status: Acute Code(s): R11.2 - Nausea with vomiting, unspecified Plan #Dehydration due to gastroenteritis * Resolved. Gastroenteritis has resolved and patient is no longer dehydrated. * Continue oral hydration and oral intake. * IV Zofran as needed #Closed head injury due to mechanical fall * Patient fell yesterday and sustained a laceration over the right eyebrow. He denies passing out and thinks he fell because he was weak from diarrhea. * PT OT on board. Fall precautions. * CT of the brain showed no evidence of intracranial bleed. * #Elevated creatinine: Improved with hydration. Creatinine was 1.29 is now down to 0.98 which is around his baseline. #History of atrial fibrillation: On Cardizem. Also on Xarelto. In light of mechanical fall will hold Xarelto for now. #Hyperlipidemia: On statin #Hypertension: On Cardizem #Depression: On fluoxetine #DVT Prophylaxis: SCDs Disposition: * Patient is refusing placement and also does not want home health care. At the same time he says his is on admission and he does not want to be discharged until his is discharged because he needs his to take care of him at home. Patient counseled that would not be practical to wait until his is medically stable for him to be discharged home and he would be discharged when he is medically stable. * * If he does not think he can take care of himself at home without his present then he will need to consider placement. Medications at Discharge Home Medications lysine 500 mg tablet (L-Lysine) 500 mg PO DAILY supplement 05/14/17 multivitamin (Multiple Vitamins tablet) 1 ea PO DAILY supplement 05/14/17 coenzyme Q10 300 mg capsule 300 mg PO DAILY 07/04/23 cyanocobalamin (vitamin B-12) 1,000 mcg/mL injection solution 1,000 mcg IM Q2W vitamin 07/04/23 rivaroxaban 20 mg tablet (Xarelto) 20 mg PO DINNER OK to take with Diltiazem, pt has been on this #90 tabs 11/05/23 diltiazem HCl 120 mg capsule,extended release 24 hr 120 mg PO DAILY #90 caps 12/29/23 albuterol sulfate 90 mcg/actuation aerosol inhaler (ProAir HFA) 2 inh inhalation Q4H PRN shortness of breath or wheezing 02/12/24 fluoxetine 20 mg capsule 20 mg PO DAILY 02/12/24 rosuvastatin 20 mg tablet 20 mg PO DAILY 02/12/24 fluticasone furoate 50 mcg/actuation blister powder for inhalation (Arnuity Ellipta) 1 inh inhalation QDAY 04/07/24 Hospital Course Operations None Procedures None Summary of Care Provided Minutes Spent on Discharge: 38 Hospital Course: Patient is an 89-year-old male with past medical history as outlined was admitted through the ED on 11/29/2024 with a complaint of nausea and vomiting symptoms starting the night before admission. He said he had as well but developed the symptoms. His fell in the bathroom and she was also subsequently admitted for gastroenteritis. Patient tried to help his but he also fell and hit his head. He however did not lose any consciousness. He has not had any history of recurrent falls. He was able to get up and go to bed but felt weak in the morning so he called the EMS and was brought into the ED. He was admitted to be managed for acute gastroenteritis. He was hydrated with fluids. Diarrhea resolved and did not recur during admission. He was started on a clear liquid diet and advance to full liquid diet which he tolerated. He was therefore advanced to regular diet prior to discharge. He did well with physical therapy and was discharged home on 12/01/2024. He is follow-up with her primary care doctor within 1 to 2 weeks. Patient seen and examined prior to discharge. He was agreeable to being discharged home and had no complaints. Review of systems otherwise negative. Labs and vitals reviewed. Home medication reviewed and reconciled. Physical Exam Const alert, oriented x3, no apparent distress and well nourished General Appearance: cooperative, comfortable, well kempt and well developed Orientation / Consciousness: awake Exam Limitations: no limitations HEENT normocephalic, head/scalp atraumatic, hearing grossly normal bilaterally, moist oral mucous membranes and oropharynx normal Mouth: oral and palatal mucosa normal Eyes PERRL, EOMs intact bilaterally and conjunctivae normal Neck no lymphadenopathy and supple Lymph Lymphatic: no lymphadenopathy noted and no lymphedema noted Resp normal respiratory effort, normal air movement and clear to auscultation bilaterally Cardio regular rate, regular rhythm, S1 normal heart sound, S2 normal heart sound and no murmurs GI normal to inspection, nondistended, normoactive bowel sounds, soft to palpation, non-tender and non-distended Extremity normal to inspection, full ROM, normal capillary refill, no clubbing, cyanosis or edema and no calf tenderness General Extremity: no tenderness to palpation of joints or extremities Skin Skin Narrative: healing laceration over right eyebrow. General Skin Exam: no breakdown Neuro oriented x3, CN's II-XII intact bilaterally, moves all extremities, no focal motor deficits and no sensory deficits noted Sensorium / Orientation: awake and alert Motor Exam: strength 5/5 throughout and general weakness Psych thought process normal and cooperative Appearance: appropriate Weight / BMI Weight Weight: 177 lb 4.026 oz Body Mass Index (BMI) 25.4 ABG / Lab / Microbiology Data 12/01/24 05:16 12/01/24 05:16 Laboratory: Laboratory Results - last 24 hr 12/01/24 05:16: WBC 4.2 L, RBC 3.94 L, Hgb 12.4 L, Hct 36.7 L, MCV 93.1, MCH 31.5, MCHC 33.8, RDW Std Deviation 43.6, RDW Coeff of Lucy 12.7, Plt Count 188, MPV 9.3, Immature Gran % (Auto) 0.500, Neut % (Auto) 58.2, Lymph % (Auto) 17.0 L , [place] % (Auto) 17.2 H, Eos % (Auto) 6.9 H, Baso % (Auto) 0.2, Absolute Neuts (auto) 2.4, Absolute Lymphs (auto) 0.71 L, Nucleated RBC % 0, Sodium 139, Potassium 3.8, Chloride 106, Carbon Dioxide 21.5, Anion Gap 11, BUN 16, Creatinine 0.79, Estim Creat Clear Calc 67.17, Est GFR (MDRD) Non-Af 86, B UN/Creatinine Ratio 20.7 H, Glucose 78, Calcium 8.3 D/C Instructions Discharge Diet: Low fat / Low cholesterol Discharge Activity: Return to Normal Activity Weight Bearing Status: Weight bearing as tolerated Call your doctor if you observe: Fever of 101 or Higher, Shortness of breath, Dizziness, Swelling in the ankles and Chest pain DC O2, CPAP, BIPAP Needs Home O2 Discharge instructions: No DC home with Oxygen: No Meaningful Use Info Meaningful Use Meaningful Use Diagnoses (Choose all that apply): None applicable Ischemic Stroke Statin Dosing Therapy Reference: STATIN DOSE THERAPY REFERENCE: * Patients > 75 years receive moderate or high dose statin therapy. * Patients 75 years or YOUNGER should receive HIGH intensity statin dose unless contraindicated. You will be required to document reason for non-treatment if statin daily dose does not meet guidelines. HIGH DOSE STATIN THERAPY DAILY Atorvastatin > than or = to 40 mg Rosuvastatin > than or = to 20 mg Amlodipine + Atorvastatin > than or = to 2.5/40 mg Ezetimibe + Simvastatin 10/80 mg Simvastatin 80mg Discharge Plan Admission Admit Date/Time: 11/29/24 21:44 Primary Reason for Your Visit: gastroenteritis Attending Provider: Pippa Kothari Primary Care Provider: Kapil Lara Consulting Providers: Kyle Figueroa Instructions Patient Instructions: ED Diarrhea, Unknown Cause Discharge Orders/Prescriptions Prescriptions: Continued coenzyme Q10 300 mg capsule 300 mg PO DAILY Arnuity Ellipta 50 mcg/actuation blister with device 1 inh inhalation QDAY multivitamin [Multiple Vitamins] 1 EACH tablet 1 ea PO DAILY lysine [L-Lysine] 500 MG tablet 500 mg PO DAILY cyanocobalamin (vitamin B-12) 1,000 mcg/mL solution 1,000 mcg IM Q2W albuterol sulfate [ProAir HFA] 90 mcg/actuation HFA aerosol inhaler 2 inh inhalation Q4H PRN (Reason: shortness of breath or wheezing) rosuvastatin 20 mg tablet 20 mg PO DAILY fluoxetine 20 mg capsule 20 mg PO DAILY Xarelto 20 mg tablet 20 mg PO DINNER Qty: 90 3RF diltiazem HCl 120 mg capsule,extended release 24hr 120 mg PO DAILY Qty: 90 3RF Referrals / Follow Up: Kapil Lara DO [Primary Care Provider] - Within 1 Week Disposition Disposition (needs filled in before D/C Order can be placed): Home, Self Care Charges/Coding Visit Charges Inpatient E&M: 44750 Disch Hosp >30min
--- NOTE | 2024-12-01 11:54 | DCINST_ITS ---
Discharge Instructions Diet Discharge Diet: Low fat / Low cholesterol DC O2, CPAP, BIPAP needs Home O2 Discharge instructions: No Dressing / Incision Discharge Activity: Return to Normal Activity Weight Bearing Status: Weight bearing as tolerated Dressing / Incision Call your doctor if you observe: Fever of 101 or Higher, Shortness of breath, Dizziness, Swelling in the ankles and Chest pain Follow Up Care Test Results: Test results from this visit will be discussed in further detail at your follow- up appointment, if applicable. Discharge Plan Admission Admit Date/Time: 11/29/24 21:44 Primary Reason for Your Visit: gastroenteritis Attending Provider: Pippa Kothari Primary Care Provider: Kapil Lara Consulting Providers: Kyle Figueroa Instructions Patient Instructions: ED Diarrhea, Unknown Cause Discharge Orders/Prescriptions Prescriptions: Continued coenzyme Q10 300 mg capsule 300 mg PO DAILY Arnuity Ellipta 50 mcg/actuation blister with device 1 inh inhalation QDAY multivitamin [Multiple Vitamins] 1 EACH tablet 1 ea PO DAILY lysine [L-Lysine] 500 MG tablet 500 mg PO DAILY cyanocobalamin (vitamin B-12) 1,000 mcg/mL solution 1,000 mcg IM Q2W albuterol sulfate [ProAir HFA] 90 mcg/actuation HFA aerosol inhaler 2 inh inhalation Q4H PRN (Reason: shortness of breath or wheezing) rosuvastatin 20 mg tablet 20 mg PO DAILY fluoxetine 20 mg capsule 20 mg PO DAILY Xarelto 20 mg tablet 20 mg PO DINNER Qty: 90 3RF diltiazem HCl 120 mg capsule,extended release 24hr 120 mg PO DAILY Qty: 90 3RF Referrals / Follow Up: Kapil Lara DO [Primary Care Provider] - Within 1 Week Disposition Disposition (needs filled in before D/C Order can be placed): Home, Self Care
--- NOTE | 2024-12-01 12:24 | CASEMGMT ---
RN CM into pt room, pt states he feels much better today and is ready to go home. He states his is also going home. Pt asks about his walker that was left in the ER. He would like to take this home with him. Updated pt nurse of this. Pt denies any homegoing needs.
[2024-12-01 16:00] VITALS: BP 150/88; PULSE 76; RESP 16; TEMP 36.6; O2SAT 98
== END 2024-12-01 16:00 | disposition home or self-care (01) ==
LOC: ED 19:52 → MS2 22:18
PROVIDERS: Physician Assistant; Admitting Provider Family Medicine; Emergency Provider Emergency Medicine; PCP Student in an Organized Health Care Education/Training Program; Visit Provider Student in an Organized Health Care Education/Training Program
DX: K52.9 Noninfective gastroenteritis and colitis, unspecified (principal); M06.9 Rheumatoid arthritis, unspecified; F03.90 Unspecified dementia, unspecified severity, without behavioral disturbance, psychotic disturbance, mood disturbance, and anxiety; I48.0 Paroxysmal atrial fibrillation; E86.0 Dehydration; W19.XXXA Unspecified fall, initial encounter; I10 Essential (primary) hypertension; H91.90 Unspecified hearing loss, unspecified ear; S01.111A Laceration without foreign body of right eyelid and periocular area, initial encounter; E78.00 Pure hypercholesterolemia, unspecified; Z79.01 Long term (current) use of anticoagulants; J45.909 Unspecified asthma, uncomplicated; Z79.899 Other long term (current) drug therapy; Z79.51 Long term (current) use of inhaled steroids; S09.90XA Unspecified injury of head, initial encounter; Y93.89 Activity, other specified; Y92.89 Other specified places as the place of occurrence of the external cause; R79.89 Other specified abnormal findings of blood chemistry; F32.A Depression, unspecified
CPT/HCPCS: 36415; 70450; 80048; 80053; 85025; 93005; 94760; 96360; 96361; 99221; 99285; A4216; G0378

== ENCOUNTER → 2025-06-06 | Outpatient (CLI) | payer MEDICARE, OTHER, SELFPAY | END | disposition home or self-care (01) | LOC: PSN 08:56 | PROVIDERS: PCP Student in an Organized Health Care Education/Training Program; Referring Provider Internal Medicine Cardiovascular Disease; Visit Provider Internal Medicine Cardiovascular Disease | DX: I48.91 Unspecified atrial fibrillation (principal); R06.00 Dyspnea, unspecified | CPT/HCPCS: 93225; 93226 ==

== ENCOUNTER → 2025-06-16 | Outpatient (CLI) | payer MEDICARE, OTHER, SELFPAY ==
--- NOTE | 2025-06-16 12:59 | ECHOD_ITS ---
Reason For Study Reason For Study: DYSPNEA Procedure This was a 2D Doppler, Color Flow transthoracic echocardiogram. Exam performed in department. Left Ventricle Normal LV size. Mild concentric left ventricular hypertrophy. Left ventricular systolic function is normal. The left ventricular ejection fraction is 60 %. Stage 1 diastolic dysfunction. No regional wall motion abnormalities noted. Right Ventricle Normal RV size. Normal systolic function. Atria Normal left atrium. Normal right atrium. Mitral Valve Normal mitral valve. Tricuspid Valve Normal tricuspid valve. Aortic Valve Trisinus/trileaflet aortic valve. Mild focal aortic valve calcification. Peak aortic valve gradient 21 mmHg. Mean aortic valve gradient 13 mmHg. Pulmonic Valve The pulmonic valve is not well visualized. Great Vessels Normal aortic root. Pericardium/Pleural No pericardial effusion. MMode/2D Measurements & Calculations LVIDd: 3.9 cm IVSd: 1.3 cm LVOT diam: 2.0 cm LVIDs: 2.7 cm LVPWd: 1.3 cm LVOT area: 3.1 cm2 FS: 31.2 % LAV(MOD-bp): 42.7 ml LVAd ap4: 22.9 cm2 SV(MOD-sp4): 38.2 ml LAV(MOD-bp) Indexed: 21.8 ml/m2 LVLd ap4: 8.6 cm SI(MOD-sp4): 19.6 ml/m2 LAV(MOD-sp2): 42.4 ml EDV(MOD-sp4): 52.6 ml LAV(MOD-sp4): 44.9 ml EDV(sp4-el): 51.9 ml LVAs ap4: 10.4 cm2 LVLs ap4: 7.3 cm ESV(MOD-sp4): 14.4 ml ESV(sp4-el): 12.6 ml EF(MOD-sp4): 72.6 % EF(sp4-el): 75.7 % SV(sp4-el): 39.3 ml LA A4 area: 16.5 cm2 LA dimension(2D): 3.6 cm RA A4 area: 11.1 cm2 Time Measurements MV dec time: 0.16 sec Doppler Measurements & Calculations MV E max paul: 68.2 cm/sec Lat Peak E' Paul: 11.6 cm/sec Med Peak E' Paul: 6.8 cm/sec MV A max paul: 114.7 cm/sec E/E' lat: 5.9 E/E' med: 10.1 MV E/A: 0.59 MV V2 max: 107.2 cm/sec Ao V2 max: 229.2 cm/sec MV max P.6 mmHg MV dec slope: 443.6 cm/sec2 Ao max P.0 mmHg MV V2 mean: 57.9 cm/sec Ao V2 mean: 170.2 cm/sec MV mean P.6 mmHg Ao mean P.0 mmHg MV V2 VTI: 29.9 cm Ao V2 VTI: 51.6 cm AV (velocity ratio): 0.41 MVA(VTI): 2.2 cm2 BLIL(I,D): 1.3 cm2 BILL(V,D): 1.5 cm2 LV V1 max: 108.3 cm/sec SV(LVOT): 65.9 ml PA V2 max: 120.0 cm/sec LV V1 max P.7 mmHg PA V2 mean: 83.5 cm/sec LV V1 mean P.5 mmHg LV V1 mean: 71.4 cm/sec LV V1 VTI: 21.3 cm ECHO/Echo Complete Interpretation Summary Normal LV size. Left ventricular systolic function is normal. The left ventricular ejection fraction is 60 %. Mild focal aortic valve calcification. Mild concentric left ventricular hypertrophy. Stage 1 diastolic dysfunction. Mean aortic valve gradient 13 mmHg. Ordering Physician: Jose Miguel Renteria Referring Physician: Jose Miguel Renteria Performed By: Leilani Dunaway RCS
== END | disposition home or self-care (01) ==
LOC: CVS 12:56
PROVIDERS: PCP Student in an Organized Health Care Education/Training Program; Referring Provider Internal Medicine Cardiovascular Disease; Visit Provider Internal Medicine Cardiovascular Disease
DX: R06.02 Shortness of breath (principal)
CPT/HCPCS: 93306